=== PATIENT | male | born 1995 | race Caucasian/White ===

== ENCOUNTER → 2016-12-19 | Outpatient (CLI) | payer BC, OTHER ==
[2016-12-19 11:08] LABS: Basophils % (A) 0 %; CH 29.7; CHCM 34.1; Eosinophils % (A) 1 %; HCT 40.6 % (39.0-53.0); HDW 2.48; HGB 13.4 gm/dL (13.0-17.5); Luc # (Auto) 0.11; Luc % (Auto) 2; Lymphocytes # (A) 1.1 k/uL (1.0-4.8); Lymphocytes % (A) 21 %; MCH 28.8 pg (25.0-35.0); MCV 87.3 fL (80.0-100.0); Mean Platelet Volume 8.6; Monocytes # (A) 0.6 k/uL (0-1.0); Monocytes % (A) 11 %; Neutrophils # (A) 3.4 k/uL (1.3-7.7); Neutrophils % (A) 65 %; RBC 4.65 m/uL (4.30-5.90); RDW 13.4 % (11.5-15.5); WBC 5.2 k/uL (3.8-10.6); WBC (Perox) 5.17
[2016-12-26 07:45] LABS: Mis test requested (Blood) Lacosamide Level
== END ==
LOC: LABWHC1 10:48
PROVIDERS: ATTEND Psychiatry & Neurology Neurology
DX: G40.209 Localization-related (focal) (partial) symptomatic epilepsy and epileptic syndromes with complex partial seizures, not intractable, without status epilepticus (principal)
CPT/HCPCS: 36415; 80164; 80183; 80339; 84295; 84450; 84460; 85025

== ENCOUNTER → 2017-04-24 | Outpatient (CLI) | payer BC, OTHER ==
[2017-04-24 10:46] LABS: Basophils % (A) 1 %; CHCM 35.1; Eosinophils # (A) 0.1 k/uL (0-0.7); Eosinophils % (A) 2 %; HCT 38.6 % (39.0-53.0); HDW 2.57; HGB 13.6 gm/dL (13.0-17.5); Luc # (Auto) 0.14; Luc % (Auto) 4; Lymphocytes # (A) 1.1 k/uL (1.0-4.8); Lymphocytes % (A) 27 %; MCH 30.2 pg (25.0-35.0); MCHC 35.3 g/dL (31.0-37.0); MCV 85.6 fL (80.0-100.0); Mean Platelet Volume 8.5; Monocytes # (A) 0.4 k/uL (0-1.0); Monocytes % (A) 11 %; Neutrophils # (A) 2.2 k/uL (1.3-7.7); Neutrophils % (A) 56 %; RBC 4.51 m/uL (4.30-5.90); RDW 13.4 % (11.5-15.5)
== END | disposition home or self-care (01) ==
LOC: LABWHC1 10:03
PROVIDERS: ATTEND Psychiatry & Neurology Neurology
DX: G40.209 Localization-related (focal) (partial) symptomatic epilepsy and epileptic syndromes with complex partial seizures, not intractable, without status epilepticus (principal)
CPT/HCPCS: 36415; 80164; 80339; 84450; 84460; 85025

== ENCOUNTER → 2017-08-07 | Outpatient (CLI) | payer BC, OTHER ==
[2017-08-07 11:18] LABS: Basophils % (A) 1 %; CH 29.5; Eosinophils # (A) 0.2 k/uL (0-0.7); Eosinophils % (A) 5 %; HCT 37.3 % (39.0-53.0); HDW 2.44; Luc % (Auto) 2; Lymphocytes % (A) 24 %; MCH 28.9 pg (25.0-35.0); MCHC 32.3 g/dL (31.0-37.0); MCV 89.6 fL (80.0-100.0); Mean Platelet Volume 8.4; Monocytes # (A) 0.3 k/uL (0-1.0); Monocytes % (A) 7 %; Neutrophils # (A) 2.6 k/uL (1.3-7.7); Neutrophils % (A) 61 %; RBC 4.16 m/uL (4.30-5.90); RDW 13.4 % (11.5-15.5); WBC 4.2 k/uL (3.8-10.6)
== END | disposition home or self-care (01) ==
LOC: LABWHC1 10:23
PROVIDERS: ATTEND Psychiatry & Neurology Neurology
DX: G40.209 Localization-related (focal) (partial) symptomatic epilepsy and epileptic syndromes with complex partial seizures, not intractable, without status epilepticus (principal)
CPT/HCPCS: 36415; 80164; 80183; 84295; 84450; 84460; 85025

== ENCOUNTER 2017-08-14 12:14 | Emergency (ER) | payer BC, OTHER ==
--- NOTE | 2017-08-14 12:56 | ED ---
Head Injury HPI - General Chief complaint: Head Injury Stated complaint: Seizure/Fall Time Seen by Provider: 08/14/17 12:28 Source: RN notes reviewed, Caregiver Mode of arrival: ambulatory Limitations: physical limitation - History of Present Illness Initial comments: This is a 21-year-old male with a history of seizures who presents to the emergency department for evaluation of head injury following partial seizure. Patient is autistic and is accompanied by his machine worker at the [facility]. Housing Installer states that patient has a history of seizures and has one every 1-2 months. At approximately 1155 this morning patient was alone in the bathroom. They heard him fall down and when they got to the bathroom he was lying down on his right side. At that point he was awake with mild shaking and in post-ictal period. States he did not lose consciousness. They said his name and he immediately opened his eyes. He had a large "goose egg" above left eyebrow. Presented to the emergency department for evaluation of the head injury. The fall was not witnessed but machine worker believes that he may have hit his head on the tile floor. Denies any other injury or trauma. Denies any other symptoms of concertn. - Related Data Home Medications Medication Instructions Recorded Confirmed Albuterol Sulfate (Bottle) 1 inhalation INHALATION QID PRN 03/06/15 03/28/15 [Ventolin] Albuterol Sulfate [Proair Hfa] 2 puff INHALATION Q6H PRN 03/06/15 03/28/15 Beclomethasone Dipropionate [Qvar 2 puff INHALATION BID 03/06/15 03/28/15 80 mcg/puff] Benztropine Mesylate [Cogentin] 1 tab PO BID 03/06/15 03/28/15 Cetirizine HCl [Zyrtec] 1 tab PO DAILY 03/06/15 03/28/15 Haloperidol [Haldol] 1 tab PO BID 03/06/15 03/28/15 Montelukast [Singulair] 1 tab PO DAILY 03/06/15 03/28/15 Multivitamin [Men's Multi-Vitamin] 1 tab PO DAILY 03/06/15 03/28/15 OLANZapine [ZyPREXA] 1 tab PO HS 03/06/15 03/28/15 OXcarbazepine [Trileptal] 1 tab PO BID 03/06/15 03/28/15 cloNIDine HCL [Catapres] 1 tab PO TID 03/06/15 03/28/15 Cholecalciferol [Vitamin D3] 2 tab PO DAILY 03/28/15 03/28/15 Allergies/Adverse reactions: Allergies Allergy/AdvReac Type Severity Reaction Status Date / Time fluoxetine [From Prozac] Allergy Unknown Verified 08/14/17 12:23 Review of Systems ROS Statement: Those systems with pertinent positive or pertinent negative responses have been documented in the HPI. ROS Other: All systems not noted in ROS Statement are negative. Past Medical History Past Medical History: Asthma, Seizure Disorder Additional Past Medical History / Comment(s): Autism History of Any Multi-Drug Resistant Organisms: None Reported Past Surgical History: No Surgical Hx Reported Additional Past Surgical History / Comment(s): pt can be violent at times is why he is in [facility] per mom, being treated, Autism/behavior/violent [facility] Past Psychological History: No Psychological Hx Reported Smoking Status: Never smoker Past Alcohol Use History: None Reported Past Drug Use History: None Reported General Exam - General Exam Comments Initial Comments: General: Awake and alert, well-developed; in no apparent distress. Appears tired. Difficult to fully assess patient as he is autistic and does not speak. HEENT: Head normocephalic. There is a large approximately 5.0 cm in diameter localized swelling and contusion above left eyebrow. Overlying abrasion with bleeding controlled. Pupils are equal, round and reactive to light. Extraocular movements intact. Oropharynx moist without erythema or exudate. Mild bruising on tip of tongue without any open wounds. Neck: Supple. Normal ROM. Cardiovascular: Regular rate and rhythm. No murmurs, rubs or gallops. Chest symmetrical. Respiratory: Lungs clear to auscultation bilaterally. No wheezes, rales or rhonchi. Normal respiratory effort with no use of accessory muscles. Skin: [place], warm and dry without rashes. Limitations: physical limitation Course Vital Signs 08/14/17 12:19 Temperature 97.8 F Pulse Rate 85 Respiratory 20 Rate Blood Pressure 119/60 O2 Sat by Pulse 98 Oximetry Medical Decision Making - Medical Decision Making This is a 21-year-old male who presents for evaluation of head injury post seizure. Patient has a history of partial seizures. He lives in a [facility]ci and is accompanied to the emergency department with a machine worker. Patient had an unwitnessed partial seizure this morning in the bathroom and hit the frontal region of his head. There is localized swelling in the left frontal region. Denies any loss of consciousness or changes in behavior. Patient is tired but machine worker states this is normal for him after having a seizure. Computed tomography scan of the brain revealed no acute intracranial processes. Patient will be discharged back to the fci with recommendation to ice the area and to monitor for any signs of brain trauma. Housing Installer is in agreement with the plan and voices understanding. All questions were answered. - Radiology Data Radiology results: report reviewed Brain CT impressions: 1. No acute intracranial process. 2. Superficial soft tissue swelling left frontal region. Disposition Clinical Impression: Forehead contusion Disposition: HOME SELF-CARE Condition: Good Instructions: Head Injury (ED), Facial Contusion (ED) Additional Instructions: Please apply ice to the area of swelling. Please monitor for any signs of brain trauma such as loss of consciousness, changes in behavior, episodes of vomiting or difficulty arouse while sleeping. Please follow up with primary care provider within 1-2 days. Return to emergency department if symptoms should worsen or any concerns arise. Referrals: Bandar Hanna DO [Primary Care Provider] - 1-2 days Time of Disposition: 13:31
--- NOTE | 2017-08-14 13:07 | CT ---
EXAMINATION TYPE: CT brain wo con DATE OF EXAM: 08/14/2017 COMPARISON: 03/06/2015 INDICATION: Seizure/Fall DLP: 1017.9 mGycm, Automated exposure control for dose reduction was used. CONTRAST: None CT of the brain is performed utilizing 3 mm thick sections through the posterior fossa and 3 mm thick sections through the remaining calvarium. Study is performed within 24 hours of arrival to the hosp [facility]. No abnormal hyperdensity is present to suggest an acute intracranial hemorrhage. No mass lesion is evident. No acute infarcts are evident. Ventricles and sulci are appropriate for the patient age. Paranasal sinuses and mastoid air cells within the [id number] are clear. There is soft tissue swelling over the left supraorbital region. IMPRESSIONS: 1. No acute intracranial process. 2. Superficial soft tissue swelling left frontal region
[2017-08-14 13:36] VITALS: BP 108/60; PULSE 63; RESP 18; TEMP 98
== END 2017-08-14 14:01 | disposition home or self-care (01) ==
LOC: EC 12:14
DX: S00.83XA Contusion of other part of head, initial encounter (principal); J45.909 Unspecified asthma, uncomplicated; G40.909 Epilepsy, unspecified, not intractable, without status epilepticus; F84.0 Autistic disorder; Z79.51 Long term (current) use of inhaled steroids; Z79.899 Other long term (current) drug therapy; Z88.8 Allergy status to other drugs, medicaments and biological substances; W18.00XA Striking against unspecified object with subsequent fall, initial encounter; Y92.002 Bathroom of unspecified non-institutional (private) residence as the place of occurrence of the external cause
CPT/HCPCS: 70450; 99283

== ENCOUNTER → 2017-10-05 | Outpatient (CLI) | payer BC, OTHER ==
[2017-10-05 09:40] LABS: Basophils % (A) 0 %; Eosinophils % (A) 1 %; HCT 37.4 % (39.0-53.0); HGB 12.3 gm/dL (13.0-17.5); Lymphocytes # (A) 1.1 k/uL (1.0-4.8); Lymphocytes % (A) 38 %; MCH 28.8 pg (25.0-35.0); MCHC 32.8 g/dL (31.0-37.0); MCV 87.8 fL (80.0-100.0); Mean Platelet Volume 8.5; Monocytes # (A) 0.2 k/uL (0-1.0); Monocytes % (A) 7 %; Neutrophils # (A) 1.5 k/uL (1.3-7.7); Neutrophils % (A) 51 %; Platelet Count 208 k/uL (150-450); RBC 4.26 m/uL (4.30-5.90); RDW 14.3 % (11.5-15.5); WBC 2.9 k/uL (3.8-10.6)
[2017-10-05 10:18] LABS: Valproic Acid (Depakene) 63.6 ug/mL
== END | disposition home or self-care (01) ==
LOC: LABWHC1 09:10
PROVIDERS: ATTEND Psychiatry & Neurology Neurology
DX: G40.209 Localization-related (focal) (partial) symptomatic epilepsy and epileptic syndromes with complex partial seizures, not intractable, without status epilepticus (principal)
CPT/HCPCS: 36415; 80164; 80339; 84295; 84460; 85025

== ENCOUNTER → 2017-10-30 | Outpatient (CLI) | payer BC, OTHER ==
[2017-10-30 10:35] LABS: ALT 25 U/L (21-72); AST 17 U/L (17-59); Albumin 4.6 g/dL (3.5-5.0); Alkaline Phosphatase 64 U/L (38-126); Anion Gap 14 mmol/L; Blood Urea Nitrogen 4 mg/dL (9-20); Calcium 9.8 mg/dL (8.4-10.2); Carbon Dioxide 24 mmol/L (22-30); Chloride 96 mmol/L (98-107); Glucose 83 mg/dL (74-99); Potassium 4.5 mmol/L (3.5-5.1); Sodium 134 mmol/L (137-145); Total Bilirubin 0.3 mg/dL (0.2-1.3); Total Protein 7.4 g/dL (6.3-8.2)
[2017-10-30 10:49] LABS: T4, Free (Free Thyroxine) 0.69 ng/dL (0.78-2.19)
[2017-10-30 11:22] LABS: Basophils % (A) 0 %; Eosinophils # (A) 0.1 k/uL (0-0.7); Eosinophils % (A) 3 %; HCT 37.7 % (39.0-53.0); HGB 12.2 gm/dL (13.0-17.5); Lymphocytes # (A) 0.9 k/uL (1.0-4.8); Lymphocytes % (A) 35 %; MCH 28.8 pg (25.0-35.0); MCHC 32.2 g/dL (31.0-37.0); MCV 89.4 fL (80.0-100.0); Mean Platelet Volume 7.8; Monocytes # (A) 0.2 k/uL (0-1.0); Monocytes % (A) 9 %; Neutrophils # (A) 1.3 k/uL (1.3-7.7); Neutrophils % (A) 50 %; Platelet Count 206 k/uL (150-450); RBC 4.22 m/uL (4.30-5.90); RDW 13.4 % (11.5-15.5); WBC 2.6 k/uL (3.8-10.6)
[2017-10-30 15:23] LABS: Iron Saturation 17.11 (15.00-50.00)
[2017-10-30 15:30] LABS: Vitamin D 25 Hydroxy 33.1 ng/mL (30.0-100.0)
[2017-10-30 15:48] LABS: Folate, Serum 14.1 ng/mL
[2017-10-31 16:10] LABS: Valproic Acid (Depakene) 80.3 ug/mL
== END | disposition home or self-care (01) ==
LOC: LABWHC1 09:53
PROVIDERS: ATTEND Psychiatry & Neurology Neurology
DX: E87.1 Hypo-osmolality and hyponatremia (principal); G40.209 Localization-related (focal) (partial) symptomatic epilepsy and epileptic syndromes with complex partial seizures, not intractable, without status epilepticus; R79.89 Other specified abnormal findings of blood chemistry; I10 Essential (primary) hypertension; R80.9 Proteinuria, unspecified; J45.909 Unspecified asthma, uncomplicated; R56.9 Unspecified convulsions; F84.0 Autistic disorder
CPT/HCPCS: 36415; 80053; 80164; 82306; 82607; 82746; 83540; 83550; 84439; 84443; 85025

== ENCOUNTER 2017-11-15 13:11 | Inpatient (IN) | payer BC, OTHER ==
[2017-11-15] MEDS ORDERED: SODIUM CHLORIDE 0.9% 1,000 ML IV ONE (13:50)
--- NOTE | 2017-11-15 14:32 | ED ---
General Adult HPI - General Chief complaint: Recheck/Abnormal Lab/Rx Stated complaint: Shaky, disoriented Time Seen by Provider: 11/15/17 13:40 Source: patient, family, RN notes reviewed, Caregiver Mode of arrival: wheelchair Limitations: altered mental status, physical limitation - History of Present Illness Initial comments: 22-year-old male presents emergency Department with family/caregiver for evaluation of altered mental status, shaking episodes. They state her last few days he is noted to have increased cough congestion and change in his normal behavior. They state that is very fatigued was also disorientated. They also noticed that his been shaking which is primarily worsened today he was unable to hold any food or drink because he was so shaky. He does have a history of seizures. Patient had a recent change of his medication in which she had an increase of his Depakote and decrease in Trileptal secondary to abnormal lab work. Patient had no reported fever he does have a cough and some phlegm days having difficulty coughing up. He did have a episodes of vomiting a few days ago when nothing recent denies any diarrhea - Related Data Home Medications Medication Instructions Recorded Confirmed Albuterol Sulfate [Proair Hfa] 2 puff INHALATION RT-Q6H PRN 03/06/15 11/15/17 Beclomethasone Dipropionate [Qvar 2 puff INHALATION RT-BID 03/06/15 11/15/17 80 mcg/puff] Benztropine Mesylate [Cogentin] 1 mg PO BID 03/06/15 11/15/17 Cetirizine HCl [Zyrtec] 10 mg PO DAILY PRN 03/06/15 11/15/17 Haloperidol [Haldol] 4 mg PO HS 03/06/15 11/15/17 Montelukast [Singulair] 10 mg PO HS 03/06/15 11/15/17 Multivitamin [Men's Multi-Vitamin] 1 tab PO DAILY 03/06/15 11/15/17 cloNIDine HCL [Catapres] 0.1 mg PO TID 03/06/15 11/15/17 Cholecalciferol [Vitamin D3] 1,000 unit PO DAILY 08/14/17 11/15/17 Diastat 10 mg RECTAL ONCE PRN 08/14/17 11/15/17 Divalproex ER [Depakote ER] 1,000 mg PO BID 08/14/17 11/15/17 Ibuprofen [Motrin] 400 mg PO Q6HR PRN 08/14/17 11/15/17 Lacosamide [Vimpat] 200 mg PO BID 08/14/17 11/15/17 OLANZapine [ZyPREXA] 10 mg PO HS 08/14/17 11/15/17 OXcarbazepine [Trileptal] 750 mg PO DAILY 08/14/17 11/15/17 Clonazepam 1mg Odt 2 tab SUBLINGUAL DAILY PRN 11/15/17 11/15/17 Divalproex ER [Depakote ER] 500 mg PO HS 11/15/17 11/15/17 OXcarbazepine [Trileptal] 600 mg PO HS 11/15/17 11/15/17 Pseudoephedrine HCl [Sudogest] 30 mg PO Q6HR PRN 11/15/17 11/15/17 guaiFENesin-DM 100-10MG/5ML 10 ml PO BID PRN 11/15/17 11/15/17 [Robitussin DM] Allergies Allergy/AdvReac Type Severity Reaction Status Date / Time fluoxetine [From Prozac] Allergy Unknown Verified 11/15/17 13:46 peanut Allergy Unknown Verified 11/15/17 13:46 Review of Systems ROS Statement: Those systems with pertinent positive or pertinent negative responses have been documented in the HPI. ROS Other: All systems not noted in ROS Statement are negative. Past Medical History Past Medical History: Asthma, Seizure Disorder Additional Past Medical History / Comment(s): Autism(can become violent at times -thats why he is in a [facility] mon thru monday and home on weekend) .being tx for autism/behavior/violent episodes-has a [facility] worker that comes to the [facility]. also sees dr kong and dr kimble. History of Any Multi-Drug Resistant Organisms: MRSA Date of last positivie culture/infection: 2006 MDRO Source:: boils on rt hip Past Surgical History: No Surgical Hx Reported Additional Past Surgical History / Comment(s): pt can be violent at times is why he is in [facility] per mom, being treated, Autism/behavior/violent H Past Anesthesia/Blood Transfusion Reactions: No Reported Reaction Additional Past Anesthesia/Blood Transfusion Reaction / Comment(s): per mom-pt never had any sx. Past Psychological History: No Psychological Hx Reported Smoking Status: Never smoker Past Alcohol Use History: None Reported Past Drug Use History: None Reported - Past Family History Father Family Medical History: Hypertension Additional Family Medical History / Comment(s): depression Mother Family Medical History: Diabetes Mellitus, Hypertension, Thyroid Disorder Additional Family Medical History / Comment(s): depression General Exam Limitations: altered mental status, physical limitation General appearance: alert, in no apparent distress Head exam: Present: atraumatic, normocephalic, normal inspection Eye exam: Present: normal appearance, PERRL, EOMI. Absent: scleral icterus, conjunctival injection, periorbital swelling ENT exam: Present: normal exam, normal oropharynx, mucous membranes moist, TM's normal bilaterally, normal external ear exam Neck exam: Present: normal inspection, full ROM. Absent: tenderness, meningismus, lymphadenopathy Respiratory exam: Present: normal lung sounds bilaterally. Absent: respiratory distress, wheezes, rales, rhonchi, stridor Cardiovascular Exam: Present: regular rate, normal rhythm, normal heart sounds. Absent: systolic murmur, diastolic murmur, rubs, gallop, clicks GI/Abdominal exam: Present: soft, normal bowel sounds. Absent: distended, tenderness, guarding, rebound, rigid Neurological exam: Present: alert, CN II-XII intact. Absent: oriented X3 Skin exam: Present: warm, dry, intact, normal color. Absent: rash Course Vital Signs 11/15/17 13:20 Temperature 98.7 F Pulse Rate 100 Respiratory 20 Rate Blood Pressure 115/58 O2 Sat by Pulse 99 Oximetry Medical Decision Making - Medical Decision Making 22-year-old male presented for altered mental status, cough congestion. Patient was found to have hyperammonieminia and elevated valproic acid level. Patient will be admitted to the hospital for IV hydration, lactulose and Tamiflu. Patient is also influenza be positive. - Lab Data Result diagrams: 11/15/17 14:26 11/15/17 14:26 Lab Results 11/15/17 11/15/17 11/15/17 Range/Units 14:22 14:26 14:26 WBC (3.8-10.6) k/uL RBC (4.30-5.90) m/uL Hgb (13.0-17.5) gm/dL Hct (39.0-53.0) % MCV (80.0-100.0) fL MCH (25.0-35.0) pg MCHC (31.0-37.0) g/dL RDW (11.5-15.5) % Plt Count (150-450) k/uL Neutrophils % % Lymphocytes % % Monocytes % % Eosinophils % % Basophils % % Neutrophils # (1.3-7.7) k/uL Lymphocytes # (1.0-4.8) k/uL Monocytes # (0-1.0) k/uL Eosinophils # (0-0.7) k/uL Basophils # (0-0.2) k/uL PT (9.0-12.0) sec INR (<1.2) APTT (22.0-30.0) sec Sodium (137-145) mmol/L Potassium (3.5-5.1) mmol/L Chloride (98-107) mmol/L Carbon Dioxide (22-30) mmol/L Anion Gap mmol/L BUN (9-20) mg/dL Creatinine (0.66-1.25) mg/dL Est GFR (MDRD) Af Amer (>60 ml/min/1.73 sqM) Est GFR (MDRD) Non-Af (>60 ml/min/1.73 sqM) Glucose (74-99) mg/dL POC Glucose (mg/dL) (75-99) mg/dL POC Glu Synthetic Chemist ID Plasma Lactic Acid Joao 1.7 (0.7-2.0) mmol/L Calcium (8.4-10.2) mg/dL Total Bilirubin (0.2-1.3) mg/dL AST (17-59) U/L ALT (21-72) U/L Alkaline Phosphatase (38-126) U/L Ammonia 114 H (<30) umol/L Total Creatine Kinase 431 H (55-170) U/L CK-MB (CK-2) 1.1 (0.0-2.4) ng/mL CK-MB (CK-2) Rel Index 0.3 Total Protein (6.3-8.2) g/dL Albumin (3.5-5.0) g/dL Valproic Acid ug/mL Influenza Type A RNA Not Detected (Not Detectd) Influenza Type B (PCR) Detected H (Not Detectd) 11/15/17 11/15/17 11/15/17 Range/Units 14:26 14:26 14:26 WBC 7.6 (3.8-10.6) k/uL RBC 4.20 L (4.30-5.90) m/uL Hgb 12.1 L (13.0-17.5) gm/dL Hct 36.7 L (39.0-53.0) % MCV 87.6 (80.0-100.0) fL MCH 28.8 (25.0-35.0) pg MCHC 32.9 (31.0-37.0) g/dL RDW 13.7 (11.5-15.5) % Plt Count 137 L (150-450) k/uL Neutrophils % 80 % Lymphocytes % 7 % Monocytes % 12 % Eosinophils % 0 % Basophils % 0 % Neutrophils # 6.0 (1.3-7.7) k/uL Lymphocytes # 0.5 L (1.0-4.8) k/uL Monocytes # 0.9 (0-1.0) k/uL Eosinophils # 0.0 (0-0.7) k/uL Basophils # 0.0 (0-0.2) k/uL PT 10.5 (9.0-12.0) sec INR 1.1 (<1.2) APTT 28.4 (22.0-30.0) sec Sodium 136 L (137-145) mmol/L Potassium 4.0 (3.5-5.1) mmol/L Chloride 99 (98-107) mmol/L Carbon Dioxide 22 (22-30) mmol/L Anion Gap 15 mmol/L BUN 24 H (9-20) mg/dL Creatinine 0.80 (0.66-1.25) mg/dL Est GFR (MDRD) Af Amer >60 (>60 ml/min/1.73 sqM) Est GFR (MDRD) Non-Af >60 (>60 ml/min/1.73 sqM) Glucose 108 H (74-99) mg/dL POC Glucose (mg/dL) (75-99) mg/dL POC Glu Synthetic Chemist ID Plasma Lactic Acid [place] (0.7-2.0) mmol/L Calcium 9.2 (8.4-10.2) mg/dL Total Bilirubin 0.4 (0.2-1.3) mg/dL AST 35 (17-59) U/L ALT 25 (21-72) U/L Alkaline Phosphatase 50 (38-126) U/L Ammonia (<30) umol/L Total Creatine Kinase (55-170) U/L CK-MB (CK-2) (0.0-2.4) ng/mL CK-MB (CK-2) Rel Index Total Protein 6.8 (6.3-8.2) g/dL Albumin 4.0 (3.5-5.0) g/dL Valproic Acid 123.1 H* ug/mL Influenza Type A RNA (Not Detectd) Influenza Type B (PCR) (Not Detectd) 11/15/17 Range/Units 14:34 WBC (3.8-10.6) k/uL RBC (4.30-5.90) m/uL Hgb (13.0-17.5) gm/dL Hct (39.0-53.0) % MCV (80.0-100.0) fL MCH (25.0-35.0) pg MCHC (31.0-37.0) g/dL RDW (11.5-15.5) % Plt Count (150-450) k/uL Neutrophils % % Lymphocytes % % Monocytes % % Eosinophils % % Basophils % % Neutrophils # (1.3-7.7) k/uL Lymphocytes # (1.0-4.8) k/uL Monocytes # (0-1.0) k/uL Eosinophils # (0-0.7) k/uL Basophils # (0-0.2) k/uL PT (9.0-12.0) sec INR (<1.2) APTT (22.0-30.0) sec Sodium (137-145) mmol/L Potassium (3.5-5.1) mmol/L Chloride (98-107) mmol/L Carbon Dioxide (22-30) mmol/L Anion Gap mmol/L BUN (9-20) mg/dL Creatinine (0.66-1.25) mg/dL Est GFR (MDRD) Af Amer (>60 ml/min/1.73 sqM) Est GFR (MDRD) Non-Af (>60 ml/min/1.73 sqM) Glucose (74-99) mg/dL POC Glucose (mg/dL) 105 H (75-99) mg/dL POC Glu Synthetic Chemist ID Jim Villegas Plasma Lactic Acid Joao (0.7-2.0) mmol/L Calcium (8.4-10.2) mg/dL Total Bilirubin (0.2-1.3) mg/dL AST (17-59) U/L ALT (21-72) U/L Alkaline Phosphatase (38-126) U/L Ammonia (<30) umol/L Total Creatine Kinase (55-170) U/L CK-MB (CK-2) (0.0-2.4) ng/mL CK-MB (CK-2) Rel Index Total Protein (6.3-8.2) g/dL Albumin (3.5-5.0) g/dL Valproic Acid ug/mL Influenza Type A RNA (Not Detectd) Influenza Type B (PCR) (Not Detectd) Disposition Clinical Impression: Valproic acid toxicity, Hyperammonemia, Influenza, Altered mental status Disposition: ADMITTED IP TO THIS HOSP Condition: Fair Referrals: Bandar Hanna DO [Primary Care Provider] - 1-2 days
[2017-11-15 14:38] LABS: Glucose,Whole Blood 105 mg/dL (75-99)
[2017-11-15 14:43] LABS: Basophils % (A) 0 %; Eosinophils % (A) 0 %; HCT 36.7 % (39.0-53.0); HGB 12.1 gm/dL (13.0-17.5); Lymphocytes # (A) 0.5 k/uL (1.0-4.8); Lymphocytes % (A) 7 %; MCH 28.8 pg (25.0-35.0); MCHC 32.9 g/dL (31.0-37.0); MCV 87.6 fL (80.0-100.0); Mean Platelet Volume 8.2; Monocytes # (A) 0.9 k/uL (0-1.0); Monocytes % (A) 12 %; Neutrophils % (A) 80 %; Platelet Count 137 k/uL (150-450); RDW 13.7 % (11.5-15.5); WBC 7.6 k/uL (3.8-10.6)
[2017-11-15 14:52] LABS: ALT 25 U/L (21-72); AST 35 U/L (17-59); Alkaline Phosphatase 50 U/L (38-126); Anion Gap 15 mmol/L; Blood Urea Nitrogen 24 mg/dL (9-20); Calcium 9.2 mg/dL (8.4-10.2); Carbon Dioxide 22 mmol/L (22-30); Chloride 99 mmol/L (98-107); Glucose 108 mg/dL (74-99); Sodium 136 mmol/L (137-145); Total Bilirubin 0.4 mg/dL (0.2-1.3); Total Protein 6.8 g/dL (6.3-8.2)
[2017-11-15 14:53] LABS: Lactic Acid, Venous 1.7 mmol/L (0.7-2.0)
--- NOTE | 2017-11-15 14:59 | XR ---
EXAMINATION TYPE: XR chest 2V DATE OF EXAM: 11/15/2017 COMPARISON: Prior chest x-ray 03/06/2015 HISTORY: Altered mental status TECHNIQUE: Frontal and lateral views of the chest are obtained. FINDINGS: Patient is again rotated. Questionable patchy increased density in the right upper lobe. C ardiomediastinal silhouette, pulmonary vascularity and navdeep are stable. No evident airspace disease, pneumothorax, or pleural effusion. Lung volumes are low. IMPRESSION: Rotated expiratory exam, difficult to exclude pneumonia, follow-up as indicated.
--- NOTE | 2017-11-15 15:00 | CT ---
EXAMINATION TYPE: CT brain wo con DATE OF EXAM: 11/15/2017 COMPARISON: 08/07/2017 HISTORY: Disorientation. History of seizures. Are present. CT DLP: 1058 mGycm. Automated Exposure Control for Dose Reduction was Utilized. TECHNIQUE: CT scan of the head is performed without contrast. FINDINGS: There is no acute intracranial hemorrhage, mass effect, or midline shift identified. The ventricles and sulci are within normal limits in size. The globes are intact and. There is no disco njugate gaze. No pituitary mass is seen impressing upon the optic chiasm. There is sulcal prominence compatible with mild cerebral atrophy that is slightly pronounced given the patient's age. Villanueva-white matter is preserved. There is resolution of the previously seen left frontal skull hematoma. IMPRESSION: 1. No acute intracranial process. 2. Mild supratentorial cerebral atrophy given the patient's age. MR could be performed if there is fu rther clinical concern. 3. Resolution of the previously seen left frontal hematoma in the prior exam.
[2017-11-15 15:01] LABS: INR 1.1 (<1.2); Partial Thromboplastin Time 28.4 sec (22.0-30.0); Prothrombin Time 10.5 sec (9.0-12.0)
[2017-11-15 15:11] LABS: Valproic Acid (Depakene) 123.1 ug/mL
[2017-11-15 15:15] LABS: Creatine Kinase MB 1.1 ng/mL (0.0-2.4)
[2017-11-15] MEDS ORDERED: LACTULOSE 20 GM/30 ML CUP PO ONE (15:53)
[2017-11-15] MEDS ORDERED: OSELTAMIVIR 75 MG CAP PO STA (15:54)
[2017-11-15] MEDS ORDERED: NALOXONE 0.4 MG/ML 1 ML VIAL IV PRN ×2 (15:56→17:02)
[2017-11-15 16:06] LABS: Appearance,Urine Clear (Clear); Bilirubin,Urine Negative (Negative); Blood,Urine Negative (Negative); Color,Urine Yellow; Glucose,Urine (UA) Negative (Negative); Ketones,Urine 1+ (Negative); Leukocyte Esterase,Urine Negative (Negative); Protein,Urine Trace (Negative); Specific Gravity,Urine 1.023 (1.001-1.035)
[2017-11-15] MEDS: SODIUM CHLORIDE 0.9% 1,000 ML IV SCH ×2 (16:11→23:33)
[2017-11-15] MEDS ORDERED: ACETAMINOPHEN TAB 325 MG TAB PO STA (16:58)
[2017-11-15] MEDS ORDERED: LEVOCARNITINE IVPB SCH (17:00)
[2017-11-15] MEDS ORDERED: SODIUM CHLORIDE 0.9% IVPB SCH (17:00)
[2017-11-15] MEDS ORDERED: LORazepam 2 MG/ML INJ IV PRN ×2 (17:02→17:06)
[2017-11-15] MEDS ORDERED: ONDANSETRON 4 MG/2 ML VIAL IVP PRN (17:02)
[2017-11-15] MEDS ORDERED: BENZOCAINE/MENTHOL LOZENG 1 EACH LOZENGE MUCOUS MEM PRN (17:02)
[2017-11-15] MEDS ORDERED: CALCIUM CARBONATE 500 MG CHEWABLE PO PRN (17:03)
[2017-11-15] MEDS ORDERED: LORATADINE 10 MG TAB PO PRN (17:06)
[2017-11-15] MEDS ORDERED: BENZONATATE 100 MG CAP PO PRN (17:08)
--- NOTE | 2017-11-15 17:25 | P.HPIM ---
History of Present Illness H&P Date: 11/15/17 Chief Complaint: altered mentation Patient is a 22-year-old male past medical history of autism with developmental delay, seizure disorder, and asthma who presented to the ER with lethargy. In the emergency department he underwent an extensive evaluation. His initial vital signs are found within normal limits. Initial laboratory analysis showed an elevated ammonia level CXIV, elevated valproic acid level of 123, slightly low platelets and slightly low hemoglobin. Chest x-ray was negative. CT of the head showed no acute process. Nasal swab was positive for influenza B. He was started on IV fluids, given a dose of lactulose, and started on Tamiflu. Arrangements were made for admission. Patient seen and examined at bedside in the emergency department. Mom and alf workers were present at bedside. Patient was lethargic and would open eyes and intermittently but does not answer questions. History obtained via family and alf workers present. They first noticed the change of behavior 2 days ago when he had increased head shaking, tremors, and lethargy. They also noticed a slight cough developing. Yesterday he was noted to have increase cough and runny nose. They were concerned he had a cold. He was also noted to be sleeping more often than usual. Today at lunch the alf became very concerned as he had a decreased appetite and was refusing to eat. They also noted increase in his tremors in his eye deviating to the left. He was not acting as himself. He was unable to walk without assistance which is unusual for him. They also noted full body intermittent twitching. The only medication he has had adjusted recently was his Depakote increased by 500 mg daily and his Trileptal decreased approximately one month ago. This is because he was having a sodium imbalance and was done at Dr. Villavicencio office. He had vomiting once a couple of days ago. They have not noted any wheezing. They have noted no diarrhea or change in urination. He also has a history of toxicity to phenytoin. Which was started due to brakes should through seizures in July 2017 and has been off of this medication since July 2017. He has also had a poor reaction to Prozac in the past with a highly toxic level. With his autism he is very sensitive to sensory changes. His family or alf providers will be with him 24 hours a day during hospitalization. Review of Systems Unable to obtain secondary to mental status, as able to obtain from family members and caregivers is listed in HPI. Past Medical History Past Medical History: Asthma, Seizure Disorder Additional Past Medical History / Comment(s): Autism(can become violent at times -thats why he is in a alf monu monday and home on weekend) .being tx for autism/behavior/violent episodes-has a h worker that comes to the alf. also sees dr kong and dr villavicencio. History of Any Multi-Drug Resistant Organisms: MRSA Date of last positivie culture/infection: 2006 MDRO Source:: boils on rt hip Past Surgical History: No Surgical Hx Reported Past Anesthesia/Blood Transfusion Reactions: No Reported Reaction Additional Past Anesthesia/Blood Transfusion Reaction / Comment(s): per mom-pt never had any sx. Past Psychological History: No Psychological Hx Reported Smoking Status: Never smoker Past Alcohol Use History: None Reported Past Drug Use History: None Reported Additional History: He is at a alf Monday through Monday and comes home with his mother on the s-he is at a alf due to prior violent behaviors, being treated, Autism/behavior/violent H - Past Family History Father Family Medical History: Diabetes Mellitus, Hyperlipidemia, Hypertension Additional Family Medical History / Comment(s): depression. Paternal grandmother with myocardial infarction. Maternal grandfather with congestive heart failure Mother Family Medical History: Diabetes Mellitus, Hyperlipidemia, Hypertension, Thyroid Disorder Additional Family Medical History / Comment(s): depression Medications and Allergies Home Medications Medication Instructions Recorded Confirmed Type Albuterol Sulfate [Proair Hfa] 2 puff INHALATION RT-Q6H PRN 03/06/15 11/15/17 History Beclomethasone Dipropionate [Qvar 2 puff INHALATION RT-BID 03/06/15 11/15/17 History 80 mcg/puff] Benztropine Mesylate [Cogentin] 1 mg PO BID 03/06/15 11/15/17 History Cetirizine HCl [Zyrtec] 10 mg PO DAILY PRN 03/06/15 11/15/17 History Haloperidol [Haldol] 4 mg PO HS 03/06/15 11/15/17 History Montelukast [Singulair] 10 mg PO HS 03/06/15 11/15/17 History Multivitamin [Men's Multi-Vitamin] 1 tab PO DAILY 03/06/15 11/15/17 History cloNIDine HCL [Catapres] 0.1 mg PO TID 03/06/15 11/15/17 History Cholecalciferol [Vitamin D3] 1,000 unit PO DAILY 08/14/17 11/15/17 History Diastat 10 mg RECTAL ONCE PRN 08/14/17 11/15/17 History Divalproex ER [Depakote ER] 1,000 mg PO BID 08/14/17 11/15/17 History Ibuprofen [Motrin] 400 mg PO Q6HR PRN 08/14/17 11/15/17 History Lacosamide [Vimpat] 200 mg PO BID 08/14/17 11/15/17 History OLANZapine [ZyPREXA] 10 mg PO HS 08/14/17 11/15/17 History OXcarbazepine [Trileptal] 750 mg PO DAILY 08/14/17 11/15/17 History Clonazepam 1mg Odt 2 tab SUBLINGUAL DAILY PRN 11/15/17 11/15/17 History Divalproex ER [Depakote ER] 500 mg PO HS 11/15/17 11/15/17 History OXcarbazepine [Trileptal] 600 mg PO HS 11/15/17 11/15/17 History Pseudoephedrine HCl [Sudogest] 30 mg PO Q6HR PRN 11/15/17 11/15/17 History guaiFENesin-DM 100-10MG/5ML 10 ml PO BID PRN 11/15/17 11/15/17 History [Robitussin DM] Allergies Allergy/AdvReac Type Severity Reaction Status Date / Time fluoxetine [From Prozac] Allergy Unknown Verified 11/15/17 13:46 peanut Allergy Unknown Verified 11/15/17 13:46 Physical Exam Osteopathic Statement: *. No significant issues noted on an osteopathic structural exam other than those noted in the History and Physical/Consult. Vitals: Vital Signs Temp Pulse Resp BP Pulse Ox 11/15/17 16:44 100.0 F H 88 16 136/76 99 11/15/17 15:23 88 20 131/65 99 11/15/17 13:20 98.7 F 100 20 115/58 99 Intake and Output 11/15/17 11/15/1711/15/18 06:59 14:59 22:59 Other: Weight 95.254 kg Patient Weight 11/16/17 06:59 Weight 95.254 kg General: ill appearing, mild distress, appears at stated age, Obese Derm: no unusual rashes/lesions no unusual ecchymoses, warm, dry Head: atraumatic, normocephalic, symmetric Eyes: EOMI, no lid lag, anicteric sclera, pupils equal round reactive to light ENT: Nose and ears atraumatic, no thrush, no pharyngeal erythema Neck: No thyromegaly, no cervical lymphadenopathy, trachea midline, supple Mouth: no lip lesion, mucus membranes moist Cardiovascular: S1S2 reg, no murmur, positive posterior tibial pulse bilateral, no edema, capillary refill less than 2 seconds Lungs: decreased bs b/l bases, no rhonchi, no rales , no accessory muscle use Abdominal: soft, nontender to palpation, no guarding, no appreciable organomegaly, normal bowel sounds Ext: + gross muscle atrophy right hand, muscle strength 3 out of 5 in upper extremities grossly, will not follow commands in lower extremites, no contractures Neuro: CN II-XI grossly intact, light touch intact all 4 extremities, finger to nose within normal limits, Psych: Alert, flat affect, lethargic Results CBC & Chem 7: 11/15/17 14:26 11/15/17 14:26 Labs: Abnormal Lab Results - Last 24 Hours (Table) 11/15/17 11/15/17 11/15/17 Range/Units 14:22 14:26 14:26 RBC (4.30-5.90) m/uL Hgb (13.0-17.5) gm/dL Hct (39.0-53.0) % Plt Count (150-450) k/uL Lymphocytes # (1.0-4.8) k/uL Sodium (137-145) mmol/L BUN (9-20) mg/dL Glucose (74-99) mg/dL POC Glucose (mg/dL) (75-99) mg/dL Ammonia 114 H (<30) umol/L Total Creatine Kinase 431 H (55-170) U/L Urine Protein (Negative) Urine Ketones (Negative) Valproic Acid ug/mL Influenza Type B (PCR) Detected H (Not Detectd) 11/15/17 11/15/17 11/15/17 Range/Units 14:26 14:26 14:34 RBC 4.20 L (4.30-5.90) m/uL Hgb 12.1 L (13.0-17.5) gm/dL Hct 36.7 L (39.0-53.0) % Plt Count 137 L (150-450) k/uL Lymphocytes # 0.5 L (1.0-4.8) k/uL Sodium 136 L (137-145) mmol/L BUN 24 H (9-20) mg/dL Glucose 108 H (74-99) mg/dL POC Glucose (mg/dL) 105 H (75-99) mg/dL Ammonia (<30) umol/L Total Creatine Kinase (55-170) U/L Urine Protein (Negative) Urine Ketones (Negative) Valproic Acid 123.1 H* ug/mL Influenza Type B (PCR) (Not Detectd) 11/15/17 Range/Units 16:00 RBC (4.30-5.90) m/uL Hgb (13.0-17.5) gm/dL Hct (39.0-53.0) % Plt Count (150-450) k/uL Lymphocytes # (1.0-4.8) k/uL Sodium (137-145) mmol/L BUN (9-20) mg/dL Glucose (74-99) mg/dL POC Glucose (mg/dL) (75-99) mg/dL Ammonia (<30) umol/L Total Creatine Kinase (55-170) U/L Urine Protein Trace H (Negative) Urine Ketones 1+ H (Negative) Valproic Acid ug/mL Influenza Type B (PCR) (Not Detectd) Chest x-ray: report reviewed, image reviewed CT Scan - head: report reviewed Thrombosis Risk Factor Assmnt - DVT/VTE Prophylaxis DVT/VTE Prophylaxis: Pharmacologic Prophylaxis ordered Assessment and Plan Assessment: Supratherapeutic valproic acid level with history of seizure disorder -Discussed with poison control -Levocarnitine ordered at 100 mg/kg every 6 hours with a max dose of 3 g per dose -IV fluid resuscitation -No indication for activated charcoal -They typically repeat lab every 8 hours but due to patient's stability and autism will repeat level in a.m. -Neuro checks -Seizure precautions -Ativan as it for seizures -Continue with Trileptal and Vimpat -Consult neurology Elevated ammonia level due to above -Lactulose every 8 hours -Repeat lab in a.m. Toxic metabolic encephalopathy, due to above -Safe and supportive environment Influenza B -IV fluids -Tamiflu -Did discuss with alf the fact that other members may need to be treated for flu exposure and that they should contact other members primary care physicians to determine need, also discussed with mother Autism with behavioral disturbances -Continue with Cogentin, Catapres, Haldol, and Zyprexa Asthma without acute exacerbation -Continue with Singulair, Qvar -When necessary albuterol Anemia, chronic - at baseline - follow intermittent CBC Thrombocytopenia - likely reactive and secondary to toxicity - follow CBC Dehydration - IVF - repeat BMP in AM Surrogate decision-maker: Mother- Sakshi DVT prophylaxis: Lovenox Discussed with: Patient, family, alf, nursing, ED physician, poison control Anticipated discharge: 48-[address]: Return to alf A total of 75 minutes was spent on the care of this complex patient more than 50 % of the time was spent in counseling and care coordination.
[2017-11-15] MEDS: BUDESONIDE 1 MG/2 ML NEBU INHALATION SCH (21:02)
[2017-11-15] MEDS: ALBUTEROL NEBULIZED 2.5 MG/3 ML INHALATION PRN (21:03)
[2017-11-15] MEDS: LACOSAMIDE 50 MG TABLET PO SCH (21:54)
[2017-11-15] MEDS: HALOPERIDOL 2 MG TAB PO SCH (21:54)
[2017-11-15] MEDS: BENZTROPINE MESYLATE 1 MG TAB PO SCH (21:56)
[2017-11-15] MEDS: OXcarbazepine 300 MG TAB PO SCH (21:56)
[2017-11-15] MEDS: cloNIDine HCL 0.1 MG TAB PO SCH (21:56)
[2017-11-15] MEDS: MONTELUKAST 10 MG TAB PO SCH (21:56)
[2017-11-15] MEDS: OLANZapine 10 MG TAB PO SCH (21:57)
[2017-11-15] MEDS: LACTULOSE 20 GM/30 ML CUP PO SCH (21:57)
--- NOTE | 2017-11-15 23:32 | P.CNNES ---
History of Present Illness Consult date: 11/15/17 History of Present Illness: The patient is a 22-year-old man with seizure disorder autism cognitive impairment admitted to the hospital with lethargy and weakness. He was found to be positive for influenza. The patient is alert laying in bed talking his parents are at his bedside. They report that he was lethargic today and he has been having some cough and fever started today. He hasn't had any breakthrough seizures but he is had increased tremors. Recently there were changes in his medications with the Depakote being increased and Trileptal reduced because of hyponatremia. Depakote level on admission was not a trough level he had a CT of the head which showed no acute process. He has been started on Tamiflu. Review of Systems ROS unobtainable: due to mental status Past Medical History Past Medical History: Asthma, Seizure Disorder Additional Past Medical History / Comment(s): Autism(can become violent at times -thats why he is in a skilled nursing mon thru monday and home on weekend) .being tx for autism/behavior/violent episodes. pt's mom stated that pt has the mentality of an 8 year old andwhen pt not sick he can pretty much tell you what he needs or wants.abble to read and write some-usually only what he wants to. limited w/ his food likes. he eats kyrgyz fries, [id number] bread, chips, cereal( trix or waffle crisps) History of Any Multi-Drug Resistant Organisms: MRSA Date of last positivie culture/infection: 2006 MDRO Source:: boils on rt hip Past Surgical History: No Surgical Hx Reported Additional Past Surgical History / Comment(s): pt can be violent at times is why he is in skilled nursing per mom, being treated, Autism/behavior/violent [facility] Past Anesthesia/Blood Transfusion Reactions: No Reported Reaction Additional Past Anesthesia/Blood Transfusion Reaction / Comment(s): per mom-pt never had any sx. Smoking Status: Never smoker - Past Family History Father Family Medical History: Diabetes Mellitus, Hyperlipidemia, Hypertension Additional Family Medical History / Comment(s): depression. Paternal grandmother with myocardial infarction. Maternal grandfather with congestive heart failure Mother Family Medical History: Diabetes Mellitus, Hyperlipidemia, Hypertension, Thyroid Disorder Additional Family Medical History / Comment(s): depression Medications and Allergies Home Medications Medication Instructions Recorded Confirmed Type Albuterol Sulfate [Proair Hfa] 2 puff INHALATION RT-Q6H PRN 03/06/15 11/15/17 History Beclomethasone Dipropionate [Qvar 2 puff INHALATION RT-BID 03/06/15 11/15/17 History 80 mcg/puff] Benztropine Mesylate [Cogentin] 1 mg PO BID 03/06/15 11/15/17 History Cetirizine HCl [Zyrtec] 10 mg PO DAILY PRN 03/06/15 11/15/17 History Haloperidol [Haldol] 4 mg PO HS 03/06/15 11/15/17 History Montelukast [Singulair] 10 mg PO HS 03/06/15 11/15/17 History Multivitamin [Men's Multi-Vitamin] 1 tab PO DAILY 03/06/15 11/15/17 History cloNIDine HCL [Catapres] 0.1 mg PO TID 03/06/15 11/15/17 History Cholecalciferol [Vitamin D3] 1,000 unit PO DAILY 08/14/17 11/15/17 History Diastat 10 mg RECTAL ONCE PRN 08/14/17 11/15/17 History Divalproex ER [Depakote ER] 1,000 mg PO BID 08/14/17 11/15/17 History Ibuprofen [Motrin] 400 mg PO Q6HR PRN 08/14/17 11/15/17 History Lacosamide [Vimpat] 200 mg PO BID 08/14/17 11/15/17 History OLANZapine [ZyPREXA] 10 mg PO HS 08/14/17 11/15/17 History OXcarbazepine [Trileptal] 750 mg PO DAILY 08/14/17 11/15/17 History Clonazepam 1mg Odt 2 tab SUBLINGUAL DAILY PRN 11/15/17 11/15/17 History Divalproex ER [Depakote ER] 500 mg PO HS 11/15/17 11/15/17 History OXcarbazepine [Trileptal] 600 mg PO HS 11/15/17 11/15/17 History Pseudoephedrine HCl [Sudogest] 30 mg PO Q6HR PRN 11/15/17 11/15/17 History guaiFENesin-DM 100-10MG/5ML 10 ml PO BID PRN 11/15/17 11/15/17 History [Robitussin DM] Allergies Allergy/AdvReac Type Severity Reaction Status Date / Time fluoxetine [From Prozac] Allergy Unknown Verified 11/15/17 13:46 peanut Allergy Unknown Verified 11/15/17 13:46 Physical Examination - Vital Signs Vital Signs: Vital Signs Temp Pulse Resp BP Pulse Ox 11/15/17 21:19 80 11/15/17 21:04 78 11/15/17 20:12 98.6 F 96 20 127/60 96 11/15/17 18:55 99 F 96 16 132/55 99 11/15/17 18:00 92 20 127/58 96 11/15/17 16:44 100.0 F H 88 16 136/76 99 11/15/17 15:23 88 20 131/65 99 11/15/17 13:20 98.7 F 100 20 115/58 99 Intake and Output 11/15/17 11/15/17 11/16/17 14:59 22:59 06:59 Other: Weight 95.254 kg Patient Weight 11/16/17 06:59 Weight 95.254 kg - Constitutional General appearance: average body habitus - EENT EENT: PERRL, hearing intact, vision intact - Respiratory Respiratory: lungs clear - Cardiovascular Cardiovascular: regular rate - Neurologic He is awake he is able to say some words. He is able to follow simple commands. He has moderate cognitive impairment Cranial nerve examination: EOMI, face symmetric, tongue midline Detailed motor examination: grossly full strength in all extremities Reflexes: 2+: knee - Psychiatric Psychiatric: cooperative Results - Laboratory Findings CBC and BMP: 11/15/17 14:26 11/15/17 14:26 Abnormal Lab Findings: Abnormal Labs 11/15/17 11/15/17 11/15/17 14:22 14:26 14:26 RBC Hgb Hct Plt Count Lymphocytes # Sodium BUN Glucose POC Glucose (mg/dL) Ammonia 114 H Total Creatine Kinase 431 H Urine Protein Urine Ketones Valproic Acid Influenza Type B (PCR) Detected H 11/15/17 11/15/17 11/15/17 14:26 14:26 14:34 RBC 4.20 L Hgb 12.1 L Hct 36.7 L Plt Count 137 L Lymphocytes # 0.5 L Sodium 136 L BUN 24 H Glucose 108 H POC Glucose (mg/dL) 105 H Ammonia Total Creatine Kinase Urine Protein Urine Ketones Valproic Acid 123.1 H* Influenza Type B (PCR) 11/15/17 16:00 RBC Hgb Hct Plt Count Lymphocytes # Sodium BUN Glucose POC Glucose (mg/dL) Ammonia Total Creatine Kinase Urine Protein Trace H Urine Ketones 1+ H Valproic Acid Influenza Type B (PCR) Assessment and Plan (1) Influenza Current Visit: Yes Status: Acute SNOMED Code(s): 8537290 (2) Seizure disorder Current Visit: Yes Status: Chronic SNOMED Code(s): 393865871 Plan: The patient is a 22-year-old man with epilepsy admitted to the hospital with influenza virus. CAT scan of the brain was unremarkable. He has been started on Tamiflu. Depakote level was elevated but it was not a trough level. We will reduce Depakote 2000 g twice a day and repeat levels
[2017-11-16] MEDS: DIVALPROEX ER 500 MG TAB.ER.24H PO SCH ×3 (00:38→21:41)
[2017-11-16] MEDS: SODIUM CHLORIDE 0.9% 1,000 ML IV SCH ×3 (00:39→21:50)
[2017-11-16 06:06] LABS: HCT 32.4 % (39.0-53.0); HGB 10.4 gm/dL (13.0-17.5); MCH 28.8 pg (25.0-35.0); MCHC 32.1 g/dL (31.0-37.0); MCV 89.5 fL (80.0-100.0); Mean Platelet Volume 8.3; Platelet Count 116 k/uL (150-450); RBC 3.62 m/uL (4.30-5.90); RDW 13.5 % (11.5-15.5); WBC 4.6 k/uL (3.8-10.6)
[2017-11-16 06:16] LABS: ALT 26 U/L (21-72); AST 24 U/L (17-59); Albumin 3.4 g/dL (3.5-5.0); Alkaline Phosphatase 39 U/L (38-126); Anion Gap 11 mmol/L; Blood Urea Nitrogen 14 mg/dL (9-20); Calcium 8.4 mg/dL (8.4-10.2); Carbon Dioxide 23 mmol/L (22-30); Chloride 102 mmol/L (98-107); Glucose 116 mg/dL (74-99); Potassium 3.9 mmol/L (3.5-5.1); Sodium 136 mmol/L (137-145); Total Bilirubin 0.1 mg/dL (0.2-1.3); Total Protein 6.1 g/dL (6.3-8.2)
[2017-11-16 06:21] LABS: Valproic Acid (Depakene) 50.6 ug/mL
[2017-11-16] MEDS: BUDESONIDE 1 MG/2 ML NEBU INHALATION SCH ×2 (07:20→20:52)
[2017-11-16] MEDS: ALBUTEROL NEBULIZED 2.5 MG/3 ML INHALATION PRN (07:20)
[2017-11-16] MEDS: cloNIDine HCL 0.1 MG TAB PO SCH ×3 (08:27→20:10)
[2017-11-16] MEDS: OSELTAMIVIR 75 MG CAP PO SCH ×2 (08:27→20:10)
[2017-11-16] MEDS: LACOSAMIDE 50 MG TABLET PO SCH ×2 (08:27→21:40)
[2017-11-16] MEDS: BENZTROPINE MESYLATE 1 MG TAB PO SCH ×2 (08:28→20:08)
[2017-11-16] MEDS: ENOXAPARIN 40 MG/0.4 ML SYRINGE SQ SCH (08:28)
[2017-11-16] MEDS: OXcarbazepine 300 MG TAB PO SCH ×2 (08:28→21:40)
--- NOTE | 2017-11-16 09:38 | P.PN ---
Subjective Progress Note Date: 11/16/17 Principal diagnosis: altered mentation Patient is a 22-year-old male past medical history of autism with developmental delay, seizure disorder, and asthma who presented to the ER with lethargy. In the emergency department he underwent an extensive evaluation. His initial vital signs were found within normal limits. Initial laboratory analysis showed an elevated ammonia level at 114, elevated valproic acid level of 123, slightly low platelets and slightly low hemoglobin. Chest x-ray was negative. CT of the head showed no acute process. Nasal swab was positive for influenza B. He was started on IV fluids, given a dose of lactulose, and started on Tamiflu. Arrangements were made for admission. Poison control was contacted due to marked elevated valproic acid level and ammonia level. They recommended treatment with l-carnitine and holding his medication. On the morning after admission his tremors were decreased and his lethargy has resolved. His ammonia was still slightly elevated and he was therefore maintained on l-carnitine lactulose was stopped. Patient seen and examined at bedside. He just wants to go home. He denies any cough or pain. Father present at bedside. He noted some slight coughing overnight. He has set him up to help with congestion. He notes that he is more awake and his shaking has resolved, but he is not his usual active self. Objective - Vital Signs Vital signs: Vital Signs Temp 97.3 F L 11/16/17 08:10 Pulse 88 11/16/17 08:10 Resp 16 11/16/17 08:10 BP 128/70 11/16/17 08:10 Pulse Ox 97 11/16/17 08:10 Intake & Output 11/15/17 11/16/17 11/16/17 18:59 06:59 18:59 Weight 95.254 kg 98.9 kg - Exam General: Ill appearing, mild distress, appears at stated age Derm: warm, dry Head: atraumatic, normocephalic, symmetric Eyes: EOMI, no lid lag, anicteric sclera Mouth: no lip lesion, mucus membranes moist Cardiovascular: S1S2 reg, no murmur, positive posterior tibial pulse bilateral, Lungs: Rhonchi left base , no accessory muscle use Abdominal: soft, nontender to palpation, no guarding, no appreciable organomegaly Ext: no gross muscle atrophy, no edema, no contractures Neuro: CN II-XI grossly intact, no focal neuro deficits Psych: Alert, oriented, anxious, easily upset - Labs CBC & Chem 7: 11/16/17 05:35 11/16/17 05:35 Labs: Abnormal Lab Results - Last 24 Hours (Table) 11/15/17 11/15/17 11/15/17 Range/Units 14:22 14:26 14:26 RBC (4.30-5.90) m/uL Hgb (13.0-17.5) gm/dL Hct (39.0-53.0) % Plt Count (150-450) k/uL Lymphocytes # (1.0-4.8) k/uL Sodium (137-145) mmol/L BUN (9-20) mg/dL Creatinine (0.66-1.25) mg/dL Glucose (74-99) mg/dL POC Glucose (mg/dL) (75-99) mg/dL Total Bilirubin (0.2-1.3) mg/dL Ammonia 114 H (<30) umol/L Total Creatine Kinase 431 H (55-170) U/L Total Protein (6.3-8.2) g/dL Albumin (3.5-5.0) g/dL Urine Protein (Negative) Urine Ketones (Negative) Valproic Acid ug/mL Influenza Type B (PCR) Detected H (Not Detectd) 11/15/17 11/15/17 11/15/17 Range/Units 14:26 14:26 14:34 RBC 4.20 L (4.30-5.90) m/uL Hgb 12.1 L (13.0-17.5) gm/dL Hct 36.7 L (39.0-53.0) % Plt Count 137 L (150-450) k/uL Lymphocytes # 0.5 L (1.0-4.8) k/uL Sodium 136 L (137-145) mmol/L BUN 24 H (9-20) mg/dL Creatinine (0.66-1.25) mg/dL Glucose 108 H (74-99) mg/dL POC Glucose (mg/dL) 105 H (75-99) mg/dL Total Bilirubin (0.2-1.3) mg/dL Ammonia (<30) umol/L Total Creatine Kinase (55-170) U/L Total Protein (6.3-8.2) g/dL Albumin (3.5-5.0) g/dL Urine Protein (Negative) Urine Ketones (Negative) Valproic Acid 123.1 H* ug/mL Influenza Type B (PCR) (Not Detectd) 11/15/17 11/16/17 11/16/17 Range/Units 16:00 05:35 05:35 RBC 3.62 L (4.30-5.90) m/uL Hgb 10.4 L (13.0-17.5) gm/dL Hct 32.4 L (39.0-53.0) % Plt Count 116 L (150-450) k/uL Lymphocytes # (1.0-4.8) k/uL Sodium 136 L (137-145) mmol/L BUN (9-20) mg/dL Creatinine 0.60 L (0.66-1.25) mg/dL Glucose 116 H (74-99) mg/dL POC Glucose (mg/dL) (75-99) mg/dL Total Bilirubin 0.1 L (0.2-1.3) mg/dL Ammonia (<30) umol/L Total Creatine Kinase (55-170) U/L Total Protein 6.1 L (6.3-8.2) g/dL Albumin 3.4 L (3.5-5.0) g/dL Urine Protein Trace H (Negative) Urine Ketones 1+ H (Negative) Valproic Acid ug/mL Influenza Type B (PCR) (Not Detectd) 11/16/17 Range/Units 05:35 RBC (4.30-5.90) m/uL Hgb (13.0-17.5) gm/dL Hct (39.0-53.0) % Plt Count (150-450) k/uL Lymphocytes # (1.0-4.8) k/uL Sodium (137-145) mmol/L BUN (9-20) mg/dL Creatinine (0.66-1.25) mg/dL Glucose (74-99) mg/dL POC Glucose (mg/dL) (75-99) mg/dL Total Bilirubin (0.2-1.3) mg/dL Ammonia 65 H (<30) umol/L Total Creatine Kinase (55-170) U/L Total Protein (6.3-8.2) g/dL Albumin (3.5-5.0) g/dL Urine Protein (Negative) Urine Ketones (Negative) Valproic Acid ug/mL Influenza Type B (PCR) (Not Detectd) Microbiology - Last 24 Hours (Table) 11/15/17 16:00 Urine Culture - Preliminary Urine,Voided Assessment and Plan Assessment: Supratherapeutic valproic acid level with history of seizure disorder -Repeat valproic acid level in a.m. -Neuro checks -Seizure precautions -Ativan as it for seizures -Continue with Trileptal and Vimpat, Depakote restarted by neurology at 1000 mg twice daily -Neurology recommendations appreciated Elevated ammonia level due to above -Discussed with poison control continue Levocarnitine ordered at 100 mg/kg every 6 hours with a max dose of 3 g per dose -Lactulose discontinued -Repeat lab in a.m. Toxic metabolic encephalopathy, due to above -Safe and supportive environment Influenza B -IV fluids -Tamiflu Autism with behavioral disturbances -Continue with Cogentin, Catapres, Haldol, and Zyprexa Asthma without acute exacerbation -Continue with Singulair, Qvar switched to pulmicort -When necessary albuterol Anemia, chronic - slightly lower with IVF - at baseline - follow intermittent CBC - check ferritin, IRON STUDIES, tsh, b12 and folate Thrombocytopenia - likely reactive and secondary to toxicity - follow CBC Dehydration, resolved DVT prophylaxis: Lovenox Discussed with: Patient, family, nursing Anticipated discharge: 24-[address]: Return to [facility] A total of 35 minutes was spent on the care of this complex patient more than 50 % of the time was spent in counseling and care coordination.
--- NOTE | 2017-11-16 10:23 | XR ---
EXAMINATION TYPE: XR chest 1V portable DATE OF EXAM: 11/16/2017 COMPARISON: Prior chest x-ray 03/06/2015 and 11/15/2017 HISTORY: Pneumonia TECHNIQUE: Single frontal view of the chest is obtained. FINDINGS: Patchy density suspected in the right upper lobe. Heart size is borderline increased. No p neumothorax or pleural effusion. There are overlying cardiac leads. IMPRESSION: There may be right upper lobe airspace disease, correlate. Follow-up to resolution.
[2017-11-16] MEDS: IBUPROFEN 400 MG TAB PO PRN (11:19)
[2017-11-16] MEDS ORDERED: VANCOMYCIN IV PER PHARMACY 1 EACH MISC MISCELLANE PRN (11:57)
[2017-11-16] MEDS ORDERED: VANCOMYCIN 1,000 MG in SODIUM CHLORIDE 0.9% 250 ML IVPB STA (11:57)
[2017-11-16] MEDS: VANCOMYCIN 1,500 MG in SODIUM CHLORIDE 0.9% 250 ML IVPB SCH ×2 (13:00→21:43)
[2017-11-16] MEDS: MULTIVITAMINS, THERA 1 EACH TAB PO SCH (13:00)
[2017-11-16] MEDS: CHOLECALCIFEROL 1,000 UNIT TAB PO SCH (13:00)
--- NOTE | 2017-11-16 13:54 | P.PN ---
Subjective Progress Note Date: 11/16/17 The patient is a 22-year-old man with history of seizure disorder and autism and cognitive disturbance. He was admitted to the hospital with lethargy. He had a elevated ammonia level and an elevated Depakote level on admission. Depakote was reduced by 500 mg and his Depakote level now is 50. As not had any breakthrough seizures. His sister is at his bedside and states she's been somewhat better today. The patient is unable to give any history. Ammonia level has come down. Objective - Vital Signs Vital signs: Vital Signs Temp 102 F H 11/16/17 13:06 Pulse 104 H 11/16/17 13:06 Resp 16 11/16/17 13:06 BP 142/71 11/16/17 13:06 Pulse Ox 96 11/16/17 13:06 Intake & Output 11/15/17 11/16/17 11/16/17 18:59 06:59 18:59 Intake Total 2545 Balance 2545 Weight 95.254 kg 98.9 kg Intake: Intake, IV Titration 1950 Amount Sodium Chloride 0.9% 1, 1200 000 ml @ 150 mls/hr IV . Q6H40M [facility] Rx#:[id number] Vancomycin 1,500 mg In 250 Sodium Chloride 0.9% 250 ml @ 125 mls/hr IVPB Q8H [facility] Rx#:[id number] levOCARNitine 3,000 mg In 500 Sodium Chloride 0.9% 500 ml @ 515 mls/hr IVPB Q6H [facility] Rx#:[id number] Oral 595 Other: # Voids 2 - Constitutional General appearance: Present: average body habitus - EENT ENT: Present: hearing grossly normal - Neurologic Neurologic Comment(s): Neurologic examination mental status he was awake he had severe cognitive impairment. He was able to speak and follow simple commands. Her cranial nerve examination pupils were equal there was no facial asymmetry next Motor examination revealed no focal weakness X Coordination was intact - Labs CBC & Chem 7: 11/16/17 05:35 11/16/17 05:35 Labs: Abnormal Lab Results - Last 24 Hours (Table) 11/15/17 11/15/17 11/15/17 Range/Units 14:22 14:26 14:26 RBC (4.30-5.90) m/uL Hgb (13.0-17.5) gm/dL Hct (39.0-53.0) % Plt Count (150-450) k/uL Lymphocytes # (1.0-4.8) k/uL Sodium (137-145) mmol/L BUN (9-20) mg/dL Creatinine (0.66-1.25) mg/dL Glucose (74-99) mg/dL POC Glucose (mg/dL) (75-99) mg/dL Total Bilirubin (0.2-1.3) mg/dL Ammonia 114 H (<30) umol/L Total Creatine Kinase 431 H (55-170) U/L Total Protein (6.3-8.2) g/dL Albumin (3.5-5.0) g/dL Urine Protein (Negative) Urine Ketones (Negative) Valproic Acid ug/mL Influenza Type B (PCR) Detected H (Not Detectd) 11/15/17 11/15/17 11/15/17 Range/Units 14:26 14:26 14:34 RBC 4.20 L (4.30-5.90) m/uL Hgb 12.1 L (13.0-17.5) gm/dL Hct 36.7 L (39.0-53.0) % Plt Count 137 L (150-450) k/uL Lymphocytes # 0.5 L (1.0-4.8) k/uL Sodium 136 L (137-145) mmol/L BUN 24 H (9-20) mg/dL Creatinine (0.66-1.25) mg/dL Glucose 108 H (74-99) mg/dL POC Glucose (mg/dL) 105 H (75-99) mg/dL Total Bilirubin (0.2-1.3) mg/dL Ammonia (<30) umol/L Total Creatine Kinase (55-170) U/L Total Protein (6.3-8.2) g/dL Albumin (3.5-5.0) g/dL Urine Protein (Negative) Urine Ketones (Negative) Valproic Acid 123.1 H* ug/mL Influenza Type B (PCR) (Not Detectd) 11/15/17 11/16/17 11/16/17 Range/Units 16:00 05:35 05:35 RBC 3.62 L (4.30-5.90) m/uL Hgb 10.4 L (13.0-17.5) gm/dL Hct 32.4 L (39.0-53.0) % Plt Count 116 L (150-450) k/uL Lymphocytes # (1.0-4.8) k/uL Sodium 136 L (137-145) mmol/L BUN (9-20) mg/dL Creatinine 0.60 L (0.66-1.25) mg/dL Glucose 116 H (74-99) mg/dL POC Glucose (mg/dL) (75-99) mg/dL Total Bilirubin 0.1 L (0.2-1.3) mg/dL Ammonia (<30) umol/L Total Creatine Kinase (55-170) U/L Total Protein 6.1 L (6.3-8.2) g/dL Albumin 3.4 L (3.5-5.0) g/dL Urine Protein Trace H (Negative) Urine Ketones 1+ H (Negative) Valproic Acid ug/mL Influenza Type B (PCR) (Not Detectd) 11/16/17 Range/Units 05:35 RBC (4.30-5.90) m/uL Hgb (13.0-17.5) gm/dL Hct (39.0-53.0) % Plt Count (150-450) k/uL Lymphocytes # (1.0-4.8) k/uL Sodium (137-145) mmol/L BUN (9-20) mg/dL Creatinine (0.66-1.25) mg/dL Glucose (74-99) mg/dL POC Glucose (mg/dL) (75-99) mg/dL Total Bilirubin (0.2-1.3) mg/dL Ammonia 65 H (<30) umol/L Total Creatine Kinase (55-170) U/L Total Protein (6.3-8.2) g/dL Albumin (3.5-5.0) g/dL Urine Protein (Negative) Urine Ketones (Negative) Valproic Acid ug/mL Influenza Type B (PCR) (Not Detectd) Microbiology - Last 24 Hours (Table) 11/15/17 14:26 Blood Culture - Final Blood 11/15/17 16:00 Urine Culture - Preliminary Urine,Voided Assessment and Plan (1) Influenza Current Visit: Yes Status: Acute SNOMED Code(s): 4771773 (2) Seizure disorder Current Visit: Yes Status: Chronic SNOMED Code(s): 342715971 Plan: The patient is a 22-year-old man with epilepsy autism and cognitive impairment. Admitted to the hospital with influenza virus. He is being treated with Tamiflu. Patient is doing better. His Depakote level is come down as has his ammonia level. Repeat Depakote level in a.m.
[2017-11-16] MEDS: HALOPERIDOL 2 MG TAB PO SCH (20:09)
[2017-11-16] MEDS: MONTELUKAST 10 MG TAB PO SCH (20:09)
[2017-11-16] MEDS: OLANZapine 10 MG TAB PO SCH (20:10)
[2017-11-16] MEDS: LACTULOSE 20 GM/30 ML CUP PO SCH (23:05)
[2017-11-17] MEDS: SODIUM CHLORIDE 0.9% 1,000 ML IV SCH ×4 (01:10→22:50)
[2017-11-17] MEDS: VANCOMYCIN 1,500 MG in SODIUM CHLORIDE 0.9% 250 ML IVPB SCH ×2 (04:52→12:09)
[2017-11-17 06:11] LABS: HCT 32.1 % (39.0-53.0); HGB 10.2 gm/dL (13.0-17.5); MCH 28.8 pg (25.0-35.0); MCHC 31.9 g/dL (31.0-37.0); MCV 90.4 fL (80.0-100.0); Mean Platelet Volume 8.6; Platelet Count 110 k/uL (150-450); RBC 3.55 m/uL (4.30-5.90); RDW 13.6 % (11.5-15.5); WBC 6.5 k/uL (3.8-10.6)
[2017-11-17 06:34] LABS: ALT 20 U/L (21-72); AST 25 U/L (17-59); Albumin 3.4 g/dL (3.5-5.0); Alkaline Phosphatase 40 U/L (38-126); Anion Gap 15 mmol/L; Blood Urea Nitrogen 3 mg/dL (9-20); Calcium 8.7 mg/dL (8.4-10.2); Carbon Dioxide 18 mmol/L (22-30); Chloride 107 mmol/L (98-107); Glucose 132 mg/dL (74-99); Potassium 3.4 mmol/L (3.5-5.1); Sodium 140 mmol/L (137-145); Total Bilirubin 0.2 mg/dL (0.2-1.3)
[2017-11-17] MEDS ORDERED: SODIUM CHLORIDE 0.9% 1,000 ML IV ONE (09:13)
[2017-11-17] MEDS ORDERED: ACETAMINOPHEN TAB 325 MG TAB PO PRN (09:25)
[2017-11-17] MEDS: OXcarbazepine 300 MG TAB PO SCH ×2 (10:52→22:50)
[2017-11-17] MEDS: cloNIDine HCL 0.1 MG TAB PO SCH ×3 (10:53→22:54)
[2017-11-17] MEDS: BENZTROPINE MESYLATE 1 MG TAB PO SCH ×2 (10:53→20:57)
[2017-11-17] MEDS: OSELTAMIVIR 75 MG CAP PO SCH ×2 (10:53→21:02)
[2017-11-17] MEDS: DIVALPROEX ER 500 MG TAB.ER.24H PO SCH ×2 (10:53→21:00)
[2017-11-17] MEDS: ENOXAPARIN 40 MG/0.4 ML SYRINGE SQ SCH (10:53)
[2017-11-17] MEDS: POTASSIUM BICARBONATE/CIT AC 20 MEQ TABLET.EFF PO ONE ×2 (10:54→11:11)
--- NOTE | 2017-11-17 11:05 | XR ---
EXAMINATION TYPE: XR chest 2V DATE OF EXAM: 11/17/2017 COMPARISON: 11/16/2017 TECHNIQUE: PA and lateral views submitted. HISTORY: Cough possible pneumonia or fluid FINDINGS: Subsegmental consolidation along the medial aspect of the right lung base. No pleural effusion or pne umothorax. No overt failure. Heart size stable. IMPRESSION: 1. Basilar infiltrate medial aspect right lung.
[2017-11-17] MEDS: BUDESONIDE 1 MG/2 ML NEBU INHALATION SCH ×2 (11:19→20:50)
[2017-11-17 11:39] LABS: Iron Saturation 2.68 (15.00-50.00)
[2017-11-17] MEDS: LACOSAMIDE 50 MG TABLET PO SCH ×2 (11:56→21:07)
[2017-11-17] MEDS: MULTIVITAMINS, THERA 1 EACH TAB PO SCH (11:59)
[2017-11-17] MEDS: CHOLECALCIFEROL 1,000 UNIT TAB PO SCH (11:59)
[2017-11-17] MEDS ORDERED: POTASSIUM CHLORIDE 20 MEQ in WATER FOR INJECTION 1 100ML.BAG IVPB STA (12:09)
--- NOTE | 2017-11-17 12:25 | P.PN ---
Subjective Progress Note Date: 11/17/17 Principal diagnosis: Flu Patient is a 22-year-old male past medical history of autism with developmental delay, seizure disorder, and asthma who presented to the ER with lethargy. In the emergency department he underwent an extensive evaluation. His initial vital signs were found within normal limits. Initial laboratory analysis showed an elevated ammonia level at 114, elevated valproic acid level of 123, slightly low platelets and slightly low hemoglobin. Chest x-ray was negative. CT of the head showed no acute process. Nasal swab was positive for influenza B. He was started on IV fluids, given a dose of lactulose, and started on Tamiflu. Arrangements were made for admission. Poison control was contacted due to marked elevated valproic acid level and ammonia level. They recommended treatment with l-carnitine and holding his medication. On the morning after admission his tremors were decreased and his lethargy has resolved. His ammonia was still slightly elevated and he was therefore maintained on l-carnitine lactulose was stopped. Neurology decreased his Depakote dose and it was resumed at a total of 2000 mg daily. On the morning of 11/17 his ammonia level was down to 40. He had had 1 blood culture positive for coag-negative staph was started on IV vancomycin before full result was available. This was discontinued on 11/17. Overnight on 11/16 he spiked a fever of 102. His lethargy had improved and his appetite appears near normal. He did have an elevated lactic acid on the morning of which resolved with 1 L of fluid from 4 down to 0.08 Patient seen and examined at bedside. He has not had any seizure activity during hospitalization. Per his family he has been coughing still. Patient states he feels well and wants to go home. We discussed monitoring him 1 additional day secondary to his fever yesterday and his acidosis. Father present at bedside all questions answered. Objective - Vital Signs Vital signs: Vital Signs Temp 99.9 F H 11/17/17 04:00 Pulse 89 11/17/17 04:00 Resp 19 11/17/17 04:00 BP 134/72 11/17/17 04:00 Pulse Ox 96 11/17/17 04:00 Intake & Output 11/16/17 11/17/17 11/17/17 18:59 06:59 18:59 Intake Total 2545 1715 Balance 2545 1715 Weight 99.8 kg Intake: Intake, IV Titration 1950 1715 Amount Sodium Chloride 0.9% 1, 1200 1200 000 ml @ 150 mls/hr IV . Q6H40M [facility] Rx#:[id number] Vancomycin 1,500 mg In 250 Sodium Chloride 0.9% 250 ml @ 125 mls/hr IVPB Q8H [facility] Rx#:[id number] levOCARNitine 3,000 mg In 500 515 Sodium Chloride 0.9% 500 ml @ 515 mls/hr IVPB Q6H [facility] Rx#:[id number] Oral 595 Other: Voiding Method Toilet # Voids 2 2 - Exam General: Nontoxic, no distress, appears at stated age Derm: warm, dry Head: atraumatic, normocephalic, symmetric Eyes: EOMI, no lid lag, anicteric sclera Mouth: no lip lesion, mucus membranes moist Cardiovascular: S1S2 reg, no murmur, positive posterior tibial pulse bilateral, Lungs: Clear to auscultation bilaterally, no accessory muscle use Abdominal: soft, nontender to palpation, no guarding, no appreciable organomegaly Ext: no gross muscle atrophy, no edema, no contractures Neuro: CN II-XI grossly intact, no focal neuro deficits Psych: Alert, oriented, anxious, easily upset - Labs CBC & Chem 7: 11/17/17 05:56 11/17/17 05:56 Labs: Abnormal Lab Results - Last 24 Hours (Table) 11/17/17 11/17/17 11/17/17 Range/Units 05:56 05:56 05:56 RBC 3.55 L (4.30-5.90) m/uL Hgb 10.2 L (13.0-17.5) gm/dL Hct 32.1 L (39.0-53.0) % Plt Count 110 L (150-450) k/uL Potassium 3.4 L (3.5-5.1) mmol/L Carbon Dioxide 18 L (22-30) mmol/L BUN 3 L (9-20) mg/dL Creatinine 0.60 L (0.66-1.25) mg/dL Glucose 132 H (74-99) mg/dL Plasma Lactic Acid Joao (0.7-2.0) mmol/L ALT 20 L (21-72) U/L Ammonia 40 H (<30) umol/L Total Protein 6.0 L (6.3-8.2) g/dL Albumin 3.4 L (3.5-5.0) g/dL 11/17/17 Range/Units 05:56 RBC (4.30-5.90) m/uL Hgb (13.0-17.5) gm/dL Hct (39.0-53.0) % Plt Count (150-450) k/uL Potassium (3.5-5.1) mmol/L Carbon Dioxide (22-30) mmol/L BUN (9-20) mg/dL Creatinine (0.66-1.25) mg/dL Glucose (74-99) mg/dL Plasma Lactic Acid Joao 4.0 H* (0.7-2.0) mmol/L ALT (21-72) U/L Ammonia (<30) umol/L Total Protein (6.3-8.2) g/dL Albumin (3.5-5.0) g/dL Microbiology - Last 24 Hours (Table) 11/15/17 16:00 Urine Culture - Final Urine,Voided 11/15/17 14:26 Blood Culture Gram Stain - Preliminary Blood Blood Culture - Preliminary Coagulase Negative Staph 11/15/17 14:26 Blood Culture - Final Blood Assessment and Plan Assessment: Supratherapeutic valproic acid level with history of seizure disorder -Repeat valproic acid level in a.m. -Neuro checks -Seizure precautions -Ativan as it for seizures -Continue with Trileptal and Vimpat, Depakote restarted by neurology at 1000 mg twice daily -Neurology recommendations appreciated Elevated ammonia level due to above -Discussed with poison control Completed Levocarnitine ordered at 100 mg/kg every 6 hours with a max dose of 3 g per dose- Discontinued -Lactulose discontinued -Repeat lab in a.m. Toxic metabolic encephalopathy, due to above -Safe and supportive environment Influenza B -IV fluids -Tamiflu - repeat CXR radians negative Autism with behavioral disturbances -Continue with Cogentin, Catapres, Haldol, and Zyprexa Asthma without acute exacerbation -Continue with Singulair, Qvar switched to pulmicort -When necessary albuterol Anemia, chronic - slightly lower with IVF - at baseline - follow intermittent CBC - ferritin, IRON STUDIES, tsh, b12 and folate all pending Thrombocytopenia - likely reactive and secondary to toxicity - follow CBC Lactic acidosis - undetermined cause - resolved after 1 L of Fluid, ? false + Hypokalemia - replace and recheck Dehydration, resolved DVT prophylaxis: Lovenox Discussed with: Patient, family, nursing Anticipated discharge: in AM Anticipated discharge place: Return to half-way A total of 35 minutes was spent on the care of this complex patient more than 50 % of the time was spent in counseling and care coordination.
[2017-11-17] MEDS ORDERED: VANCOMYCIN TROUGH DUE 1 EACH MISC MISCELLANE ONE (19:00)
[2017-11-17 20:01] LABS: Appearance,Urine Clear (Clear); Bilirubin,Urine Negative (Negative); Blood,Urine Negative (Negative); Color,Urine Light Yellow; Glucose,Urine (UA) Trace (Negative); Ketones,Urine Negative (Negative); Leukocyte Esterase,Urine Negative (Negative); Protein,Urine Negative (Negative); Specific Gravity,Urine 1.007 (1.001-1.035); Urobilinogen,Urine <2.0 mg/dL (<2.0)
[2017-11-17] MEDS: ALBUTEROL NEBULIZED 2.5 MG/3 ML INHALATION PRN (20:50)
[2017-11-17] MEDS: MONTELUKAST 10 MG TAB PO SCH (21:00)
[2017-11-17] MEDS: HALOPERIDOL 2 MG TAB PO SCH (21:00)
[2017-11-17] MEDS: OLANZapine 10 MG TAB PO SCH (21:00)
[2017-11-17] MEDS: IBUPROFEN 400 MG TAB PO PRN (22:53)
[2017-11-18 06:24] LABS: HCT 29.2 % (39.0-53.0); HGB 9.4 gm/dL (13.0-17.5); MCH 29.2 pg (25.0-35.0); MCHC 32.2 g/dL (31.0-37.0); MCV 90.7 fL (80.0-100.0); Mean Platelet Volume 8.5; Platelet Count 119 k/uL (150-450); RBC 3.22 m/uL (4.30-5.90); RDW 13.4 % (11.5-15.5); WBC 6.1 k/uL (3.8-10.6)
[2017-11-18 06:31] LABS: Lactic Acid, Venous 0.7 mmol/L (0.7-2.0)
[2017-11-18 06:32] LABS: ALT 27 U/L (21-72); AST 16 U/L (17-59); Alkaline Phosphatase 36 U/L (38-126); Anion Gap 10 mmol/L; Blood Urea Nitrogen 5 mg/dL (9-20); Calcium 8.8 mg/dL (8.4-10.2); Carbon Dioxide 23 mmol/L (22-30); Chloride 109 mmol/L (98-107); Glucose 86 mg/dL (74-99); Potassium 3.8 mmol/L (3.5-5.1); Sodium 142 mmol/L (137-145); Total Bilirubin 0.2 mg/dL (0.2-1.3); Total Protein 5.5 g/dL (6.3-8.2)
[2017-11-18] MEDS: SODIUM CHLORIDE 0.9% 1,000 ML IV SCH ×2 (07:36→09:00)
[2017-11-18] MEDS: BUDESONIDE 1 MG/2 ML NEBU INHALATION SCH (08:53)
[2017-11-18] MEDS: cloNIDine HCL 0.1 MG TAB PO SCH (09:42)
[2017-11-18] MEDS: ENOXAPARIN 40 MG/0.4 ML SYRINGE SQ SCH (09:42)
[2017-11-18] MEDS: BENZTROPINE MESYLATE 1 MG TAB PO SCH (09:42)
[2017-11-18] MEDS: LACOSAMIDE 50 MG TABLET PO SCH (09:43)
[2017-11-18] MEDS: OXcarbazepine 300 MG TAB PO SCH (09:43)
[2017-11-18] MEDS: DIVALPROEX ER 500 MG TAB.ER.24H PO SCH (09:43)
[2017-11-18] MEDS: OSELTAMIVIR 75 MG CAP PO SCH (09:44)
[2017-11-18 10:52] VITALS: RESP 18
[2017-11-18] MEDS: MULTIVITAMINS, THERA 1 EACH TAB PO SCH (12:50)
[2017-11-18] MEDS: CHOLECALCIFEROL 1,000 UNIT TAB PO SCH (12:50)
[2017-11-18 16:10] VITALS: BP 136/67; PULSE 68; TEMP 98.6
--- NOTE | 2017-11-18 17:18 | P.DS ---
Providers Date of admission: 11/15/17 15:53 Expected date of discharge: 11/18/17 Attending physician: Janay Steve DO Consults: 11/15/17 17:05 Consult Physician Urgent Consulting Provider: Sher Pittman Consult Reason/Comments: toxic valproic acid level, seizure disorder Do you want consulting provider notified?: Yes Primary care physician: [facility] Course: Patient is a 22-year-old male past medical history of autism with developmental delay, seizure disorder, and asthma who presented to the ER with lethargy. In the emergency department he underwent an extensive evaluation. His initial vital signs were found within normal limits. Initial laboratory analysis showed an elevated ammonia level at 114, elevated valproic acid level of 123, slightly low platelets and slightly low hemoglobin. Chest x-ray was negative. CT of the head showed no acute process. Nasal swab was positive for influenza B. He was started on IV fluids, given a dose of lactulose, and started on Tamiflu. Arrangements were made for admission. Poison control was contacted due to marked elevated valproic acid level and ammonia level. They recommended treatment with l-carnitine and holding his medication. On the morning after admission his tremors were decreased and his lethargy has resolved. His ammonia was still slightly elevated and he was therefore maintained on l-carnitine lactulose was stopped. Neurology decreased his Depakote dose and it was resumed at a total of 2000 mg daily. On the morning of 11/17 his ammonia level was down to 40. He had had 1 blood culture positive for coag-negative staph was started on IV vancomycin before full result was available. This was discontinued on 11/17. Overnight on 11/16 he spiked a fever of 102. His lethargy had improved and his appetite appears near normal. He did have an elevated lactic acid on the morning of 11/17 which resolved with 1 L of fluid from 4 down to 0.08. This was felt To be secondary to laboratory and care. He did have a repeat chest x-ray, urinalysis both of which were negative. He continued to progress well. He did not have any signs of she is or activity. His repeat Depakote level on the morning of 11/18 was 41. He is awake and back to his normal self. He did have one fever overnight. His ammonia level had increased slightly but he was not having any significant lethargy, he was having some tremor. This decided that he would likely benefit from being on levocarnitine an outpatient basis for his chronic valproic acid use. I have started him on 500 mg twice daily. I believe he is stable for discharge home. He'll complete his course of Tamiflu. He will follow-up with Dr. Pittman and his primary care physician later this week. I also ordered a repeat ammonia level and valproic acid level to be obtained later this week with results. Dr. Pittman and Dr. Hanna. I discussed with his mother bring him back to the emergency room should he show any signs of elevated ammonia levels such as increased lethargy, not eating, increase tremors, and sleeping more often. I also asked her to bring him back in he has a decreased appetite or spikes more significant fevers. Patient seen and examined at bedside. States he is feeling better. Mother reports he is still having some congestion but appears back to his normal self. Vital signs reviewed and stable. General: non toxic, no distress, appears at stated age Derm: warm, dry Head: atraumatic, normocephalic, symmetric Eyes: EOMI, no lid lag, anicteric sclera Mouth: no lip lesion, mucus membranes moist Cardiovascular: S1S2 reg, no murmur, positive posterior tibial pulse bilateral, Lungs: Rhonchi right base, no accessory muscle use Abdominal: soft, nontender to palpation, no guarding, no appreciable organomegaly Ext: no gross muscle atrophy, no edema, no contractures Neuro: CN II-XI grossly intact, no focal neuro deficits Psych: Alert, excited. A total of 40 minutes of time were spent preparing this complex discharge summary . Patient Condition at Discharge: Fair Plan - Discharge Summary Discharge Rx Participant: No New Discharge Prescriptions: New levOCARNitine [l-Carnitine] 500 mg PO BID #60 tablet Oseltamivir [Tamiflu] 75 mg PO Q12HR #4 cap Continue Montelukast [Singulair] 10 mg PO HS cloNIDine HCL [Catapres] 0.1 mg PO TID Multivitamin [Men's Multi-Vitamin] 1 tab PO DAILY Cetirizine HCl [Zyrtec] 10 mg PO DAILY PRN PRN Reason: Allergy Symptoms Beclomethasone Dipropionate [Qvar 80 mcg/puff] 2 puff INHALATION RT-BID Benztropine Mesylate [Cogentin] 1 mg PO BID Haloperidol [Haldol] 4 mg PO HS Albuterol Sulfate [Proair Hfa] 2 puff INHALATION RT-Q6H PRN PRN Reason: Shortness Of Breath Ibuprofen [Motrin] 400 mg PO Q6HR PRN PRN Reason: Pain OXcarbazepine [Trileptal] 750 mg PO DAILY OLANZapine [ZyPREXA] 10 mg PO HS Lacosamide [Vimpat] 200 mg PO BID Divalproex ER [Depakote ER] 1,000 mg PO BID Cholecalciferol [Vitamin D3] 1,000 unit PO DAILY guaiFENesin-DM 100-10MG/5ML [Robitussin DM] 10 ml PO BID PRN PRN Reason: Cough Clonazepam 1mg Odt 2 tab SUBLINGUAL DAILY PRN PRN Reason: Seizures OXcarbazepine [Trileptal] 600 mg PO HS Pseudoephedrine HCl [Sudogest] 30 mg PO Q6HR PRN PRN Reason: Sinus Symptoms Discontinued Diastat 10 mg RECTAL ONCE PRN PRN Reason: Seizure lasting more than 4min Divalproex ER [Depakote ER] 500 mg PO HS Discharge Medication List Albuterol Sulfate [Proair Hfa] 2 puff INHALATION RT-Q6H PRN 03/06/15 [History] Beclomethasone Dipropionate [Qvar 80 mcg/puff] 2 puff INHALATION RT-BID [History] Benztropine Mesylate [Cogentin] 1 mg PO BID 03/06/15 [History] Cetirizine HCl [Zyrtec] 10 mg PO DAILY PRN 03/06/15 [History] Haloperidol [Haldol] 4 mg PO HS 03/06/15 [History] Montelukast [Singulair] 10 mg PO HS 03/06/15 [History] Multivitamin [Men's Multi-Vitamin] 1 tab PO DAILY 03/06/15 [History] cloNIDine HCL [Catapres] 0.1 mg PO TID 03/06/15 [History] Cholecalciferol [Vitamin D3] 1,000 unit PO DAILY 08/14/17 [History] Divalproex ER [Depakote ER] 1,000 mg PO BID 08/14/17 [History] Ibuprofen [Motrin] 400 mg PO Q6HR PRN 08/14/17 [History] Lacosamide [Vimpat] 200 mg PO BID 08/14/17 [History] OLANZapine [ZyPREXA] 10 mg PO HS 08/14/17 [History] OXcarbazepine [Trileptal] 750 mg PO DAILY 08/14/17 [History] Clonazepam 1mg Odt 2 tab SUBLINGUAL DAILY PRN 11/15/17 [History] OXcarbazepine [Trileptal] 600 mg PO HS 11/15/17 [History] Pseudoephedrine HCl [Sudogest] 30 mg PO Q6HR PRN 11/15/17 [History] guaiFENesin-DM 100-10MG/5ML [Robitussin DM] 10 ml PO BID PRN 11/15/17 [History] Oseltamivir [Tamiflu] 75 mg PO Q12HR #4 cap 11/18/17 [Rx] levOCARNitine [l-Carnitine] 500 mg PO BID #60 tablet 11/18/17 [Rx] Follow up Appointment(s)/Referral(s): Lorin Pittman MD [STAFF PHYSICIAN] - 1 Week Bandar Hanna DO [Primary Care Provider] - 1-2 days Ambulatory/Diagnostic Orders: Miscellaneous Lab Order [LAB.AMB] Time Frame: 3 Days, Location: Determined By Patient Activity/Diet/Wound Care/Special Instructions: Activity as tolerated Regular diet Obtain labs between 11/22-11/25 Please return to hospital if increased fevers, sleeping, difficult arousing patient, decreased eating, return of tremors and let the physician know that he had elevated ammonia recently and flu B Discharge Disposition: HOME SELF-CARE
== END 2017-11-18 17:00 | disposition home or self-care (01) | DRG 917 ==
LOC: EC 13:11 → 6SEL 15:53
PROVIDERS: ADMIT Internal Medicine; ATTEND Internal Medicine
DX: T42.6X1A Poisoning by other antiepileptic and sedative-hypnotic drugs, accidental (unintentional), initial encounter (principal); G92 Toxic encephalopathy; D69.6 Thrombocytopenia, unspecified; E87.2 Acidosis; E87.1 Hypo-osmolality and hyponatremia; F84.0 Autistic disorder; E86.0 Dehydration; D64.9 Anemia, unspecified; E87.6 Hypokalemia; G40.909 Epilepsy, unspecified, not intractable, without status epilepticus; J10.1 Influenza due to other identified influenza virus with other respiratory manifestations; J45.909 Unspecified asthma, uncomplicated; T42.6X5A Adverse effect of other antiepileptic and sedative-hypnotic drugs, initial encounter; Z81.8 Family history of other mental and behavioral disorders; Z82.49 Family history of ischemic heart disease and other diseases of the circulatory system; Z83.3 Family history of diabetes mellitus; Z79.51 Long term (current) use of inhaled steroids; Z79.899 Other long term (current) drug therapy; Z91.010 Allergy to peanuts
CPT/HCPCS: 36415; 70450; 71045; 71046; 80053; 80164; 80165; 80183; 80202; 81003; 82140; 82550; 82553; 82607; 82728; 82747; 83540; 83550; 83605; 85025; 85027; 85610; 85730; 87040; 87077; 87086; 87186; 87502; 93005; 94640; 96361; 96365; 99285

== ENCOUNTER → 2017-11-23 | Outpatient (CLI) | payer BC, OTHER ==
[2017-11-23 10:46] LABS: Basophils % (A) 1 %; Eosinophils # (A) 0.1 k/uL (0-0.7); Eosinophils % (A) 2 %; HGB 11.1 gm/dL (13.0-17.5); Lymphocytes % (A) 22 %; MCH 28.9 pg (25.0-35.0); MCHC 34.6 g/dL (31.0-37.0); Mean Platelet Volume 7.2; Monocytes # (A) 0.4 k/uL (0-1.0); Monocytes % (A) 8 %; Neutrophils % (A) 66 %; RBC 3.83 m/uL (4.30-5.90); RDW 13.4 % (11.5-15.5); WBC 4.6 k/uL (3.8-10.6)
[2017-11-23 10:49] LABS: MCV 83.4 fL (80.0-100.0)
[2017-11-23 10:50] LABS: Platelet Count 533 k/uL (150-450)
[2017-11-23 11:04] LABS: Valproic Acid (Depakene) 57.7 ug/mL
== END | disposition home or self-care (01) ==
LOC: LABWHC1 10:14
PROVIDERS: ATTEND Internal Medicine
DX: G40.209 Localization-related (focal) (partial) symptomatic epilepsy and epileptic syndromes with complex partial seizures, not intractable, without status epilepticus (principal); R79.89 Other specified abnormal findings of blood chemistry; E87.1 Hypo-osmolality and hyponatremia
CPT/HCPCS: 36415; 80164; 82140; 84295; 85025

== ENCOUNTER 2017-12-02 13:25 | Emergency (ER) | payer BC, OTHER ==
[2017-12-02] MEDS ORDERED: SODIUM CHLORIDE 0.9% 1,000 ML IV STA (13:55)
[2017-12-02] MEDS ORDERED: ONDANSETRON 4 MG/2 ML VIAL IVP STA (13:55)
--- NOTE | 2017-12-02 14:05 | ED ---
General Adult HPI - General Chief complaint: Nausea/Vomiting/Diarrhea Stated complaint: abnormal labs Time Seen by Provider: 12/02/17 13:44 Source: family, RN notes reviewed, old records reviewed Mode of arrival: wheelchair Limitations: no limitations - History of Present Illness Initial comments: Patient 22-year-old male significant past medical history for autism, seizures, asthma, presenting today with his parents with a chief complaint of nausea vomiting that began 2 hours ago. Mother states she's also been shaky. States 5 episodes of vomiting. States his symptoms are similar to symptoms that he began having 3 weeks ago when he was admitted to the hospital with an elevated ammonia level. States he also had an elevated valproic acid. States they have decreased his Depakote. States that he recently saw the neurologist this past week. States that his ammonia level of stool but little elevated. Motion she was concerned did not want this to get any worse so came here to be evaluated. Patient denies any recent fever, chills, shortness of breath, chest pain, back pain, numbness or tingling, dysuria or hematuria, constipation or diarrhea, headaches or visual changes, or any other complaints. - Related Data Home Medications Medication Instructions Recorded Confirmed Albuterol Sulfate [Proair Hfa] 2 puff INHALATION RT-Q6H PRN 03/06/15 12/02/17 Beclomethasone Dipropionate [Qvar 2 puff INHALATION RT-BID 03/06/15 12/02/17 80 mcg/puff] Benztropine Mesylate [Cogentin] 1 mg PO BID 03/06/15 12/02/17 Cetirizine HCl [Zyrtec] 10 mg PO DAILY 03/06/15 12/02/17 Haloperidol [Haldol] 4 mg PO HS 03/06/15 12/02/17 Montelukast [Singulair] 10 mg PO HS 03/06/15 12/02/17 Multivitamin [Men's Multi-Vitamin] 1 tab PO DAILY 03/06/15 12/02/17 cloNIDine HCL [Catapres] 0.1 mg PO TID 03/06/15 12/02/17 Cholecalciferol [Vitamin D3] 2,000 unit PO DAILY 08/14/17 12/02/17 Lacosamide [Vimpat] 200 mg PO BID 08/14/17 12/02/17 OLANZapine [ZyPREXA] 10 mg PO HS 08/14/17 12/02/17 OXcarbazepine [Trileptal] 750 mg PO BID 08/14/17 12/02/17 Divalproex [Depakote] 500 mg PO TID 12/02/17 12/02/17 Previous Rx's Medication Instructions Recorded levOCARNitine [l-Carnitine] 500 mg PO BID #60 tablet 11/18/17 Allergies Allergy/AdvReac Type Severity Reaction Status Date / Time fluoxetine [From Prozac] Allergy Unknown Verified 12/02/17 13:41 peanut Allergy Unknown Verified 12/02/17 13:41 phenytoin [From Dilantin] Allergy Unknown Verified 12/02/17 13:41 Review of Systems ROS Statement: Those systems with pertinent positive or pertinent negative responses have been documented in the HPI. ROS Other: All systems not noted in ROS Statement are negative. Past Medical History Past Medical History: Asthma, Seizure Disorder Additional Past Medical History / Comment(s): Autism(can become violent at times -thats why he is in a half-way mon thru monday and home on weekend) .being tx for autism/behavior/violent episodes. pt's mom stated that pt has the mentality of an 8 year old andwhen pt not sick he can pretty much tell you what he needs or wants.abble to read and write some-usually only what he wants to. limited w/ his food likes. he eats frisian fries, [id number] bread, chips, cereal( trix or waffle crisps) History of Any Multi-Drug Resistant Organisms: MRSA Date of last positivie culture/infection: 2006 MDRO Source:: boils on rt hip Past Surgical History: No Surgical Hx Reported Additional Past Surgical History / Comment(s): pt can be violent at times is why he is in half-way per mom, being treated, Autism/behavior/violent [facility] Past Anesthesia/Blood Transfusion Reactions: No Reported Reaction Additional Past Anesthesia/Blood Transfusion Reaction / Comment(s): per mom-pt never had any sx. Past Psychological History: No Psychological Hx Reported Smoking Status: Never smoker Past Alcohol Use History: None Reported Past Drug Use History: None Reported - Past Family History Father Family Medical History: Diabetes Mellitus, Hyperlipidemia, Hypertension Additional Family Medical History / Comment(s): depression. Paternal grandmother with myocardial infarction. Maternal grandfather with congestive heart failure Mother Family Medical History: Diabetes Mellitus, Hyperlipidemia, Hypertension, Thyroid Disorder Additional Family Medical History / Comment(s): depression General Exam - General Exam Comments Initial Comments: General: The patient is awake and alert, in no distress, and does not appear acutely ill. Eye: Pupils are equal, round and reactive to light, extra-ocular movements are intact. No nystagmus. There is normal conjunctiva bilaterally. No signs of icterus. Ears, nose, mouth and throat: There are moist mucous membranes and no oral lesions. Neck: The neck is supple, there is no tenderness or JVD. Cardiovascular: There is a regular rate and rhythm. No murmur, rub or gallop is appreciated. Respiratory: Lungs are clear to auscultation, respirations are non-labored, breath sounds are equal. No wheezes, stridor, rales, or rhonchi. Gastrointestinal: Soft, non-distended, non-tender abdomen without masses or organomegaly noted. There is no rebound or guarding present. No CVA tenderness. Bowel sounds are unremarkable. Musculoskeletal: Normal ROM, no tenderness. Strength 5/5. Sensation intact. Pulses equal bilaterally 2+. Neurological: There are no obvious motor or sensory deficits. Coordination appears grossly intact. Skin: Skin is warm and dry and no rashes or lesions are noted. Limitations: no limitations Course Vital Signs 12/02/17 13:30 Temperature 96.7 F L Pulse Rate 93 Respiratory 20 Rate Blood Pressure 147/77 O2 Sat by Pulse 98 Oximetry Medical Decision Making - Medical Decision Making Patient reexamined at this time shows no signs of distress per patient's labs been reviewed. Valproic acid 92. Ammonia level XXIX. Results were discussed with the patient and his mother at bedside currently. Patient doing [place] had no vomiting here no other symptoms. Will be discharged home to follow-up the family doctor they have an appointment scheduled at 5 PM on Monday. Advised return if any symptoms increase or worsen. - Lab Data Result diagrams: 12/02/17 14:15 12/02/17 14:15 Lab Results 12/02/17 12/02/17 12/02/17 Range/Units 14:15 14:15 14:15 WBC 6.3 (3.8-10.6) k/uL RBC 4.18 L (4.30-5.90) m/uL Hgb 12.0 L (13.0-17.5) gm/dL Hct 35.7 L (39.0-53.0) % MCV 85.4 (80.0-100.0) fL MCH 28.7 (25.0-35.0) pg MCHC 33.6 (31.0-37.0) g/dL RDW 14.3 (11.5-15.5) % Plt Count 337 (150-450) k/uL Neutrophils % 86 % Lymphocytes % 9 % Monocytes % 4 % Eosinophils % 1 % Basophils % 0 % Neutrophils # 5.4 (1.3-7.7) k/uL Lymphocytes # 0.6 L (1.0-4.8) k/uL Monocytes # 0.2 (0-1.0) k/uL Eosinophils # 0.0 (0-0.7) k/uL Basophils # 0.0 (0-0.2) k/uL Sodium 136 L (137-145) mmol/L Potassium 5.2 H (3.5-5.1) mmol/L Chloride 97 L (98-107) mmol/L Carbon Dioxide 25 (22-30) mmol/L Anion Gap 14 mmol/L BUN 12 (9-20) mg/dL Creatinine 0.50 L (0.66-1.25) mg/dL Est GFR (CKD-EPI)AfAm >90 (>60 ml/min/1.73 sqM) Est GFR (CKD-EPI)NonAf >90 (>60 ml/min/1.73 sqM) Glucose 108 H (74-99) mg/dL Calcium 10.1 (8.4-10.2) mg/dL Total Bilirubin 0.4 (0.2-1.3) mg/dL AST 27 (17-59) U/L ALT 22 (21-72) U/L Alkaline Phosphatase 60 (38-126) U/L Ammonia 29 (<30) umol/L Total Protein 8.2 (6.3-8.2) g/dL Albumin 4.6 (3.5-5.0) g/dL Lipase 135 (23-300) U/L Valproic Acid 92.3 ug/mL Disposition Clinical Impression: Nausea & vomiting Disposition: HOME SELF-CARE Condition: Good Instructions: Acute Nausea and Vomiting (ED) Additional Instructions: Please follow-up with family doctor in the next 2 days of symptoms have not improved. Please return to emergency room if the symptoms increase or worsen or for any other concerns. Referrals: Bandar Hanna DO [Primary Care Provider] - 1-2 days Time of Disposition: 15:31
[2017-12-02 14:42] LABS: Basophils % (A) 0 %; Eosinophils % (A) 1 %; HCT 35.7 % (39.0-53.0); Lymphocytes # (A) 0.6 k/uL (1.0-4.8); Lymphocytes % (A) 9 %; MCH 28.7 pg (25.0-35.0); MCHC 33.6 g/dL (31.0-37.0); MCV 85.4 fL (80.0-100.0); Mean Platelet Volume 7.5; Monocytes # (A) 0.2 k/uL (0-1.0); Monocytes % (A) 4 %; Neutrophils # (A) 5.4 k/uL (1.3-7.7); Neutrophils % (A) 86 %; Platelet Count 337 k/uL (150-450); RBC 4.18 m/uL (4.30-5.90); RDW 14.3 % (11.5-15.5); WBC 6.3 k/uL (3.8-10.6)
[2017-12-02 14:53] LABS: Albumin 4.6 g/dL (3.5-5.0); Anion Gap 14 mmol/L; Calcium 10.1 mg/dL (8.4-10.2); Carbon Dioxide 25 mmol/L (22-30); Chloride 97 mmol/L (98-107); Glucose 108 mg/dL (74-99); Lipase 135 U/L (23-300); Sodium 136 mmol/L (137-145); Total Bilirubin 0.4 mg/dL (0.2-1.3); Total Protein 8.2 g/dL (6.3-8.2)
[2017-12-02 14:58] LABS: Valproic Acid (Depakene) 92.3 ug/mL
[2017-12-02 15:02] LABS: Blood Urea Nitrogen 12 mg/dL (9-20); Potassium 5.2 mmol/L (3.5-5.1)
[2017-12-02 15:03] LABS: ALT 22 U/L (21-72); AST 27 U/L (17-59); Alkaline Phosphatase 60 U/L (38-126)
[2017-12-02 16:05] VITALS: BP 135/74; PULSE 78; RESP 16; TEMP 98
== END 2017-12-02 15:57 | disposition home or self-care (01) ==
LOC: EC 13:25
DX: R11.2 Nausea with vomiting, unspecified (principal); J45.909 Unspecified asthma, uncomplicated; G40.909 Epilepsy, unspecified, not intractable, without status epilepticus; F84.0 Autistic disorder; Z86.14 Personal history of Methicillin resistant Staphylococcus aureus infection; Z79.51 Long term (current) use of inhaled steroids; Z79.899 Other long term (current) drug therapy; Z91.010 Allergy to peanuts; Z88.8 Allergy status to other drugs, medicaments and biological substances
CPT/HCPCS: 36415; 80164; 80053; 82140; 83690; 85025; 99284; 96374; 96361; J2405

== ENCOUNTER → 2017-12-14 | Outpatient (CLI) | payer BC, OTHER ==
--- NOTE | 2017-12-14 10:36 | US ---
EXAMINATION TYPE: US abdomen limited DATE OF EXAM: 12/14/2017 COMPARISON: NONE CLINICAL HISTORY: K80.20 ELEVATED AMMONIA LEVELS; vomiting without food per assisted caregiver with patient . EXAM MEASUREMENTS: Liver Length: 14.6 cm Gallbladder Wall: 0.2 cm CBD: 0.3 cm Right Kidney: 9.3 x 6.3 x 4.6 cm Pancreas: Obscured by bowel gas Liver: no masses seen and portions obscured by overlying bowel gas Gallbladder: wnl Evidence for sonographic Olmstead's sign: No CBD: wnl Right Kidney: No hydronephrosis or masses seen Exam suboptimal due to patient's underlying medical condition of autism, patient can tolerate little pressure from probe. Pancreas is suboptimally seen on images saved due to shadowing from overlying rina wel gas. Visualized liver is heterogeneous without worrisome intrahepatic ductal dilatation. Evaluati on for focal masses is suboptimal due to the heterogeneity. Images of the gallbladder show no shadowi ng mobile gallstones. Limited images of right kidney show no gross hydronephrosis. IMPRESSION: Suboptimal study without suspicious finding seen to account for patient's symptoms.
== END | disposition home or self-care (01) ==
LOC: RADUSWWP 09:32
PROVIDERS: ATTEND Family Medicine
DX: K80.20 Calculus of gallbladder without cholecystitis without obstruction (principal)
CPT/HCPCS: 76705

== ENCOUNTER → 2017-12-27 | Outpatient (CLI) | payer BC, OTHER | END | disposition home or self-care (01) | LOC: LABWHC1 12:55 | PROVIDERS: ATTEND Family Medicine | DX: E72.20 Disorder of urea cycle metabolism, unspecified (principal) | CPT/HCPCS: 36415; 82140 ==

== ENCOUNTER 2018-01-10 19:22 | Inpatient (IN) | payer BC, OTHER ==
[2018-01-10] MEDS ORDERED: SODIUM CHLORIDE 0.9% 500 ML IV ONE (19:41)
--- NOTE | 2018-01-10 19:46 | ED ---
General Adult HPI - General Chief complaint: Recheck/Abnormal Lab/Rx Stated complaint: high ammonia levels Time Seen by Provider: 01/10/18 19:25 Source: patient, RN notes reviewed Mode of arrival: ambulatory Limitations: altered mental status, physical limitation - History of Present Illness Initial comments: This a 22-year-old male who presents emergency Department with his mother. Patient is autistic child unable to give any of the history. Mom states that in the past his ammonia levels of the been high and they have not come up with a recent Y. Patient was seen by the primary medical care doctor labs were repeated his ammonia level was 120. Patient is not acting any different according to mom and there's been no nausea vomiting or diarrhea. The patient is alert as normal. And eating and drinking normally. - Related Data Home Medications Medication Instructions Recorded Confirmed Albuterol Sulfate [Proair Hfa] 2 puff INHALATION RT-Q6H PRN 03/06/15 01/10/18 Beclomethasone Dipropionate [Qvar 2 puff INHALATION RT-BID 03/06/15 01/10/18 80 mcg/puff] Benztropine Mesylate [Cogentin] 1 mg PO BID 03/06/15 01/10/18 Cetirizine HCl [Zyrtec] 10 mg PO DAILY 03/06/15 01/10/18 Haloperidol [Haldol] 4 mg PO HS 03/06/15 01/10/18 Montelukast [Singulair] 10 mg PO HS 03/06/15 01/10/18 Multivitamin [Men's Multi-Vitamin] 1 tab PO DAILY 03/06/15 01/10/18 cloNIDine HCL [Catapres] 0.1 mg PO TID 03/06/15 01/10/18 Cholecalciferol [Vitamin D3] 2,000 unit PO DAILY 08/14/17 01/10/18 Lacosamide [Vimpat] 200 mg PO BID 08/14/17 01/10/18 OLANZapine [ZyPREXA] 10 mg PO HS 08/14/17 01/10/18 OXcarbazepine [Trileptal] 750 mg PO DAILY 08/14/17 01/10/18 Divalproex [Depakote] 1,000 mg PO BID 12/02/17 01/10/18 Clonazepam Odt 1mg 2 tab SUBLINGUAL DAILY PRN 01/10/18 01/10/18 Diazepam 10mg Gel 10 mg RECTAL DAILY PRN 01/10/18 01/10/18 Ibuprofen [Motrin] 400 mg PO Q8HR PRN 01/10/18 01/10/18 OXcarbazepine [Trileptal] 600 mg PO HS 01/10/18 01/10/18 Pseudoephedrine HCl [Sudogest] 30 mg PO BID PRN 01/10/18 01/10/18 guaiFENesin-DM 100-10MG/5ML 10 ml PO Q6HR PRN 01/10/18 01/10/18 [Robitussin DM] Allergies Allergy/AdvReac Type Severity Reaction Status Date / Time fluoxetine [From Prozac] Allergy Unknown Verified 01/10/18 19:56 peanut Allergy Unknown Verified 01/10/18 19:56 phenytoin [From Dilantin] Allergy Unknown Verified 01/10/18 19:56 Review of Systems ROS Statement: Those systems with pertinent positive or pertinent negative responses have been documented in the HPI. ROS Other: All systems not noted in ROS Statement are negative. Past Medical History Past Medical History: Asthma, Seizure Disorder Additional Past Medical History / Comment(s): Autism(can become violent at times -thats why he is in a fdc mon thru monday and home on weekend) .being tx for autism/behavior/violent episodes. pt's mom stated that pt has the mentality of an 8 year old andwhen pt not sick he can pretty much tell you what he needs or wants.abble to read and write some-usually only what he wants to. limited w/ his food likes. he eats fijian fries, [id number] bread, chips, cereal( trix or waffle crisps) History of Any Multi-Drug Resistant Organisms: MRSA Date of last positivie culture/infection: 2006 MDRO Source:: boils on rt hip Past Surgical History: No Surgical Hx Reported Additional Past Surgical History / Comment(s): pt can be violent at times is why he is in fdc per mom, being treated, Autism/behavior/violent CM[facility] Past Anesthesia/Blood Transfusion Reactions: No Reported Reaction Additional Past Anesthesia/Blood Transfusion Reaction / Comment(s): per mom-pt never had any sx. Past Psychological History: No Psychological Hx Reported Smoking Status: Never smoker Past Alcohol Use History: None Reported Past Drug Use History: None Reported - Past Family History Father Family Medical History: Diabetes Mellitus, Hyperlipidemia, Hypertension Additional Family Medical History / Comment(s): depression. Paternal grandmother with myocardial infarction. Maternal grandfather with congestive heart failure Mother Family Medical History: Diabetes Mellitus, Hyperlipidemia, Hypertension, Thyroid Disorder Additional Family Medical History / Comment(s): depression General Exam - General Exam Comments Initial Comments: GENERAL: Patient is well-developed and well-nourished. Patient is nontoxic and well- hydrated and is in no acute distress. ENT: Neck is soft and supple. No significant lymphadenopathy is noted. Oropharynx is clear. Moist mucous membranes. EYES: The sclera were anicteric and conjunctiva were pink and moist. Extraocular movements were intact and pupils were equal round and reactive to light. Eyelids were unremarkable. PULMONARY: Unlabored respirations. Good breath sounds bilaterally. No audible rales rhonchi or wheezing was noted. CARDIOVASCULAR: There is a regular rate and rhythm ABDOMEN: Soft and nontender with normal bowel sounds. SKIN: Skin is clear with no lesions or rashes and otherwise unremarkable. NEUROLOGIC: Patient is alert and oriented unable to just. Cranial nerves II through XII are grossly intact. Motor and sensory are also intact. Normal speech, volume and content. MUSCULOSKELETAL: Normal extremities with adequate strength and full range of motion. LYMPHATICS: No significant lymphadenopathy is noted PSYCHIATRIC: Unable to assess secondary to his autism mom states he is acting normal however Limitations: altered mental status, physical limitation Course Vital Signs 01/10/18 19:26 Temperature 98.0 F Pulse Rate 68 Respiratory 20 Rate Blood Pressure 124/61 Medical Decision Making - Medical Decision Making Spoke with Dr. Baer about this case as well as Dr. Lake to admit. I admitted the patient and I consult with Dr. Villavicencio as well. I initially spoke with Dr. Marmolejo but he wanted to admit the patient to the hospitalist. - Lab Data Result diagrams: 01/10/18 19:58 01/10/18 19:58 Lab Results 01/10/18 01/10/18 01/10/18 Range/Units 19:57 19:58 19:58 WBC (3.8-10.6) k/uL RBC (4.30-5.90) m/uL Hgb (13.0-17.5) gm/dL Hct (39.0-53.0) % MCV (80.0-100.0) fL MCH (25.0-35.0) pg MCHC (31.0-37.0) g/dL RDW (11.5-15.5) % Plt Count (150-450) k/uL Neutrophils % % Lymphocytes % % Monocytes % % Eosinophils % % Basophils % % Neutrophils # (1.3-7.7) k/uL Lymphocytes # (1.0-4.8) k/uL Monocytes # (0-1.0) k/uL Eosinophils # (0-0.7) k/uL Basophils # (0-0.2) k/uL Sodium (137-145) mmol/L Potassium (3.5-5.1) mmol/L Chloride (98-107) mmol/L Carbon Dioxide (22-30) mmol/L Anion Gap mmol/L BUN (9-20) mg/dL Creatinine (0.66-1.25) mg/dL Est GFR (CKD-EPI)AfAm (>60 ml/min/1.73 sqM) Est GFR (CKD-EPI)NonAf (>60 ml/min/1.73 sqM) Glucose (74-99) mg/dL POC Glucose (mg/dL) 98 (75-99) mg/dL POC Glu Automotive Mechanical Engineer Evelyn Alvarez Calcium (8.4-10.2) mg/dL Total Bilirubin (0.2-1.3) mg/dL AST (17-59) U/L ALT (21-72) U/L Alkaline Phosphatase (38-126) U/L Ammonia 387 H (<30) umol/L Total Creatine Kinase 130 (55-170) U/L CK-MB (CK-2) 1.4 (0.0-2.4) ng/mL CK-MB (CK-2) Rel Index 1.1 Total Protein (6.3-8.2) g/dL Albumin (3.5-5.0) g/dL Valproic Acid ug/mL 01/10/18 01/10/18 Range/Units 19:58 19:58 WBC 3.3 L (3.8-10.6) k/uL RBC 3.41 L (4.30-5.90) m/uL Hgb 10.3 L (13.0-17.5) gm/dL Hct 29.6 L (39.0-53.0) % MCV 87.0 (80.0-100.0) fL MCH 30.3 (25.0-35.0) pg MCHC 34.9 (31.0-37.0) g/dL RDW 14.0 (11.5-15.5) % Plt Count 167 D (150-450) k/uL Neutrophils % 50 % Lymphocytes % 39 % Monocytes % 6 % Eosinophils % 3 % Basophils % 1 % Neutrophils # 1.7 (1.3-7.7) k/uL Lymphocytes # 1.3 (1.0-4.8) k/uL Monocytes # 0.2 (0-1.0) k/uL Eosinophils # 0.1 (0-0.7) k/uL Basophils # 0.0 (0-0.2) k/uL Sodium 133 L (137-145) mmol/L Potassium 4.2 (3.5-5.1) mmol/L Chloride 96 L (98-107) mmol/L Carbon Dioxide 24 (22-30) mmol/L Anion Gap 13 mmol/L BUN 11 (9-20) mg/dL Creatinine 0.70 (0.66-1.25) mg/dL Est GFR (CKD-EPI)AfAm >90 (>60 ml/min/1.73 sqM) Est GFR (CKD-EPI)NonAf >90 (>60 ml/min/1.73 sqM) Glucose 93 (74-99) mg/dL POC Glucose (mg/dL) (75-99) mg/dL POC Glu Automotive Mechanical Engineer ID Calcium 9.1 (8.4-10.2) mg/dL Total Bilirubin 0.2 (0.2-1.3) mg/dL AST 21 (17-59) U/L ALT 23 (21-72) U/L Alkaline Phosphatase 50 (38-126) U/L Ammonia (<30) umol/L Total Creatine Kinase (55-170) U/L CK-MB (CK-2) (0.0-2.4) ng/mL CK-MB (CK-2) Rel Index Total Protein 6.5 (6.3-8.2) g/dL Albumin 4.2 (3.5-5.0) g/dL Valproic Acid 75.5 ug/mL Disposition Clinical Impression: Hyperammonemia Disposition: ADMITTED IP TO THIS HOSP Referrals: Bandar Hanna DO [Primary Care Provider] - 1-2 days Time of Disposition: 20:58
[2018-01-10 20:00] LABS: Glucose,Whole Blood 98 mg/dL (75-99)
[2018-01-10 20:14] LABS: Basophils % (A) 1 %; Eosinophils # (A) 0.1 k/uL (0-0.7); Eosinophils % (A) 3 %; HCT 29.6 % (39.0-53.0); HGB 10.3 gm/dL (13.0-17.5); Lymphocytes # (A) 1.3 k/uL (1.0-4.8); Lymphocytes % (A) 39 %; MCH 30.3 pg (25.0-35.0); MCHC 34.9 g/dL (31.0-37.0); Mean Platelet Volume 8.1; Monocytes # (A) 0.2 k/uL (0-1.0); Monocytes % (A) 6 %; Neutrophils # (A) 1.7 k/uL (1.3-7.7); Neutrophils % (A) 50 %; RBC 3.41 m/uL (4.30-5.90); WBC 3.3 k/uL (3.8-10.6)
[2018-01-10 20:15] LABS: Platelet Count 167 k/uL (150-450)
[2018-01-10 20:38] LABS: ALT 23 U/L (21-72); AST 21 U/L (17-59); Albumin 4.2 g/dL (3.5-5.0); Alkaline Phosphatase 50 U/L (38-126); Anion Gap 13 mmol/L; Blood Urea Nitrogen 11 mg/dL (9-20); Calcium 9.1 mg/dL (8.4-10.2); Carbon Dioxide 24 mmol/L (22-30); Chloride 96 mmol/L (98-107); Glucose 93 mg/dL (74-99); Potassium 4.2 mmol/L (3.5-5.1); Sodium 133 mmol/L (137-145); Total Bilirubin 0.2 mg/dL (0.2-1.3); Total Protein 6.5 g/dL (6.3-8.2)
[2018-01-10 20:44] LABS: Valproic Acid (Depakene) 75.5 ug/mL
[2018-01-10 20:50] LABS: Creatine Kinase MB 1.4 ng/mL (0.0-2.4)
[2018-01-10] MEDS ORDERED: SODIUM CHLORIDE 0.9% 1,000 ML IV ONE (21:08)
[2018-01-10] MEDS ORDERED: guaiFENesin-DM 100-10MG/5ML 10 ML CUP PO PRN (22:57)
[2018-01-10] MEDS ORDERED: DIAZEPAM 10 MG RECTAL PRN (22:57)
[2018-01-10] MEDS ORDERED: CLONAZEPAM 1 MG SUBLINGUAL PRN (22:57)
[2018-01-10] MEDS ORDERED: IBUPROFEN 400 MG TAB PO PRN (22:57)
[2018-01-10] MEDS ORDERED: PSEUDOEPHEDRINE 30 MG TAB PO PRN (22:57)
[2018-01-10] MEDS ORDERED: ALBUTEROL INHALER 60 PUFF/8 GM INHALER INHALATION PRN (22:57)
[2018-01-10 23:23] VITALS: BMI 30.9
[2018-01-10] MEDS: OLANZapine 10 MG TAB PO SCH (23:45)
[2018-01-10] MEDS: HALOPERIDOL 2 MG TAB PO SCH (23:45)
[2018-01-10] MEDS: BENZTROPINE MESYLATE 1 MG TAB PO SCH (23:45)
[2018-01-10] MEDS: LORATADINE 10 MG TAB PO SCH (23:45)
[2018-01-10] MEDS: OXcarbazepine 300 MG TAB PO SCH (23:45)
[2018-01-10] MEDS: MONTELUKAST 10 MG TAB PO SCH (23:45)
[2018-01-10] MEDS: LACTULOSE 20 GM/30 ML CUP PO SCH (23:46)
[2018-01-10] MEDS: DIVALPROEX 500 MG TABLET.DR PO SCH (23:46)
[2018-01-10] MEDS: LACOSAMIDE 50 MG TABLET PO SCH (23:48)
[2018-01-10] MEDS: cloNIDine HCL 0.1 MG TAB PO SCH (23:51)
--- NOTE | 2018-01-10 23:57 | HP ---
HISTORY AND PHYSICAL DATE OF SERVICE: 01/10/2018 CHIEF COMPLAINTS: High ammonia. HISTORY OF PRESENT ILLNESS: This 22-year-old gentleman with a past medical history of asthma, seizure disorder, autism, history of MRSA being followed by Dr. Hanna in the outpatient setting was previously admitted for seizure disorder. The patient has had seizures since age of 19. Patient had multiple episodes of seizures. Patient was admitted on multiple occasions to [facility] and the last time was in October and the patient was found to have supratherapeutic valproic acid level. L-carnitine was given. Ammonia level was also found to be high and lactulose also given. Currently the patient was noted to have high ammonia levels and levels about 387. The patient admitted for further evaluation and treatment. Valproic acid level is 75.5. The patient is also seeing neurology, Dr. Lluvia Pittman. Of note, the patient is also seeing [facility] and while evaluating the patient, did have an episode of seizure and was also evaluated apparently also at [facility]. Patient also has frequent staring episodes. The patient is unable to provide a coherent history. Most of the history is taken my discussion with staff and the ER physician as well as in discussion with both parents at the bedside. The patient also influenza B also recently. PAST MEDICAL HISTORY: History of asthma, seizure disorder, autism. MEDICATIONS PRIOR TO ADMISSION: Include: 1. Vimpat 200 mg p.o. b.i.d. 2. Diazepam 10 mg daily p.r.n. 3. Clonazepam 2 tablets p.o. p.r.n. 4. ProAir 2 puffs every 6 hours p.r.n. 5. Trileptal 600 mg q.h.s. and 750 mg p.o. daily. 6. Qvar 280 mg 2 puffs b.i.d. 7. Catapres 0.1 t.i.d. 8. Zyprexa 10 mg q.h.s. 9. Multivitamins 1 p.o. daily. 10.Singulair 10 mg p.o. q.h.s. 11.Haldol 4 mg q.h.s. and. 12.Depakote 1000 mg p.o. b.i.d. 13.Robitussin 10 mL p.o. every 6 hours p.r.n. 14.SudoGest 30 mg p.o. b.i.d. p.r.n. 15.Zyrtec 10 mg daily p.r.n. 16.Cogentin 1 mg p.o. b.i.d. 17.Motrin 400 mg q.8h p.o. p.r.n. 18.Vitamin D3 2000 daily. ALLERGIES: PROZAC, PEANUTS, PHENYTOIN. FAMILY HISTORY: History of diabetes, hypertension, hyperlipidemia, depression. Grandmother with myocardial infarction. Grandfather with CHF. SOCIAL HISTORY: No history of smoking or alcohol intake. REVIEW OF SYSTEMS: Could not be taken because of the patient's baseline mental status. PHYSICAL EXAM: Pulse is 69. Blood pressure 109/69, respirations 18, temperature 97.7, pulse ox 98% on room air. HEENT: Conjunctivae normal. Oral mucosa moist. NECK: No jugular venous distention. No carotid bruits. No lymph node enlargement. No thyromegaly. CARDIOVASCULAR: S1, S2 muffled. No S3, S4. RESPIRATORY: Breath sounds diminished in the bases. A few scattered rhonchi. No crackles. ABDOMEN: Soft, nontender. No mass palpable. LEGS: No edema. No swelling. NERVOUS SYSTEM: Higher functions as mentioned earlier. Moves all 4 limbs. Full neurological exam is not possible. SKIN: No ulcer, rash or bleeding. LYMPHATIC: No lymphadenopathy in neck or axillae. JOINTS: No active deforming arthropathy. LABS: WBC 3.2, hemoglobin is 10.5. ASSESSMENT: 1. History of recurrent seizures. 2. Hyperammonemia of undetermined etiology. 3. Hyponatremia. 4. Leukopenia. 5. Anemia, normocytic. 6. History of seizure disorder. 7. History of asthma. 8. History or autism. RECOMMENDATIONS AND DISCUSSION: In this 22-year-old gentleman who presented with multiple complex medical issues, will monitor the patient closely, continue the current medical management and symptomatic treatment. Otherwise, we will continue to monitor and I would also get a neurology evaluation, resume the home medications. Prognosis guarded because of multiple complex medical issues. Further recommendations to follow. A copy of this dictation will be forwarded to Dr. Hanna. I would also recommend evaluation during this admission regarding hyperammonia, etiology of which is uncertain at this time. The prognosis is guarded. Further recommendations to follow. See orders for further details. MMODL / IJN: [id number] /
[2018-01-11 04:16] LABS: Appearance,Urine Clear (Clear); Bilirubin,Urine Negative (Negative); Blood,Urine Negative (Negative); Color,Urine Colorless; Glucose,Urine (UA) Negative (Negative); Ketones,Urine Negative (Negative); Leukocyte Esterase,Urine Negative (Negative); Nitrite,Urine Negative (Negative); PH, Urine 7.5 (5.0-8.0); Protein,Urine Negative (Negative); Specific Gravity,Urine 1.006 (1.001-1.035); Urobilinogen,Urine <2.0 mg/dL (<2.0)
[2018-01-11] MEDS ORDERED: ALBUTEROL NEBULIZED 2.5 MG/3 ML INHALATION PRN (04:55)
[2018-01-11 07:40] LABS: Basophils % (A) 0 %; Eosinophils # (A) 0.1 k/uL (0-0.7); Eosinophils % (A) 3 %; HCT 33.4 % (39.0-53.0); HGB 11.5 gm/dL (13.0-17.5); Lymphocytes # (A) 1.2 k/uL (1.0-4.8); Lymphocytes % (A) 35 %; MCH 30.4 pg (25.0-35.0); MCHC 34.5 g/dL (31.0-37.0); MCV 88.1 fL (80.0-100.0); Mean Platelet Volume 11.9; Monocytes # (A) 0.4 k/uL (0-1.0); Monocytes % (A) 11 %; Neutrophils # (A) 1.7 k/uL (1.3-7.7); Neutrophils % (A) 50 %; Platelet Count 143 k/uL (150-450); RBC 3.79 m/uL (4.30-5.90); WBC 3.4 k/uL (3.8-10.6)
[2018-01-11 08:31] LABS: Anion Gap 15 mmol/L; Blood Urea Nitrogen 8 mg/dL (9-20); Calcium 9.5 mg/dL (8.4-10.2); Carbon Dioxide 23 mmol/L (22-30); Chloride 100 mmol/L (98-107); Glucose 85 mg/dL (74-99); Potassium 4.5 mmol/L (3.5-5.1); Sodium 138 mmol/L (137-145)
[2018-01-11] MEDS: LACTULOSE 20 GM/30 ML CUP PO SCH ×3 (09:28→20:38)
[2018-01-11] MEDS: BENZTROPINE MESYLATE 1 MG TAB PO SCH ×2 (09:28→20:38)
[2018-01-11] MEDS: cloNIDine HCL 0.1 MG TAB PO SCH ×3 (09:29→20:38)
[2018-01-11] MEDS: OXcarbazepine 300 MG TAB PO SCH ×2 (09:29→20:37)
[2018-01-11] MEDS: LORATADINE 10 MG TAB PO SCH (09:29)
[2018-01-11] MEDS: MULTIVITAMINS, THERA 1 EACH TAB PO SCH (09:29)
[2018-01-11] MEDS: DIVALPROEX 500 MG TABLET.DR PO SCH ×2 (09:29→20:38)
[2018-01-11] MEDS: BECLOMETHASONE DIP 80 MCG/PUFF INHALER INHALATION SCH ×2 (09:31→20:48)
[2018-01-11] MEDS: LACOSAMIDE 50 MG TABLET PO SCH ×2 (10:01→20:37)
[2018-01-11] MEDS: CHOLECALCIFEROL 1,000 UNIT TAB PO SCH (10:01)
--- NOTE | 2018-01-11 12:26 | P.CONS ---
History of Present Illness - Reason for Consult Consult date: 01/11/18 Elevated ammonia Requesting physician: Mack Lake - History of Present Illness 22-year-old gentleman with a history of autism developmental delay seizure disorder asthma presented with mental status changes and elevated ammonia level. Patient was hospitalized in October with similar presentation elevated ammonia level but was also diagnosed with acute influenza. Patient takes valproic acid for maintenance of seizures and in October it was supratherapeutic 123. Ammonia at that time was 114 was provided lactulose L- carnitine and decreased to 73 on discharge. History was obtained from patient's father. Prior to this admission patient appeared drunk drowsy staggering walk. Serum ammonia was 387 he's receiving lactulose and current ammonia level is 119. He is alert, conversing at bedside in no acute distress. Valproic acid 75. No history of known liver disorders. White count 3.3-3.4. Hemoglobin 10.3- 11.5. Platelet 143-167. INR not obtained but in October was 1.1. LFTs within normal limits. BUN 11. Creatinine 0.7. Ultrasound abdomen liver length 14.6 cm. Visualized liver is heterogeneous without worrisome intrahepatic ductal dilatation. No evidence of cholelithiasis. CBD 0.3 cm. Review of Systems Obtained from parent Constitutional: Denies fever, chills, sweats, weight gain, or loss. Developmental delay autism. HEENT: Negative for migraines, blurred vision or loss, earaches, drainage, tinnitus, oral mucosal lesions, dysphagia, or odynophagia. Cardiac: Negative for chest pain, arrhythmias, or palpitation. Respiratory: History of asthma. Negative for shortness of breath, hemoptysis, cough, or sputum production. Gastrointestinal: See HPI for pertinent findings. Genitourinary: Negative for hematuria, urgency, frequency, polyuria, dysuria, or penile discharge. Musculoskeletal: Negative for muscle aches, swelling, arthritis, and arthralgias. Neurologic: Negative for stroke or TIA. Endocrine: Negative for thyroid problems. Skin: Negative for rash or itching. Psychiatric: Negative history for depression and anxiety Past Medical History Past Medical History: Asthma, Seizure Disorder Additional Past Medical History / Comment(s): Autism(can become violent at times -thats why he is in a penitentiary mon thru monday and home on weekend) .being tx for autism/behavior/violent episodes. pt's mom stated that pt has the mentality of an 8 year old andwhen pt not sick he can pretty much tell you what he needs or wants.abble to read and write some-usually only what he wants to. limited w/ his food likes. he eats kazakh fries, [id number] bread, chips, cereal( trix or waffle crisps) History of Any Multi-Drug Resistant Organisms: MRSA Year Discovered:: 2006 MDRO Source:: boils on rt hip Past Surgical History: No Surgical Hx Reported Additional Past Surgical History / Comment(s): pt can be violent at times is why he is in penitentiary per mom, being treated, Autism/behavior/violent [facility] Past Anesthesia/Blood Transfusion Reactions: No Reported Reaction Additional Past Anesthesia/Blood Transfusion Reaction / Comm: per mom-pt never had any sx. Past Psychological History: No Psychological Hx Reported Additional Psychological History / Comment(s): tx for autism/behavior/violent episodes.pt's mom stated he is able to read and write (what he wants to) Smoking Status: Never smoker Past Alcohol Use History: None Reported Past Drug Use History: None Reported - Past Family History Father Family Medical History: Diabetes Mellitus, Hyperlipidemia, Hypertension Additional Family Medical History / Comment(s): depression. Paternal grandmother with myocardial infarction. Maternal grandfather with congestive heart failure Mother Family Medical History: Diabetes Mellitus, Hyperlipidemia, Hypertension, Thyroid Disorder Additional Family Medical History / Comment(s): depression Medications and Allergies Home Medications Medication Instructions Recorded Confirmed Type Albuterol Sulfate [Proair Hfa] 2 puff INHALATION RT-Q6H PRN 03/06/15 01/10/18 History Beclomethasone Dipropionate [Qvar 2 puff INHALATION RT-BID 03/06/15 01/10/18 History 80 mcg/puff] Benztropine Mesylate [Cogentin] 1 mg PO BID 03/06/15 01/10/18 History Cetirizine HCl [Zyrtec] 10 mg PO DAILY 03/06/15 01/10/18 History Haloperidol [Haldol] 4 mg PO HS 03/06/15 01/10/18 History Montelukast [Singulair] 10 mg PO HS 03/06/15 01/10/18 History Multivitamin [Men's Multi-Vitamin] 1 tab PO DAILY 03/06/15 01/10/18 History cloNIDine HCL [Catapres] 0.1 mg PO TID 03/06/15 01/10/18 History Cholecalciferol [Vitamin D3] 2,000 unit PO DAILY 08/14/17 01/10/18 History Lacosamide [Vimpat] 200 mg PO BID 08/14/17 01/10/18 History OLANZapine [ZyPREXA] 10 mg PO HS 08/14/17 01/10/18 History OXcarbazepine [Trileptal] 750 mg PO DAILY 08/14/17 01/10/18 History Divalproex [Depakote] 1,000 mg PO BID 12/02/17 01/10/18 History Clonazepam Odt 1mg 2 tab SUBLINGUAL DAILY PRN 01/10/18 01/10/18 History Diazepam 10mg Gel 10 mg RECTAL DAILY PRN 01/10/18 01/10/18 History Ibuprofen [Motrin] 400 mg PO Q8HR PRN 01/10/18 01/10/18 History OXcarbazepine [Trileptal] 600 mg PO HS 01/10/18 01/10/18 History Pseudoephedrine HCl [Sudogest] 30 mg PO BID PRN 01/10/18 01/10/18 History guaiFENesin-DM 100-10MG/5ML 10 ml PO Q6HR PRN 01/10/18 01/10/18 History [Robitussin DM] Allergies Allergy/AdvReac Type Severity Reaction Status Date / Time fluoxetine [From Prozac] Allergy Unknown Verified 01/10/18 23:52 peanut Allergy Unknown Verified 01/10/18 23:52 phenytoin [From Dilantin] Allergy Unknown Verified 01/10/18 23:52 Physical Exam Vitals: Vital Signs Temp Pulse Pulse Resp BP BP Pulse Ox 01/11/18 08:25 97.9 F 61 18 130/84 97 01/10/18 22:00 97.9 F 76 18 142/84 97 01/10/18 21:45 69 01/10/18 21:41 97.7 F 69 18 129/69 98 01/10/18 19:26 98.0 F 68 20 124/61 Intake and Output 01/10/18 01/11/18 01/11/18 22:59 06:59 14:59 Other: Voiding Method Toilet # Voids 2 Weight 95 kg General appearance: The patient is alert, oriented as expected to his underlying autism developmental delay, in no acute distress. HET: Head is normocephalic and atraumatic. Pupils are equal and reactive. Oropharynx is clear without lesions. Neck: Supple without lymphadenopathy. Trachea midline. Heart: S1 S2. Regular rate and rhythm. Lungs: No crackles or wheezes are heard. Abdomen: Soft, nontender, nondistended with bowel sounds. No peritoneal signs. No palpable organomegaly or masses. Extremities: Normal skin color and turgor. No cyanosis, rash, ulceration, clubbing, or edema. Radial and pedal pulses are 2/4 bilaterally. Neurological: No focal deficits. Strength and sensation are grossly intact. Results CBC & Chem 7: 01/11/18 07:26 01/11/18 08:03 Labs: Abnormal Lab Results - Last 24 Hours (Table) 01/10/18 01/10/18 01/10/18 Range/Units 19:58 19:58 19:58 WBC 3.3 L (3.8-10.6) k/uL RBC 3.41 L (4.30-5.90) m/uL Hgb 10.3 L (13.0-17.5) gm/dL Hct 29.6 L (39.0-53.0) % Plt Count (150-450) k/uL Sodium 133 L (137-145) mmol/L Chloride 96 L (98-107) mmol/L BUN (9-20) mg/dL Creatinine (0.66-1.25) mg/dL Ammonia 387 H (<30) umol/L 01/11/18 01/11/18 01/11/18 Range/Units 07:26 07:26 08:03 WBC 3.4 L (3.8-10.6) k/uL RBC 3.79 L (4.30-5.90) m/uL Hgb 11.5 L (13.0-17.5) gm/dL Hct 33.4 L (39.0-53.0) % Plt Count 143 L (150-450) k/uL Sodium (137-145) mmol/L Chloride (98-107) mmol/L BUN 8 L (9-20) mg/dL Creatinine 0.55 L (0.66-1.25) mg/dL Ammonia 119 H (<30) umol/L US - abdomen: report reviewed (Dr. Baer) Assessment and Plan (1) Hyperammonemia Narrative/Plan: 22-year-old gentleman with a history of autism developmental delay seizure disorder maintained on valproic acid admitted with acute mental status changes with hyperammonemia and therapeutic valproic acid level. Presently not symptomatic. This is his second admission in 2 months with no clinical evidence to suggest obvious underlying liver disease. Etiology of hyperammonemia possible congenital possible genetic. L-carnitine deficiency possible urea cycle disorder organic acidemia also within the differential. Current Visit: Yes Status: Acute Code(s): E72.20 - DISORDER OF UREA CYCLE METABOLISM, UNSPECIFIED SNOMED Code(s): 6553451 (2) Seizure disorder Current Visit: Yes Status: Acute Code(s): G40.909 - EPILEPSY, UNSP, NOT INTRACTABLE, WITHOUT STATUS EPILEPTICUS SNOMED Code(s): 229620320 (3) Altered mental status Current Visit: No Status: Acute Code(s): R41.82 - ALTERED MENTAL STATUS, UNSPECIFIED SNOMED Code(s): 064169181 (4) Autism Current Visit: No Status: Acute Code(s): F84.0 - AUTISTIC DISORDER SNOMED Code(s): 314470543 Plan: 1. Daily ammonia level. Recommend referral to specialist for further evaluation of hyperammonemia possible L-carnitine deficiency possible organic acidemia urea cycle disorder. This is not an area of GI medicine well familiar with and would benefit patient/family to see outside referral possibly a offset proof press operator/neurologist/corduroy brusher operator that specializes in theses types of cases. 2. Continue lactulose 20 g 3 times a day. 3. Family is requesting transfer to [facility] for further evaluation. Thank you for this kind referral and the opportunity to participate in the care of your patient. This consultation was discussed with Dr. Baer. The impression and plan of care have been directed as dictated.
--- NOTE | 2018-01-11 12:58 | CDI ---
Last Revision, August 2017 Documentation Clarification Form Date: 01/11/18 1254 From: Mei Morrow Admit Date: 01/10/2018 9:08:00 PM Patient Name: Dez Abdalla Visit Number: [id number] ATTENTION: The Clinical Documentation Specialists (CDI) and [facility] Coding Staff appreciate your assistance in clarifying documentation. Please respond to the clarification below the line at the bottom and electronically sign. The CDI & [facility] Coding staff will review the response and follow-up if needed. Please note: Queries are made part of the Legal Health Record. If you have any questions, please contact the author of this message via ITS. Dr. Mack Lake A diagnosis of normocytic anemia lacks specificity to accurately reflect your patients severity of condition and clarification is needed. History/Risk Factors: noncirrhotic hyperammonemia, seizure disorder, asthma, autism Clinical indicators: Hemoglobin: 10.3/11.5 Hematocrit: 29.6/33.4 Treatment: monitoring labs daily In order to capture the severity of condition, please clarify the type of anemia and etiology if known: Acute blood loss anemia Acute on chronic blood loss anemia Chronic blood loss anemia Iron deficiency anemia Hemolytic anemia Drug induced anemia Nutritional anemia Unable to determine Other, please specify Please continue to document in your progress notes and discharge summary in order to capture severity of illness and risk of mortality. Include clinical findings that support your diagnosis. Unable to determine MTDD
--- NOTE | 2018-01-11 13:08 | CDI ---
Last Revision, August 2017 Documentation Clarification Form Date: 01/11/2018 1:00:00 PM From: Mei Morrow RN, CCDS Admit Date: 01/10/2018 9:08:00 PM Patient Name: Dez Abdalla Visit Number: [id number] ATTENTION: The Clinical Documentation Specialists (CDI) and [facility] Coding Staff appreciate your assistance in clarifying documentation. Please respond to the clarification below the line at the bottom and electronically sign. The CDI & [facility] Coding staff will review the response and follow-up if needed. Please note: Queries are made part of the Legal Health Record. If you have any questions, please contact the author of this message via ITS. Dr. Mack Lake Altered mental status was documented in the H&P and GI Consult. Patient history/risk factors: Autism, Seizure Disorder Clinical Indicators: 01/11 GI: "acute mental status changes with suspected noncirrhotic hyperammonemia. This is his second admission in 2 months with no clinical evidence to suggest obvious underlying liver disease." Labs: ammonia 387/119 Treatment: Cephulac 20 gm PO TID 500 CC Fluid Bolus followed by 0.9% NS @ 75 cc/hr In your professional opinion, please clarify the etiology of the altered mental status, if known. Encephalopathy Hepatic (specify cause if known) Metabolic (specify cause if known) Other condition (please specify) Unable to determine Please continue to document in your progress notes and discharge summary in order to capture severity of illness and risk of mortality. Include clinical findings that support your diagnosis. Encephalopathy Hepatic MTDD
--- NOTE | 2018-01-11 16:37 | PN ---
PROGRESS NOTE DATE OF SERVICE: This 22-year-old gentleman who was admitted with high ammonia levels also had history of seizures. The patient is being evaluated by Gastroenterology as well as Neurology. Ammonia is 119 and the patient was ordered lactulose. Past medical history reviewed. Review of systems could not be taken. Current medications are reviewed and include: 1. Ventolin 2.5 q.6 p.r.n. 2. Qvar 2 puffs b.i.d. 3. Cogentin 1 mg p.o. b.i.d. 4. Vitamin D3 daily. 5. Catapres 0.1 p.o. t.i.d. 6. Depakote 1000 mg p.o. b.i.d. 7. Robitussin. 8. Haldol 4 mg at bedtime. 9. Motrin 400 mg at bedtime. 10.Vimpat 200 mg p.o. b.i.d. 11.Cephulac 20 grams t.i.d. 12.Claritin 10 mg daily. 13.Singulair. 14.Multivitamins. 15.Diazepam. 16.Zyprexa. 17.Trileptal. 18.Sudafed. PHYSICAL EXAMINATION: Pulse is 104, blood pressure 134/72, respiration 18, temperature 97.2, pulse ox 97% on room air. HEENT: Conjunctivae normal. NECK: No jugular venous distention. CARDIOVASCULAR SYSTEM: S1, S2 muffled. RESPIRATORY SYSTEM: Breath sounds diminished at the bases. No rhonchi. No crackles. ABDOMEN: Soft, non-tender. LEGS: No edema. No swelling. NERVOUS SYSTEM: No focal deficit. Labs at this time show ammonia as noted; otherwise sodium 138, potassium 4.5, WBC 3.4, hemoglobin 11.5. ASSESSMENT: 1. Recurrent seizures for evaluation. 2. Hyperammonemia of undetermined etiology. 3. Hyponatremia. 4. Leukopenia. 5. Anemia, normocytic. 6. History of seizure disorder. 7. History of asthma. 8. History of autism. RECOMMENDATIONS AND DISCUSSION: I recommend to continue current medication, continue symptomatic treatment. Closely follow with Gastroenterology. Continue the lactulose. Continue the rest of the medications. Continue to follow with Neurology. The case managers is also making an appointment at [facility] for a second opinion as an outpatient, where the patient actually had a followup. Further recommendations to follow. MMROMEL / IJN: [id number] / LESTER
--- NOTE | 2018-01-11 18:15 | P.CNNES ---
History of Present Illness Consult date: 01/11/18 History of Present Illness: The patient is a 22-year-old man with history of autism and seizure disorder and history of elevated ammonia levels. He presents to the hospital with elevated ammonia level. Apparently her his primary care doctor had drawn a level II weeks ago and was informing the patient's family recently the of the elevated level. The patient's mom states that the patient has been more combative and agitated in the last couple of weeks. His seizures have been well controlled. He is on Depakote and Vimpat. He was recently hospitalized in October with elevated done ammonia. At that time his Depakote dose was reduced and his ammonia level apparently resolved and then recently again ammonia level came up again. His Depakote level is in the therapeutic range. He is on Vimpat 200 mg twice a day and Depakote thousand milligrams twice a day patient has been doing otherwise some fine and in no acute distress. His ammonia level is reduced from 387 2 a level of 119. He has received lactulose. Review of Systems ROS unobtainable: due to mental status Past Medical History Past Medical History: Asthma, Seizure Disorder Additional Past Medical History / Comment(s): Autism(can become violent at times -thats why he is in a jail mon thru monday and home on weekend) .being tx for autism/behavior/violent episodes. pt's mom stated that pt has the mentality of an 8 year old andwhen pt not sick he can pretty much tell you what he needs or wants.abble to read and write some-usually only what he wants to. limited w/ his food likes. he eats sinhala fries, [id number] bread, chips, cereal( trix or waffle crisps) History of Any Multi-Drug Resistant Organisms: MRSA Date of last positivie culture/infection: 2006 MDRO Source:: boils on rt hip Past Surgical History: No Surgical Hx Reported Additional Past Surgical History / Comment(s): pt can be violent at times is why he is in jail per mom, being treated, Autism/behavior/violent [facility] Past Anesthesia/Blood Transfusion Reactions: No Reported Reaction Additional Past Anesthesia/Blood Transfusion Reaction / Comment(s): per mom-pt never had any sx. Past Psychological History: No Psychological Hx Reported Additional Psychological History / Comment(s): tx for autism/behavior/violent episodes.pt's mom stated he is able to read and write (what he wants to) Smoking Status: Never smoker Past Alcohol Use History: None Reported Past Drug Use History: None Reported - Past Family History Father Family Medical History: Diabetes Mellitus, Hyperlipidemia, Hypertension Additional Family Medical History / Comment(s): depression. Paternal grandmother with myocardial infarction. Maternal grandfather with congestive heart failure Mother Family Medical History: Diabetes Mellitus, Hyperlipidemia, Hypertension, Thyroid Disorder Additional Family Medical History / Comment(s): depression Medications and Allergies Home Medications Medication Instructions Recorded Confirmed Type Albuterol Sulfate [Proair Hfa] 2 puff INHALATION RT-Q6H PRN 03/06/15 01/10/18 History Beclomethasone Dipropionate [Qvar 2 puff INHALATION RT-BID 03/06/15 01/10/18 History 80 mcg/puff] Benztropine Mesylate [Cogentin] 1 mg PO BID 03/06/15 01/10/18 History Cetirizine HCl [Zyrtec] 10 mg PO DAILY 03/06/15 01/10/18 History Haloperidol [Haldol] 4 mg PO HS 03/06/15 01/10/18 History Montelukast [Singulair] 10 mg PO HS 03/06/15 01/10/18 History Multivitamin [Men's Multi-Vitamin] 1 tab PO DAILY 03/06/15 01/10/18 History cloNIDine HCL [Catapres] 0.1 mg PO TID 03/06/15 01/10/18 History Cholecalciferol [Vitamin D3] 2,000 unit PO DAILY 08/14/17 01/10/18 History Lacosamide [Vimpat] 200 mg PO BID 08/14/17 01/10/18 History OLANZapine [ZyPREXA] 10 mg PO HS 08/14/17 01/10/18 History OXcarbazepine [Trileptal] 750 mg PO DAILY 08/14/17 01/10/18 History Divalproex [Depakote] 1,000 mg PO BID 12/02/17 01/10/18 History Clonazepam Odt 1mg 2 tab SUBLINGUAL DAILY PRN 01/10/18 01/10/18 History Diazepam 10mg Gel 10 mg RECTAL DAILY PRN 01/10/18 01/10/18 History Ibuprofen [Motrin] 400 mg PO Q8HR PRN 01/10/18 01/10/18 History OXcarbazepine [Trileptal] 600 mg PO HS 01/10/18 01/10/18 History Pseudoephedrine HCl [Sudogest] 30 mg PO BID PRN 01/10/18 01/10/18 History guaiFENesin-DM 100-10MG/5ML 10 ml PO Q6HR PRN 01/10/18 01/10/18 History [Robitussin DM] Allergies Allergy/AdvReac Type Severity Reaction Status Date / Time fluoxetine [From Prozac] Allergy Unknown Verified 01/10/18 23:52 peanut Allergy Unknown Verified 01/10/18 23:52 phenytoin [From Dilantin] Allergy Unknown Verified 01/10/18 23:52 Physical Examination - Vital Signs Vital Signs: Vital Signs Temp Pulse Pulse Resp BP BP Pulse Ox 01/11/18 14:45 97.2 F L 104 H 18 134/72 97 01/11/18 08:25 97.9 F 61 18 130/84 97 01/10/18 22:00 97.9 F 76 18 142/84 97 01/10/18 21:45 69 01/10/18 21:41 97.7 F 69 18 129/69 98 01/10/18 19:26 98.0 F 68 20 124/61 Intake and Output 01/11/18 01/11/18 01/11/18 06:59 14:59 22:59 Intake Total 600 Balance 600 Intake: IV 600 Sodium Chloride 0.9% 1, 600 000 ml @ 75 mls/hr IV . [id number] Rx#:[id number] Other: # Voids 2 3 - Constitutional General appearance: average body habitus - EENT EENT: PERRL - Respiratory Respiratory: lungs clear - Cardiovascular Cardiovascular: regular rate - Neurologic Neurologic examination mental status the patient was awake. He has moderate to severe cognitive impairment. He does follow commands. He is able to say some words. Cranial nerve examination pupils were 2 mm and equal there is no facial asymmetry next Motor examination no focal weakness detected next Deep tendon reflexes were 1+ and symmetric Gait was not tested Results - Laboratory Findings CBC and BMP: 01/11/18 07:26 04/26/18 08:03 Abnormal Lab Findings: Abnormal Labs 01/10/18 01/10/18 01/10/18 19:58 19:58 19:58 WBC 3.3 L RBC 3.41 L Hgb 10.3 L Hct 29.6 L Plt Count Sodium 133 L Chloride 96 L BUN Creatinine Ammonia 387 H 01/11/18 01/11/18 01/11/18 07:26 07:26 08:03 WBC 3.4 L RBC 3.79 L Hgb 11.5 L Hct 33.4 L Plt Count 143 L Sodium Chloride BUN 8 L Creatinine 0.55 L Ammonia 119 H Assessment and Plan (1) Seizure disorder Current Visit: Yes Status: Chronic SNOMED Code(s): 521709980 (2) Hyperammonemia Current Visit: Yes Status: Acute SNOMED Code(s): 2341327 (3) Autism Current Visit: No Status: Chronic SNOMED Code(s): 029329893 Plan: The patient is a 22-year-old man with history of seizures that have been controlled on Depakote and Vimpat. He has autism and has been having issues recently with hyperammonia. He will be having an appointment as an outpatient on Monday at [facility] to evaluate for possible genetic disorder causing this hyperammonia. Etiology at this point is unclear. Recommend continue current dose of Depakote. We'll check a trough level in a.m.
[2018-01-11] MEDS: MONTELUKAST 10 MG TAB PO SCH (20:37)
[2018-01-11] MEDS: HALOPERIDOL 2 MG TAB PO SCH (20:38)
[2018-01-11] MEDS: OLANZapine 10 MG TAB PO SCH (20:38)
[2018-01-12] MEDS: BECLOMETHASONE DIP 80 MCG/PUFF INHALER INHALATION SCH (07:33)
[2018-01-12 08:07] VITALS: BP 119/69; PULSE 56; RESP 16; TEMP 97.4
[2018-01-12] MEDS: OXcarbazepine 300 MG TAB PO SCH (08:20)
[2018-01-12] MEDS: BENZTROPINE MESYLATE 1 MG TAB PO SCH (08:20)
[2018-01-12] MEDS: LACTULOSE 20 GM/30 ML CUP PO SCH (08:20)
[2018-01-12] MEDS: DIVALPROEX 500 MG TABLET.DR PO SCH (08:21)
[2018-01-12] MEDS: CHOLECALCIFEROL 1,000 UNIT TAB PO SCH (08:21)
[2018-01-12] MEDS: cloNIDine HCL 0.1 MG TAB PO SCH (08:21)
[2018-01-12] MEDS: LORATADINE 10 MG TAB PO SCH (08:21)
[2018-01-12] MEDS: MULTIVITAMINS, THERA 1 EACH TAB PO SCH (08:22)
[2018-01-12] MEDS: LACOSAMIDE 50 MG TABLET PO SCH (08:54)
[2018-01-12 09:01] LABS: Basophils % (A) 0 %; Eosinophils # (A) 0.1 k/uL (0-0.7); Eosinophils % (A) 3 %; HGB 12.8 gm/dL (13.0-17.5); Lymphocytes # (A) 1.7 k/uL (1.0-4.8); Lymphocytes % (A) 29 %; MCH 29.5 pg (25.0-35.0); MCHC 32.7 g/dL (31.0-37.0); MCV 90.1 fL (80.0-100.0); Mean Platelet Volume 8.2; Monocytes # (A) 0.5 k/uL (0-1.0); Monocytes % (A) 9 %; Neutrophils # (A) 3.2 k/uL (1.3-7.7); Neutrophils % (A) 57 %; Platelet Count 212 k/uL (150-450); RBC 4.33 m/uL (4.30-5.90); RDW 14.2 % (11.5-15.5); WBC 5.6 k/uL (3.8-10.6)
[2018-01-12 09:40] LABS: Anion Gap 16 mmol/L; Blood Urea Nitrogen 8 mg/dL (9-20); Calcium 9.7 mg/dL (8.4-10.2); Carbon Dioxide 20 mmol/L (22-30); Chloride 107 mmol/L (98-107); Glucose 83 mg/dL (74-99); Potassium 4.6 mmol/L (3.5-5.1); Sodium 143 mmol/L (137-145)
--- NOTE | 2018-01-12 10:01 | P.PN ---
Subjective Progress Note Date: 01/12/18 Principal diagnosis: Hyperammonemia Father at bedside. No changes in mental status with patient. Feels well. Ammonia improved to 33. Appointment at [facility] specialist scheduled Monday. Objective - Vital Signs Vital signs: Vital Signs Temp 97.4 F L 01/12/18 08:06 Pulse 56 L 01/12/18 08:06 Resp 16 01/12/18 08:06 BP 119/69 01/12/18 08:06 Pulse Ox 99 01/12/18 08:06 Intake & Output 01/11/18 01/12/18 01/12/18 18:59 06:59 18:59 Intake Total 600 Balance 600 Intake: IV 600 Sodium Chloride 0.9% 1, 600 000 ml @ 75 mls/hr IV . [id number] Rx#:[id number] Other: Voiding Method Toilet # Voids 3 2 - Exam General appearance: The patient is alert, oriented as expected to his underlying autism developmental delay, in no acute distress. HET: Head is normocephalic and atraumatic. Pupils are equal and reactive. Oropharynx is clear without lesions. Neck: Supple without lymphadenopathy. Trachea midline. Heart: S1 S2. Regular rate and rhythm. Lungs: No crackles or wheezes are heard. Abdomen: Soft, nontender, nondistended with bowel sounds. No peritoneal signs. No palpable organomegaly or masses. Extremities: Normal skin color and turgor. No cyanosis, rash, ulceration, clubbing, or edema. Radial and pedal pulses are 2/4 bilaterally. Neurological: No focal deficits. Strength and sensation are grossly intact. - Labs CBC & Chem 7: 01/12/18 08:46 01/12/18 08:46 Labs: Abnormal Lab Results - Last 24 Hours (Table) 01/12/18 01/12/18 01/12/18 Range/Units 08:46 08:46 08:46 Hgb 12.8 L (13.0-17.5) gm/dL Carbon Dioxide 20 L (22-30) mmol/L BUN 8 L (9-20) mg/dL Creatinine 0.59 L (0.66-1.25) mg/dL Ammonia 33 H (<30) umol/L Assessment and Plan (1) Hyperammonemia Narrative/Plan: 22-year-old gentleman with a history of autism developmental delay seizure disorder maintained on valproic acid admitted with acute mental status changes with hyperammonemia and therapeutic valproic acid level. Presently not symptomatic. This is his second admission in 2 months with no clinical evidence to suggest obvious underlying liver disease. Etiology of hyperammonemia possible congenital possible genetic. L-carnitine deficiency possible urea cycle disorder organic acidemia also within the differential. Current Visit: Yes Status: Acute Code(s): E72.20 - DISORDER OF UREA CYCLE METABOLISM, UNSPECIFIED SNOMED Code(s): 1288402 (2) Seizure disorder Current Visit: Yes Status: Chronic Code(s): G40.909 - EPILEPSY, UNSP, NOT INTRACTABLE, WITHOUT STATUS EPILEPTICUS SNOMED Code(s): 538294709 (3) Altered mental status Current Visit: No Status: Acute Code(s): R41.82 - ALTERED MENTAL STATUS, UNSPECIFIED SNOMED Code(s): 603109957 (4) Autism Current Visit: No Status: Chronic Code(s): F84.0 - AUTISTIC DISORDER SNOMED Code(s): 238045242 Plan: 1. [facility] referral scheduled for Monday. 2. Recommend lactulose 20 g daily on discharge if patient has mental status changes family was advised to bring him back to the emergency room for reevaluation. 3. Discharge per medicine. 4. No further workup from a GI standpoint. We'll follow as needed. Assessment and plan a care discussed with Dr. Baer
--- NOTE | 2018-01-12 19:17 | DS ---
DISCHARGE SUMMARY FINAL DIAGNOSES: 1. Recurrent seizures for evaluation. 2. Hyperammonemia of undetermined etiology. 3. Hyponatremia. 4. Leukopenia. 5. Anemia, normocytic. 6. Seizure disorder. 7. History of asthma. 8. History of autism. DISCHARGE DISPOSITION: The patient will be discharged in stable condition with guarded prognosis. HISTORY OF PRESENT ILLNESS: This 22-year-old gentleman the a past medical history of multiple medical problems was admitted with hyperammonemia. The patient was given lactulose, improved significantly. Gastroenterology saw the patient. EXAM: Vitals are stable, sensorium unchanged. LABS: Ammonia reduced to 33, so the patient will be discharged in stable condition. DIET: Cardiac diet. ACTIVITY: Limited until followup. FOLLOWUP: With Neurology as advised. Follow up with [facility]. MEDICATIONS: Will be as follows: 1. Albuterol 8.5 p.r.n. 2. Qvar 2 puffs daily. 3. Cogentin 1 mg p.o. b.i.d. 4. Zyrtec 10 mg daily. 5. Vitamin D3 2000 daily. 6. Clonazepam 2 tablets sublingual p.r.n. 7. Clonidine 0.1 p.o. t.i.d. 8. Diazepam 10 mg rectally daily. 9. Depakote 1000 mg p.o. b.i.d. 10.Guaifenesin 10 mL every 6 hours p.r.n. 11.Haldol 4 mg q.h.s. 12.Motrin 400 mg q.8. 13.Vimpat 200 mg p.o. b.i.d. 14.Cephulac 20 g p.o. daily. 15.Singular 10 mg q.h.s. 16.Multivitamin 1 p.o. daily. 17.Zyprexa 10 mg p.o. q.h.s. 18.Trileptal 750 mg p.o. daily. 20.SudoGest 30 mg p.o. b.i.d. Recommend close followup with [facility] and Neurology and the primary physician. MMODL / ISAMARN: [id number] / MTDD
== END 2018-01-12 15:33 | disposition home or self-care (01) | DRG 442 ==
LOC: EC 19:22 → 4MS4W 21:08
PROVIDERS: ADMIT Hospitalist; ATTEND Hospitalist
DX: K72.90 Hepatic failure, unspecified without coma (principal); E72.20 Disorder of urea cycle metabolism, unspecified; F84.0 Autistic disorder; E87.1 Hypo-osmolality and hyponatremia; J45.909 Unspecified asthma, uncomplicated; G40.909 Epilepsy, unspecified, not intractable, without status epilepticus; D64.9 Anemia, unspecified; D72.819 Decreased white blood cell count, unspecified; F89 Unspecified disorder of psychological development; R26.0 Ataxic gait; R40.4 Transient alteration of awareness; Z79.51 Long term (current) use of inhaled steroids; Z79.899 Other long term (current) drug therapy; Z86.14 Personal history of Methicillin resistant Staphylococcus aureus infection; Z82.49 Family history of ischemic heart disease and other diseases of the circulatory system; Z88.8 Allergy status to other drugs, medicaments and biological substances; Z91.010 Allergy to peanuts; Z81.8 Family history of other mental and behavioral disorders; Z83.3 Family history of diabetes mellitus; Z83.49 Family history of other endocrine, nutritional and metabolic diseases
CPT/HCPCS: 36415; 80048; 80053; 80164; 81003; 82140; 82550; 82553; 85025; 94640; 96360; 99284

== ENCOUNTER 2018-01-28 13:45 | Emergency (ER) | payer BC, OTHER ==
[2018-01-28 13:58] VITALS: RESP 18
[2018-01-28] MEDS ORDERED: SODIUM CHLORIDE 0.9% 1,000 ML IV ONE (14:30)
[2018-01-28 14:41] LABS: Basophils % (A) 0 %; Eosinophils % (A) 1 %; HCT 34.3 % (39.0-53.0); HGB 12.2 gm/dL (13.0-17.5); Lymphocytes % (A) 12 %; MCH 30.1 pg (25.0-35.0); MCHC 35.4 g/dL (31.0-37.0); Mean Platelet Volume 8.4; Monocytes # (A) 0.9 k/uL (0-1.0); Monocytes % (A) 11 %; Neutrophils # (A) 5.8 k/uL (1.3-7.7); Neutrophils % (A) 73 %; Platelet Count 216 k/uL (150-450); RBC 4.04 m/uL (4.30-5.90); RDW 13.8 % (11.5-15.5); WBC 7.9 k/uL (3.8-10.6)
--- NOTE | 2018-01-28 14:47 | ED ---
Altered Mental Status HPI - General Chief Complaint: Altered Mental Status Stated Complaint: abnorml labs Time Seen by Provider: 01/28/18 14:17 Source: patient, family Mode of arrival: wheelchair Limitations: altered mental status - History of Present Illness Initial Comments: This patient is a 22-year-old man with history of developmental delay, seizure disorder, autism. History today is from the patient's mother and father. The patient is brought in for altered mental status, being much less active than is his usual, being more somnolent, and also having had some episodes of vomiting at home. Parents state that this is identical to previous episodes of hyperammonemia. The patient has been having this problem intermittently for the past number of months, and has been admitted here for this previously. It is reported that this may be due to using valproic acid, which she takes for generalized tonic-clonic seizures. The patient's medications reportedly being weaned down while he is starting another anticonvulsant. The patient is not able to give any history today. MD Complaint: altered mental status -: hour(s) Severity: moderate Consistency of Symptoms: getting worse Context: history of similar presentation - Related Data Home Medications Medication Instructions Recorded Confirmed Albuterol Sulfate [Proair Hfa] 2 puff INHALATION RT-Q6H PRN 03/06/15 01/28/18 Beclomethasone Dipropionate [Qvar 2 puff INHALATION RT-BID 03/06/15 01/28/18 80 mcg/puff] Benztropine Mesylate [Cogentin] 1 mg PO BID 03/06/15 01/28/18 Cetirizine HCl [Zyrtec] 10 mg PO DAILY 03/06/15 01/28/18 Haloperidol [Haldol] 4 mg PO HS 03/06/15 01/28/18 Montelukast [Singulair] 10 mg PO HS 03/06/15 01/28/18 Multivitamin [Men's Multi-Vitamin] 1 tab PO DAILY 03/06/15 01/28/18 cloNIDine HCL [Catapres] 0.1 mg PO TID 03/06/15 01/28/18 Cholecalciferol [Vitamin D3] 2,000 unit PO DAILY 08/14/17 01/28/18 Lacosamide [Vimpat] 200 mg PO BID 08/14/17 01/28/18 OLANZapine [ZyPREXA] 10 mg PO HS 08/14/17 01/28/18 OXcarbazepine [Trileptal] 750 mg PO DAILY 08/14/17 01/28/18 Divalproex [Depakote] 1,000 mg PO BID 12/02/17 01/28/18 Clonazepam Odt 1mg 2 tab SUBLINGUAL DAILY PRN 01/10/18 01/28/18 Diazepam 10mg Gel 10 mg RECTAL DAILY PRN 01/10/18 01/28/18 Ibuprofen [Motrin] 400 mg PO Q8HR PRN 01/10/18 01/28/18 OXcarbazepine [Trileptal] 600 mg PO HS 01/10/18 01/28/18 Pseudoephedrine HCl [Sudogest] 30 mg PO BID PRN 01/10/18 01/28/18 guaiFENesin-DM 100-10MG/5ML 10 ml PO Q6HR PRN 01/10/18 01/28/18 [Robitussin DM] Previous Rx's Medication Instructions Recorded Lactulose [Cephulac] 20 gm PO DAILY #600 ml 01/12/18 Allergies Allergy/AdvReac Type Severity Reaction Status Date / Time fluoxetine [From Prozac] Allergy Unknown Verified 01/28/18 13:58 peanut Allergy Unknown Verified 01/28/18 13:58 phenytoin [From Dilantin] Allergy Unknown Verified 01/28/18 13:58 Review of Systems ROS Statement: Those systems with pertinent positive or pertinent negative responses have been documented in the HPI. ROS Other: All systems not noted in ROS Statement are negative. Limitations: ROS unobtainable due to patients medical condition (Altered mental status) Past Medical History Past Medical History: Asthma, Seizure Disorder Additional Past Medical History / Comment(s): Autism(can become violent at times -thats why he is in a half-way mon thru monday and home on weekend) .being tx for autism/behavior/violent episodes. pt's mom stated that pt has the mentality of an 8 year old andwhen pt not sick he can pretty much tell you what he needs or wants.abble to read and write some-usually only what he wants to. limited w/ his food likes. he eats croatian fries, [id number] bread, chips, cereal( trix or waffle crisps) History of Any Multi-Drug Resistant Organisms: MRSA Date of last positivie culture/infection: 2006 MDRO Source:: boils on rt hip Past Surgical History: No Surgical Hx Reported Additional Past Surgical History / Comment(s): pt can be violent at times is why he is in half-way per mom, being treated, Autism/behavior/violent [facility] Past Anesthesia/Blood Transfusion Reactions: No Reported Reaction Additional Past Anesthesia/Blood Transfusion Reaction / Comment(s): per mom-pt never had any sx. Past Psychological History: No Psychological Hx Reported Smoking Status: Never smoker Past Alcohol Use History: None Reported Past Drug Use History: None Reported - Past Family History Father Family Medical History: Diabetes Mellitus, Hyperlipidemia, Hypertension Additional Family Medical History / Comment(s): depression. Paternal grandmother with myocardial infarction. Maternal grandfather with congestive heart failure Mother Family Medical History: Diabetes Mellitus, Hyperlipidemia, Hypertension, Thyroid Disorder Additional Family Medical History / Comment(s): depression General Exam Limitations: altered mental status General appearance: alert Head exam: Present: atraumatic, normocephalic Eye exam: Present: normal appearance, PERRL, EOMI. Absent: scleral icterus, conjunctival injection ENT exam: Present: normal oropharynx Respiratory exam: Present: normal lung sounds bilaterally. Absent: respiratory distress, wheezes, rales, rhonchi, stridor Cardiovascular Exam: Present: regular rate, normal rhythm, normal heart sounds. Absent: systolic murmur, diastolic murmur, rubs, gallop GI/Abdominal exam: Present: soft. Absent: distended, tenderness, guarding, rebound, rigid, organomegaly, mass, pulsatile mass, hernia Extremities exam: Present: normal capillary refill. Absent: pedal edema, calf tenderness Neurological exam: Present: alert, CN II-XII intact, other (GCS is 10 (E=4, V=1 , M=6). Patient is able to follow simple single step commands. The patient is not speaking, which his mother states his usual when his ammonia is high.). Absent: motor sensory deficit Skin exam: Present: warm, dry, intact, normal color. Absent: rash Course Vital Signs 01/28/18 01/28/18 01/28/18 13:55 15:11 16:23 Temperature 98.7 F 98.8 F Pulse Rate 87 89 64 Respiratory 18 18 18 Rate Blood Pressure 126/69 132/80 133/85 O2 Sat by Pulse 98 98 95 Oximetry Medical Decision Making - Medical Decision Making On reevaluation, the patient is alert and verbally responsive. He is back to his baseline per his mother. Further discussion reveals that he may possibly have had a seizure, followed by postictal period. The labs do not show a significant elevation of his ammonia consistent with the previous presentation. At this point, they would like to go home and follow-up with the neurologist at [facility] as was planned. We discussed return parameters. - Lab Data Result diagrams: 01/28/18 14:05 01/28/18 14:05 Lab Results 01/28/18 01/28/18 01/28/18 Range/Units 14:05 14:05 14:05 WBC 7.9 (3.8-10.6) k/uL RBC 4.04 L (4.30-5.90) m/uL Hgb 12.2 L (13.0-17.5) gm/dL Hct 34.3 L (39.0-53.0) % MCV 85.0 D (80.0-100.0) fL MCH 30.1 (25.0-35.0) pg MCHC 35.4 (31.0-37.0) g/dL RDW 13.8 (11.5-15.5) % Plt Count 216 (150-450) k/uL Neutrophils % 73 % Lymphocytes % 12 % Monocytes % 11 % Eosinophils % 1 % Basophils % 0 % Neutrophils # 5.8 (1.3-7.7) k/uL Lymphocytes # 1.0 (1.0-4.8) k/uL Monocytes # 0.9 (0-1.0) k/uL Eosinophils # 0.0 (0-0.7) k/uL Basophils # 0.0 (0-0.2) k/uL PT (9.0-12.0) sec INR (<1.2) APTT (22.0-30.0) sec Sodium 135 L (137-145) mmol/L Potassium 4.6 (3.5-5.1) mmol/L Chloride 98 (98-107) mmol/L Carbon Dioxide 21 L (22-30) mmol/L Anion Gap 16 mmol/L BUN 11 (9-20) mg/dL Creatinine 0.50 L (0.66-1.25) mg/dL Est GFR (CKD-EPI)AfAm >90 (>60 ml/min/1.73 sqM) Est GFR (CKD-EPI)NonAf >90 (>60 ml/min/1.73 sqM) Glucose 110 H (74-99) mg/dL Osmolality (280-301) mosm/kg Plasma Lactic Acid Joao (0.7-2.0) mmol/L Calcium 9.6 (8.4-10.2) mg/dL Total Bilirubin 0.2 (0.2-1.3) mg/dL AST 22 (17-59) U/L ALT 34 (21-72) U/L Alkaline Phosphatase 64 (38-126) U/L Ammonia (<30) umol/L Total Creatine Kinase 189 H (55-170) U/L CK-MB (CK-2) 1.8 (0.0-2.4) ng/mL CK-MB (CK-2) Rel Index 1.0 Troponin I <0.012 (0.000-0.034) ng/mL Total Protein 7.6 (6.3-8.2) g/dL Albumin 4.9 (3.5-5.0) g/dL Triglycerides (<150) mg/dL Cholesterol (<200) mg/dL LDL Cholesterol, Calc (0-99) mg/dL HDL Cholesterol (40-60) mg/dL Urine Color Urine Appearance (Clear) Urine pH (5.0-8.0) Ur Specific [place] (1.001-1.035) Urine Protein (Negative) Urine Glucose (UA) (Negative) Urine Ketones (Negative) Urine Blood (Negative) Urine Nitrite (Negative) Urine Bilirubin (Negative) Urine Urobilinogen (<2.0) mg/dL Ur Leukocyte Esterase (Negative) Urine Opiates Screen (NotDetected) Ur Oxycodone Screen (NotDetected) Urine Methadone Screen (NotDetected) Ur Propoxyphene Screen (NotDetected) Ur Barbiturates Screen (NotDetected) Valproic Acid ug/mL U Tricyclic Antidepress (NotDetected) Ur Phencyclidine Scrn (NotDetected) Ur Amphetamines Screen (NotDetected) U Methamphetamines Scrn (NotDetected) U Benzodiazepines Scrn (NotDetected) Urine Cocaine Screen (NotDetected) U Marijuana (THC) Screen (NotDetected) 01/28/18 01/28/18 01/28/18 Range/Units 14:05 14:05 14:05 WBC (3.8-10.6) k/uL RBC (4.30-5.90) m/uL Hgb (13.0-17.5) gm/dL Hct (39.0-53.0) % MCV (80.0-100.0) fL MCH (25.0-35.0) pg MCHC (31.0-37.0) g/dL RDW (11.5-15.5) % Plt Count (150-450) k/uL Neutrophils % % Lymphocytes % % Monocytes % % Eosinophils % % Basophils % % Neutrophils # (1.3-7.7) k/uL Lymphocytes # (1.0-4.8) k/uL Monocytes # (0-1.0) k/uL Eosinophils # (0-0.7) k/uL Basophils # (0-0.2) k/uL PT 10.6 (9.0-12.0) sec INR 1.1 (<1.2) APTT 27.4 (22.0-30.0) sec Sodium (137-145) mmol/L Potassium (3.5-5.1) mmol/L Chloride (98-107) mmol/L Carbon Dioxide (22-30) mmol/L Anion Gap mmol/L BUN (9-20) mg/dL Creatinine (0.66-1.25) mg/dL Est GFR (CKD-EPI)AfAm (>60 ml/min/1.73 sqM) Est GFR (CKD-EPI)NonAf (>60 ml/min/1.73 sqM) Glucose (74-99) mg/dL Osmolality 274 L (280-301) mosm/kg Plasma Lactic Acid Joao (0.7-2.0) mmol/L Calcium (8.4-10.2) mg/dL Total Bilirubin (0.2-1.3) mg/dL AST (17-59) U/L ALT (21-72) U/L Alkaline Phosphatase (38-126) U/L Ammonia 47 H (<30) umol/L Total Creatine Kinase (55-170) U/L CK-MB (CK-2) (0.0-2.4) ng/mL CK-MB (CK-2) Rel Index Troponin I (0.000-0.034) ng/mL Total Protein (6.3-8.2) g/dL Albumin (3.5-5.0) g/dL Triglycerides 83 (<150) mg/dL Cholesterol 167 (<200) mg/dL LDL Cholesterol, Calc 69 (0-99) mg/dL HDL Cholesterol 81 H (40-60) mg/dL Urine Color Urine Appearance (Clear) Urine pH (5.0-8.0) Ur Specific [place] (1.001-1.035) Urine Protein (Negative) Urine Glucose (UA) (Negative) Urine Ketones (Negative) Urine Blood (Negative) Urine Nitrite (Negative) Urine Bilirubin (Negative) Urine Urobilinogen (<2.0) mg/dL Ur Leukocyte Esterase (Negative) Urine Opiates Screen (NotDetected) Ur Oxycodone Screen (NotDetected) Urine Methadone Screen (NotDetected) Ur Propoxyphene Screen (NotDetected) Ur Barbiturates Screen (NotDetected) Valproic Acid 61.3 ug/mL U Tricyclic Antidepress (NotDetected) Ur Phencyclidine Scrn (NotDetected) Ur Amphetamines Screen (NotDetected) U Methamphetamines Scrn (NotDetected) U Benzodiazepines Scrn (NotDetected) Urine Cocaine Screen (NotDetected) U Marijuana (THC) Screen (NotDetected) 01/28/18 01/28/18 01/28/18 Range/Units 14:05 16:00 16:00 WBC (3.8-10.6) k/uL RBC (4.30-5.90) m/uL Hgb (13.0-17.5) gm/dL Hct (39.0-53.0) % MCV (80.0-100.0) fL MCH (25.0-35.0) pg MCHC (31.0-37.0) g/dL RDW (11.5-15.5) % Plt Count (150-450) k/uL Neutrophils % % Lymphocytes % % Monocytes % % Eosinophils % % Basophils % % Neutrophils # (1.3-7.7) k/uL Lymphocytes # (1.0-4.8) k/uL Monocytes # (0-1.0) k/uL Eosinophils # (0-0.7) k/uL Basophils # (0-0.2) k/uL PT (9.0-12.0) sec INR (<1.2) APTT (22.0-30.0) sec Sodium (137-145) mmol/L Potassium (3.5-5.1) mmol/L Chloride (98-107) mmol/L Carbon Dioxide (22-30) mmol/L Anion Gap mmol/L BUN (9-20) mg/dL Creatinine (0.66-1.25) mg/dL Est GFR (CKD-EPI)AfAm (>60 ml/min/1.73 sqM) Est GFR (CKD-EPI)NonAf (>60 ml/min/1.73 sqM) Glucose (74-99) mg/dL Osmolality (280-301) mosm/kg Plasma Lactic Acid Joao 1.6 (0.7-2.0) mmol/L Calcium (8.4-10.2) mg/dL Total Bilirubin (0.2-1.3) mg/dL AST (17-59) U/L ALT (21-72) U/L Alkaline Phosphatase (38-126) U/L Ammonia (<30) umol/L Total Creatine Kinase (55-170) U/L CK-MB (CK-2) (0.0-2.4) ng/mL CK-MB (CK-2) Rel Index Troponin I (0.000-0.034) ng/mL Total Protein (6.3-8.2) g/dL Albumin (3.5-5.0) g/dL Triglycerides (<150) mg/dL Cholesterol (<200) mg/dL LDL Cholesterol, Calc (0-99) mg/dL HDL Cholesterol (40-60) mg/dL Urine Color Yellow Urine Appearance Clear (Clear) Urine pH 6.5 (5.0-8.0) Ur Specific [place] 1.015 (1.001-1.035) Urine Protein Negative (Negative) Urine Glucose (UA) Negative (Negative) Urine Ketones Trace H (Negative) Urine Blood Negative (Negative) Urine Nitrite Negative (Negative) Urine Bilirubin Negative (Negative) Urine Urobilinogen <2.0 (<2.0) mg/dL Ur Leukocyte Esterase Negative (Negative) Urine Opiates Screen Not Detected (NotDetected) Ur Oxycodone Screen Not Detected (NotDetected) Urine Methadone Screen Not Detected (NotDetected) Ur Propoxyphene Screen Not Detected (NotDetected) Ur Barbiturates Screen Not Detected (NotDetected) Valproic Acid ug/mL U Tricyclic Antidepress Not Detected (NotDetected) Ur Phencyclidine Scrn Not Detected (NotDetected) Ur Amphetamines Screen Not Detected (NotDetected) U Methamphetamines Scrn Not Detected (NotDetected) U Benzodiazepines Scrn Not Detected (NotDetected) Urine Cocaine Screen Not Detected (NotDetected) U Marijuana (THC) Screen Not Detected (NotDetected) - EKG Data -: EKG Interpreted by [facility] EKG shows normal: sinus rhythm, axis (Normal), intervals (Normal), ST-T waves ( Normal) Rate: normal (61) Interpretation: LV[facility] Disposition Clinical Impression: Altered mental status Narrative: Suspected seizure with postictal period Disposition: HOME SELF-CARE Condition: Good Instructions: Altered Mental Status (ED) Is patient prescribed a controlled substance at d/c from ED?: No Referrals: Bandar Hanna DO [Primary Care Provider] - 1-2 days
[2018-01-28 14:51] LABS: ALT 34 U/L (21-72); AST 22 U/L (17-59); Albumin 4.9 g/dL (3.5-5.0); Alkaline Phosphatase 64 U/L (38-126); Anion Gap 16 mmol/L; Blood Urea Nitrogen 11 mg/dL (9-20); Calcium 9.6 mg/dL (8.4-10.2); Carbon Dioxide 21 mmol/L (22-30); Chloride 98 mmol/L (98-107); Glucose 110 mg/dL (74-99); Potassium 4.6 mmol/L (3.5-5.1); Sodium 135 mmol/L (137-145); Total Bilirubin 0.2 mg/dL (0.2-1.3); Total Protein 7.6 g/dL (6.3-8.2)
[2018-01-28 14:54] LABS: INR 1.1 (<1.2); Partial Thromboplastin Time 27.4 sec (22.0-30.0); Prothrombin Time 10.6 sec (9.0-12.0)
[2018-01-28 15:03] LABS: Valproic Acid (Depakene) 61.3 ug/mL
[2018-01-28 15:05] LABS: Creatine Kinase 189 U/L (55-170)
--- NOTE | 2018-01-28 15:08 | XR ---
EXAMINATION TYPE: XR chest 1V portable DATE OF EXAM: 01/28/2018 COMPARISON: 11/17/2017 HISTORY: Altered mental status TECHNIQUE: Single frontal view of the chest is obtained. FINDINGS: There is near complete resolution of the previously seen left basilar airspace disease. Re mainder the lungs are clear. Cardiomediastinal silhouette is slightly exaggerated due to portable enrique ure of the exam but overall within normal limits. Osseous structures are intact. IMPRESSION: Near-complete resolution of the previously seen left basilar opacity with probable resid ual left basilar atelectasis.
[2018-01-28 15:18] LABS: Creatine Kinase MB 1.8 ng/mL (0.0-2.4); Troponin I <0.012 ng/mL (0.000-0.034)
--- NOTE | 2018-01-28 15:38 | CT ---
EXAMINATION TYPE: CT brain wo con DATE OF EXAM: 01/28/2018 COMPARISON: 11/15/2017 HISTORY: Patient altered mental status per family. Patient displays nausea and vomiting. CT DLP: 1052 mGycm. Automated Exposure Control for Dose Reduction was Utilized. TECHNIQUE: CT scan of the head is performed without contrast. FINDINGS: There is no acute intracranial hemorrhage, mass effect, or midline shift identified. The ventricles and sulci are again mildly enlarged but symmetric and similar to the prior. No suspicious extra-axial fluid collection. The globes are intact and the visualized sinuses are clear. IMPRESSION: 1. No acute intracranial hemorrhage, mass effect, or midline shift is seen. 2. Mild cerebral atrophy, pronounced for the patient's age.
[2018-01-28 16:29] LABS: Appearance,Urine Clear (Clear); Bilirubin,Urine Negative (Negative); Blood,Urine Negative (Negative); Color,Urine Yellow; Glucose,Urine (UA) Negative (Negative); Ketones,Urine Trace (Negative); Leukocyte Esterase,Urine Negative (Negative); Nitrite,Urine Negative (Negative); PH, Urine 6.5 (5.0-8.0); Protein,Urine Negative (Negative); Specific Gravity,Urine 1.015 (1.001-1.035); Urobilinogen,Urine <2.0 mg/dL (<2.0)
[2018-01-28 16:39] LABS: Amphetamine Screen,Urine Not Detected (NotDetected); Barbiturate Screen,Urine Not Detected (NotDetected); Benzodiazepines Screen,Urine Not Detected (NotDetected); Cocaine Screen,Urine Not Detected (NotDetected); Methadone Screen, Urine Not Detected (NotDetected); Opiate Screen,Urine Not Detected (NotDetected); Oxycodone Screen, Urine Not Detected (NotDetected); Phencyclidine Screen,Urine Not Detected (NotDetected); Tricyclic Antidepressant,Urine Not Detected (NotDetected); Urn Cannabinoid Scrn Not Detected (NotDetected)
[2018-01-28 17:09] VITALS: BP 140/70; PULSE 85; TEMP 98.2
== END 2018-01-28 17:08 | disposition home or self-care (01) ==
LOC: EC 13:45
DX: R41.82 Altered mental status, unspecified (principal); J45.909 Unspecified asthma, uncomplicated; G40.909 Epilepsy, unspecified, not intractable, without status epilepticus; F84.0 Autistic disorder; Z86.14 Personal history of Methicillin resistant Staphylococcus aureus infection; Z88.8 Allergy status to other drugs, medicaments and biological substances; Z91.010 Allergy to peanuts; Z79.51 Long term (current) use of inhaled steroids; Z79.899 Other long term (current) drug therapy
CPT/HCPCS: 36415; 70450; 71045; 80053; 80061; 80164; 80165; 80306; 81003; 82140; 82550; 82553; 83605; 83930; 84484; 85025; 85610; 85730; 87040; 93005; 96360; 96361; 99285

== ENCOUNTER → 2018-02-16 | Outpatient (CLI) | payer BC, OTHER | END | disposition home or self-care (01) | LOC: LABWHC1 09:34 | PROVIDERS: ATTEND Nurse Practitioner | DX: G40.909 Epilepsy, unspecified, not intractable, without status epilepticus (principal); T42.6X5A Adverse effect of other antiepileptic and sedative-hypnotic drugs, initial encounter | CPT/HCPCS: 36415; 80164; 80183; 82140; 84295; 84450; 84460 ==

== ENCOUNTER → 2018-03-06 | Outpatient (CLI) | payer BC, OTHER ==
[2018-03-06 16:41] LABS: Potassium 4.4 mmol/L (3.5-5.1)
== END ==
LOC: LABWHC1 16:09
PROVIDERS: ATTEND Family Medicine
DX: E72.20 Disorder of urea cycle metabolism, unspecified (principal)
CPT/HCPCS: 36415; 80051; 82140

== ENCOUNTER → 2018-03-14 | Outpatient (CLI) | payer BC, OTHER | END | disposition home or self-care (01) | LOC: LABWHC1 11:43 | PROVIDERS: ATTEND Nurse Practitioner | DX: G40.019 Localization-related (focal) (partial) idiopathic epilepsy and epileptic syndromes with seizures of localized onset, intractable, without status epilepticus (principal) | CPT/HCPCS: 36415; 82140; 84295 ==

== ENCOUNTER → 2018-03-23 | Outpatient (CLI) | payer BC, OTHER | END | disposition home or self-care (01) | LOC: LABWHC1 11:38 | PROVIDERS: ATTEND Nurse Practitioner | DX: G40.019 Localization-related (focal) (partial) idiopathic epilepsy and epileptic syndromes with seizures of localized onset, intractable, without status epilepticus (principal) | CPT/HCPCS: 36415; 82140; 84295 ==

== ENCOUNTER → 2018-04-06 | Outpatient (CLI) | payer BC, OTHER | END | disposition home or self-care (01) | LOC: LABWHC1 10:59 | PROVIDERS: ATTEND Nurse Practitioner | DX: G40.019 Localization-related (focal) (partial) idiopathic epilepsy and epileptic syndromes with seizures of localized onset, intractable, without status epilepticus (principal) | CPT/HCPCS: 36415; 82140; 84295 ==

== ENCOUNTER → 2018-05-22 | Outpatient (CLI) | payer BC, OTHER | END | disposition home or self-care (01) | LOC: LABWHC1 16:16 | PROVIDERS: ATTEND Family Medicine | DX: G40.219 Localization-related (focal) (partial) symptomatic epilepsy and epileptic syndromes with complex partial seizures, intractable, without status epilepticus (principal) | CPT/HCPCS: 36415; 82140; 84295 ==

== ENCOUNTER → 2018-06-26 | Outpatient (CLI) | payer BC, OTHER ==
[2018-06-26 14:40] LABS: HCT 37.8 % (39.0-53.0); HGB 12.6 gm/dL (13.0-17.5); MCH 28.6 pg (25.0-35.0); MCHC 33.4 g/dL (31.0-37.0); MCV 85.5 fL (80.0-100.0); Mean Platelet Volume 9.4; Platelet Count 177 k/uL (150-450); RBC 4.41 m/uL (4.30-5.90); RDW 14.3 % (11.5-15.5); WBC 3.5 k/uL (3.8-10.6)
[2018-06-26 14:56] LABS: Potassium 4.3 mmol/L (3.5-5.1)
== END ==
LOC: LABWHC1 14:18
PROVIDERS: ATTEND Family Medicine
DX: F84.0 Autistic disorder (principal)
CPT/HCPCS: 36415; 80051; 82140; 82947; 85027

== ENCOUNTER → 2018-06-27 | Outpatient (CLI) | payer BC, OTHER ==
[2018-06-27 11:45] LABS: Appearance,Urine Clear (Clear); Bilirubin,Urine Negative (Negative); Blood,Urine Negative (Negative); Color,Urine Yellow; Glucose,Urine (UA) Negative (Negative); Ketones,Urine Negative (Negative); Leukocyte Esterase,Urine Trace (Negative); Mucus,Urine Occasional /hpf; Nitrite,Urine Negative (Negative); PH, Urine 7.5 (5.0-8.0); Protein,Urine 1+ (Negative); Specific Gravity,Urine 1.024 (1.001-1.035); Urobilinogen,Urine <2.0 mg/dL (<2.0); WBC,Urine <1 /hpf (0-5)
[2018-06-27 11:58] LABS: Cholesterol 187 mg/dL (<200); HDL Cholesterol 52 mg/dL (40-60); LDL Cholesterol,Calculated 102 mg/dL (0-99); Triglycerides 166 mg/dL (<150)
== END ==
LOC: LABWHC1 09:19
PROVIDERS: ATTEND Family Medicine
DX: F84.0 Autistic disorder (principal)
CPT/HCPCS: 36415; 80061; 81001

== ENCOUNTER → 2018-07-17 | Outpatient (CLI) | payer BC, OTHER ==
[2018-07-17 16:59] LABS: HCT 39.7 % (39.0-53.0); HGB 12.7 gm/dL (13.0-17.5); MCH 27.9 pg (25.0-35.0); MCHC 31.9 g/dL (31.0-37.0); MCV 87.3 fL (80.0-100.0); Mean Platelet Volume 9.1; Platelet Count 186 k/uL (150-450); RBC 4.54 m/uL (4.30-5.90); RDW 14.2 % (11.5-15.5)
[2018-07-18 05:08] LABS: Iron Saturation 11.68 (15.00-50.00)
[2018-07-18 05:12] LABS: Folate, Serum 18.3 ng/mL
== END | disposition home or self-care (01) ==
LOC: LABWHC1 16:26
PROVIDERS: ATTEND Family Medicine
DX: D64.9 Anemia, unspecified (principal)
CPT/HCPCS: 36415; 82607; 82746; 83540; 83550; 85027

== ENCOUNTER 2018-09-19 11:56 | Emergency (ER) | payer BC, OTHER ==
[2018-09-19 12:09] VITALS: RESP 18
--- NOTE | 2018-09-19 13:53 | XR ---
EXAMINATION TYPE: XR foot complete LT DATE OF EXAM: 09/19/2018 COMPARISON: NONE HISTORY: Pain TECHNIQUE: Three views are submitted. FINDINGS: The osseous structures are intact. Tiny bony density adjacent to the base of the distal phalanx. Lucy ining osseous structures intact. Chronic appearing deformity of the tarsal navicular. IMPRESSION: 1. Correlate for tiny chip fracture base distal phalanx first digit..
--- NOTE | 2018-09-19 13:53 | ED ---
Lower Extremity Injury HPI - General Chief Complaint: Extremity Injury, Lower Stated Complaint: LEFT BIG TOE INJURY Time Seen by Provider: 09/19/18 12:59 Source: family Mode of arrival: wheelchair Limitations: no limitations - History of Present Illness Initial Comments: This is a 22yo male with past medical history history of autism and seizure disorder presenting today with mother for chief complaint of left toe bruising. Mother states that she went to patient's nursing home today, had taken off his shoes because she noticed he was limping favoring the right side. She noticed a large bruise over the left great toe. She states she spoke with staff who stated he has had multiple tantrums the past 2 evenings. Mother states this is typical behavior especially since he has been taken off Haldol since 2017. Mother states she inspected the entire skin, noting no other areas of bruising. She states patient is unable to verbalize pain. Remainder of our was negative-patient denies noting any other abnormalities. Upon arrival patient appears well, noncombative. Responding to verbal commands. - Related Data Home Medications Medication Instructions Recorded Confirmed Albuterol Sulfate [Proair Hfa] 2 puff INHALATION RT-Q6H PRN 03/06/15 09/19/18 Benztropine Mesylate [Cogentin] 1 mg PO BID 03/06/15 09/19/18 Cetirizine HCl [Zyrtec] 10 mg PO HS 03/06/15 09/19/18 Montelukast [Singulair] 10 mg PO HS 03/06/15 09/19/18 Multivitamin [Men's Multi-Vitamin] 1 tab PO HS 03/06/15 09/19/18 cloNIDine HCL [Catapres] 0.1 mg PO TID 03/06/15 09/19/18 Cholecalciferol [Vitamin D3] 2,000 unit PO HS 08/14/17 09/19/18 Lacosamide [Vimpat] 200 mg PO BID 08/14/17 09/19/18 OLANZapine [ZyPREXA] 10 mg PO HS 08/14/17 09/19/18 Clonazepam Odt 1mg 2 tab SUBLINGUAL DAILY PRN 01/10/18 09/19/18 OXcarbazepine [Trileptal] 600 mg PO BID 01/10/18 09/19/18 Clobazam [Onfi] 10 mg PO HS 09/19/18 09/19/18 Divalproex ER [Depakote ER] 500 mg PO HS 09/19/18 09/19/18 Fluphenazine HCl [fluPHENAZine HCL] 10 mg PO DAILY@1600 09/19/18 09/19/18 Lactulose [Cephulac] 20 gm PO BID 09/19/18 09/19/18 Mometasone Furoate [Asmanex] 1 puff INHALATION HS 09/19/18 09/19/18 lamoTRIgine [LaMICtal] 25 mg PO DAILY 09/19/18 09/19/18 Allergies Allergy/AdvReac Type Severity Reaction Status Date / Time fluoxetine [From Prozac] Allergy Unknown Verified 09/19/18 12:45 peanut Allergy Unknown Verified 09/19/18 12:45 phenytoin [From Dilantin] Allergy Unknown Verified 09/19/18 12:45 Review of Systems ROS Statement: Those systems with pertinent positive or pertinent negative responses have been documented in the HPI. ROS Other: All systems not noted in ROS Statement are negative. Past Medical History Past Medical History: Asthma, Seizure Disorder Additional Past Medical History / Comment(s): Autism(can become violent at times -thats why he is in a nursing home mon thru monday and home on weekend) .being tx for autism/behavior/violent episodes. pt's mom stated that pt has the mentality of an 8 year old andwhen pt not sick he can pretty much tell you what he needs or wants.abble to read and write some-usually only what he wants to. limited w/ his food likes. he eats [employer] [place] fries, [id number] bread, chips, cereal( trix or waffle crisps) History of Any Multi-Drug Resistant Organisms: MRSA Date of last positivie culture/infection: 2006 MDRO Source:: boils on rt hip Past Surgical History: No Surgical Hx Reported Additional Past Surgical History / Comment(s): pt can be violent at times is why he is in nursing home per mom, being treated, Autism/behavior/violent [facility] Past Anesthesia/Blood Transfusion Reactions: No Reported Reaction Additional Past Anesthesia/Blood Transfusion Reaction / Comment(s): per mom-pt never had any sx. Past Psychological History: No Psychological Hx Reported Smoking Status: Never smoker Past Alcohol Use History: None Reported Past Drug Use History: None Reported - Past Family History Father Family Medical History: Diabetes Mellitus, Hyperlipidemia, Hypertension Additional Family Medical History / Comment(s): depression. Paternal grandmother with myocardial infarction. Maternal grandfather with congestive heart failure Mother Family Medical History: Diabetes Mellitus, Hyperlipidemia, Hypertension, Thyroid Disorder Additional Family Medical History / Comment(s): depression General Exam - General Exam Comments Initial Comments: General: The patient is awake and alert, in no distress, and does not appear acutely ill. Eye: +3 mm pupils are equal, round and reactive to light, extra-ocular movements are intact. No nystagmus. There is normal conjunctiva bilaterally. No signs of icterus. Ears, nose, mouth and throat: There are moist mucous membranes and no oral lesions. Neck: The neck is supple, there is no tenderness or JVD. Cardiovascular: There is a regular rate and rhythm. No murmur, rub or gallop is appreciated. Respiratory: Lungs are clear to auscultation, respirations are non-labored, breath sounds are equal. No wheezes, stridor, rales, or rhonchi. Gastrointestinal: Soft, non-distended, non-tender abdomen without masses or organomegaly noted. There is no rebound or guarding present. No CVA tenderness. Bowel sounds are unremarkable. Musculoskeletal: Echo ecchymosis noted over the left great toe. With mild soft tissue swelling. No swelling of the forefoot ankle knee or hip. No other areas of ecchymosis noted upon skin examination. Patient is able to fully range at all joints of the left upper extremity denying tenderness. Strength 5/ 5. Sensation intact. Radial and DP pulses equal bilaterally 2+. Neurological: A&O x 3. CN II-XII intact, There are no obvious motor or sensory deficits. Coordination appears grossly intact. Skin: Skin is warm and dry and no rashes. Limitations: no limitations Course Vital Signs 09/19/18 12:06 Temperature 98 F Pulse Rate 94 Respiratory 18 Rate Blood Pressure 142/78 O2 Sat by Pulse 97 Oximetry Medical Decision Making - Medical Decision Making X-ray revealed a possible chip fracture of the left distal proximal phalanx of the foot. Patient neurovascularly intact. Given patient is autistic and unable to verbalize pain I did obtain x-rays of the knee and left hip to ensure no other occult fracture or injury. X-rays returned within normal limits. At this time I do feel patient is stable for discharge. Patient's left great toe was rosalia taped and surgical boot applied for comfort. Patient was given primary care follow-up in the next 1-2 days. As well as instruction to caregivers for ibuprofen and Tylenol as needed for complaints of pain. Mother is agreeable with discharge, denies questions at this time. Return parameters were discussed at length, the verbalize understanding. I discussed the case with attending provider Dr. Haider who agrees impression and plan. Patient was discharged in stable condition appearing well Disposition Clinical Impression: Fracture of proximal phalanx of toe of left foot Disposition: HOME SELF-CARE Condition: Good Instructions: Toe Fracture (ED) Additional Instructions: Please use over the counter medication as discussed for pain. Please follow-up with family doctor in the next 2 days. Please wear surgical boot for ambulation and rosalia tape first digit. Please return to emergency room if the symptoms increase or worsen or for any other concerns. Is patient prescribed a controlled substance at d/c from ED?: No Referrals: Bandar Hanna DO [Primary Care Provider] - 1-2 days Time of Disposition: 14:47
--- NOTE | 2018-09-19 13:54 | XR ---
EXAMINATION TYPE: XR Hip Complete LT DATE OF EXAM: 09/19/2018 COMPARISON: NONE HISTORY: Pain TECHNIQUE: 2 views submitted FINDINGS: There is no evidence of erosive change or acute fracture. Nonspherical morphology of the femoral head can be associated with femoral acetabular impingement. IMPRESSION: 1. No evidence of acute fracture or dislocation.
--- NOTE | 2018-09-19 14:28 | XR ---
EXAMINATION TYPE: XR knee complete LT DATE OF EXAM: 09/19/2018 CLINICAL HISTORY: Left knee pain TECHNIQUE: Three views of the left knee are obtained. COMPARISON: None. FINDINGS: There is no acute fracture/dislocation evident in left knee. The tri-compartment joint sp aces appear within normal limits. The overlying soft tissue appears unremarkable. Fabella is inciden tally noted. IMPRESSION: There is no acute fracture or dislocation in the left knee.
[2018-09-19 15:00] VITALS: BP 129/80; PULSE 90; TEMP 98
== END 2018-09-19 15:05 | disposition home or self-care (01) ==
LOC: EC 11:56
DX: S92.412A Displaced fracture of proximal phalanx of left great toe, initial encounter for closed fracture (principal); F84.0 Autistic disorder; J45.909 Unspecified asthma, uncomplicated; G40.909 Epilepsy, unspecified, not intractable, without status epilepticus; Z88.8 Allergy status to other drugs, medicaments and biological substances; Z91.010 Allergy to peanuts; Z79.51 Long term (current) use of inhaled steroids; Z79.899 Other long term (current) drug therapy; Z86.14 Personal history of Methicillin resistant Staphylococcus aureus infection; X58.XXXA Exposure to other specified factors, initial encounter
CPT/HCPCS: 73502; 99283

== ENCOUNTER 2018-11-29 03:12 | Observation (INO) | payer BC, OTHER ==
--- NOTE | 2018-11-29 03:49 | ED ---
URI HPI - General Chief Complaint: Upper Respiratory Infection Stated Complaint: chest congestion Time Seen by Provider: 11/29/18 03:48 Source: Caregiver Mode of arrival: ambulatory Limitations: no limitations - History of Present Illness Initial Comments: Dez is a 23-year-old male presents the ED today from an [facility] home where he lives for evaluation of fever and cough. Per the mother and the caregiver the patient has a history of autism, he lives in an [facility] home. His roommate at the [facility] home was diagnosed with influenza and pneumonia earlier today. Dez his been experiencing a cough since Monday and has had a fever since Monday, they've been treating his fever with Tylenol however today his fever spiked to greater than 103 and they became concerned because high fever as a risk factor for seizures which the patient has a history of. At that time they decided bring her to the ER for evaluation. Patient is fully vaccinated he did get his flu vaccine this year. Patient answers questions inappropriately, he quotes movies to answer questions. - Related Data Home Medications Medication Instructions Recorded Confirmed Albuterol Sulfate [Proair Hfa] 2 puff INHALATION RT-Q6H PRN 03/06/15 09/19/18 Benztropine Mesylate [Cogentin] 1 mg PO BID 03/06/15 09/19/18 Cetirizine HCl [Zyrtec] 10 mg PO HS 03/06/15 09/19/18 Montelukast [Singulair] 10 mg PO HS 03/06/15 09/19/18 Multivitamin [Men's Multi-Vitamin] 1 tab PO HS 03/06/15 09/19/18 cloNIDine HCL [Catapres] 0.1 mg PO TID 03/06/15 09/19/18 Cholecalciferol [Vitamin D3] 2,000 unit PO HS 08/14/17 09/19/18 Lacosamide [Vimpat] 200 mg PO BID 08/14/17 09/19/18 OLANZapine [ZyPREXA] 10 mg PO HS 08/14/17 09/19/18 Clonazepam Odt 1mg 2 tab SUBLINGUAL DAILY PRN 01/10/18 09/19/18 OXcarbazepine [Trileptal] 600 mg PO BID 01/10/18 09/19/18 Clobazam [Onfi] 10 mg PO HS 09/19/18 09/19/18 Divalproex ER [Depakote ER] 500 mg PO HS 09/19/18 09/19/18 Fluphenazine HCl [fluPHENAZine HCL] 10 mg PO DAILY@1600 09/19/18 09/19/18 Lactulose [Cephulac] 20 gm PO BID 09/19/18 09/19/18 Mometasone Furoate [Asmanex] 1 puff INHALATION HS 09/19/18 09/19/18 lamoTRIgine [LaMICtal] 25 mg PO DAILY 09/19/18 09/19/18 Allergies Allergy/AdvReac Type Severity Reaction Status Date / Time fluoxetine [From Prozac] Allergy Unknown Verified 09/19/18 12:45 peanut Allergy Unknown Verified 09/19/18 12:45 phenytoin [From Dilantin] Allergy Unknown Verified 09/19/18 12:45 Review of Systems ROS Statement: Those systems with pertinent positive or pertinent negative responses have been documented in the HPI. ROS Other: All systems not noted in ROS Statement are negative. Limitations: ROS unobtainable due to patients medical condition (Autism developmental delay) Past Medical History Past Medical History: Asthma, Seizure Disorder Additional Past Medical History / Comment(s): Autism(can become violent at times -thats why he is in a assisted mon thru monday and home on weekend).being tx for autism/behavior/violent episodes. pt's mom stated that pt has the mentality of an 8 year old andwhen pt not sick he can pretty much tell you what he needs or wants.abble to read and write some-usually only what he wants to. limited w/ his food likes. he eats british fries, [id number] bread, chips, cereal(trix or waffle crisps) History of Any Multi-Drug Resistant Organisms: MRSA Date of last positivie culture/infection: 2006 MDRO Source:: boils on rt hip Past Surgical History: No Surgical Hx Reported Additional Past Surgical History / Comment(s): pt can be violent at times is why he is in assisted per mom, being treated, Autism/behavior/violent [facility]H Past Anesthesia/Blood Transfusion Reactions: No Reported Reaction Additional Past Anesthesia/Blood Transfusion Reaction / Comment(s): per mom-pt never had any sx. Past Psychological History: No Psychological Hx Reported Smoking Status: Never smoker Past Alcohol Use History: None Reported Past Drug Use History: None Reported - Past Family History Father Family Medical History: Diabetes Mellitus, Hyperlipidemia, Hypertension Additional Family Medical History / Comment(s): depression. Paternal grandmother with myocardial infarction. Maternal grandfather with congestive heart failure Mother Family Medical History: Diabetes Mellitus, Hyperlipidemia, Hypertension, Thyroid Disorder Additional Family Medical History / Comment(s): depression General Exam - General Exam Comments Initial Comments: Physical Exam GENERAL: Patient is well-developed and well-nourished. Patient is nontoxic and well-hydrated and is in no distress. HENT: Normocephalic, Atraumatic. EYES: PERRL, EOMI PULMONARY: Mild expiratory wheezing CARDIOVASCULAR: There is a regular rate and rhythm without any murmurs gallops or rubs. ABDOMEN: Soft and nontender with normal bowel sounds. SKIN: Skin is clear with no lesions or rashes and otherwise unremarkable. Skin is pale dry : Deferred NEUROLOGIC: Alert and oriented to self, moving all extremities MUSCULOSKELETAL: Normal extremities with adequate strength and full range of motion. No lower extremity swelling or edema. No calf tenderness. PSYCHIATRIC: Childlike demeanor and mentation At patient's baseline per mother Limitations: no limitations Limitations: no limitations Course Vital Signs 11/29/18 03:16 Temperature 98.6 F Pulse Rate 96 Respiratory 18 Rate Blood Pressure 129/84 O2 Sat by Pulse 98 Oximetry Medical Decision Making - Medical Decision Making The patient was seen and evaluated history is obtained from the patient, caregiver at the [facility] home as well as mother at bedside Patient with fevers [facility] home, concern for exposure to influenza Labs and imaging ordered Patient is influenza a positive Chest x-ray is concerning for possible right upper lobe infiltrate though I do have a high suspicion that this is pneumonia however we will order first dose of antibiotics in the emergency department Results were discussed with the patient family and caregiver at this time they're agreeable to plan for admission for IV antibiotics, Tamiflu, fluid rehydration and fever management Patient care was discussed with Dr. Jacobson who agrees with plan for admission - Lab Data Result diagrams: 11/29/18 04:06 Lab Results 11/29/18 11/29/18 Range/Units 03:50 04:06 Sodium 137 (137-145) mmol/L Potassium 4.4 (3.5-5.1) mmol/L Chloride 106 (98-107) mmol/L Carbon Dioxide 21 L (22-30) mmol/L Anion Gap 10 mmol/L BUN 14 (9-20) mg/dL Creatinine 0.77 (0.66-1.25) mg/dL Est GFR (CKD-EPI)AfAm >90 (>60 ml/min/1.73 sqM) Est GFR (CKD-EPI)NonAf >90 (>60 ml/min/1.73 sqM) Glucose 96 (74-99) mg/dL Calcium 9.2 (8.4-10.2) mg/dL Total Bilirubin 0.5 (0.2-1.3) mg/dL AST 31 (17-59) U/L ALT 35 (21-72) U/L Alkaline Phosphatase 65 (38-126) U/L Total Protein 7.2 (6.3-8.2) g/dL Albumin 4.3 (3.5-5.0) g/dL Influenza Type A RNA Detected H (Not Detectd) Influenza Type B (PCR) Not Detected (Not Detectd) Disposition Clinical Impression: Influenza Disposition: ADMITTED IP TO THIS HOSP Is patient prescribed a controlled substance at d/c from ED?: No Referrals: Bandar Hanna DO [Primary Care Provider] - 1-2 days
--- NOTE | 2018-11-29 04:02 | XR ---
EXAM: XR Chest, 2 Views CLINICAL HISTORY: ITS.REASON XR Reason: cough TECHNIQUE: Frontal and lateral views of the chest. COMPARISON: No relevant prior studies available. FINDINGS: Lungs: Possible nodular right upper lobe infiltrate. Pleural space: Unremarkable. No pneumothorax. Heart: Unremarkable. No cardiomegaly. Mediastinum: Unremarkable. Bones/joints: No acute fracture. IMPRESSION: Possible nodular right upper lobe infiltrate.
[2018-11-29] MEDS ORDERED: IBUPROFEN 600 MG TAB PO STA (04:13)
[2018-11-29] MEDS: SODIUM CHLORIDE 0.9% 500 ML 500 ML IV SCH ×2 (04:34→10:18)
[2018-11-29 04:47] LABS: ALT 35 U/L (21-72); AST 31 U/L (17-59); Albumin 4.3 g/dL (3.5-5.0); Alkaline Phosphatase 65 U/L (38-126); Anion Gap 10 mmol/L; Blood Urea Nitrogen 14 mg/dL (9-20); Calcium 9.2 mg/dL (8.4-10.2); Carbon Dioxide 21 mmol/L (22-30); Chloride 106 mmol/L (98-107); Glucose 96 mg/dL (74-99); Potassium 4.4 mmol/L (3.5-5.1); Sodium 137 mmol/L (137-145); Total Bilirubin 0.5 mg/dL (0.2-1.3); Total Protein 7.2 g/dL (6.3-8.2)
[2018-11-29] MEDS ORDERED: OSELTAMIVIR 75 MG CAP PO STA (04:47)
[2018-11-29] MEDS ORDERED: cefTRIAXone IN SWFI 1,000 MG/10 ML SYRINGE IVP STA (04:47)
[2018-11-29] MEDS ORDERED: AZITHROMYCIN 500 MG in SODIUM CHLORIDE 0.9% 250 ML IVPB STA (04:47)
[2018-11-29] MEDS ORDERED: PNEUMONIA PROTOCOL UTILIZED 1 EACH MISC PO PRN (05:03)
[2018-11-29 05:07] LABS: Basophils % (A) 0 %; Eosinophils # (A) 0.1 k/uL (0-0.7); Eosinophils % (A) 2 %; HCT 34.9 % (39.0-53.0); HGB 11.8 gm/dL (13.0-17.5); Lymphocytes # (A) 0.9 k/uL (1.0-4.8); Lymphocytes % (A) 13 %; MCH 28.3 pg (25.0-35.0); MCHC 33.8 g/dL (31.0-37.0); MCV 83.8 fL (80.0-100.0); Monocytes # (A) 0.5 k/uL (0-1.0); Monocytes % (A) 8 %; Neutrophils # (A) 4.9 k/uL (1.3-7.7); Neutrophils % (A) 75 %; Platelet Count 131 k/uL (150-450); RBC 4.16 m/uL (4.30-5.90); WBC 6.5 k/uL (3.8-10.6)
[2018-11-29] MEDS ORDERED: LORATADINE 10 MG TAB PO PRN (09:05)
[2018-11-29] MEDS ORDERED: CLONAZEPAM 1 MG SUBLINGUAL PRN (09:05)
[2018-11-29] MEDS ORDERED: ALBUTEROL NEBULIZED 2.5 MG/3 ML INHALATION PRN (09:05)
--- NOTE | 2018-11-29 09:24 | HP ---
HISTORY AND PHYSICAL CHIEF COMPLAINT: This is a 23-year-old male who lives in an [facility] home where he is exposed to flu and double pneumonia. He came in here with flu and cough and high fevers for last 2 to 3 days. He has been coughing for 3 or 4 days, fever for 3 days, temperature over 103. His has a risk high fever, at risk for seizures due to recurrent seizure history. He has had 3 seizures last month. Sees Neurology for this. He was found to have right upper lobe pneumonia and influenza. He was admitted. MEDICATIONS: Home medicines include Cogentin, ProAir HFA, Zyrtec, Singulair, multivitamins, Catapres, Vimpat, vitamin D3, Zyprexa, Trileptal, Onfi, Depakote, fluphenazine, Asmanex, Lamictal. ALLERGIES: Allergies are to PROZAC and DILANTIN. REVIEW OF SYSTEMS: Fourteen-point review of systems negative except for as mentioned in HPI. His mom is here giving history. PAST MEDICAL HISTORY: Past medical history of asthma, seizures and autism. Possible MRSA FAMILY HISTORY: Father with diabetes mellitus, hypertension, dyslipidemia. Mother with diabetes mellitus, hypertension, dyslipidemia, hypothyroidism. PHYSICAL EXAMINATION: Well-developed, well-nourished male, cough, congested. HEAD: Normocephalic, atraumatic. HEART: Regular rate and rhythm. LUNGS: Wheezing x4, mild rhonchi. ABDOMEN: Distended. Obesity. NEUROLOGIC: Alert and orient x3. PSYCH: He has child-like demeanor in mentation. NEUROLOGIC: Moves all extremities. Chest x-ray shows right upper lobe pneumonia. Temp 98.6, pulse 96, respiratory rate 16 to 18, blood pressure is 129/84, O2 of 98. ASSESSMENT: 1. Right upper lobe pneumonia. 2. Influenza positive. 3. Acute on chronic respiratory distress. IV antibiotics, Tamiflu, fluid rehydration. Fever management to prevent seizures. Please see further orders. Home medications will be reordered. MMODL / IJN: [id number] /
[2018-11-29] MEDS: AMPICILLIN-SULBACTAM 1.5 GM in SODIUM CHLORIDE 0.9% 50 ML IVPB SCH ×3 (11:35→23:49)
--- NOTE | 2018-11-29 12:00 | CONS ---
CONSULTATION Dez Abdalla is a 23-year-old male with a history of autism, who came in with fever for 2-3 days duration. This has been associated with a cough. It is not clear whether he had emesis, but he has been having some diarrhea. He was seen in the ER and was positive for influenza A. He had been exposed to his roommate, who is admitted to the hospital for influenza with bilateral pneumonia. He does not give me much history, but has a known history of autism and a previous history of seizure disorder as well. He received a flu vaccine this year. PAST MEDICAL HISTORY: Positive for asthma, seizure disorder, autism, history of foot fracture. FAMILY HISTORY: Positive for diabetes, hyperlipidemia, and hypertension in his father, diabetes, hyperlipidemia, hypertension, and thyroid disorder in his mother. SOCIAL HISTORY: The patient is a never smoker. Does not drink alcohol and lives in a [place] [facility]. HOME MEDICATIONS: Prior to his admission were clonidine, Lamictal, Cogentin, Vimpat, Cephulac, Trileptal, Depakote ER, fluphenazine, vitamin D3, Onfi, Singulair, men's multivitamin, Zyprexa, ProAir, Zyrtec, Asmanex, clonazepam and Lamictal. REVIEW OF SYSTEMS: Noncontributory other than for what is in history of present illness and past medical history. PHYSICAL EXAMINATION: Blood pressure is 125/87, respiratory rate of 20, pulse rate of 80, temperature 97.1 degrees Fahrenheit. HEENT reveals pupils that are equal. Chest reveals coarse rhonchi on the right. There is bilateral faint expiratory wheeze, more on the right than the left. Cardiovascular system with an S1, S2. No S3, no S4. Abdomen is soft. Bowel sounds are heard. There is no edema. White count of 6.5, hemoglobin of 11.8, lymphocytes are low at 0.9000, neutrophils of 4.9000. Sodium is 137, potassium 4.4, chloride 106, bicarb 21, BUN 14, creatinine of 0.77. Influenza A is positive. Chest x-ray shows right-sided infiltrate. IMPRESSION: 1. Aspiration type pneumonia is likely. 2. Influenza A predisposing patient to pneumonia. 3. Autism. 4. History of seizure disorder. 5. Asthma with exacerbation. At this point in time, would switch the patient's antibiotics to Unasyn to cover for anaerobic bacteria. Would see if he can avoid IV steroids. Keep him on aerosolized steroids in the form of Pulmicort for more even deposition into the airways. Continue him on Tamiflu as well as montelukast and his previous home medications. Keep him on supplemental oxygen as needed and watch for seizures. Depending on how he does, we should make further changes to his care. I would like to thank you for allowing me the privilege of participating in his care. We will also make sure that he is on GI and DVT prophylaxis. MMODL / IJN: [id number] /
[2018-11-29] MEDS: cloNIDine HCL 0.1 MG TAB PO SCH ×2 (16:48→21:07)
[2018-11-29] MEDS ORDERED: FLUTICASONE 110 MCG INHALER INHALATION SCH (20:00)
[2018-11-29] MEDS: BUDESONIDE 0.5 MG/2 ML NEBU INHALATION SCH (20:27)
[2018-11-29] MEDS ORDERED: CLOBAZAM 5 MG PO SCH (21:00)
[2018-11-29] MEDS: MONTELUKAST 10 MG TAB PO SCH (21:07)
[2018-11-29] MEDS: MULTIVITAMINS, THERA 1 EACH TAB PO SCH (21:07)
[2018-11-29] MEDS: CHOLECALCIFEROL 1,000 UNIT TAB PO SCH (21:07)
[2018-11-29] MEDS: BENZTROPINE MESYLATE 1 MG TAB PO SCH (21:07)
[2018-11-29] MEDS: lamoTRIgine 25 MG TAB PO SCH (21:08)
[2018-11-29] MEDS: FAMOTIDINE 20 MG TAB PO SCH (21:08)
[2018-11-29] MEDS: OSELTAMIVIR 75 MG CAP PO SCH (21:08)
[2018-11-29] MEDS: HEPARIN SODIUM,PORCINE 5,000 UNIT/ML 1 ML VIAL SQ SCH (21:08)
[2018-11-29] MEDS: DIVALPROEX ER 250 MG TAB.ER.24H PO SCH (21:09)
[2018-11-29] MEDS: LACTULOSE 20 GM/30 ML CUP PO SCH (21:09)
[2018-11-29] MEDS: OLANZapine 10 MG TAB PO SCH (21:09)
[2018-11-29] MEDS: OXcarbazepine 300 MG TAB PO SCH (21:09)
[2018-11-29] MEDS: LACOSAMIDE 50 MG TABLET PO SCH (21:09)
[2018-11-30] MEDS: AMPICILLIN-SULBACTAM 1.5 GM in SODIUM CHLORIDE 0.9% 50 ML IVPB SCH ×3 (05:28→16:30)
[2018-11-30] MEDS: LACTULOSE 20 GM/30 ML CUP PO SCH ×2 (08:11→21:43)
[2018-11-30] MEDS: OSELTAMIVIR 75 MG CAP PO SCH ×2 (08:11→21:44)
[2018-11-30] MEDS: LACOSAMIDE 50 MG TABLET PO SCH ×2 (08:11→21:43)
[2018-11-30] MEDS: BENZTROPINE MESYLATE 1 MG TAB PO SCH ×2 (08:12→21:41)
[2018-11-30] MEDS: lamoTRIgine 25 MG TAB PO SCH ×2 (08:12→21:43)
[2018-11-30] MEDS: OXcarbazepine 300 MG TAB PO SCH ×2 (08:12→21:44)
[2018-11-30] MEDS: cloNIDine HCL 0.1 MG TAB PO SCH ×3 (08:12→21:45)
[2018-11-30] MEDS: FAMOTIDINE 20 MG TAB PO SCH ×2 (08:12→21:43)
[2018-11-30] MEDS: HEPARIN SODIUM,PORCINE 5,000 UNIT/ML 1 ML VIAL SQ SCH ×2 (08:13→21:42)
[2018-11-30] MEDS: BUDESONIDE 0.5 MG/2 ML NEBU INHALATION SCH ×2 (08:47→19:42)
[2018-11-30] MEDS ORDERED: AZITHROMYCIN 500 MG in SODIUM CHLORIDE 0.9% 250 ML IVPB SCH (09:00)
--- NOTE | 2018-11-30 16:12 | P.PN ---
Subjective Progress Note Date: 11/30/18 11/30/2018: Patient seen and examined for follow-up. The patient's sister is at bedside with him. The patient states he feels excellent. Per his sister he has been coughing. He has not had any fevers or chills. Objective - Vital Signs Vital signs: Vital Signs Temp 98.6 F 11/30/18 13:17 Pulse 86 11/30/18 13:17 Resp 20 11/30/18 13:17 BP 123/78 11/30/18 13:17 Pulse Ox 93 L 11/30/18 13:17 Intake & Output 11/29/18 11/30/18 11/30/18 18:59 06:59 18:59 Intake Total 120 Balance 120 Intake: Oral 120 Other: # Voids 1 1 2 - Exam Gen.: Patient is alert and oriented 3, no acute distress Cardiovascular: Regular rate and rhythm, S1/S2 Lungs: Coarse breath sounds on the right Abdomen: Soft nontender nondistended positive bowel sounds Extremities: No edema - Labs CBC & Chem 7: 11/29/18 04:54 11/29/18 04:06 Assessment and Plan Assessment: Aspiration pneumonia - RUL Influenza a Autism History of seizure disorder Acute exacerbation of asthma O2 to maintain saturation greater than or equal to 90%, patient currently on room air Switch to oral antibiotics Aspiration precautions Pulmicort Duo filiberto Shannon Family asking if the patient can go home tomorrow. Ok from pulmonary standpoint to discharge the patient tomorrow if afebrile overnight. Would switch to PO Augmentin x 7 days, continue Tamiflu, Pulmicort, Singulair, Albuterol
[2018-11-30] MEDS ORDERED: ONFI PO SCH (21:00)
[2018-11-30] MEDS: CHOLECALCIFEROL 1,000 UNIT TAB PO SCH (21:41)
[2018-11-30] MEDS: DIVALPROEX ER 250 MG TAB.ER.24H PO SCH (21:42)
[2018-11-30] MEDS: MONTELUKAST 10 MG TAB PO SCH (21:44)
[2018-11-30] MEDS: MULTIVITAMINS, THERA 1 EACH TAB PO SCH (21:44)
[2018-11-30] MEDS: OLANZapine 10 MG TAB PO SCH (21:44)
[2018-12-01] MEDS: AMPICILLIN-SULBACTAM 1.5 GM in SODIUM CHLORIDE 0.9% 50 ML IVPB SCH ×2 (00:44→06:27)
[2018-12-01] MEDS: HEPARIN SODIUM,PORCINE 5,000 UNIT/ML 1 ML VIAL SQ SCH (08:19)
[2018-12-01] MEDS: cloNIDine HCL 0.1 MG TAB PO SCH ×2 (08:19→15:22)
[2018-12-01] MEDS: LACTULOSE 20 GM/30 ML CUP PO SCH (08:19)
[2018-12-01] MEDS: LACOSAMIDE 50 MG TABLET PO SCH (08:19)
[2018-12-01] MEDS: FAMOTIDINE 20 MG TAB PO SCH (08:19)
[2018-12-01] MEDS: BUDESONIDE 0.5 MG/2 ML NEBU INHALATION SCH (08:19)
[2018-12-01] MEDS: BENZTROPINE MESYLATE 1 MG TAB PO SCH (08:20)
[2018-12-01] MEDS: lamoTRIgine 25 MG TAB PO SCH (08:21)
[2018-12-01 08:22] VITALS: RESP 18
[2018-12-01] MEDS: OXcarbazepine 300 MG TAB PO SCH (08:22)
[2018-12-01] MEDS: OSELTAMIVIR 75 MG CAP PO SCH (08:22)
--- NOTE | 2018-12-01 09:38 | P.PN ---
Subjective Progress Note Date: 12/01/18 12/01/2018: Patient seen and examined for follow-up. The patient's father is at bedside. The patient did not have fevers or chills overnight. The patient states he feels good. He is up ambulating in the room. Per the patient's father he did have a cough which worsened overnight. Objective - Vital Signs Vital signs: Vital Signs Temp 97.1 F L 12/01/18 07:00 Pulse 76 12/01/18 08:39 Resp 18 12/01/18 07:00 BP 148/86 12/01/18 07:00 Pulse Ox 98 12/01/18 07:00 Intake & Output 11/30/18 12/01/18 12/01/18 18:59 06:59 18:59 Intake Total 690 Balance 690 Intake: Oral 690 Other: # Voids 2 2 - Exam Gen.: Patient is alert and oriented 3, no acute distress Cardiovascular: Regular rate and rhythm, S1/S2 Lungs: Coarse breath sounds on the right Abdomen: Soft nontender nondistended positive bowel sounds Extremities: No edema - Labs CBC & Chem 7: 11/29/18 04:54 11/29/18 04:06 Labs: Microbiology - Last 24 Hours (Table) 11/29/18 16:02 Blood Culture - Preliminary Blood No Growth after 24 hours Assessment and Plan Assessment: Aspiration pneumonia - RUL Influenza a Autism History of seizure disorder Acute exacerbation of asthma O2 to maintain saturation greater than or equal to 90%, patient currently on room air Switch to oral antibiotics Aspiration precautions Pulmicort Duo nebs Singulair Family asking if the patient can go home tomorrow. Ok from pulmonary standpoint to discharge the patient tomorrow if afebrile overnight. Would switch to PO Augmentin x 7 days, continue Tamiflu, Pulmicort, Singulair, Albuterol
[2018-12-01 13:50] VITALS: BP 131/74; PULSE 64; TEMP 97
[2018-12-01] MEDS ORDERED: AMOXIC-POT CLAV 875-125MG 1 EACH TAB PO SCH (21:00)
== END 2018-12-01 15:44 | disposition home or self-care (01) ==
LOC: EC 03:12 → 3NMEDONC 05:03
PROVIDERS: ADMIT Family Medicine; ATTEND Family Medicine
DX: J10.1 Influenza due to other identified influenza virus with other respiratory manifestations (principal); J18.9 Pneumonia, unspecified organism; J45.901 Unspecified asthma with (acute) exacerbation; Z20.828 Contact with and (suspected) exposure to other viral communicable diseases; G40.909 Epilepsy, unspecified, not intractable, without status epilepticus; R45.6 Violent behavior; Z91.010 Allergy to peanuts; F84.0 Autistic disorder; Z88.8 Allergy status to other drugs, medicaments and biological substances; Z79.899 Other long term (current) drug therapy; Z86.14 Personal history of Methicillin resistant Staphylococcus aureus infection; Z83.3 Family history of diabetes mellitus; Z82.49 Family history of ischemic heart disease and other diseases of the circulatory system; Z83.49 Family history of other endocrine, nutritional and metabolic diseases; Z81.8 Family history of other mental and behavioral disorders
CPT/HCPCS: 96366 ×4; 96367; 96372 ×3; 96365; 96375; 99285; 36415; 94640 ×3; 80053; 85025; 87040; 87502; 71046; G0378 ×3; J1644 ×3; J0456; J0696; J0295 ×3

== ENCOUNTER 2019-01-01 08:59 | Emergency (ER) | payer BC, OTHER ==
[2019-01-01] MEDS ORDERED: SODIUM CHLORIDE 0.9% 500 ML 500 ML IV STA (09:28)
--- NOTE | 2019-01-01 09:53 | ED ---
Head Injury HPI - General Chief complaint: Head Injury Stated complaint: Seizure, head injury Time Seen by Provider: 01/01/19 09:16 Source: patient, family, RN notes reviewed, Caregiver Mode of arrival: EMS Limitations: language barrier, altered mental status - History of Present Illness Initial comments: 23-year-old male presents emergency Department with caregivers with chief complaint of seizure, head injury. Patient has known history of seizures, has approximately a few months. Patient had once morning unwitnessed report was found to have bloody nose on the right side. Patient has no other visible injuries. Patient's acting appropriate. Patient is on Vimpat and Tegretol. Patient has not missed any of his doses. Patient denies headache, dizziness. Denies any chest pain or shortness of breath. - Related Data Home Medications Medication Instructions Recorded Confirmed Albuterol Sulfate [Proair Hfa] 2 puff INHALATION RT-Q6H PRN 03/06/15 01/01/19 Benztropine Mesylate [Cogentin] 1 mg PO BID 03/06/15 01/01/19 Cetirizine HCl [Zyrtec] 10 mg PO HS PRN 03/06/15 01/01/19 Montelukast [Singulair] 10 mg PO HS 03/06/15 01/01/19 Multivitamin [Men's Multi-Vitamin] 1 tab PO HS 03/06/15 01/01/19 cloNIDine HCL [Catapres] 0.1 mg PO TID 03/06/15 01/01/19 Cholecalciferol [Vitamin D3] 2,000 unit PO HS 08/14/17 01/01/19 Lacosamide [Vimpat] 200 mg PO BID 08/14/17 01/01/19 OLANZapine [ZyPREXA] 10 mg PO HS 08/14/17 01/01/19 Clonazepam Odt 1mg 2 tab SUBLINGUAL Q12H PRN 01/10/18 01/01/19 OXcarbazepine [Trileptal] 600 mg PO BID 01/10/18 01/01/19 Clobazam [Onfi] 5 mg PO HS 09/19/18 01/01/19 Fluphenazine HCl [fluPHENAZine HCL] 10 mg PO BID 09/19/18 01/01/19 Lactulose [Cephulac] 20 gm PO BID 09/19/18 01/01/19 Mometasone Furoate [Asmanex] 1 puff INHALATION RT-HS 09/19/18 01/01/19 Divalproex ER [Depakote ER] 250 mg PO HS 11/29/18 01/01/19 lamoTRIgine [LaMICtal] 25 mg PO BID 01/01/19 01/01/19 Allergies/Adverse reactions: Allergies Allergy/AdvReac Type Severity Reaction Status Date / Time fluoxetine [From Prozac] Allergy Unknown Verified 01/01/19 10:29 peanut Allergy Unknown Verified 01/01/19 10:29 phenytoin [From Dilantin] Allergy Unknown Verified 01/01/19 10:29 Review of Systems ROS Statement: Those systems with pertinent positive or pertinent negative responses have been documented in the HPI. ROS Other: All systems not noted in ROS Statement are negative. Past Medical History Past Medical History: Asthma, Seizure Disorder Additional Past Medical History / Comment(s): Autism(can become violent at times -thats why he is in a penitentiary mon thru monday and home on weekend).being tx for autism/behavior/violent episodes. Pt has the mentality of an 7 year old and when pt not sick he can pretty much tell you what he needs or wants. Pt is able to read and write some-usually only what he wants to. limited w/ his food likes. he eats bahraini fries, cheesy bread, chips, cereal(trix or waffle crisps). Other hx: Last seizure 10/2018-he had 3 grand mal seizures, hyperammonemia, thrombocytopenia, normocytic anemia. History of Any Multi-Drug Resistant Organisms: MRSA Date of last positivie culture/infection: 2006 MDRO Source:: boils on rt hip Past Surgical History: No Surgical Hx Reported Additional Past Surgical History / Comment(s): pt can be violent at times is why he is in penitentiary per mom, being treated, Autism/behavior/violent [facility] Past Anesthesia/Blood Transfusion Reactions: No Reported Reaction Additional Past Anesthesia/Blood Transfusion Reaction / Comment(s): per mom-pt never had any sx. Past Psychological History: No Psychological Hx Reported Smoking Status: Never smoker Past Alcohol Use History: None Reported Past Drug Use History: None Reported - Past Family History Father Family Medical History: Diabetes Mellitus, Hyperlipidemia, Hypertension Additional Family Medical History / Comment(s): depression. Paternal grandmother with myocardial infarction. Maternal grandfather with congestive heart failure Mother Family Medical History: Diabetes Mellitus, Hyperlipidemia, Hypertension, Thyroid Disorder Additional Family Medical History / Comment(s): depression General Exam Limitations: language barrier, altered mental status General appearance: alert, in no apparent distress Head exam: Present: atraumatic, normocephalic, normal inspection Eye exam: Present: normal appearance, PERRL, EOMI. Absent: scleral icterus, conjunctival injection, periorbital swelling ENT exam: Present: normal oropharynx, mucous membranes moist. Absent: normal exam (Dry blood noted in the right nostril) Neck exam: Present: normal inspection, full ROM. Absent: tenderness, meningismus, lymphadenopathy Respiratory exam: Present: normal lung sounds bilaterally. Absent: respiratory distress, wheezes, rales, rhonchi, stridor Cardiovascular Exam: Present: regular rate, normal rhythm, normal heart sounds. Absent: systolic murmur, diastolic murmur, rubs, gallop, clicks Extremities exam: Present: normal inspection, full ROM, normal capillary refill. Absent: tenderness, pedal edema, joint swelling, calf tenderness Neurological exam: Present: alert, oriented X3, CN II-XII intact Skin exam: Present: warm, dry, intact, normal color. Absent: rash Course Vital Signs 01/01/19 09:05 Temperature 97.7 F Pulse Rate 78 Respiratory 20 Rate Blood Pressure 137/88 O2 Sat by Pulse 95 Oximetry Medical Decision Making - Medical Decision Making 23-year-old male presented for seizure, head injury. CT was obtained no acute intracranial hemorrhage or skull fracture. Patient does have noted sinusitis. Patient will be given ENT for follow-up. Patient otherwise stable and will be discharged. - Lab Data Result diagrams: 01/01/19 10:07 01/01/19 10:07 Lab Results 01/01/19 01/01/19 Range/Units 10:07 10:07 WBC 4.1 (3.8-10.6) k/uL RBC 4.79 (4.30-5.90) m/uL Hgb 13.1 (13.0-17.5) gm/dL Hct 40.2 (39.0-53.0) % MCV 83.9 (80.0-100.0) fL MCH 27.2 (25.0-35.0) pg MCHC 32.5 (31.0-37.0) g/dL RDW 14.2 (11.5-15.5) % Plt Count 165 (150-450) k/uL Neutrophils % 59 % Lymphocytes % 28 % Monocytes % 7 % Eosinophils % 3 % Basophils % 0 % Neutrophils # 2.4 (1.3-7.7) k/uL Lymphocytes # 1.1 (1.0-4.8) k/uL Monocytes # 0.3 (0-1.0) k/uL Eosinophils # 0.1 (0-0.7) k/uL Basophils # 0.0 (0-0.2) k/uL Sodium 140 (137-145) mmol/L Potassium 4.7 (3.5-5.1) mmol/L Chloride 106 (98-107) mmol/L Carbon Dioxide 26 (22-30) mmol/L Anion Gap 8 mmol/L BUN 6 L (9-20) mg/dL Creatinine 0.64 L (0.66-1.25) mg/dL Est GFR (CKD-EPI)AfAm >90 (>60 ml/min/1.73 sqM) Est GFR (CKD-EPI)NonAf >90 (>60 ml/min/1.73 sqM) Glucose 92 (74-99) mg/dL Calcium 9.8 (8.4-10.2) mg/dL Total Bilirubin 0.3 (0.2-1.3) mg/dL AST 29 (17-59) U/L ALT 40 (21-72) U/L Alkaline Phosphatase 69 (38-126) U/L Total Protein 7.6 (6.3-8.2) g/dL Albumin 4.9 (3.5-5.0) g/dL Carbamazepine <3.0 ug/mL Disposition Clinical Impression: Head injury, Recurrent seizures, Chronic sinusitis Disposition: HOME SELF-CARE Condition: Stable Instructions (If sedation given, give patient instructions): Recurrent Seizures in Adults (ED) Additional Instructions: Please return to the Emergency Department if symptoms worsen or any other concerns. Is patient prescribed a controlled substance at d/c from ED?: No Referrals: Bandar Hanna DO [Primary Care Provider] - 1-2 days Abraham Au MD [STAFF PHYSICIAN] - 1-2 days Time of Disposition: 10:59
[2019-01-01 10:24] LABS: Basophils % (A) 0 %; Eosinophils # (A) 0.1 k/uL (0-0.7); Eosinophils % (A) 3 %; HCT 40.2 % (39.0-53.0); HGB 13.1 gm/dL (13.0-17.5); Lymphocytes # (A) 1.1 k/uL (1.0-4.8); Lymphocytes % (A) 28 %; MCH 27.2 pg (25.0-35.0); MCHC 32.5 g/dL (31.0-37.0); MCV 83.9 fL (80.0-100.0); Mean Platelet Volume 9.2; Monocytes # (A) 0.3 k/uL (0-1.0); Monocytes % (A) 7 %; Neutrophils # (A) 2.4 k/uL (1.3-7.7); Neutrophils % (A) 59 %; Platelet Count 165 k/uL (150-450); RBC 4.79 m/uL (4.30-5.90); RDW 14.2 % (11.5-15.5); WBC 4.1 k/uL (3.8-10.6)
[2019-01-01 10:34] LABS: ALT 40 U/L (21-72); AST 29 U/L (17-59); Albumin 4.9 g/dL (3.5-5.0); Alkaline Phosphatase 69 U/L (38-126); Anion Gap 8 mmol/L; Blood Urea Nitrogen 6 mg/dL (9-20); Calcium 9.8 mg/dL (8.4-10.2); Carbon Dioxide 26 mmol/L (22-30); Chloride 106 mmol/L (98-107); Glucose 92 mg/dL (74-99); Potassium 4.7 mmol/L (3.5-5.1); Sodium 140 mmol/L (137-145); Total Bilirubin 0.3 mg/dL (0.2-1.3); Total Protein 7.6 g/dL (6.3-8.2)
--- NOTE | 2019-01-01 10:39 | CT ---
EXAMINATION TYPE: CT brain wo con DATE OF EXAM: 01/01/2019 COMPARISON: 01/28/2018 HISTORY: Seizure; head injury CT DLP: 1133.4 mGycm. Automated Exposure Control for Dose Reduction was Utilized. TECHNIQUE: CT scan of the head is performed without contrast. FINDINGS: There is no acute intracranial hemorrhage, mass effect, or midline shift identified. The ventricles and sulci are slightly prominent for the patient's age but symmetric related to atrophy. The globes are intact. There is severe mucosal thickening with air-fluid levels within the maxillary sinuses and moderate mucosal thickening of the ethmoid sinuses. Sphenoid and frontal sinuses are wel l aerated. Mastoid air cells are also well aerated. Some high density is seen within the right maxill emi sinus that can indicate atypical or fungal infection. This can also be seen in hemorrhage/protein aceous debris within the right maxillary sinus mucosal thickening. IMPRESSION: 1. No acute intracranial hemorrhage, mass effect, or midline shift is seen. 2. Again there is mild cerebral atrophy, pronounced for the patient's age. 3. Severe maxillary and moderate ethmoid mucosal thickening with right maxillary sinus complexity gama t can indicate atypical infection, fungal infection, hemorrhage within the mucosal thickening and/or debris.
[2019-01-01 10:51] LABS: Carbamazepine (Tegretol) <3.0 ug/mL
[2019-01-01 11:18] VITALS: BP 138/86; PULSE 73; RESP 18; TEMP 97.1
== END 2019-01-01 11:18 | disposition home or self-care (01) ==
LOC: EC 08:59
DX: S09.90XA Unspecified injury of head, initial encounter (principal); G40.409 Other generalized epilepsy and epileptic syndromes, not intractable, without status epilepticus; J32.9 Chronic sinusitis, unspecified; R41.82 Altered mental status, unspecified; Z79.899 Other long term (current) drug therapy; J45.909 Unspecified asthma, uncomplicated; F84.0 Autistic disorder; Z88.8 Allergy status to other drugs, medicaments and biological substances; Z91.010 Allergy to peanuts; Z86.14 Personal history of Methicillin resistant Staphylococcus aureus infection; W19.XXXA Unspecified fall, initial encounter
CPT/HCPCS: 36415; 70450; 80053; 80156; 80183; 85025; 93005; 96360; 99284

== ENCOUNTER 2019-02-11 11:01 | Emergency (ER) | payer BC, OTHER ==
--- NOTE | 2019-02-11 11:18 | ED ---
General Adult HPI - General Stated complaint: Seizure Time Seen by Provider: 02/11/19 11:04 Source: patient, family, EMS, RN notes reviewed, old records reviewed Mode of arrival: EMS Limitations: altered mental status, physical limitation - History of Present Illness Initial comments: 23 yo male presenting for evaluation of seizure. Patient has known seizure disorder. History of autism. He is currently on multiple medications and is staying at a longterm. Current seizure prophylaxis is with Lamictal, Trileptal, and Vimpat. He does have clonazepam for seizures lasting more than 4 minutes. Today's seizure only lasted 3 minutes. He was postictal for 10 minutes according to EMS. He had stable vital signs. He is accompanied by his mother who is able to give a history. He previously was having approximately 2- 3 seizures monthly. He has been 3 weeks since his last seizure which is quite good for this patient. He is following with neurology at [facility] and has had multiple medication adjustments in the past several months. - Related Data Home Medications Medication Instructions Recorded Confirmed Benztropine Mesylate [Cogentin] 1 mg PO BID 03/06/15 02/11/19 Cetirizine HCl [Zyrtec] 10 mg PO HS PRN 03/06/15 02/11/19 Montelukast [Singulair] 10 mg PO HS 03/06/15 02/11/19 Multivitamin [Men's Multi-Vitamin] 1 tab PO HS 03/06/15 02/11/19 cloNIDine HCL [Catapres] 0.1 mg PO TID 03/06/15 02/11/19 Cholecalciferol [Vitamin D3 (25 2,000 unit PO HS 08/14/17 02/11/19 Mcg = 1000 Iu)] Lacosamide [Vimpat] 200 mg PO BID 08/14/17 02/11/19 OLANZapine [ZyPREXA] 10 mg PO HS 08/14/17 02/11/19 Clonazepam Odt 1mg 2 tab SUBLINGUAL Q12H PRN 01/10/18 02/11/19 OXcarbazepine [Trileptal] 600 mg PO BID 01/10/18 02/11/19 Fluphenazine HCl [fluPHENAZine HCL] 10 mg PO BID 09/19/18 02/11/19 Lactulose [Cephulac] 20 gm PO BID 09/19/18 02/11/19 Mometasone Furoate [Asmanex] 1 puff INHALATION RT-HS 09/19/18 02/11/19 lamoTRIgine [LaMICtal] 25 mg PO BID 01/01/19 02/11/19 lamoTRIgine [LaMICtal] 100 mg PO BID 02/11/19 02/11/19 Allergies Allergy/AdvReac Type Severity Reaction Status Date / Time fluoxetine [From Prozac] Allergy Unknown Verified 02/11/19 11:39 peanut Allergy Unknown Verified 02/11/19 11:39 phenytoin [From Dilantin] Allergy Unknown Verified 02/11/19 11:39 Review of Systems ROS Statement: Those systems with pertinent positive or pertinent negative responses have been documented in the HPI. ROS Other: All systems not noted in ROS Statement are negative. Past Medical History Past Medical History: Asthma, Seizure Disorder Additional Past Medical History / Comment(s): Autism(can become violent at times -thats why he is in a longterm mon thru monday and home on weekend).being tx for autism/behavior/violent episodes. Pt has the mentality of an 7 year old and when pt not sick he can pretty much tell you what he needs or wants. Pt is able to read and write some-usually only what he wants to. limited w/ his food likes. he eats kiswahili fries, cheesy bread, chips, cereal(trix or waffle crisps). Other hx: Last seizure 10/2018-he had 3 grand mal seizures, hyperammonemia, thrombocytopenia, normocytic anemia. History of Any Multi-Drug Resistant Organisms: MRSA Date of last positivie culture/infection: 2006 MDRO Source:: boils on rt hip Past Surgical History: No Surgical Hx Reported Additional Past Surgical History / Comment(s): pt can be violent at times is why he is in longterm per mom, being treated, Autism/behavior/violent [facility] Past Anesthesia/Blood Transfusion Reactions: No Reported Reaction Additional Past Anesthesia/Blood Transfusion Reaction / Comment(s): per mom-pt never had any sx. Past Psychological History: No Psychological Hx Reported Smoking Status: Never smoker Past Alcohol Use History: None Reported Past Drug Use History: None Reported - Past Family History Father Family Medical History: Diabetes Mellitus, Hyperlipidemia, Hypertension Additional Family Medical History / Comment(s): depression. Paternal grandmoth er with myocardial infarction. Maternal grandfather with congestive heart failure Mother Family Medical History: Diabetes Mellitus, Hyperlipidemia, Hypertension, Thyroid Disorder Additional Family Medical History / Comment(s): depression General Exam Limitations: altered mental status, physical limitation General appearance: alert, in no apparent distress Head exam: Present: atraumatic, normocephalic Eye exam: Present: normal appearance, PERRL, EOMI ENT exam: Present: normal exam, mucous membranes moist Neck exam: Present: normal inspection, full ROM. Absent: tenderness, meningismus Respiratory exam: Present: normal lung sounds bilaterally, chest wall tenderness (Ecchymosis, rt posterior chest wall with tenderness to palpation). Absent: respiratory distress, wheezes Cardiovascular Exam: Present: regular rate, normal rhythm GI/Abdominal exam: Present: soft. Absent: distended, tenderness, guarding Extremities exam: Present: normal inspection, normal capillary refill, pedal edema Back exam: Present: normal inspection. Absent: paraspinal tenderness, vertebral tenderness Neurological exam: Present: alert, CN II-XII intact. Absent: motor sensory deficit Skin exam: Present: warm, dry, intact. Absent: cyanosis, diaphoretic Course Vital Signs 02/11/19 11:11 Temperature 98.0 F Pulse Rate 81 Respiratory 20 Rate Blood Pressure 119/88 O2 Sat by Pulse 99 Oximetry Medical Decision Making - Medical Decision Making 23-year-old with recurrent seizure. Patient has ecchymosis and tenderness on the right lateral chest wall, x-rays obtained, negative for fracture, no pneu mothorax. No acute process. Patient has normal CBC, normal electrolytes. Came be discharged home at this time. Does have close neurology follow-up as an outpatient. - Lab Data Result diagrams: 02/11/19 11:48 02/11/19 11:48 Lab Results 02/11/19 02/11/19 Range/Units 11:48 11:48 WBC 4.9 (3.8-10.6) k/uL RBC 4.66 (4.30-5.90) m/uL Hgb 12.5 L (13.0-17.5) gm/dL Hct 38.8 L (39.0-53.0) % MCV 83.3 (80.0-100.0) fL MCH 26.8 (25.0-35.0) pg MCHC 32.2 (31.0-37.0) g/dL RDW 14.5 (11.5-15.5) % Plt Count 161 (150-450) k/uL Neutrophils % 67 % Lymphocytes % 19 % Monocytes % 8 % Eosinophils % 4 % Basophils % 1 % Neutrophils # 3.3 (1.3-7.7) k/uL Lymphocytes # 0.9 L (1.0-4.8) k/uL Monocytes # 0.4 (0-1.0) k/uL Eosinophils # 0.2 (0-0.7) k/uL Basophils # 0.0 (0-0.2) k/uL Sodium 137 (137-145) mmol/L Potassium 4.5 (3.5-5.1) mmol/L Chloride 104 (98-107) mmol/L Carbon Dioxide 24 (22-30) mmol/L Anion Gap 9 mmol/L BUN 5 L (9-20) mg/dL Creatinine 0.52 L (0.66-1.25) mg/dL Est GFR (CKD-EPI)AfAm >90 (>60 ml/min/1.73 sqM) Est GFR (CKD-EPI)NonAf >90 (>60 ml/min/1.73 sqM) Glucose 89 (74-99) mg/dL Calcium 9.6 (8.4-10.2) mg/dL Total Bilirubin 0.1 L (0.2-1.3) mg/dL AST 21 (17-59) U/L ALT 18 L (21-72) U/L Alkaline Phosphatase 65 (38-126) U/L Total Protein 6.9 (6.3-8.2) g/dL Albumin 4.4 (3.5-5.0) g/dL Disposition Clinical Impression: Recurrent seizures, Generalized convulsive seizures, Rib contusion Disposition: HOME SELF-CARE Condition: Good Instructions (If sedation given, give patient instructions): Recurrent Seizures in Adults (ED), Rib Contusion (ED) Is patient prescribed a controlled substance at d/c from ED?: No Referrals: Bandar Hanna DO [Primary Care Provider] - 1-2 days Time of Disposition: 12:45
[2019-02-11 12:11] LABS: Basophils % (A) 1 %; Eosinophils # (A) 0.2 k/uL (0-0.7); Eosinophils % (A) 4 %; HCT 38.8 % (39.0-53.0); HGB 12.5 gm/dL (13.0-17.5); Lymphocytes # (A) 0.9 k/uL (1.0-4.8); Lymphocytes % (A) 19 %; MCH 26.8 pg (25.0-35.0); MCHC 32.2 g/dL (31.0-37.0); MCV 83.3 fL (80.0-100.0); Mean Platelet Volume 9.6; Monocytes # (A) 0.4 k/uL (0-1.0); Monocytes % (A) 8 %; Neutrophils # (A) 3.3 k/uL (1.3-7.7); Neutrophils % (A) 67 %; Platelet Count 161 k/uL (150-450); RBC 4.66 m/uL (4.30-5.90); RDW 14.5 % (11.5-15.5); WBC 4.9 k/uL (3.8-10.6)
[2019-02-11 12:14] LABS: ALT 18 U/L (21-72); AST 21 U/L (17-59); Albumin 4.4 g/dL (3.5-5.0); Alkaline Phosphatase 65 U/L (38-126); Anion Gap 9 mmol/L; Blood Urea Nitrogen 5 mg/dL (9-20); Calcium 9.6 mg/dL (8.4-10.2); Carbon Dioxide 24 mmol/L (22-30); Chloride 104 mmol/L (98-107); Glucose 89 mg/dL (74-99); Potassium 4.5 mmol/L (3.5-5.1); Sodium 137 mmol/L (137-145); Total Bilirubin 0.1 mg/dL (0.2-1.3); Total Protein 6.9 g/dL (6.3-8.2)
--- NOTE | 2019-02-11 12:39 | XR ---
EXAMINATION TYPE: XR chest 2V DATE OF EXAM: 02/11/2019 COMPARISON: Prior chest x-ray 11/29/2018 HISTORY: Seizure, posterior rib pain TECHNIQUE: Frontal and lateral views of the chest are obtained. FINDINGS: There are overlying cardiac leads. There is no focal air space opacity, pleural effusion, o r pneumothorax seen. The cardiac silhouette size is stable accounting for differences in technique. The osseous structures are intact. IMPRESSION: No acute cardiopulmonary process.
[2019-02-11 13:23] VITALS: BP 135/84; PULSE 73; RESP 18; TEMP 97.9
== END 2019-02-11 13:22 | disposition home or self-care (01) ==
LOC: EC 11:01
DX: G40.409 Other generalized epilepsy and epileptic syndromes, not intractable, without status epilepticus (principal); S20.211A Contusion of right front wall of thorax, initial encounter; J45.909 Unspecified asthma, uncomplicated; Z79.899 Other long term (current) drug therapy; Z91.010 Allergy to peanuts; Z88.8 Allergy status to other drugs, medicaments and biological substances; W19.XXXA Unspecified fall, initial encounter; Y92.009 Unspecified place in unspecified non-institutional (private) residence as the place of occurrence of the external cause
CPT/HCPCS: 36415; 71046; 80053; 85025; 99284

== ENCOUNTER 2019-07-03 08:43 | Emergency (ER) | payer BC, OTHER ==
[2019-07-03] MEDS ORDERED: SODIUM CHLORIDE 0.9% 500 ML 500 ML IV STA (08:45)
--- NOTE | 2019-07-03 08:53 | ED ---
General Adult HPI - General Stated complaint: Seizure Time Seen by Provider: 07/03/19 08:45 Source: patient, EMS, RN notes reviewed, Caregiver Mode of arrival: EMS Limitations: altered mental status (Autism) - History of Present Illness Initial comments: This is a 23-year-old male presents emergency from via EMS from halfway chief complaint seizure. Patient has a history of seizures currently on Vimpat, Lamictal, Tegretol. Patient had a witnessed seizure with no noted injuries. Patient's has no complaints though information is limited given his autism. Patient had no reported nausea vomiting no recent fevers or chills no recent URI. - Related Data Home Medications Medication Instructions Recorded Confirmed Benztropine Mesylate [Cogentin] 1 mg PO BID@0800,209903/06/15 07/03/19 Cetirizine HCl [Zyrtec] 10 mg PO HS 03/06/15 07/03/19 Montelukast [Singulair] 10 mg PO HS@199903/06/15 07/03/19 Multivitamin [Men's Multi-Vitamin] 1 tab PO HS@199903/06/15 07/03/19 cloNIDine HCL [Catapres] 0.1 mg PO TID@0800,1600,209903/06/15 07/03/19 Lacosamide [Vimpat] 200 mg PO BID@0800,209908/14/17 07/03/19 OLANZapine [ZyPREXA] 10 mg PO HS@199908/14/17 07/03/19 Clonazepam Odt 1mg 2 mg SUBLINGUAL Q12H PRN 01/10/18 07/03/19 OXcarbazepine [Trileptal] 600 mg PO BID@0800,199901/10/18 07/03/19 Fluphenazine HCl [fluPHENAZine HCL] 10 mg PO BID@0800,1600 09/19/18 07/03/19 lamoTRIgine [LaMICtal] 50 mg PO BID 01/01/19 07/03/19 Cholecalciferol (Vitamin D3) 2,000 unit PO HS@209907/03/19 07/03/19 [Vitamin D3] Mometasone Furoate [Asmanex Hfa] 2 puff INHALATION RT-BID 10/16/19 10/16/19 lamoTRIgine [LaMICtal] 200 mg PO BID@0800,2100 07/03/19 07/03/19 Allergies Allergy/AdvReac Type Severity Reaction Status Date / Time fluoxetine [From Prozac] Allergy Unknown Verified 07/03/19 09:18 peanut Allergy Unknown Verified 07/03/19 09:18 phenytoin [From Dilantin] Allergy Unknown Verified 07/03/19 09:18 Review of Systems ROS Statement: Those systems with pertinent positive or pertinent negative responses have been documented in the HPI. ROS Other: All systems not noted in ROS Statement are negative. Past Medical History Past Medical History: Asthma, Seizure Disorder Additional Past Medical History / Comment(s): Autism(can become violent at times -thats why he is in a halfway mon thru monday and home on weekend).being tx for autism/behavior/violent episodes. Pt has the mentality of an 7 year old and when pt not sick he can pretty much tell you what he needs or wants. Pt is able to read and write some-usually only what he wants to. limited w/ his food likes. he eats persian fries, cheesy bread, chips, cereal(trix or waffle crisps). Other hx: Last seizure 10/2018-he had 3 grand mal seizures, hyperammonemia, thrombocytopenia, normocytic anemia. History of Any Multi-Drug Resistant Organisms: MRSA Date of last positivie culture/infection: 2006 MDRO Source:: boils on rt hip Past Surgical History: No Surgical Hx Reported Additional Past Surgical History / Comment(s): pt can be violent at times is why he is in halfway per mom, being treated, Autism/behavior/violent [facility] Past Anesthesia/Blood Transfusion Reactions: No Reported Reaction Additional Past Anesthesia/Blood Transfusion Reaction / Comment(s): per mom-pt never had any sx. Past Psychological History: No Psychological Hx Reported Smoking Status: Never smoker Past Alcohol Use History: None Reported Past Drug Use History: None Reported - Past Family History Father Family Medical History: Diabetes Mellitus, Hyperlipidemia, Hypertension Additional Family Medical History / Comment(s): depression. Paternal g randmother with myocardial infarction. Maternal grandfather with congestive heart failure Mother Family Medical History: Diabetes Mellitus, Hyperlipidemia, Hypertension, Thyroid Disorder Additional Family Medical History / Comment(s): depression General Exam General appearance: alert, in no apparent distress Head exam: Present: atraumatic, normocephalic, normal inspection Eye exam: Present: normal appearance, PERRL, EOMI. Absent: scleral icterus, c onjunctival injection, periorbital swelling ENT exam: Present: normal exam, normal oropharynx, mucous membranes moist Neck exam: Present: normal inspection, full ROM. Absent: tenderness, meningismus, lymphadenopathy Respiratory exam: Present: normal lung sounds bilaterally. Absent: respiratory distress, wheezes, rales, rhonchi, stridor Cardiovascular Exam: Present: regular rate, normal rhythm, normal heart sounds. Absent: systolic murmur, diastolic murmur, rubs, gallop, clicks GI/Abdominal exam: Present: soft, normal bowel sounds. Absent: distended, tenderness, guarding, rebound, rigid Neurological exam: Present: alert Skin exam: Present: warm, dry, intact, normal color. Absent: rash Course Vital Signs 07/03/19 07/03/19 08:45 09:35 Temperature 98.4 F Pulse Rate 96 84 Respiratory 18 20 Rate Blood Pressure 135/74 124/81 O2 Sat by Pulse 95 95 Oximetry Medical Decision Making - Medical Decision Making 23-year-old male had a breakthrough seizure. Patient has a history of seizures. Patient will be discharged at this time vitals are stable - Lab Data Result diagrams: 07/03/19 08:43 07/03/19 08:43 Lab Results 07/03/19 07/03/19 Range/Units 08:43 08:43 WBC 4.2 (3.8-10.6) k/uL RBC 4.57 (4.30-5.90) m/uL Hgb 12.7 L (13.0-17.5) gm/dL Hct 38.8 L (39.0-53.0) % MCV 84.9 (80.0-100.0) fL MCH 27.9 (25.0-35.0) pg MCHC 32.8 (31.0-37.0) g/dL RDW 13.6 (11.5-15.5) % Plt Count 176 (150-450) k/uL Neutrophils % 68 % Lymphocytes % 23 % Monocytes % 5 % Eosinophils % 2 % Basophils % 1 % Neutrophils # 2.9 (1.3-7.7) k/uL Lymphocytes # 1.0 (1.0-4.8) k/uL Monocytes # 0.2 (0-1.0) k/uL Eosinophils # 0.1 (0-0.7) k/uL Basophils # 0.0 (0-0.2) k/uL Sodium 133 L (137-145) mmol/L Potassium 4.7 (3.5-5.1) mmol/L Chloride 96 L (98-107) mmol/L Carbon Dioxide 25 (22-30) mmol/L Anion Gap 12 mmol/L BUN 5 L (9-20) mg/dL Creatinine 0.65 L (0.66-1.25) mg/dL Est GFR (CKD-EPI)AfAm >90 (>60 ml/min/1.73 sqM) Est GFR (CKD-EPI)NonAf >90 (>60 ml/min/1.73 sqM) Glucose 94 (74-99) mg/dL Calcium 9.5 (8.4-10.2) mg/dL Total Bilirubin 0.2 (0.2-1.3) mg/dL AST 23 (17-59) U/L ALT 21 (21-72) U/L Alkaline Phosphatase 77 (38-126) U/L Total Protein 7.6 (6.3-8.2) g/dL Albumin 4.8 (3.5-5.0) g/dL Carbamazepine <3.0 ug/mL Disposition Clinical Impression: Generalized seizure, Seizure disorder Disposition: HOME SELF-CARE Condition: Stable Instructions (If sedation given, give patient instructions): Recurrent Seizures in Adults (ED) Additional Instructions: Please return to the Emergency Department if symptoms worsen or any other concerns. Is patient prescribed a controlled substance at d/c from ED?: No Referrals: Jorge Phillip DO [Primary Care Provider] - 1-2 days Time of Disposition: 11:20
[2019-07-03 09:51] LABS: Basophils % (A) 1 %; Eosinophils # (A) 0.1 k/uL (0-0.7); Eosinophils % (A) 2 %; HCT 38.8 % (39.0-53.0); HGB 12.7 gm/dL (13.0-17.5); Lymphocytes % (A) 23 %; MCH 27.9 pg (25.0-35.0); MCHC 32.8 g/dL (31.0-37.0); MCV 84.9 fL (80.0-100.0); Mean Platelet Volume 8.9; Monocytes # (A) 0.2 k/uL (0-1.0); Monocytes % (A) 5 %; Neutrophils # (A) 2.9 k/uL (1.3-7.7); Neutrophils % (A) 68 %; Platelet Count 176 k/uL (150-450); RBC 4.57 m/uL (4.30-5.90); RDW 13.6 % (11.5-15.5); WBC 4.2 k/uL (3.8-10.6)
[2019-07-03 10:13] LABS: ALT 21 U/L (21-72); AST 23 U/L (17-59); African American GFR (CKD) >90 (>60 ml/min/1.73 sqM); Albumin 4.8 g/dL (3.5-5.0); Alkaline Phosphatase 77 U/L (38-126); Anion Gap 12 mmol/L; Blood Urea Nitrogen 5 mg/dL (9-20); Calcium 9.5 mg/dL (8.4-10.2); Carbamazepine (Tegretol) <3.0 ug/mL; Carbon Dioxide 25 mmol/L (22-30); Chloride 96 mmol/L (98-107); Glucose 94 mg/dL (74-99); Potassium 4.7 mmol/L (3.5-5.1); Sodium 133 mmol/L (137-145); Total Bilirubin 0.2 mg/dL (0.2-1.3); Total Protein 7.6 g/dL (6.3-8.2)
[2019-07-03 12:12] VITALS: BP 127/82; PULSE 85; RESP 18; TEMP 98.9
== END 2019-07-03 12:01 | disposition home or self-care (01) ==
LOC: EC 08:43
DX: G40.409 Other generalized epilepsy and epileptic syndromes, not intractable, without status epilepticus (principal); F84.0 Autistic disorder; J45.909 Unspecified asthma, uncomplicated; Z88.8 Allergy status to other drugs, medicaments and biological substances; Z91.010 Allergy to peanuts; Z79.51 Long term (current) use of inhaled steroids; Z79.899 Other long term (current) drug therapy; Z86.14 Personal history of Methicillin resistant Staphylococcus aureus infection
CPT/HCPCS: 36415; 80053; 80156; 80175; 85025; 93005; 96360; 96361; 99284

== ENCOUNTER 2019-07-07 11:33 | Emergency (ER) | payer BC, OTHER ==
[2019-07-07 11:50] VITALS: RESP 18
--- NOTE | 2019-07-07 11:51 | ED ---
General Adult HPI - General Stated complaint: Mental Health Time Seen by Provider: 07/07/19 11:37 Source: patient, family, EMS Mode of arrival: EMS Limitations: language barrier - History of Present Illness Initial comments: Dictation was produced using [employer] dictation software. please excuse any grammatical, word or spelling errors. Chief Complaint: 23-year-old with past physical history of seizure disorder, autism and asthma presents concerns for elevated ammonia. History of Present Illness: 23-year-old male is brought in by EMS. Patient has a dense history of autism. He also has a history of seizure disorder. Patient regularly has seizures. He is brought in by mother was concerned about patient's well-being. Patient has a history of hyperammonemia. Patient at baseline is an Hu with minimal complications. He is communicative to some extent however unable to provide detailed history. Patient sometimes follows commands. Mother reports that patient has been acting strange after breakfast earlier today. 30-40 minutes after breakfast patient was noted to have difficulty walking. Mother also noted that patient had abnormal involuntary abdominal contractions that appear to be like waves to his abdominal wall. There is never noted anything like this in the past. Patient is a history of elevated ammonia levels. He said take lactulose however does not take lactulose anymore. Currently patient is asymptomatic according the mother. Patient is otherwise well-appearing. Patient also mentioned to mother that he would like to go to the hospital. Mother was concerned because patient never ever admits that he wants to go to the hospital. The ROS documented in this emergency department record has been reviewed and confirmed by me. Those systems with pertinent positive or negative responses have been documented in the HPI. All other systems are other negative and/or noncontributory. PHYSICAL EXAM: General Impression: Alert and oriented x2/4, not in acute distress, smiling HEENT: Normocephalic atraumatic, extra-ocular movements intact, pupils equal and reactive to light bilaterally, mucous membranes moist. Cardiovascular: Heart regular rate and rhythm, S1&S2 audible, no murmurs, rubs or gallops Chest: Lungs clear to auscultation bilaterally, no rhonchi, no wheeze, no rales Abdomen: Bowel sounds present, abdomen soft, non-tender, non-distended, no organomegaly Musculoskeletal: Pulses present and equal in all extremities, no peripheral edema Motor: no focal deficits noted Neurological: CN II-XII grossly intact, no focal motor or sensory deficits noted, no hyperreflexia, no rigidity Skin: Intact with no visualized rashes Psych: Normal affect and mood ED course: 23-year-old male presents with abnormal abdominal movements and abnormal behavior. Mother called EMS because she would like him to be medically checked and to have evaluation for his abdominal symptoms and possible elevated ammonia. Vital signs upon arrival are within acceptable limits. Patient is well-appearing at this time. Patient hasn't dense autistic features however mother reports that patient is behaving at baseline currently.Laboratory evaluation unremarkable. Ammonia level is normal. X-rays nonacute. Patient able to a baseline stuttering by mouth. Patient otherwise well-appearing. Family confirms the patient is at baseline. Patient has a follow-up appointment with neurologist. Patient clear for discharge. - Related Data Home Medications Medication Instructions Recorded Confirmed Benztropine Mesylate [Cogentin] 1 mg PO BID@0800,209903/06/15 07/07/19 Cetirizine HCl [Zyrtec] 10 mg PO HS 03/06/15 07/07/19 Montelukast [Singulair] 10 mg PO HS@199903/06/15 07/07/19 Multivitamin [Men's Multi-Vitamin] 1 tab PO HS@199903/06/15 07/07/19 cloNIDine HCL [Catapres] 0.1 mg PO TID@0800,1600,209903/06/15 07/07/19 Lacosamide [Vimpat] 200 mg PO BID@0800,209908/14/17 07/07/19 OLANZapine [ZyPREXA] 10 mg PO HS@199908/14/17 07/07/19 Clonazepam Odt 1mg 2 mg SUBLINGUAL Q12H PRN 01/10/18 07/07/19 OXcarbazepine [Trileptal] 600 mg PO BID@0800,199901/10/18 07/07/19 Fluphenazine HCl [fluPHENAZine HCL] 10 mg PO BID@0800,1600 09/19/18 07/07/19 lamoTRIgine [LaMICtal] 50 mg PO BID 01/01/19 07/07/19 Cholecalciferol (Vitamin D3) 2,000 unit PO HS@2100 07/03/19 07/07/19 [Vitamin D3] Mometasone Furoate [Asmanex Hfa] 2 puff INHALATION RT-BID 07/03/19 07/07/19 lamoTRIgine [LaMICtal] 200 mg PO BID@0800,2100 07/03/19 07/07/19 Allergies Allergy/AdvReac Type Severity Reaction Status Date / Time fluoxetine [From Prozac] Allergy Unknown Verified 07/07/19 11:41 peanut Allergy Unknown Verified 07/07/19 11:41 phenytoin [From Dilantin] Allergy Unknown Verified 07/07/19 11:41 Review of Systems ROS Statement: Those systems with pertinent positive or pertinent negative responses have been documented in the HPI. ROS Other: All systems not noted in ROS Statement are negative. Past Medical History Past Medical History: Asthma, Seizure Disorder Additional Past Medical History / Comment(s): Autism(can become violent at times -thats why he is in a care home mon thru monday and home on weekend).being tx for autism/behavior/violent episodes. Pt has the mentality of an 7 year old and when pt not sick he can pretty much tell you what he needs or wants. Pt is able to read and write some-usually only what he wants to. limited w/ his food likes. he eats iranian fries, cheesy bread, chips, cereal(trix or waffle crisps). Other hx: Last seizure 10/2018-he had 3 grand mal seizures, hyperammonemia, thrombocytopenia, normocytic anemia. History of Any Multi-Drug Resistant Organisms: MRSA Date of last positivie culture/infection: 2006 MDRO Source:: boils on rt hip Past Surgical History: No Surgical Hx Reported Additional Past Surgical History / Comment(s): pt can be violent at times is why he is in care home per mom, being treated, Autism/behavior/violent [facility] Past Anesthesia/Blood Transfusion Reactions: No Reported Reaction Additional Past Anesthesia/Blood Transfusion Reaction / Comment(s): per mom-pt never had any sx. Past Psychological History: No Psychological Hx Reported Smoking Status: Never smoker Past Alcohol Use History: None Reported Past Drug Use History: None Reported - Past Family History Father Family Medical History: Diabetes Mellitus, Hyperlipidemia, Hypertension Additional Family Medical History / Comment(s): depression. Paternal grandmother with myocardial infarction. Maternal grandfather with congestive heart failure Mother Family Medical History: Diabetes Mellitus, Hyperlipidemia, Hypertension, Thyroid Disorder Additional Family Medical History / Comment(s): depression General Exam Limitations: language barrier Course Vital Signs 07/07/19 11:41 Temperature 97.6 F Pulse Rate 77 Respiratory 18 Rate Blood Pressure 127/79 O2 Sat by Pulse 97 Oximetry Medical Decision Making - Lab Data Result diagrams: 07/07/19 12:15 07/07/19 12:15 Lab Results 07/07/19 07/07/19 07/07/19 Range/Units 12:15 12:15 14:03 WBC 5.3 (3.8-10.6) k/uL RBC 4.47 (4.30-5.90) m/uL Hgb 13.0 (13.0-17.5) gm/dL Hct 37.6 L (39.0-53.0) % MCV 84.1 (80.0-100.0) fL MCH 29.2 (25.0-35.0) pg MCHC 34.7 (31.0-37.0) g/dL RDW 13.3 (11.5-15.5) % Plt Count 219 (150-450) k/uL Neutrophils % 67 % Lymphocytes % 20 % Monocytes % 8 % Eosinophils % 2 % Basophils % 1 % Neutrophils # 3.6 (1.3-7.7) k/uL Lymphocytes # 1.1 (1.0-4.8) k/uL Monocytes # 0.5 (0-1.0) k/uL Eosinophils # 0.1 (0-0.7) k/uL Basophils # 0.0 (0-0.2) k/uL Sodium 136 L (137-145) mmol/L Potassium 4.5 (3.5-5.1) mmol/L Chloride 100 (98-107) mmol/L Carbon Dioxide 24 (22-30) mmol/L Anion Gap 12 mmol/L BUN 7 L (9-20) mg/dL Creatinine 0.61 L (0.66-1.25) mg/dL Est GFR (CKD-EPI)AfAm >90 (>60 ml/min/1.73 sqM) Est GFR (CKD-EPI)NonAf >90 (>60 ml/min/1.73 sqM) Glucose 95 (74-99) mg/dL Calcium 9.8 (8.4-10.2) mg/dL Total Bilirubin 0.3 (0.2-1.3) mg/dL AST 26 (17-59) U/L ALT 20 L (21-72) U/L Alkaline Phosphatase 71 (38-126) U/L Ammonia 20 (<30) umol/L Total Protein 7.9 (6.3-8.2) g/dL Albumin 4.9 (3.5-5.0) g/dL Disposition Clinical Impression: Abdominal pain Disposition: HOME SELF-CARE Condition: Good Instructions (If sedation given, give patient instructions): Abdominal Pain (ED) Is patient prescribed a controlled substance at d/c from ED?: No Referrals: Nonstaff,Physician [Primary Care Provider] - 1-2 days Time of Disposition: 14:35
--- NOTE | 2019-07-07 12:29 | XR ---
EXAMINATION TYPE: XR abdomen acute w cxr , 4 VIEWS DATE OF EXAM ORDERED: 07/07/2019 HISTORY: involuntary abdominal contractions. COMPARISON: None. FINDINGS: The lungs are clear. The heart is mildly prominent. Within the abdomen, the abdominal gas pattern is within normal limits. There is no evidence of obstru ction or free air. No unusual calcifications are seen. IMPRESSION: NO ACUTE THORACIC OR ABDOMINAL ABNORMALITY.
[2019-07-07 12:33] LABS: Basophils % (A) 1 %; Eosinophils # (A) 0.1 k/uL (0-0.7); Eosinophils % (A) 2 %; HCT 37.6 % (39.0-53.0); Lymphocytes # (A) 1.1 k/uL (1.0-4.8); Lymphocytes % (A) 20 %; MCH 29.2 pg (25.0-35.0); MCHC 34.7 g/dL (31.0-37.0); MCV 84.1 fL (80.0-100.0); Mean Platelet Volume 7.9; Monocytes # (A) 0.5 k/uL (0-1.0); Monocytes % (A) 8 %; Neutrophils # (A) 3.6 k/uL (1.3-7.7); Neutrophils % (A) 67 %; Platelet Count 219 k/uL (150-450); RBC 4.47 m/uL (4.30-5.90); RDW 13.3 % (11.5-15.5); WBC 5.3 k/uL (3.8-10.6)
[2019-07-07 12:44] LABS: ALT 20 U/L (21-72); AST 26 U/L (17-59); African American GFR (CKD) >90 (>60 ml/min/1.73 sqM); Albumin 4.9 g/dL (3.5-5.0); Alkaline Phosphatase 71 U/L (38-126); Anion Gap 12 mmol/L; Blood Urea Nitrogen 7 mg/dL (9-20); Calcium 9.8 mg/dL (8.4-10.2); Carbon Dioxide 24 mmol/L (22-30); Chloride 100 mmol/L (98-107); Glucose 95 mg/dL (74-99); Potassium 4.5 mmol/L (3.5-5.1); Sodium 136 mmol/L (137-145); Total Bilirubin 0.3 mg/dL (0.2-1.3); Total Protein 7.9 g/dL (6.3-8.2)
[2019-07-07 15:00] VITALS: BP 130/96; PULSE 78; TEMP 97.9
== END 2019-07-07 15:00 | disposition home or self-care (01) ==
LOC: EC 11:33
DX: R10.9 Unspecified abdominal pain (principal); J45.909 Unspecified asthma, uncomplicated; F84.0 Autistic disorder; G40.409 Other generalized epilepsy and epileptic syndromes, not intractable, without status epilepticus; Z79.899 Other long term (current) drug therapy; Z88.8 Allergy status to other drugs, medicaments and biological substances; Z91.010 Allergy to peanuts
CPT/HCPCS: 36415; 74022; 80053; 82140; 85025; 99284

== ENCOUNTER 2019-07-21 11:19 | Emergency (ER) | payer BC, OTHER ==
[2019-07-21] MEDS ORDERED: SODIUM CHLORIDE 0.9% 1,000 ML IV STA ×2 (12:12)
--- NOTE | 2019-07-21 12:16 | ED ---
Seizure HPI - General Chief Complaint: Seizure Stated Complaint: Seizure Time Seen by Provider: 07/21/19 11:55 Source: EMS, RN notes reviewed, old records reviewed Mode of arrival: EMS Limitations: no limitations - History of Present Illness Initial Comments: 23-year-old male with a history of autism, with history of occasional violence presents today for seizure. He has a long-standing history of a seizure disorder. He is on multiple medications. Patient reportedly had a grand mal seizure lasting 3 minutes. Patient last seizure was one week ago. They did follow-up with [facility] and they're planning to do a 5 day EEG study in August. He is not sure why has had more frequent seizures. Patient has been taking his medication appropriately. Family reports that when he had the seizure his head bounced back and forth off the hardwood floor approximately 15 times, he also had broken glass during his seizure and has a laceration over his left eyelid. - Related Data Home Medications Medication Instructions Recorded Confirmed Benztropine Mesylate [Cogentin] 1 mg PO BID@0800,209903/06/15 07/07/19 Cetirizine HCl [Zyrtec] 10 mg PO HS 03/06/15 07/07/19 Montelukast [Singulair] 10 mg PO HS@199903/06/15 07/07/19 Multivitamin [Men's Multi-Vitamin] 1 tab PO HS@199903/06/15 07/07/19 cloNIDine HCL [Catapres] 0.1 mg PO TID@0800,1600,209903/06/15 07/07/19 Lacosamide [Vimpat] 200 mg PO BID@0800,209908/14/17 07/07/19 OLANZapine [ZyPREXA] 10 mg PO HS@199908/14/17 07/07/19 Clonazepam Odt 1mg 2 mg SUBLINGUAL Q12H PRN 01/10/18 07/07/19 OXcarbazepine [Trileptal] 600 mg PO BID@0800,199901/10/18 07/07/19 Fluphenazine HCl [fluPHENAZine HCL] 10 mg PO BID@0800,1600 09/19/18 07/07/19 lamoTRIgine [LaMICtal] 50 mg PO BID 01/01/19 07/07/19 Cholecalciferol (Vitamin D3) 2,000 unit PO HS@2100 07/03/19 07/07/19 [Vitamin D3] Mometasone Furoate [Asmanex Hfa] 2 puff INHALATION RT-BID 07/03/19 07/07/19 lamoTRIgine [LaMICtal] 200 mg PO BID@0800,2100 07/03/19 07/07/19 Allergies Allergy/AdvReac Type Severity Reaction Status Date / Time fluoxetine [From Prozac] Allergy Unknown Verified 07/07/19 11:41 peanut Allergy Unknown Verified 07/07/19 11:41 phenytoin [From Dilantin] Allergy Unknown Verified 07/07/19 11:41 Review of Systems ROS Statement: Those systems with pertinent positive or pertinent negative responses have been documented in the HPI. ROS Other: All systems not noted in ROS Statement are negative. Past Medical History Past Medical History: Asthma, Seizure Disorder Additional Past Medical History / Comment(s): Autism(can become violent at times -thats why he is in a detention mon thru monday and home on weekend).being tx for autism/behavior/violent episodes. Pt has the mentality of an 7 year old and when pt not sick he can pretty much tell you what he needs or wants. Pt is able to read and write some-usually only what he wants to. limited w/ his food likes. he eats togolese fries, cheesy bread, chips, cereal(trix or waffle crisps). Other hx: Last seizure 10/2018-he had 3 grand mal seizures, hyperammonemia, thrombocytopenia, normocytic anemia. History of Any Multi-Drug Resistant Organisms: MRSA Date of last positivie culture/infection: 2006 MDRO Source:: boils on rt hip Past Surgical History: No Surgical Hx Reported Additional Past Surgical History / Comment(s): pt can be violent at times is why he is in detention per mom, being treated, Autism/behavior/violent [facility] Past Anesthesia/Blood Transfusion Reactions: No Reported Reaction Additional Past Anesthesia/Blood Transfusion Reaction / Comment(s): per mom-pt never had any sx. Past Psychological History: No Psychological Hx Reported Smoking Status: Never smoker Past Alcohol Use History: None Reported Past Drug Use History: None Reported - Past Family History Father Family Medical History: Diabetes Mellitus, Hyperlipidemia, Hypertension Additional Family Medical History / Comment(s): depression. Paternal grandmother with myocardial infarction. Maternal grandfather with congestive heart failure Mother Family Medical History: Diabetes Mellitus, Hyperlipidemia, Hypertension, Thyroid Disorder Additional Family Medical History / Comment(s): depression General Exam - General Exam Comments Initial Comments: Pleasant 23-year-old male. History of autism. He is resting comfortably in bed. Limitations: no limitations Head exam: Present: atraumatic, normocephalic, normal inspection, other (She has contusion over the left forehead, and soft tissue swelling noted. Patient has some swelling over the left inferior orbital area.) Eye exam: Present: normal appearance, PERRL, EOMI, other (Has a 1 cm abrasion over the left upper eyelid no evidence of foreign body.). Absent: scleral icterus, conjunctival injection, periorbital swelling ENT exam: Present: normal exam, mucous membranes moist Neck exam: Present: normal inspection. Absent: tenderness, meningismus, lymphadenopathy Respiratory exam: Present: normal lung sounds bilaterally. Absent: respiratory distress, wheezes, rales, rhonchi, stridor Cardiovascular Exam: Present: regular rate, normal rhythm, normal heart sounds. Absent: systolic murmur, diastolic murmur, rubs, gallop, clicks Extremities exam: Present: normal inspection, full ROM, normal capillary refill. Absent: tenderness, pedal edema, joint swelling, calf tenderness Back exam: Present: normal inspection Neurological exam: Present: alert, oriented X3, CN II-XII intact Psychiatric exam: Present: normal affect, normal mood Skin exam: Present: warm, dry, intact, normal color. Absent: rash Course Vital Signs 07/21/19 07/21/19 11:25 14:45 Temperature 98.0 F 97.9 F Pulse Rate 81 85 Respiratory 20 16 Rate Blood Pressure 133/83 139/81 O2 Sat by Pulse 97 97 Oximetry Medical Decision Making - Medical Decision Making 23-year-old male history of autism. He presents today for tonic-clonic seizure lasting 3 minutes. He says it is had multiple times and has an abrasion over his left eyelid. This abrasion was cleaned, and no signs of foreign body. Otherwise is alert and baseline according to family. He is having frequent seizures need to follow-up with her specialist at [facility]. At this time Patient CT of the brain and C-spine and facial bones are negative for any acute process fracture. Blood work was reviewed and unremarkable. At this time Patient states he would like to go home and family is agreeable to apply home and outpatient follow-up with his neurologist that he's been having these known seizures for quite some time. Patient was advised to keep the wound clean and dry over the eyelid and to monitor for any signs of infection. All questions were answered return parameters were discussed. Discussed the case with Dr. Mejias. - Lab Data Result diagrams: 07/21/19 11:38 07/21/19 11:38 Lab Results 07/21/19 07/21/19 Range/Units 11:38 11:38 WBC 4.5 (3.8-10.6) k/uL RBC 4.58 (4.30-5.90) m/uL Hgb 13.2 (13.0-17.5) gm/dL Hct 39.1 (39.0-53.0) % MCV 85.4 (80.0-100.0) fL MCH 28.8 (25.0-35.0) pg MCHC 33.8 (31.0-37.0) g/dL RDW 13.0 (11.5-15.5) % Plt Count 194 (150-450) k/uL Neutrophils % 69 % Lymphocytes % 19 % Monocytes % 7 % Eosinophils % 2 % Basophils % 0 % Neutrophils # 3.1 (1.3-7.7) k/uL Lymphocytes # 0.9 L (1.0-4.8) k/uL Monocytes # 0.3 (0-1.0) k/uL Eosinophils # 0.1 (0-0.7) k/uL Basophils # 0.0 (0-0.2) k/uL Sodium 139 (137-145) mmol/L Potassium 4.5 (3.5-5.1) mmol/L Chloride 105 (98-107) mmol/L Carbon Dioxide 23 (22-30) mmol/L Anion Gap 11 mmol/L BUN 9 (9-20) mg/dL Creatinine 0.66 (0.66-1.25) mg/dL Est GFR (CKD-EPI)AfAm >90 (>60 ml/min/1.73 sqM) Est GFR (CKD-EPI)NonAf >90 (>60 ml/min/1.73 sqM) Glucose 92 (74-99) mg/dL Calcium 9.7 (8.4-10.2) mg/dL Total Bilirubin 0.2 (0.2-1.3) mg/dL AST 21 (17-59) U/L ALT 17 L (21-72) U/L Alkaline Phosphatase 76 (38-126) U/L Total Protein 7.6 (6.3-8.2) g/dL Albumin 4.8 (3.5-5.0) g/dL Valproic Acid <10.0 ug/mL Carbamazepine <3.0 ug/mL 07/21/19 15:55 EKG shows normal sinus rhythm, voltage criteria for LVH. Establishing considering earlier polarization. This is only noted in V2. Ventricular rate 61 bpm. Intervals 150 ms. QS duration 90 ms. QT QTc is 398/400 ms. - Radiology Data Radiology results: report reviewed Normal CT of the facial bones.CT of the brain shows no acute injury cranial amount. Small retention cyst or polyp the right maxillary sinus. C-spine shows no acute fracture. Disposition Clinical Impression: Seizure, Abrasion of left eyebrow Disposition: HOME SELF-CARE Condition: Good Instructions (If sedation given, give patient instructions): Recurrent Seizures in Adults (ED) Additional Instructions: Follow-up with her specialist. Continue with his medications as prescribed and take the morning doses now. Keep the abrasion clean. Return to the emergency department if any alarming signs or symptoms occur. Is patient prescribed a controlled substance at d/c from ED?: No Referrals: None,Stated [Primary Care Provider] - 1-2 days Time of Disposition: 14:24
[2019-07-21 12:25] LABS: Basophils % (A) 0 %; Eosinophils # (A) 0.1 k/uL (0-0.7); Eosinophils % (A) 2 %; HCT 39.1 % (39.0-53.0); HGB 13.2 gm/dL (13.0-17.5); Lymphocytes # (A) 0.9 k/uL (1.0-4.8); Lymphocytes % (A) 19 %; MCH 28.8 pg (25.0-35.0); MCHC 33.8 g/dL (31.0-37.0); MCV 85.4 fL (80.0-100.0); Mean Platelet Volume 7.4; Monocytes # (A) 0.3 k/uL (0-1.0); Monocytes % (A) 7 %; Neutrophils # (A) 3.1 k/uL (1.3-7.7); Neutrophils % (A) 69 %; Platelet Count 194 k/uL (150-450); RBC 4.58 m/uL (4.30-5.90); WBC 4.5 k/uL (3.8-10.6)
[2019-07-21 12:36] LABS: ALT 17 U/L (21-72); AST 21 U/L (17-59); African American GFR (CKD) >90 (>60 ml/min/1.73 sqM); Albumin 4.8 g/dL (3.5-5.0); Alkaline Phosphatase 76 U/L (38-126); Anion Gap 11 mmol/L; Blood Urea Nitrogen 9 mg/dL (9-20); Calcium 9.7 mg/dL (8.4-10.2); Carbamazepine (Tegretol) <3.0 ug/mL; Carbon Dioxide 23 mmol/L (22-30); Chloride 105 mmol/L (98-107); Glucose 92 mg/dL (74-99); Potassium 4.5 mmol/L (3.5-5.1); Sodium 139 mmol/L (137-145); Total Bilirubin 0.2 mg/dL (0.2-1.3); Total Protein 7.6 g/dL (6.3-8.2)
--- NOTE | 2019-07-21 13:04 | CT ---
EXAMINATION TYPE: CT facial bones wo con DATE OF EXAM: 07/21/2019 COMPARISON: None. HISTORY: Seizure, LOC, Facial laceration CT DLP: 1224.7 mGycm Automated exposure control for dose reduction was used. TECHNIQUE: CT scan of the sinuses is performed without contrast, axial images are obtained, coronal r eformatted images are also reviewed. FINDINGS: There is some facial swelling about the orbits. Both zygomatic arches are intact. The pterygoid plates are intact. The orbital margins and nieves of t he maxillary sinuses are intact. The mandible is unremarkable. No nasal fracture is seen. IMPRESSION: NORMAL CT SCAN OF THE FACIAL BONES.
[2019-07-21] MEDS ORDERED: LIDOCAINE 1% INJ 10MG/ML (20 ML MDV) SQ ONE (14:09)
--- NOTE | 2019-07-21 14:29 | CT ---
EXAMINATION TYPE: CT brain pinedaine wo con DATE OF EXAM: 07/21/2019 COMPARISON: Previous CT scan of the brain dated 01/01/2019. HISTORY: Seizure, LOC, Facial laceration CT DLP: 1224.7 mGycm Automated exposure control for dose reduction was used. TECHNIQUE: CT scan of the head and cervical spine are performed without contrast. FINDINGS: BRAIN: Central structures are midline. There is no evidence of hydrocephalus. No acute focal lesion, mass effect or midline shift is seen. I do not see evidence of intracranial blood. There is a small retention cyst or polyp seen arising from the inferior aspect of the right maxillary sinus. The remainder the paranasal sinuses and mastoids are clear. The bony calvarium is intact. IMPRESSION: 1. NO ACUTE INTRACRANIAL ABNORMALITY. 2. SMALL RETENTION CYST OR POLYP, RIGHT MAXILLARY SINUS. CERVICAL SPINE: Prevertebral soft tissues are normal. There is some straightening of the normal cervical lordosis. Alignment is normal. Atlantoaxial relati onships are normal. There is no significant degenerative change. There is no evidence of discal protrusion. No fracture i s identified. IMPRESSION: NORMAL CT SCAN OF THE CERVICAL SPINE.
[2019-07-21 15:09] VITALS: BP 139/81; PULSE 85; RESP 16; TEMP 97.9
== END 2019-07-21 14:45 | disposition home or self-care (01) ==
LOC: EC 11:19
DX: S00.212A Abrasion of left eyelid and periocular area, initial encounter (principal); G40.409 Other generalized epilepsy and epileptic syndromes, not intractable, without status epilepticus; J45.909 Unspecified asthma, uncomplicated; F84.0 Autistic disorder; Z79.899 Other long term (current) drug therapy; Z88.8 Allergy status to other drugs, medicaments and biological substances; Z91.010 Allergy to peanuts
CPT/HCPCS: 36415; 70450; 70486; 72125; 80053; 80156; 80164; 85025; 93005; 96360; 99285

== ENCOUNTER 2019-11-02 12:21 | Emergency (ER) | payer BC, OTHER ==
[2019-11-02 12:31] VITALS: TEMP 97.5
[2019-11-02 13:22] LABS: Glucose,Whole Blood 95 mg/dL (75-99)
[2019-11-02 13:50] LABS: Basophils % (A) 0 %; Eosinophils # (A) 0.2 k/uL (0-0.7); Eosinophils % (A) 3 %; HCT 41.2 % (39.0-53.0); HGB 13.7 gm/dL (13.0-17.5); Lymphocytes # (A) 1.5 k/uL (1.0-4.8); Lymphocytes % (A) 25 %; MCH 28.9 pg (25.0-35.0); MCHC 33.3 g/dL (31.0-37.0); MCV 86.6 fL (80.0-100.0); Mean Platelet Volume 9.9; Monocytes # (A) 0.5 k/uL (0-1.0); Monocytes % (A) 8 %; Neutrophils # (A) 3.7 k/uL (1.3-7.7); Neutrophils % (A) 61 %; Platelet Count 231 k/uL (150-450); RBC 4.76 m/uL (4.30-5.90); RDW 13.8 % (11.5-15.5)
--- NOTE | 2019-11-02 13:59 | CT ---
EXAMINATION TYPE: CT brain wo con DATE OF EXAM: 11/02/2019 COMPARISON: Previous study dated 07/21/1951. HISTORY: change in characteristic of baseline seizure CT DLP: 1099.4 mGycm Automated exposure control for dose reduction was used. FINDINGS: Central structures are midline. There is no evidence of hydrocephalus. No acute focal lesion, mass ef fect or midline shift is seen. I do not see evidence of intracranial blood. Visualized portions of the paranasal sinuses and mastoids are clear. The bony calvarium is intact. IMPRESSION: NORMAL CT SCAN OF THE BRAIN.
[2019-11-02 14:06] VITALS: RESP 18
[2019-11-02 14:12] LABS: ALT 20 U/L (4-49); AST 28 U/L (17-59); African American GFR (CKD) >90 (>60 ml/min/1.73 sqM); Alkaline Phosphatase 87 U/L (38-126); Anion Gap 12 mmol/L; Blood Urea Nitrogen 9 mg/dL (9-20); Calcium 9.9 mg/dL (8.4-10.2); Carbamazepine (Tegretol) <3.0 ug/mL; Carbon Dioxide 19 mmol/L (22-30); Chloride 108 mmol/L (98-107); Glucose 94 mg/dL (74-99); Non-African American GFR(CKD) >90 (>60 ml/min/1.73 sqM); Potassium 4.3 mmol/L (3.5-5.1); Sodium 139 mmol/L (137-145); Total Bilirubin 0.3 mg/dL (0.2-1.3)
[2019-11-02 14:15] LABS: Valproic Acid (Depakene) <10.0 ug/mL
--- NOTE | 2019-11-02 14:36 | ED ---
Seizure HPI - General Chief Complaint: Seizure Stated Complaint: Seizure Time Seen by Provider: 11/02/19 12:44 Source: patient Mode of arrival: wheelchair Limitations: no limitations - History of Present Illness Initial Comments: 24-year-old male with h/o of developmental delays, seizure d/o presenting today for chief complaint of seizure. Patient history is obtained from sister and father at bedside. They stated the patient had a seizure today he seemed to be stuttering and have a seizure slightly different than his baseline. They state he has grand mal seizures and usually entire body shaking. The patient was slightly out of it for a few minutes and now is back to baseline. They deny any fevers. They deny any other after maladies leading up to the seizure today. He stated he began at 10:30 and had approximately 8 episodes of stuttering. Deny incontinence, tongue biting, falls. State they occurred in chair. Deny shoulder injury or new complaints. Deny vomiting, or complaints of abdominal pain. State patient is complaint with 4 anti-epileptic medications which are unsure what the names of them are. They see Neurology and had an appointment this past that went well. No new changes. Upon arrival patient appears happy, he does not appear altered obvious developmental delays. - Related Data Home Medications Medication Instructions Recorded Confirmed Benztropine Mesylate [Cogentin] 1 mg PO BID@0800,209903/06/15 07/07/19 Cetirizine HCl [Zyrtec] 10 mg PO HS 03/06/15 07/07/19 Montelukast [Singulair] 10 mg PO HS@199903/06/15 07/07/19 Multivitamin [Men's Multi-Vitamin] 1 tab PO HS@199903/06/15 07/07/19 cloNIDine HCL [Catapres] 0.1 mg PO TID@0800,1600,209903/06/15 07/07/19 Lacosamide [Vimpat] 200 mg PO BID@0800,209908/14/17 07/07/19 OLANZapine [ZyPREXA] 10 mg PO HS@199908/14/17 07/07/19 Clonazepam Odt 1mg 2 mg SUBLINGUAL Q12H PRN 01/10/18 07/07/19 OXcarbazepine [Trileptal] 600 mg PO BID@0800,1999 01/10/18 07/07/19 Fluphenazine HCl [fluPHENAZine HCL] 10 mg PO BID@0800,1600 09/19/18 07/07/19 lamoTRIgine [LaMICtal] 50 mg PO BID 01/01/19 07/07/19 Cholecalciferol (Vitamin D3) 2,000 unit PO HS@2100 07/03/19 07/07/19 [Vitamin D3] Mometasone Furoate [Asmanex Hfa] 2 puff INHALATION RT-BID 07/03/19 07/07/19 lamoTRIgine [LaMICtal] 200 mg PO BID@0800,2100 07/03/19 07/07/19 Allergies Allergy/AdvReac Type Severity Reaction Status Date / Time fluoxetine [From Prozac] Allergy Unknown Verified 11/02/19 12:31 peanut Allergy Unknown Verified 11/02/19 12:31 phenytoin [From Dilantin] Allergy Unknown Verified 11/02/19 12:31 Review of Systems ROS Statement: Those systems with pertinent positive or pertinent negative responses have been documented in the HPI. ROS Other: All systems not noted in ROS Statement are negative. Past Medical History Past Medical History: Asthma, Seizure Disorder Additional Past Medical History / Comment(s): Autism(can become violent at times -thats why he is in a [place] [facility] mon thru monday and home on weekend).being tx for autism/behavior/violent episodes. Pt has the mentality of an 7 year old and when pt not sick he can pretty much tell you what he needs or wants. Pt is able to read and write some-usually only what he wants to. limited w/ his food likes. he eats telugu fries, cheesy bread, chips, cereal(trix or waffle crisps). Other hx: Last seizure 10/2018-he had 3 grand mal seizures, hyperammonemia, thrombocytopenia, normocytic anemia. History of Any Multi-Drug Resistant Organisms: MRSA Date of last positivie culture/infection: 2006 MDRO Source:: boils on rt hip Past Surgical History: No Surgical Hx Reported Additional Past Surgical History / Comment(s): pt can be violent at times is why he is in [place] [facility] per mom, being treated, Autism/behavior/violent [facility] Past Anesthesia/Blood Transfusion Reactions: No Reported Reaction Additional Past Anesthesia/Blood Transfusion Reaction / Comment(s): per mom-pt never had any sx. Past Psychological History: No Psychological Hx Reported Smoking Status: Never smoker Past Alcohol Use History: None Reported Past Drug Use History: None Reported - Past Family History Father Family Medical History: Diabetes Mellitus, Hyperlipidemia, Hypertension Additional Family Medical History / Comment(s): depression. Paternal grandmother with myocardial infarction. Maternal grandfather with congestive heart failure Mother Family Medical History: Diabetes Mellitus, Hyperlipidemia, Hypertension, Thyroid Disorder Additional Family Medical History / Comment(s): depression General Exam - General Exam Comments Initial Comments: General: The patient is awake and alert, in no distress Eye: +3 mm pupils are equal, round and reactive to light, extra-ocular movements are intact. No nystagmus. There is normal conjunctiva bilaterally. No signs of icterus. Ears, nose, mouth and throat: There are moist mucous membranes and no oral lesions. Neck: The neck is supple, there is no tenderness or JVD. Cardiovascular: There is a regular rate and rhythm. No murmur, rub or gallop is appreciated. Respiratory: Lungs are clear to auscultation, respirations are non-labored, breath sounds are equal. No wheezes, stridor, rales, or rhonchi. Gastrointestinal: Soft, non-distended, non-tender abdomen without masses or organomegaly noted. There is no rebound or guarding present. Musculoskeletal: Normal ROM of shoulders b/l, no tenderness. Strength 5/5. Sensation intact. radial pulses equal bilaterally 2+. Neurological: CN II-XII intact, There are no obvious motor or sensory deficits. Coordination appears grossly intact. Speech is normal. Skin: Skin is warm and dry and no rashes or lesions are noted. Psychiatric: Cooperative, playful Limitations: no limitations Course Vital Signs 11/02/19 11/02/19 11/02/19 12:29 14:05 14:45 Temperature 97.5 F L Pulse Rate 80 72 Respiratory 16 18 18 Rate Blood Pressure 124/78 132/68 O2 Sat by Pulse 96 97 98 Oximetry Medical Decision Making - Medical Decision Making 24yo with seizure d/o. Seizure this morning. [place] different than normal. Complaint wtih medications, frequently has breakthrough seizures. Established neurology care. CT brain (-) No signs of trauma on exam. Labs stable. Electrolytes WNL. EKG WNL. At this time I feel patient is stable for d/c with neurolog f/u and return parameters as discussed. Discussed with Dr. Figueroa who is agreeable to care plan. No seizure activity in the ER. - Lab Data Result diagrams: 11/02/19 13:05 11/02/19 13:05 Lab Results 11/02/19 11/02/19 11/02/19 Range/Units 13: 13:05 13:19 WBC 6.0 (3.8-10.6) k/uL RBC 4.76 (4.30-5.90) m/uL Hgb 13.7 (13.0-17.5) gm/dL Hct 41.2 (39.0-53.0) % MCV 86.6 (80.0-100.0) fL MCH 28.9 (25.0-35.0) pg MCHC 33.3 (31.0-37.0) g/dL RDW 13.8 (11.5-15.5) % Plt Count 231 (150-450) k/uL Neutrophils % 61 % Lymphocytes % 25 % Monocytes % 8 % Eosinophils % 3 % Basophils % 0 % Neutrophils # 3.7 (1.3-7.7) k/uL Lymphocytes # 1.5 (1.0-4.8) k/uL Monocytes # 0.5 (0-1.0) k/uL Eosinophils # 0.2 (0-0.7) k/uL Basophils # 0.0 (0-0.2) k/uL Sodium 139 (137-145) mmol/L Potassium 4.3 (3.5-5.1) mmol/L Chloride 108 H (98-107) mmol/L Carbon Dioxide 19 L (22-30) mmol/L Anion Gap 12 mmol/L BUN 9 (9-20) mg/dL Creatinine 0.72 (0.66-1.25) mg/dL Est GFR (CKD-EPI)AfAm >90 (>60 ml/min/1.73 sqM) Est GFR (CKD-EPI)NonAf >90 (>60 ml/min/1.73 sqM) Glucose 94 (74-99) mg/dL POC Glucose (mg/dL) 95 (75-99) mg/dL POC Glu [employer] Work[employer] ID Kevin Glass Calcium 9.9 (8.4-10.2) mg/dL Total Bilirubin 0.3 (0.2-1.3) mg/dL AST 28 (17-59) U/L ALT 20 (4-49) U/L Alkaline Phosphatase 87 (38-126) U/L Total Protein 8.0 (6.3-8.2) g/dL Albumin 5.0 (3.5-5.0) g/dL Valproic Acid <10.0 ug/mL Carbamazepine <3.0 ug/mL Disposition Clinical Impression: Seizure, Hx of seizure disorder Disposition: HOME SELF-CARE Condition: Good Instructions (If sedation given, give patient instructions): Recurrent Seizures in Adults (ED) Additional Instructions: Please use medication as discussed. Please follow-up with family doctor in the next 2 days, and call his neurologist on Monday as discussed. Continue antiepileptics. Please return to emergency room if the symptoms increase or worsen or for any other concerns. Is patient prescribed a controlled substance at d/c from ED?: No Referrals: Jorge Phillip DO [Primary Care Provider] - 1-2 days Time of Disposition: 14:35
[2019-11-02 14:49] VITALS: BP 132/68; PULSE 72
== END 2019-11-02 14:45 | disposition home or self-care (01) ==
LOC: EC 12:21
DX: G40.909 Epilepsy, unspecified, not intractable, without status epilepticus (principal); F84.0 Autistic disorder; Z79.899 Other long term (current) drug therapy; Z88.8 Allergy status to other drugs, medicaments and biological substances; Z91.010 Allergy to peanuts; Z86.59 Personal history of other mental and behavioral disorders; Z86.14 Personal history of Methicillin resistant Staphylococcus aureus infection
CPT/HCPCS: 36415; 70450; 80053; 80156; 80164; 85025; 93005; 99284

== ENCOUNTER → 2020-06-02 | Outpatient (CLI) | payer BC, OTHER ==
[2020-06-02 16:21] LABS: HCT 39.7 % (39.0-53.0); HGB 12.7 gm/dL (13.0-17.5); MCH 26.7 pg (25.0-35.0); MCHC 32.1 g/dL (31.0-37.0); MCV 83.1 fL (80.0-100.0); Mean Platelet Volume 9.4; Platelet Count 247 k/uL (150-450); RBC 4.78 m/uL (4.30-5.90); RDW 13.1 % (11.5-15.5); WBC 7.1 k/uL (3.8-10.6)
[2020-06-03 01:51] LABS: ALT 20 U/L (10-49); AST 20 U/L (14-35); African American GFR (CKD) 143.9 (60.0-200.0); Albumin/Globulin Ratio 2.36 (1.60-3.17); Alkaline Phosphatase 96 U/L (41-126); Bilirubin, Conjugated <0.20 mg/dL (0.20-0.40); Calcium 9.6 mg/dL (8.7-10.3); Carbon Dioxide 23.1 mmol/L (21.6-31.8); Chloride 101 mmol/L (96-109); Globulin 2.2 g/dL (1.6-3.3); Glucose 92 mg/dL (70-110); Non-African American GFR(CKD) 124.2 (60.0-200.0); Potassium 4.1 mmol/L (3.5-5.5); Sodium 135 mmol/L (135-145); Total Bilirubin 0.3 mg/dL (0.3-1.2); Total Protein 7.4 g/dL (6.2-8.2)
== END | disposition home or self-care (01) ==
LOC: LABWHC1 15:45
PROVIDERS: ATTEND Nurse Practitioner
DX: Z00.00 Encounter for general adult medical examination without abnormal findings (principal); E55.9 Vitamin D deficiency, unspecified; D64.9 Anemia, unspecified; R56.9 Unspecified convulsions; F84.0 Autistic disorder
CPT/HCPCS: 36415; 80053; 82248; 82306; 85027

== ENCOUNTER 2020-07-13 18:22 | Emergency (ER) | payer BC, OTHER ==
--- NOTE | 2020-07-13 18:46 | ED ---
General Adult HPI - General Chief complaint: Seizure Stated complaint: seizure Time Seen by Provider: 07/13/20 18:31 Source: family, EMS Mode of arrival: EMS - History of Present Illness Initial comments: Dictation was produced using Hello! Messenger dictation software. please excuse any grammatical, word or spelling errors. This patient was cared for during a federal and state declared state of emergency secondary to Covid 19 Chief Complaint: 24-year-old male past nuchal history of seizures and autism presents with seizures. History of Present Illness: A 24-year-old man is accompanied by his sibling. Patient allegedly had 2 episodes of seizures today. Patient had a initial episode earlier today that lasted 3-4 minutes. Sister was instructed not to seek immediate medical attention after one seizure. Patient then took a nap and then woke up. Several hours later he had another seizure lasted approximately 6-10 minutes. She was taught to give patient sublingual Klonopin. The seizure stopped. Patient was then brought to the emergency department. Patient is autistic and is unable to provide detailed history of present illness. States he has no complaints at this time. Sister reports that he has not really been eating well today. The ROS documented in this emergency department record has been reviewed and confirmed by me. Those systems with pertinent positive or negative responses have been documented in the HPI. All other systems are other negative and/or noncontributory. PHYSICAL EXAM: General Impression: Alert and oriented x3, not in acute distress HEENT: Normocephalic atraumatic, extra-ocular movements intact, pupils equal and reactive to light bilaterally, mucous membranes moist. Cardiovascular: Heart regular rate and rhythm Chest: Able to complete full sentences, no retractions, no tachypnea Abdomen: abdomen soft, non-tender, non-distended, no organomegaly Musculoskeletal: Pulses present and equal in all extremities, no peripheral edema Motor: no focal deficits noted Neurological: CN II-XII grossly intact, no focal motor or sensory deficits noted Skin: Intact with no visualized rashes Psych: Normal affect and mood ED course: 24-year-old male with past medical history of autism and seizure disorder presents after 2 episodes of seizure today. Vital signs upon arrival are within acceptable limits. Daughter is unsure of patient's medications. Trileptal, Lamictal, Depakote. Laboratory evaluation obtained. CBC, metabolic panel is unremarkable. Pending coronavirus. Computed tomography scan of the head and C-spine shows no acute processes. At this point patient is a very complex seizure patient. His neurologist is out of [facility]. Medications were reviewed. Due to complexity of this nature but specifies that patient contact his seizure doctor first in the morning. Patient stable. Bedside. He is had no recurrence of seizures while in emergency department. There is some concern that perhaps patient is having increased seizure due to bodily stress from possible coronavi vernell. Patient's father and mother has tested positive. A larios and sibling are told to 14 for the time being. The results will be available shortly. Sister bedside is agreeable with plan. EKG interpretation: Ventricular rate 70, normal sinus rhythm,. Interval 160, QRS 90, QTc 440. No [place] prolongation, no QTC prolongation, no ST or T-wave changes noted. Overall, this EKG is unremarkable - Related Data Home Medications Medication Instructions Recorded Confirmed Benztropine Mesylate [Cogentin] 1 mg PO BID@0800,209903/06/15 07/07/19 Cetirizine HCl [Zyrtec] 10 mg PO HS 03/06/15 07/07/19 Montelukast [Singulair] 10 mg PO HS@199903/06/15 07/07/19 Multivitamin [Men's Multi-Vitamin] 1 tab PO HS@199903/06/15 07/07/19 cloNIDine HCL [Catapres] 0.1 mg PO TID@0800,1600,209903/06/15 07/07/19 Lacosamide [Vimpat] 200 mg PO BID@0800,209908/14/17 07/07/19 OLANZapine [ZyPREXA] 10 mg PO HS@199908/14/17 07/07/19 Clonazepam Odt 1mg 2 mg SUBLINGUAL Q12H PRN 01/10/18 07/07/19 OXcarbazepine [Trileptal] 600 mg PO BID@0800,199901/10/18 07/07/19 fluPHENAZine HCl [fluPHENAZine HCL] 10 mg PO BID@0800,1600 09/19/18 07/07/19 lamoTRIgine [LaMICtal] 50 mg PO BID 01/01/19 07/07/19 Cholecalciferol (Vitamin D3) 2,000 unit PO HS@2100 07/03/19 07/07/19 [Vitamin D3] Mometasone Furoate [Asmanex Hfa] 2 puff INHALATION RT-BID 07/03/19 07/07/19 lamoTRIgine [LaMICtal] 200 mg PO BID@0800,2100 07/03/19 07/07/19 Allergies Allergy/AdvReac Type Severity Reaction Status Date / Time fluoxetine [From Prozac] Allergy Unknown Verified 07/13/20 18:35 peanut Allergy Unknown Verified 07/13/20 18:35 phenytoin [From Dilantin] Allergy Unknown Verified 07/13/20 18:35 Review of Systems ROS Statement: Those systems with pertinent positive or pertinent negative responses have been documented in the HPI. ROS Other: All systems not noted in ROS Statement are negative. Past Medical History Past Medical History: Asthma, Seizure Disorder Additional Past Medical History / Comment(s): Autism(can become violent at times -thats why he is in a [facility] monday and home on weekend).being tx for autism/behavior/violent episodes. Pt has the mentality of an 7 year old and when pt not sick he can pretty much tell you what he needs or wants. Pt is able to read and write some-usually only what he wants to. limited w/ his food likes. he eats algerian fries, cheesy bread, chips, cereal(trix or waffle crisps). Other hx: Last seizure 10/2018-he had 3 grand mal seizures, hyperammonemia, thrombocytopenia, normocytic anemia. History of Any Multi-Drug Resistant Organisms: MRSA Date of last positivie culture/infection: 2006 MDRO Source:: boils on rt hip Past Surgical History: No Surgical Hx Reported Additional Past Surgical History / Comment(s): pt can be violent at times is why he is in [facility] per mom, being treated, Autism/behavior/violent [facility] Past Anesthesia/Blood Transfusion Reactions: No Reported Reaction Additional Past Anesthesia/Blood Transfusion Reaction / Comment(s): per mom-pt never had any sx. Past Psychological History: No Psychological Hx Reported Smoking Status: Never smoker Past Alcohol Use History: None Reported Past Drug Use History: None Reported - Past Family History Father Family Medical History: Diabetes Mellitus, Hyperlipidemia, Hypertension Additional Family Medical History / Comment(s): depression. Paternal grandmother with myocardial infarction. Maternal grandfather with congestive heart failure Mother Family Medical History: Diabetes Mellitus, Hyperlipidemia, Hypertension, Thyroid Disorder Additional Family Medical History / Comment(s): depression Course Vital Signs 07/13/20 07/13/20 18:35 19:30 Temperature 97.0 F L 97.4 F L Pulse Rate 78 72 Respiratory 18 18 Rate Blood Pressure 126/71 125/84 O2 Sat by Pulse 97 98 Oximetry Medical Decision Making - Lab Data Result diagrams: 07/13/20 19:28 07/13/20 19:28 Lab Results 07/13/20 07/13/20 Range/Units 19:28 19:28 WBC 4.0 (3.8-10.6) k/uL RBC 4.37 (4.30-5.90) m/uL Hgb 12.3 L (13.0-17.5) gm/dL Hct 36.6 L (39.0-53.0) % MCV 83.9 (80.0-100.0) fL MCH 28.2 (25.0-35.0) pg MCHC 33.6 (31.0-37.0) g/dL RDW 13.5 (11.5-15.5) % Plt Count 169 (150-450) k/uL Neutrophils % 69 % Lymphocytes % 21 % Monocytes % 6 % Eosinophils % 2 % Basophils % 1 % Neutrophils # 2.7 (1.3-7.7) k/uL Lymphocytes # 0.8 L (1.0-4.8) k/uL Monocytes # 0.2 (0-1.0) k/uL Eosinophils # 0.1 (0-0.7) k/uL Basophils # 0.0 (0-0.2) k/uL Sodium 141 (137-145) mmol/L Potassium 4.7 (3.5-5.1) mmol/L Chloride 110 H (98-107) mmol/L Carbon Dioxide 24 (22-30) mmol/L Anion Gap 7 mmol/L BUN 10 (9-20) mg/dL Creatinine 0.72 (0.66-1.25) mg/dL Est GFR (CKD-EPI)AfAm >90 (>60 ml/min/1.73 sqM) Est GFR (CKD-EPI)NonAf >90 (>60 ml/min/1.73 sqM) Glucose 88 (74-99) mg/dL Calcium 9.2 (8.4-10.2) mg/dL Magnesium 2.2 (1.6-2.3) mg/dL Total Bilirubin 0.6 (0.2-1.3) mg/dL AST 50 (17-59) U/L ALT 26 (4-49) U/L Alkaline Phosphatase 66 (38-126) U/L Total Protein 8.0 (6.3-8.2) g/dL Albumin 4.7 (3.5-5.0) g/dL Disposition Clinical Impression: Seizure Disposition: HOME SELF-CARE Condition: Good Instructions (If sedation given, give patient instructions): Recurrent Seizures in Adults (ED) Additional Instructions: please make sure to call your neurologist first thing in the morning tomorrow for possible dose medication adjustments. Is patient prescribed a controlled substance at d/c from ED?: No Referrals: Jorge Phillip DO [Primary Care Provider] - 1-2 days Time of Disposition: 20:45
[2020-07-13 18:49] VITALS: RESP 18
[2020-07-13 19:35] LABS: Basophils % (A) 1 %; Eosinophils # (A) 0.1 k/uL (0-0.7); Eosinophils % (A) 2 %; HCT 36.6 % (39.0-53.0); HGB 12.3 gm/dL (13.0-17.5); Lymphocytes # (A) 0.8 k/uL (1.0-4.8); Lymphocytes % (A) 21 %; MCH 28.2 pg (25.0-35.0); MCHC 33.6 g/dL (31.0-37.0); MCV 83.9 fL (80.0-100.0); Mean Platelet Volume 9.5; Monocytes # (A) 0.2 k/uL (0-1.0); Monocytes % (A) 6 %; Neutrophils # (A) 2.7 k/uL (1.3-7.7); Neutrophils % (A) 69 %; Platelet Count 169 k/uL (150-450); RBC 4.37 m/uL (4.30-5.90); RDW 13.5 % (11.5-15.5)
[2020-07-13 19:44] LABS: ALT 26 U/L (4-49); AST 50 U/L (17-59); African American GFR (CKD) >90 (>60 ml/min/1.73 sqM); Albumin 4.7 g/dL (3.5-5.0); Alkaline Phosphatase 66 U/L (38-126); Anion Gap 7 mmol/L; Blood Urea Nitrogen 10 mg/dL (9-20); Calcium 9.2 mg/dL (8.4-10.2); Carbon Dioxide 24 mmol/L (22-30); Chloride 110 mmol/L (98-107); Glucose 88 mg/dL (74-99); Magnesium 2.2 mg/dL (1.6-2.3); Non-African American GFR(CKD) >90 (>60 ml/min/1.73 sqM); Potassium 4.7 mmol/L (3.5-5.1); Sodium 141 mmol/L (137-145); Total Bilirubin 0.6 mg/dL (0.2-1.3)
[2020-07-13 19:54] VITALS: TEMP 97.4
--- NOTE | 2020-07-13 20:22 | CT ---
EXAMINATION TYPE: CT brain cspine wo con DATE OF EXAM: 07/13/2020 COMPARISON: 07/21/2019 HISTORY: fall seizure CT DLP: 2266 mGycm Automated exposure control for dose reduction was used. Ventricles have normal size. There is no mass effect nor midline shift. There is no sign of intracran ial hemorrhage. The calvarium is intact. There is no evidence of cerebral edema. Skull base is intact . Sella turcica appears normal. Cervical vertebra show normal spacing and alignment. Posterior elements are intact. Facet joints are intact. Prevertebral soft tissues appear normal. Occipital bone is intact. There is normal aeration o f the mastoid sinuses. IMPRESSION: Normal CT scan of the cervical spine. Normal CT scan of the brain. No change.
[2020-07-13 21:08] VITALS: BP 119/76; PULSE 85
== END 2020-07-13 21:00 | disposition home or self-care (01) ==
LOC: EC 18:22
DX: G40.409 Other generalized epilepsy and epileptic syndromes, not intractable, without status epilepticus (principal); U07.1 COVID-19; F84.0 Autistic disorder; J45.909 Unspecified asthma, uncomplicated; Z79.51 Long term (current) use of inhaled steroids; Z79.899 Other long term (current) drug therapy; Z91.010 Allergy to peanuts; Z88.8 Allergy status to other drugs, medicaments and biological substances; Z86.14 Personal history of Methicillin resistant Staphylococcus aureus infection
CPT/HCPCS: 36415; 93005; 80053; 83735; 85025; 72125; 70450; 99285; U0003

== ENCOUNTER 2021-05-29 15:27 | Emergency (ER) | payer BC, OTHER ==
[2021-05-29 15:33] VITALS: BP 133/82; PULSE 99; RESP 18; TEMP 98.3
--- NOTE | 2021-05-29 15:43 | ED ---
General Adult HPI - General Chief complaint: Seizure Stated complaint: seizure Time Seen by Provider: 05/29/21 15:39 Source: family Mode of arrival: ambulatory - History of Present Illness Initial comments: Patient brought to the ED by his parents for evaluation. Per mother, the patient had what she describes as a generalized, tonic-clonic seizure at about 10:30 AM this morning. Mother states that the patient's seizure lasted for approximately 3 minutes before spontaneously resolving. Mother states that the patient fell and hit his face on the ground during this reported seizure, and she states that he has "cracked" his tooth. Mother states that the patient has a seizure disorder, and he has seizures about 3 times a month. Mother states that the patient has been compliant with all of his seizure medications. Mother states that the patient is followed at the [facility] for his autism and seizure disorder. Mother states that she contacted the [facility], and they have scheduled him to be seen there this Monday for further evaluation of his dental injury. Mother states that she was instructed to bring the patient to our ED for evaluation of his facial injury. Mother denies recent illness, fever or chills, lethargy, vomiting, difficulty breathing, or any other symptoms or complaints. History from the patient is very limited secondary to autism. - Related Data Home Medications Medication Instructions Recorded Confirmed Benztropine Mesylate [Cogentin] 1 mg PO BID@0800,209903/06/15 07/07/19 Cetirizine HCl [Zyrtec] 10 mg PO HS 03/06/15 07/07/19 Montelukast [Singulair] 10 mg PO HS@199903/06/15 07/07/19 Multivitamin [Men's Multi-Vitamin] 1 tab PO HS@199903/06/15 07/07/19 cloNIDine HCL [Catapres] 0.1 mg PO TID@0800,1600,209903/06/15 07/07/19 Lacosamide [Vimpat] 200 mg PO BID@0800,209908/14/17 07/07/19 OLANZapine [ZyPREXA] 10 mg PO HS@199908/14/17 07/07/19 Clonazepam Odt 1mg 2 mg SUBLINGUAL Q12H PRN 01/10/18 07/07/19 OXcarbazepine [Trileptal] 600 mg PO BID@0800,2000 01/10/18 07/07/19 fluPHENAZine HCl [fluPHENAZine HCL] 10 mg PO BID@0800,1600 09/19/18 07/07/19 lamoTRIgine [LaMICtal] 50 mg PO BID 01/01/19 07/07/19 Cholecalciferol (Vitamin D3) 2,000 unit PO HS@2100 07/03/19 07/07/19 [Vitamin D3] Mometasone Furoate [Asmanex Hfa] 2 puff INHALATION RT-BID 07/03/19 07/07/19 lamoTRIgine [LaMICtal] 200 mg PO BID@0800,2100 07/03/19 07/07/19 Allergies Allergy/AdvReac Type Severity Reaction Status Date / Time fluoxetine [From Prozac] Allergy Unknown Verified 05/29/21 15:33 peanut Allergy Unknown Verified 05/29/21 15:33 phenytoin [From Dilantin] Allergy Unknown Verified 05/29/21 15:33 Review of Systems ROS Statement: Those systems with pertinent positive or pertinent negative responses have been documented in the HPI. ROS Other: All systems not noted in ROS Statement are negative. Past Medical History Past Medical History: Asthma, Seizure Disorder Additional Past Medical History / Comment(s): Autism(can become violent at times -thats why he is in a half-way mon thru monday and home on weekend).being tx for autism/behavior/violent episodes. Pt has the mentality of an 7 year old and when pt not sick he can pretty much tell you what he needs or wants. Pt is able to read and write some-usually only what he wants to. limited w/ his food likes. he eats frisian fries, cheesy bread, chips, cereal(trix or waffle crisps). Other hx: Last seizure 10/2018-he had 3 grand mal seizures, hyperammonemia, thrombocytopenia, normocytic anemia. History of Any Multi-Drug Resistant Organisms: MRSA Date of last positivie culture/infection: 2006 MDRO Source:: boils on rt hip Past Surgical History: No Surgical Hx Reported Additional Past Surgical History / Comment(s): pt can be violent at times is why he is in half-way per mom, being treated, Autism/behavior/violent [facility] Past Anesthesia/Blood Transfusion Reactions: No Reported Reaction Additional Past Anesthesia/Blood Transfusion Reaction / Comment(s): per mom-pt never had any sx. Past Psychological History: No Psychological Hx Reported Smoking Status: Never smoker Past Alcohol Use History: None Reported Past Drug Use History: None Reported - Past Family History Father Family Medical History: Diabetes Mellitus, Hyperlipidemia, Hypertension Additional Family Medical History / Comment(s): depression. Paternal grandmother with myocardial infarction. Maternal grandfather with congestive heart failure Mother Family Medical History: Diabetes Mellitus, Hyperlipidemia, Hypertension, Thyroid Disorder Additional Family Medical History / Comment(s): depression General Exam General appearance: alert, in no apparent distress Head exam: Present: other (Mild ecchymosis and swelling is noted over the patient's left zygomatic region) Eye exam: Present: normal appearance, PERRL, EOMI ENT exam: Present: mucous membranes moist, TM's normal bilaterally, other (Left upper central incisor is noted to have a partial transverse fracture) Neck exam: Present: normal inspection, other (Trachea is in midline). Absent: tenderness Respiratory exam: Present: normal lung sounds bilaterally. Absent: respiratory distress, wheezes, rales, rhonchi, stridor Cardiovascular Exam: Present: regular rate, normal rhythm, normal heart sounds, other (Normal radial pulses bilaterally) GI/Abdominal exam: Present: soft. Absent: tenderness, guarding Extremities exam: Present: full ROM. Absent: tenderness Back exam: Present: normal inspection. Absent: tenderness Neurological exam: Present: alert, CN II-XII intact. Absent: motor sensory deficit Skin exam: Present: warm, dry, intact Course Vital Signs 05/29/21 15:31 Temperature 98.3 F Pulse Rate 99 Respiratory 18 Rate Blood Pressure 133/82 O2 Sat by Pulse 96 Oximetry Medical Decision Making - Medical Decision Making Patient has not had any seizure activity while in the ED, and he has been alert and breathing comfortably while in the ED. Patient's labs and imaging studies are fairly unremarkable. Parents are aware the patient's test results, and they feel comfortable taking the patient home at this time. They were instructed to, and agree to, follow-up with the patient's doctors at the [facility] on Monday as scheduled. They were also instructed to have the patient follow up closely with his dentist, as well as his primary care provider. They feel comfortable with this plan. - Lab Data Result diagrams: 05/29/21 16:56 05/29/21 16:56 Lab Results 05/29/21 05/29/21 Range/Units 16:56 16:56 WBC 9.4 (3.8-10.6) k/uL RBC 4.79 (4.30-5.90) m/uL Hgb 12.8 L (13.0-17.5) gm/dL Hct 37.9 L (39.0-53.0) % MCV 79.1 L (80.0-100.0) fL MCH 26.8 (25.0-35.0) pg MCHC 33.9 (31.0-37.0) g/dL RDW 15.0 (11.5-15.5) % Plt Count 249 (150-450) k/uL MPV 9.2 Neutrophils % 77 % Lymphocytes % 15 % Monocytes % 5 % Eosinophils % 1 % Basophils % 0 % Neutrophils # 7.2 (1.3-7.7) k/uL Lymphocytes # 1.4 (1.0-4.8) k/uL Monocytes # 0.5 (0-1.0) k/uL Eosinophils # 0.1 (0-0.7) k/uL Basophils # 0.0 (0-0.2) k/uL Sodium 131 L (137-145) mmol/L Potassium 4.3 (3.5-5.1) mmol/L Chloride 96 L (98-107) mmol/L Carbon Dioxide 22 (22-30) mmol/L Anion Gap 13 mmol/L BUN 4 L (9-20) mg/dL Creatinine 0.62 L (0.66-1.25) mg/dL Est GFR (CKD-EPI)AfAm >90 (>60 ml/min/1.73 sqM) Est GFR (CKD-EPI)NonAf >90 (>60 ml/min/1.73 sqM) Glucose 101 H (74-99) mg/dL Calcium 10.1 (8.4-10.2) mg/dL Magnesium 1.9 (1.6-2.3) mg/dL Total Bilirubin 0.4 (0.2-1.3) mg/dL AST 30 (17-59) U/L ALT 22 (4-49) U/L Alkaline Phosphatase 89 (38-126) U/L Total Protein 8.3 H (6.3-8.2) g/dL Albumin 5.4 H (3.5-5.0) g/dL - Radiology Data Radiology results: report reviewed (CT brain without contrast: No acute intracranial process; CT facial bones without contrast: Mild soft tissue swelling over the left face without acute fracture) Disposition Clinical Impression: Generalized seizure, Facial contusion, Dental injury Disposition: HOME SELF-CARE Condition: Stable Instructions (If sedation given, give patient instructions): Seizure/Epilepsy Discharge Instructions & Follow-Up, Acute Dental Trauma (ED), Facial Contusion (ED) Additional Instructions: Return to the emergency room immediately should Dez develop frequent seizures, new or worsening pain, a fever, shortness of breath/trouble breathing, feeling dizzy or faint, or new or worsening symptoms. Have Dez follow up closely with his doctors at the [facility], as well as his dentist and primary care provider. Is patient prescribed a controlled substance at d/c from ED?: No Referrals: Jorge Phillip DO [Primary Care Provider] - 1-2 days Time of Disposition: 17:27
--- NOTE | 2021-05-29 16:36 | CT ---
EXAMINATION TYPE: CT brain wo con DATE OF EXAM: 05/29/2021 COMPARISON: 07/13/2020 CT brain HISTORY: seizure, fall CT DLP: combined DLP 820.5 mGycm. Automated Exposure Control for Dose Reduction was Utilized. TECHNIQUE: Multiple contiguous axial CT images of the head were performed from the skull base through the vertex without the administration of intravenous contrast. 2-D sagittal and coronal reformats we re obtained. FINDINGS: No acute intracranial hemorrhage, mass effect, or midline shift. The ventricles and sulci are within normal limits in size. Villanueva-white differentiation is preserved. No CT evidence of acute l arge vessel territorial ischemia. Calvarium appears intact. The globes are intact and the visualized sinuses are clear. IMPRESSION: No acute intracranial process.
--- NOTE | 2021-05-29 16:40 | CT ---
EXAMINATION TYPE: CT facial bones wo con DATE OF EXAM: 05/29/2021 COMPARISON: CT facial bones 07/21/2019 HISTORY: seizure, fall CT DLP: combined DLP 820.5 mGycm Automated exposure control for dose reduction was used. TECHNIQUE: CT scan of the sinuses is performed without contrast, axial images are obtained, coronal r eformatted images are also reviewed. FINDINGS: Mild subcutaneous soft tissue swelling over the left face. No acute facial bone fracture. Pterygoid p lates are intact. Mild mucosal thickening of the ethmoid air cells and maxillary sinuses. Visualized portion of mastoid air cells show no abnormal opacification. The globes are intact bilate rally. IMPRESSION: Mild soft tissue swelling over the left face without acute fracture.
[2021-05-29 17:05] LABS: Basophils % (A) 0 %; Eosinophils # (A) 0.1 k/uL (0-0.7); Eosinophils % (A) 1 %; HCT 37.9 % (39.0-53.0); HGB 12.8 gm/dL (13.0-17.5); Lymphocytes # (A) 1.4 k/uL (1.0-4.8); Lymphocytes % (A) 15 %; MCH 26.8 pg (25.0-35.0); MCHC 33.9 g/dL (31.0-37.0); MCV 79.1 fL (80.0-100.0); Mean Platelet Volume 9.2; Monocytes # (A) 0.5 k/uL (0-1.0); Monocytes % (A) 5 %; Neutrophils # (A) 7.2 k/uL (1.3-7.7); Neutrophils % (A) 77 %; Platelet Count 249 k/uL (150-450); RBC 4.79 m/uL (4.30-5.90); WBC 9.4 k/uL (3.8-10.6)
[2021-05-29 17:22] LABS: ALT 22 U/L (4-49); AST 30 U/L (17-59); African American GFR (CKD) >90 (>60 ml/min/1.73 sqM); Albumin 5.4 g/dL (3.5-5.0); Alkaline Phosphatase 89 U/L (38-126); Anion Gap 13 mmol/L; Blood Urea Nitrogen 4 mg/dL (9-20); Calcium 10.1 mg/dL (8.4-10.2); Carbon Dioxide 22 mmol/L (22-30); Chloride 96 mmol/L (98-107); Glucose 101 mg/dL (74-99); Magnesium 1.9 mg/dL (1.6-2.3); Non-African American GFR(CKD) >90 (>60 ml/min/1.73 sqM); Potassium 4.3 mmol/L (3.5-5.1); Sodium 131 mmol/L (137-145); Total Bilirubin 0.4 mg/dL (0.2-1.3); Total Protein 8.3 g/dL (6.3-8.2)
== END 2021-05-29 17:31 | disposition home or self-care (01) ==
LOC: EC 15:27
DX: S00.83XA Contusion of other part of head, initial encounter (principal); G40.409 Other generalized epilepsy and epileptic syndromes, not intractable, without status epilepticus; F84.0 Autistic disorder; J45.909 Unspecified asthma, uncomplicated; Z79.51 Long term (current) use of inhaled steroids; Z91.010 Allergy to peanuts; Z88.8 Allergy status to other drugs, medicaments and biological substances; Z79.899 Other long term (current) drug therapy; W01.198A Fall on same level from slipping, tripping and stumbling with subsequent striking against other object, initial encounter; Y92.009 Unspecified place in unspecified non-institutional (private) residence as the place of occurrence of the external cause
CPT/HCPCS: 36415; 70450; 70486; 80053; 83735; 85025; 99284

== ENCOUNTER → 2021-06-17 | Outpatient (CLI) | payer BC, OTHER ==
[2021-06-17 22:54] LABS: HCT 35.9 % (39.6-50.0); HGB 11.2 g/dL (13.0-17.0); MCH 25.3 pg (27.0-32.0); MCHC 31.2 g/dL (32.0-37.0); MCV 81.2 fL (80.0-97.0); Mean Platelet Volume 11.6 fL (9.5-12.2); Platelet Count 316 X 10*3/uL (140-440); RBC 4.42 X 10*6/uL (4.40-5.60); RDW 14.4 % (11.5-14.5); WBC 5.95 X 10*3/uL (4.50-10.00)
[2021-06-18 04:55] LABS: ALT 14 U/L (10-49); AST 18 U/L (14-35); Albumin 5.1 g/dL (3.8-4.9); Albumin/Globulin Ratio 1.97 (1.60-3.17); Alkaline Phosphatase 84 U/L (41-126); Blood Urea Nitrogen 5.3 mg/dL (9.0-27.0); Calcium 9.6 mg/dL (8.7-10.3); Carbon Dioxide 21.2 mmol/L (21.6-31.8); Chloride 101 mmol/L (96-109); Globulin 2.6 g/dL (1.6-3.3); Glucose 109 mg/dL (70-110); Non-African American GFR(CKD) 124.3 (60.0-200.0); Potassium 3.5 mmol/L (3.5-5.5); Sodium 138 mmol/L (135-145); Total Bilirubin <0.20 mg/dL (0.30-1.20); Total Protein 7.6 g/dL (6.2-8.2)
[2021-06-18 12:31] LABS: Lamotrigine (Lamictal) 7.9 ug/mL (2.0-15.0)
== END | disposition home or self-care (01) ==
LOC: LABWHC1 15:09
PROVIDERS: ATTEND Student in an Organized Health Care Education/Training Program
DX: G40.814 Lennox-Gastaut syndrome, intractable, without status epilepticus (principal)
CPT/HCPCS: 36415; 80053; 80175; 80183; 85027

== ENCOUNTER 2021-10-05 13:24 | Emergency (ER) | payer BC, OTHER ==
--- NOTE | 2021-10-05 13:37 | ED ---
General Adult HPI - General Stated complaint: Seizure Time Seen by Provider: 10/05/21 13:24 Source: family, EMS, RN notes reviewed, old records reviewed - History of Present Illness Initial comments: This is a 25-year-old male who is developmentally delayed and has a history of seizures. Dad and EMS gave the whole history patient is unable to. However is not a great historian. He is unaware of the medications he takes but didn't bring them with him. According to dad there heard a bang and upstairs and the patient's room when they went and he was unconscious he slowly came around just like he does with his typical seizures. Dad states took about 5 or 10 minutes before he was back to his baseline which she states is normal for him. Patient had a little blood in the side of his face around the nose on the left. Dad does not know how hard he had no one witnessed the fall. Patient is unable to elicit if he has a headache or any neck pain. Patient appears to be a move his head without problem and does not appear in any distress. Patient has not been recently sick. According to dad he has a seizure about once a month. - Related Data Home Medications Medication Instructions Recorded Confirmed Benztropine Mesylate [Cogentin] 1 mg PO BID@0800,1600 03/06/15 10/05/21 Cetirizine HCl [Zyrtec] 10 mg PO DAILY@0800 03/06/15 10/05/21 Montelukast [Singulair] 10 mg PO HS@199903/06/15 10/05/21 Multivitamin [Men's Multi-Vitamin] 1 tab PO DAILY@0800 03/06/15 10/05/21 cloNIDine HCL [Catapres] 0.1 mg PO TID@0800,1600,199903/06/15 10/05/21 Lacosamide [Vimpat] 200 mg PO BID@0800,199908/14/17 10/05/21 OLANZapine [ZyPREXA] 10 mg PO HS@199908/14/17 10/05/21 OXcarbazepine [Trileptal] 600 mg PO BID@0800,199901/10/18 10/05/21 fluPHENAZine HCl [fluPHENAZine HCL] 10 mg PO BID@0800,199909/19/18 10/05/21 lamoTRIgine [LaMICtal] 50 mg PO BID@0800,199901/01/19 10/05/21 lamoTRIgine [LaMICtal] 200 mg PO BID@799,199907/03/19 10/05/21 Cholecalciferol [Vitamin D3 (25 50 mcg PO DAILY@0800 10/05/21 10/05/21 Mcg = 1000 Iu)] Omeprazole 20 mg PO DAILY@0800 10/05/21 10/05/21 Allergies Allergy/AdvReac Type Severity Reaction Status Date / Time fluoxetine [From Prozac] Allergy Unknown Verified 10/05/21 15:50 peanut Allergy Unknown Verified 10/05/21 15:50 phenytoin [From Dilantin] Allergy Unknown Verified 10/05/21 15:50 Review of Systems ROS Statement: Those systems with pertinent positive or pertinent negative responses have been documented in the HPI. ROS Other: All systems not noted in ROS Statement are negative. Past Medical History Past Medical History: Asthma, Seizure Disorder Additional Past Medical History / Comment(s): Autism(can become violent at times -thats why he is in a custodial mon thru monday and home on weekend).being tx for autism/behavior/violent episodes. Pt has the mentality of an 7 year old and when pt not sick he can pretty much tell you what he needs or wants. Pt is able to read and write some-usually only what he wants to. limited w/ his food likes. he eats vietnamese fries, cheesy bread, chips, cereal(trix or waffle crisps). Other hx: Last seizure 10/2018-he had 3 grand mal seizures, hyperammonemia, thrombocytopenia, normocytic anemia. History of Any Multi-Drug Resistant Organisms: MRSA Date of last positivie culture/infection: 2006 MDRO Source:: boils on rt hip Past Surgical History: No Surgical Hx Reported Additional Past Surgical History / Comment(s): pt can be violent at times is why he is in custodial per mom, being treated, Autism/behavior/violent [facility] Past Anesthesia/Blood Transfusion Reactions: No Reported Reaction Additional Past Anesthesia/Blood Transfusion Reaction / Comment(s): per mom-pt never had any sx. Past Psychological History: No Psychological Hx Reported Smoking Status: Never smoker Past Alcohol Use History: None Reported Past Drug Use History: None Reported - Past Family History Father Family Medical History: Diabetes Mellitus, Hyperlipidemia, Hypertension Additional Family Medical History / Comment(s): depression. Paternal grandmother with myocardial infarction. Maternal grandfather with congestive heart failure Mother Family Medical History: Diabetes Mellitus, Hyperlipidemia, Hypertension, Thyroid Disorder Additional Family Medical History / Comment(s): depression General Exam - General Exam Comments Initial Comments: GENERAL: Patient is well-developed and well-nourished. Patient is nontoxic and well- hydrated and is in mild distress. ENT: Neck is soft and supple. No significant lymphadenopathy is noted. Oropharynx is clear. Moist mucous membranes. Neck has full range of motion without eliciting any pain. EYES: The sclera were anicteric and conjunctiva were pink and moist. Extraocular movements were intact and pupils were equal round and reactive to light. Eyelids were unremarkable. PULMONARY: Unlabored respirations. Good breath sounds bilaterally. No audible rales rhonchi or wheezing was noted. CARDIOVASCULAR: There is a regular rate and rhythm without any murmurs gallops or rubs. ABDOMEN: Soft and nontender with normal bowel sounds. No palpable organomegaly was noted. There is no palpable pulsatile mass. SKIN: Very small superficial abrasions to the left cheek just lateral to the nose abrasion is about a centimeter long and very superficial the other abrasions about a half centimeter long superficial NEUROLOGIC: Patient is alert and oriented to his baseline according to dad. Cranial nerves II through XII are grossly intact. Motor and sensory are also intact. Normal speech, volume and content. Symmetrical smile. MUSCULOSKELETAL: Normal extremities with adequate strength and full range of motion. LYMPHATICS: No significant lymphadenopathy is noted PSYCHIATRIC: Normal psychiatric evaluation. Course Vital Signs 10/05/21 13:37 Temperature 98.2 F Pulse Rate 84 Respiratory 18 Rate Blood Pressure 132/75 O2 Sat by Pulse 96 Oximetry Medical Decision Making - Medical Decision Making patient is up-to-date on tetanus CT of the brain shows no acute abnormalities. CT of the C-spine showed no acute abnormality. Family member states the patient is acting normal. EKG shows normal sinus rhythm at 84 bpm MO interval 242 QRS is 92 QT interval 366 QTC is 4:30. Patient's EKG has T-wave inversions in 3 and aVF which was seen previously on other EKGs Disposition Clinical Impression: Generalized seizure, Facial abrasion Disposition: HOME SELF-CARE Instructions (If sedation given, give patient instructions): Seizure/Epilepsy Discharge Instructions & Follow-Up Is patient prescribed a controlled substance at d/c from ED?: No Referrals: Saad Wing MD [Family Provider] - 1-2 days Time of Disposition: 16:05
--- NOTE | 2021-10-05 14:18 | CT ---
EXAMINATION TYPE: CT brain pinedaine wo con DATE OF EXAM: 10/05/2021 COMPARISON: 05/29/2021 HISTORY: Seizure CT DLP: 1852.4 mGycm, Automated exposure control for dose reduction was used. CONTRAST: Patient injected with 0 mL of Isovue 300. CT of the brain is performed utilizing 3 mm thick sections through the posterior fossa and 3 mm thick sections through the remaining calvarium. Study is performed within 24 hours of arrival to the hospital. No abnormal hyperdensity is present to suggest an acute intracranial hemorrhage. No mass lesion is evident. No acute infarcts are evident. Ventricles and sulci are appropriate for the patient age. Paranasal sinuses and mastoid air cells within the [id number] are clear. Right septal deviation is noted. IMPRESSIONS: 1. No acute intracranial process. CT cervical spine. COMPARISON: None CT of the cervical spine is performed in the axial plane at 2 mm thick sections. Reconstructed image s in the coronal, and sagittal plane are reviewed on the computer. No acute fractures are evident. Vertebral body alignment is straightened which can be related to patient positioning or muscle spasm. Disc heights are preserved. Vertebral body heights are preserved. No spinal canal stenosis is evident. No neural foraminal stenosis is evident. IMPRESSIONS: 1. No acute osseous abnormality cervical spine
[2021-10-05 16:37] VITALS: RESP 16
[2021-10-05 16:42] VITALS: BP 132/77; PULSE 80; TEMP 98
[2021-10-06 07:14] LABS: Lamotrigine (Lamictal) 6.9 ug/mL (2.0-15.0)
== END 2021-10-05 16:41 | disposition home or self-care (01) ==
LOC: EC 13:24
DX: S00.81XA Abrasion of other part of head, initial encounter (principal); R56.9 Unspecified convulsions; J45.909 Unspecified asthma, uncomplicated; Z88.1 Allergy status to other antibiotic agents; X58.XXXA Exposure to other specified factors, initial encounter
CPT/HCPCS: 36415; 70450; 72125; 80175; 80183; 87635; 93005; 99285

== ENCOUNTER → 2021-11-15 | Outpatient (CLI) | payer BC, OTHER ==
[2021-11-15 18:21] LABS: HCT 37.6 % (39.6-50.0); HGB 11.7 g/dL (13.0-17.0); MCH 25.7 pg (27.0-32.0); MCHC 31.1 g/dL (32.0-37.0); MCV 82.5 fL (80.0-97.0); Mean Platelet Volume 12.7 fL (9.5-12.2); NRBC Per 100 WBC 0 /100 WBCS (0.0-0.0); Platelet Count 238 X 10*3/uL (140-440); RBC 4.56 X 10*6/uL (4.40-5.60); WBC 4.81 X 10*3/uL (4.50-10.00)
[2021-11-15 20:16] LABS: ALT 21 U/L (10-49); AST 19 U/L (14-35); African American GFR (CKD) 149.9 (60.0-200.0); Albumin 5.2 g/dL (3.8-4.9); Albumin/Globulin Ratio 1.86 (1.60-3.17); Alkaline Phosphatase 79 U/L (41-126); BUN/Creat Ratio 10.57 Ratio (12.00-20.00); Blood Urea Nitrogen 7.4 mg/dL (9.0-27.0); Calcium 9.7 mg/dL (8.7-10.3); Chloride 102 mmol/L (96-109); Globulin 2.8 g/dL (1.6-3.3); Glucose 88 mg/dL (70-110); Non-African American GFR(CKD) 129.3 (60.0-200.0); Potassium 4.4 mmol/L (3.5-5.5); Sodium 136 mmol/L (135-145); Total Bilirubin <0.15 mg/dL (0.30-1.20)
[2021-11-16 08:07] LABS: Lamotrigine (Lamictal) 5.4 ug/mL (2.0-15.0)
== END | disposition home or self-care (01) ==
LOC: LABWHC1 11:28
PROVIDERS: ATTEND Student in an Organized Health Care Education/Training Program
DX: G40.814 Lennox-Gastaut syndrome, intractable, without status epilepticus (principal)
CPT/HCPCS: 36415; 80053; 80175; 80183; 85027

== ENCOUNTER → 2022-06-27 | Outpatient (CLI) | payer BC, OTHER ==
[2022-06-27 17:44] LABS: HCT 34.5 % (39.6-50.0); HGB 10.9 g/dL (13.0-17.0); MCH 24.3 pg (27.0-32.0); MCHC 31.6 g/dL (32.0-37.0); Mean Platelet Volume 11.4 fL (9.5-12.2); NRBC Per 100 WBC 0 /100 WBCS (0.0-0.0); Platelet Count 241 X 10*3/uL (140-440); RBC 4.48 X 10*6/uL (4.40-5.60); WBC 5.67 X 10*3/uL (4.50-10.00)
[2022-06-27 18:08] LABS: ALT 29 U/L (10-49); AST 22 U/L (14-35); African American GFR (CKD) 141.9 (60.0-200.0); Albumin 5.1 g/dL (3.8-4.9); Albumin/Globulin Ratio 1.96 (1.60-3.17); Alkaline Phosphatase 66 U/L (41-126); BUN/Creat Ratio 9.88 Ratio (12.00-20.00); Blood Urea Nitrogen 7.9 mg/dL (9.0-27.0); Calcium 9.9 mg/dL (8.7-10.3); Carbon Dioxide 23.7 mmol/L (20.0-27.5); Chloride 103 mmol/L (96-109); Globulin 2.6 g/dL (1.6-3.3); Glucose 89 mg/dL (70-110); Non-African American GFR(CKD) 122.4 (60.0-200.0); Potassium 4.6 mmol/L (3.5-5.5); Sodium 137 mmol/L (135-145); Total Bilirubin <0.15 mg/dL (0.30-1.20); Total Protein 7.7 g/dL (6.2-8.2)
== END | disposition home or self-care (01) ==
LOC: LABWHC1 11:23
PROVIDERS: ATTEND Student in an Organized Health Care Education/Training Program
DX: G40.814 Lennox-Gastaut syndrome, intractable, without status epilepticus (principal)
CPT/HCPCS: 36415; 80053; 80175; 80183; 85027

== ENCOUNTER → 2022-10-13 | Outpatient (CLI) | payer BC, OTHER ==
[2022-10-13 19:24] LABS: Basophils # (A) 0.03 X 10*3/uL (0.00-0.10); Basophils % (A) 0.5 %; Eosinophils # (A) 0.09 X 10*3/uL (0.04-0.35); Eosinophils % (A) 1.4 %; HCT 35.2 % (39.6-50.0); HGB 10.6 g/dL (13.0-17.0); Immature Grans, Automated 0.3 %; Lymphocytes % (A) 20.7 %; MCH 23.2 pg (27.0-32.0); MCHC 30.1 g/dL (32.0-37.0); MCV 77.2 fL (80.0-97.0); Mean Platelet Volume 12.3 fL (9.5-12.2); Monocytes # (A) 0.61 X 10*3/uL (0.20-1.00); Monocytes % (A) 9.7 %; NRBC Per 100 WBC 0 /100 WBCS (0.0-0.0); Neutrophils # (A) 4.24 X 10*3/uL (1.80-7.70); Neutrophils % (A) 67.4 %; Platelet Count 232 X 10*3/uL (140-440); RBC 4.56 X 10*6/uL (4.40-5.60); RDW 15.3 % (11.5-14.5); WBC 6.29 X 10*3/uL (4.50-10.00)
[2022-10-13 20:18] LABS: ALT 23 U/L (10-49); AST 22 U/L (14-35); Albumin 4.9 g/dL (3.8-4.9); Albumin/Globulin Ratio 1.87 (1.60-3.17); Alkaline Phosphatase 75 U/L (41-126); BUN/Creat Ratio 10.96 Ratio (12.00-20.00); Blood Urea Nitrogen 7.7 mg/dL (9.0-27.0); Calcium 9.8 mg/dL (8.7-10.3); Carbon Dioxide 22.2 mmol/L (20.0-27.5); Chloride 99 mmol/L (96-109); Chol/HDL Ratio 3.36 Ratio; Globulin 2.6 g/dL (1.6-3.3); Glucose 93 mg/dL (70-110); LDL Cholesterol,Calculated 102.3 mg/dL (0.0-131.0); Magnesium 1.9 mg/dL (1.5-2.4); Non-African American GFR(CKD) 128.6 (60.0-200.0); Potassium 4.2 mmol/L (3.5-5.5); Sodium 134 mmol/L (135-145); Total Protein 7.6 g/dL (6.2-8.2)
== END | disposition home or self-care (01) ==
LOC: LABWHC1 11:56
PROVIDERS: ATTEND Family Medicine
DX: Z00.00 Encounter for general adult medical examination without abnormal findings (principal); K21.9 Gastro-esophageal reflux disease without esophagitis; E55.9 Vitamin D deficiency, unspecified
CPT/HCPCS: 36415; 80053; 80061; 82306; 83735; 85025

== ENCOUNTER 2022-12-01 10:22 | Emergency (ER) | payer BC, OTHER ==
[2022-12-01 10:28] VITALS: RESP 18; TEMP 98
[2022-12-01] MEDS ORDERED: SODIUM CHLORIDE 0.9% 1,000 ML IV STA (11:08)
[2022-12-01 12:04] LABS: Lactic Acid, Venous 1.3 mmol/L (0.7-2.0)
[2022-12-01 12:05] LABS: Anisocytosis Slight; Basophils % (A) 0 %; Eosinophils % (A) 1 %; HCT 36.5 % (39.0-53.0); HGB 11.8 gm/dL (13.0-17.5); Lymphocytes # (A) 0.8 k/uL (1.0-4.8); Lymphocytes % (A) 10 %; MCH 25.2 pg (25.0-35.0); MCHC 32.4 g/dL (31.0-37.0); MCV 77.8 fL (80.0-100.0); Mean Platelet Volume 10.3; Microcytosis Slight; Monocytes # (A) 0.3 k/uL (0-1.0); Monocytes % (A) 4 %; Neutrophils # (A) 6.8 k/uL (1.3-7.7); Neutrophils % (A) 84 %; Platelet Count 217 k/uL (150-450); RBC 4.69 m/uL (4.30-5.90); RDW 16.1 % (11.5-15.5); VBG PH 7.34 (7.31-7.41); WBC 8.1 k/uL (3.8-10.6)
[2022-12-01 12:06] LABS: ALT 25 U/L (4-49); AST 26 U/L (17-59); African American GFR (CKD) >90 (>60 ml/min/1.73 sqM); Albumin 4.9 g/dL (3.5-5.0); Alkaline Phosphatase 72 U/L (38-126); Anion Gap 10 mmol/L; Blood Urea Nitrogen 9 mg/dL (9-20); Calcium 9.5 mg/dL (8.4-10.2); Carbon Dioxide 25 mmol/L (22-30); Chloride 105 mmol/L (98-107); Glucose 116 mg/dL (74-99); Non-African American GFR(CKD) >90 (>60 ml/min/1.73 sqM); Potassium 4.8 mmol/L (3.5-5.1); Sodium 140 mmol/L (137-145); Total Bilirubin 0.2 mg/dL (0.2-1.3)
[2022-12-01 12:11] LABS: Partial Thromboplastin Time 24.2 sec (22.0-30.0); Prothrombin Time 10.3 sec (9.0-12.0)
--- NOTE | 2022-12-01 13:19 | ED ---
General Adult HPI - General Chief complaint: Weakness Stated complaint: lethargic Time Seen by Provider: 12/01/22 11:03 Source: family, RN notes reviewed, old records reviewed Mode of arrival: wheelchair Limitations: no limitations - History of Present Illness Initial comments: 27-year-old male history of autism on multiple medications presents with let hargy. Patient's parents state that he is not acting himself. He did have a medication change, Vimpat was increased from 3-50 mg daily to 4 mg daily no other change. No fever. No vomiting. No head injury. No focal numbness or weakness. - Related Data Home Medications Medication Instructions Recorded Confirmed Benztropine Mesylate [Cogentin] 1 mg PO BID@0800,1600 03/06/15 10/05/21 Cetirizine HCl [Zyrtec] 10 mg PO DAILY@0800 03/06/15 10/05/21 Montelukast [Singulair] 10 mg PO HS@199903/06/15 10/05/21 Multivitamin [Men's Multi-Vitamin] 1 tab PO DAILY@0800 03/06/15 10/05/21 cloNIDine HCL [Catapres] 0.1 mg PO TID@0800,1600,199903/06/15 10/05/21 Lacosamide [Vimpat] 200 mg PO BID@0800,199908/14/17 10/05/21 OLANZapine [ZyPREXA] 10 mg PO HS@199908/14/17 10/05/21 OXcarbazepine [Trileptal] 600 mg PO BID@0800,199901/10/18 10/05/21 fluPHENAZine HCl [fluPHENAZine HCL] 10 mg PO BID@0800,199909/19/18 10/05/21 lamoTRIgine [LaMICtal] 50 mg PO BID@0800,199901/01/19 10/05/21 lamoTRIgine [LaMICtal] 200 mg PO BID@0800,199907/03/19 10/05/21 Cholecalciferol [Vitamin D3 (25 50 mcg PO DAILY@0800 10/05/21 10/05/21 Mcg = 1000 Iu)] Omeprazole 20 mg PO DAILY@0800 10/05/21 10/05/21 Allergies Allergy/AdvReac Type Severity Reaction Status Date / Time fluoxetine [From Prozac] Allergy Unknown Verified 12/01/22 10:26 peanut Allergy Unknown Verified 12/01/22 10:26 phenytoin [From Dilantin] Allergy Unknown Verified 12/01/22 10:26 Review of Systems ROS Statement: Those systems with pertinent positive or pertinent negative responses have been documented in the HPI. ROS Other: All systems not noted in ROS Statement are negative. Past Medical History Past Medical History: Asthma, Seizure Disorder Additional Past Medical History / Comment(s): Autism(can become violent at times -thats why he is in a longterm mon thru monday and home on weekend).being tx for autism/behavior/violent episodes. Pt has the mentality of an 7 year old and when pt not sick he can pretty much tell you what he needs or wants. Pt is able to read and write some-usually only what he wants to. limited w/ his food likes. he eats [place]ar[place] fries, cheesy bread, chips, cereal(trix or waffle crisps). Other hx: Last seizure 10/2018-he had 3 grand mal seizures, hyperammonemia, thrombocytopenia, normocytic anemia. History of Any Multi-Drug Resistant Organisms: MRSA Date of last positivie culture/infection: 2006 MDRO Source:: boils on rt hip Past Surgical History: No Surgical Hx Reported Additional Past Surgical History / Comment(s): pt can be violent at times is why he is in longterm per mom, being treated, Autism/behavior/violent H Past Anesthesia/Blood Transfusion Reactions: No Reported Reaction Additional Past Anesthesia/Blood Transfusion Reaction / Comment(s): per mom-pt never had any sx. Past Psychological History: No Psychological Hx Reported Smoking Status: Never smoker Past Alcohol Use History: None Reported Past Drug Use History: None Reported - Past Family History Father Family Medical History: Diabetes Mellitus, Hyperlipidemia, Hypertension Additional Family Medical History / Comment(s): depression. Paternal grandmother with myocardial infarction. Maternal grandfather with congestive heart failure Mother Family Medical History: Diabetes Mellitus, Hyperlipidemia, Hypertension, Thyroid Disorder Additional Family Medical History / Comment(s): depression General Exam Limitations: no limitations General appearance: in no apparent distress, lethargic Head exam: Present: atraumatic, normocephalic Eye exam: Present: normal appearance, PERRL ENT exam: Present: mucous membranes dry Neck exam: Present: normal inspection. Absent: tenderness, meningismus Respiratory exam: Present: normal lung sounds bilaterally. Absent: respiratory distress, wheezes Cardiovascular Exam: Present: regular rate, normal rhythm GI/Abdominal exam: Present: soft. Absent: distended, tenderness, guarding Extremities exam: Present: normal inspection, normal capillary refill. Absent: pedal edema Neurological exam: Present: alert, oriented X3, CN II-XII intact. Absent: motor sensory deficit Psychiatric exam: Present: flat affect Skin exam: Present: warm, dry, intact. Absent: cyanosis, diaphoretic Course Vital Signs 12/01/22 12/01/22 10:26 11:41 Temperature 98 F Pulse Rate 85 75 Respiratory 18 18 Rate Blood Pressure 122/82 130/81 O2 Sat by Pulse 96 95 Oximetry - Reevaluation(s) Reevaluation #1: 12/01/22 13:57 Patient returned to baseline without treatment other than IV hydration patient patient and parents are eager for discharge. Return parameters were discussed. This may be medication effect, dehydration or other undiagnosed cause of lethargy. Return parameters are discussed at length. EKG Findings - EKG Results: EKG: interpreted by ERMD (EKG: Sinus rhythm rate of 75, TX interval 175, QRS duration 98, QTC 407, no ST segment elevation.) Medical Decision Making - Medical Decision Making Was pt. sent in by a medical professional or institution (JASON Hilliard, LOSS PREVENTION COORDINATOR, urgent care, hospital, or fdc...) When possible be specific @ -Sent in from adult program Did you speak to anyone other than the patient for history (EMS, parent, family, police, friend...)? What history was obtained from this source @ -History obtained from the patient's mother father Did you review nursing and triage notes (agree or disagree)? Why? @ -I reviewed and agree with nursing and triage notes Were old charts reviewed (outside hosp., previous admission, EMS record, old EKG, old radiological studies, urgent care reports/EKG's, fdc records)? Report findings @ -No old charts were reviewed Differential Diagnosis (chest pain, altered mental status, abdominal pain women, abdominal pain men, vaginal bleeding, weakness, fever, dyspnea, syncope, headache, dizziness, GI bleed, back pain, seizure, CVA, palpatations, mental health, musculoskeletal)? @ -Differential Altered Mental Status: Hypoglycemia, DKA, hypercapnia, ETOH, overdose, CO poisoning, trauma, myxedema coma, HTN encephalopathy, infection, encephalitis, psychosis, intercranial hemorrhage, hepatic encephalopathy, meningitis, CVA, this is not meant to be an all-inclusive list EKG interpreted by me (3pts min.). @ -As above X-rays interpreted by me (1pt min.). @ -None done CT interpreted by me (1pt min.). @ -None done U/S interpreted by me (1pt. min.). @ -None done What testing was considered but not performed or refused? (CT, X-rays, U/S, labs)? Why? @ -Considered CT but felt to not be necessary given the nonfocal nature. What meds were considered but not given or refused? Why? @ -None Did you discuss the management of the patient with other professionals (professionals i.e. , PA, LOSS PREVENTION COORDINATOR, lab, RT, psych nurse, high school social science teacher, hazmat technician, teacher, training systems officer, telehealth case manager)? Give summary @ -No Was smoking cessation discussed for >3mins.? @ -No Was critical care preformed (if so, how long)? @ -No Were there social determinants of health that impacted care today? How? (Homelessness, low income, unemployed, alcoholism, drug addiction, transportation, low edu. Level, literacy, decrease access to med. care, intermediate, rehab)? @ -Education level and history of autism Was there de-escalation of care discussed even if they declined (Discuss DNR or withdrawal of care, Hospice)? DNR status @ -No What co-morbidities impacted this encounter? (DM, HTN, Smoking, COPD, CAD, Cancer, CVA, ARF, Chemo, Hep., AIDS, mental health diagnosis, sleep apnea, morbid obesity)? @ -None Was patient admitted / discharged? Hospital course, mention meds given and ro [place], prescriptions, significant lab abnormalities, going to OR and other pertinent info. @ -27-year-old male history of autism presents with lethargy. Patient has a nonfocal exam and stable vitals. Laboratory testing is unremarkable with the exception of a very mildly elevated ammonia at 33, this is not felt to be the cause of his altered mental status. After IV hydration the patient had improved to baseline and parents were eager for discharge. They will monitor closely and return the emergency department as needed Undiagnosed new problem with uncertain prognosis? @ -No Drug Therapy requiring intensive monitoring for toxicity (Heparin, Nitro, Insulin, Cardizem)? @ -No Were any procedures done? @ -No Diagnosis/symptom? @ -Altered mental status, resolved Acute, or Chronic, or Acute on Chronic? @ -acute Uncomplicated (without systemic symptoms) or Complicated (systemic symptoms)? @ -[Uncomplicated Side effects of treatment? @ -No Exacerbation, Progression, or Severe Exacerbation? @ -No Poses a threat to life or bodily function? How? (Chest pain, USA, [place], pneumonia, PE, COPD, DKA, ARF, appy, cholecystitis, CVA, Diverticulitis, Homicidal, Suicidal, threat to staff... and all critical care pts) @ -No - Lab Data Result diagrams: 12/01/22 11:34 12/01/22 11:34 Lab Results 12/01/22 12/01/22 12/01/22 Range/Units 11:34 11:34 11:34 WBC 8.1 (3.8-10.6) k/uL RBC 4.69 (4.30-5.90) m/uL Hgb 11.8 L (13.0-17.5) gm/dL Hct 36.5 L (39.0-53.0) % MCV 77.8 L (80.0-100.0) fL MCH 25.2 (25.0-35.0) pg MCHC 32.4 (31.0-37.0) g/dL RDW 16.1 H (11.5-15.5) % Plt Count 217 (150-450) k/uL MPV 10.3 Neutrophils % 84 % Lymphocytes % 10 % Monocytes % 4 % Eosinophils % 1 % Basophils % 0 % Neutrophils # 6.8 (1.3-7.7) k/uL Lymphocytes # 0.8 L (1.0-4.8) k/uL Monocytes # 0.3 (0-1.0) k/uL Eosinophils # 0.0 (0-0.7) k/uL Basophils # 0.0 (0-0.2) k/uL Anisocytosis Slight Microcytosis Slight PT 10.3 (9.0-12.0) sec INR 1.0 (<1.2) APTT 24.2 (22.0-30.0) sec VBG pH (7.31-7.41) VBG pCO2 (37-51) mmHg VBG HCO3 (24-28) mmol/L Sodium (137-145) mmol/L Potassium (3.5-5.1) mmol/L Chloride (98-107) mmol/L Carbon Dioxide (22-30) mmol/L Anion Gap mmol/L BUN (9-20) mg/dL Creatinine (0.66-1.25) mg/dL Est GFR (CKD-EPI)AfAm (>60 ml/min/1.73 sqM) Est GFR (CKD-EPI)NonAf (>60 ml/min/1.73 sqM) Glucose (74-99) mg/dL Plasma Lactic Acid Joao (0.7-2.0) mmol/L Calcium (8.4-10.2) mg/dL Magnesium (1.6-2.3) mg/dL Total Bilirubin (0.2-1.3) mg/dL AST (17-59) U/L ALT (4-49) U/L Alkaline Phosphatase (38-126) U/L Ammonia (<30) umol/L Total Protein (6.3-8.2) g/dL Albumin (3.5-5.0) g/dL Urine Color Yellow Urine Appearance Clear (Clear) Urine pH 7.5 (5.0-8.0) Ur Specific [place] 1.020 (1.001-1.035) Urine Protein Trace H (Negative) Urine Glucose (UA) Negative (Negative) Urine Ketones Negative (Negative) Urine Blood Negative (Negative) Urine Nitrite Negative (Negative) Urine Bilirubin Negative (Negative) Urine Urobilinogen <2.0 (<2.0) mg/dL Ur Leukocyte Esterase Negative (Negative) 12/01/22 12/01/22 12/01/22 Range/Units 11:34 11:34 11:34 WBC (3.8-10.6) k/uL RBC (4.30-5.90) m/uL Hgb (13.0-17.5) gm/dL Hct (39.0-53.0) % MCV (80.0-100.0) fL MCH (25.0-35.0) pg MCHC (31.0-37.0) g/dL RDW (11.5-15.5) % Plt Count (150-450) k/uL MPV Neutrophils % % Lymphocytes % % Monocytes % % Eosinophils % % Basophils % % Neutrophils # (1.3-7.7) k/uL Lymphocytes # (1.0-4.8) k/uL Monocytes # (0-1.0) k/uL Eosinophils # (0-0.7) k/uL Basophils # (0-0.2) k/uL Anisocytosis Microcytosis PT (9.0-12.0) sec INR (<1.2) APTT (22.0-30.0) sec VBG pH 7.34 (7.31-7.41) VBG pCO2 48 (37-51) mmHg VBG HCO3 25 (24-28) mmol/L Sodium 140 (137-145) mmol/L Potassium 4.8 (3.5-5.1) mmol/L Chloride 105 (98-107) mmol/L Carbon Dioxide 25 (22-30) mmol/L Anion Gap 10 mmol/L BUN 9 (9-20) mg/dL Creatinine 0.69 (0.66-1.25) mg/dL Est GFR (CKD-EPI)AfAm >90 (>60 ml/min/1.73 sqM) Est GFR (CKD-EPI)NonAf >90 (>60 ml/min/1.73 sqM) Glucose 116 H (74-99) mg/dL Plasma Lactic Acid Joao 1.3 (0.7-2.0) mmol/L Calcium 9.5 (8.4-10.2) mg/dL Magnesium 2.0 (1.6-2.3) mg/dL Total Bilirubin 0.2 (0.2-1.3) mg/dL AST 26 (17-59) U/L ALT 25 (4-49) U/L Alkaline Phosphatase 72 (38-126) U/L Ammonia 33 H (<30) umol/L Total Protein 8.0 (6.3-8.2) g/dL Albumin 4.9 (3.5-5.0) g/dL Urine Color Urine Appearance (Clear) Urine pH (5.0-8.0) Ur Specific [place] (1.001-1.035) Urine Protein (Negative) Urine Glucose (UA) (Negative) Urine Ketones (Negative) Urine Blood (Negative) Urine Nitrite (Negative) Urine Bilirubin (Negative) Urine Urobilinogen (<2.0) mg/dL Ur Leukocyte Esterase (Negative) Disposition Clinical Impression: Altered mental status Disposition: HOME SELF-CARE Condition: Good Instructions (If sedation given, give patient instructions): Dehydration (ED), Weakness (ED) Additional Instructions: Please return with worsening or changing symptoms. Is patient prescribed a controlled substance at d/c from ED?: No Referrals: Jorge Phillip DO [Primary Care Provider] - 1-2 days Time of Disposition: 14:01
[2022-12-01 13:53] LABS: Appearance,Urine Clear (Clear); Bilirubin,Urine Negative (Negative); Blood,Urine Negative (Negative); Color,Urine Yellow; Glucose,Urine (UA) Negative (Negative); Ketones,Urine Negative (Negative); Leukocyte Esterase,Urine Negative (Negative); Nitrite,Urine Negative (Negative); PH, Urine 7.5 (5.0-8.0); Protein,Urine Trace (Negative); Urobilinogen,Urine <2.0 mg/dL (<2.0)
[2022-12-01 13:57] VITALS: BP 145/85; PULSE 77
[2022-12-01 14:00] LABS: Amphetamine Screen,Urine Not Detected (NotDetected); Barbiturate Screen,Urine Not Detected (NotDetected); Benzodiazepines Screen,Urine Not Detected (NotDetected); Cocaine Screen,Urine Not Detected (NotDetected); Methadone Screen, Urine Not Detected (NotDetected); Opiate Screen,Urine Not Detected (NotDetected); Oxycodone Screen, Urine Not Detected (NotDetected); Phencyclidine Screen,Urine Not Detected (NotDetected); Tricyclic Antidepressant,Urine Not Detected (NotDetected); Urn Cannabinoid Scrn Detected (NotDetected)
== END 2022-12-01 14:24 | disposition home or self-care (01) ==
LOC: EC 10:22
DX: R41.82 Altered mental status, unspecified (principal); J45.909 Unspecified asthma, uncomplicated; Z79.899 Other long term (current) drug therapy; Z91.018 Allergy to other foods; Z88.8 Allergy status to other drugs, medicaments and biological substances
CPT/HCPCS: 36415; 80053; 80306; 81003; 82140; 82803; 83605; 83735; 85025; 85610; 85730; 93005; 96360; 99285

== ENCOUNTER 2023-02-22 11:38 | Emergency (ER) | payer BC, OTHER ==
[2023-02-22 11:51] VITALS: TEMP 98.2
--- NOTE | 2023-02-22 12:20 | ED ---
Head Injury HPI - General Chief complaint: Head Injury Stated complaint: fall,head injury Time Seen by Provider: 02/22/23 12:10 Source: patient, RN notes reviewed Mode of arrival: ambulatory Limitations: no limitations, altered mental status - History of Present Illness Initial comments: 27-year-old male presents emergency Department with father with chief complaint of a head injury. Patient was at program in which they state that he fell forward striking his head there may have been a loss conscious. Patient is non- able to provide much information. Patient does have a history of seizures. Patient denies any extremity pain no other associated symptoms - Related Data Home Medications Medication Instructions Recorded Confirmed Benztropine Mesylate [Cogentin] 1 mg PO BID@0800,1600 03/06/15 12/01/22 Cetirizine HCl [Zyrtec] 10 mg PO DAILY@0800 03/06/15 12/01/22 Montelukast [Singulair] 10 mg PO HS@199903/06/15 12/01/22 Multivitamin [Men's Multi-Vitamin] 1 tab PO DAILY@0800 03/06/15 12/01/22 cloNIDine HCL [Catapres] 0.1 mg PO TID@0800,1600,199903/06/15 12/01/22 Lacosamide [Vimpat] 200 mg PO BID@0800,199908/14/17 12/01/22 OLANZapine [ZyPREXA] 10 mg PO HS@199908/14/17 12/01/22 OXcarbazepine [Trileptal] 600 mg PO BID@0800,199901/10/18 12/01/22 fluPHENAZine HCl [fluPHENAZine HCL] 10 mg PO BID@0800,199909/19/18 12/01/22 lamoTRIgine [LaMICtal] 50 mg PO BID@0800,199901/01/19 12/01/22 lamoTRIgine [LaMICtal] 200 mg PO BID@0800,199907/03/19 12/01/22 Cholecalciferol [Vitamin D3 (25 50 mcg PO DAILY@0800 10/05/21 12/01/22 Mcg = 1000 Iu)] Omeprazole 20 mg PO DAILY@0800 10/05/21 12/01/22 Ferrous Sulfate [Feosol] 325 mg PO DAILY@0800 12/01/22 12/01/22 Allergies/Adverse reactions: Allergies Allergy/AdvReac Type Severity Reaction Status Date / Time fluoxetine [From Prozac] Allergy Unknown Verified 02/22/23 11:51 peanut Allergy Unknown Verified 02/22/23 11:51 phenytoin [From Dilantin] Allergy Unknown Verified 02/22/23 11:51 Review of Systems ROS Statement: Those systems with pertinent positive or pertinent negative responses have been documented in the HPI. ROS Other: All systems not noted in ROS Statement are negative. Past Medical History Past Medical History: Asthma, Seizure Disorder Additional Past Medical History / Comment(s): Autism(can become violent at times -thats why he is in a halfway mon thru monday and home on weekend).being tx for autism/behavior/violent episodes. Pt has the mentality of an 7 year old and when pt not sick he can pretty much tell you what he needs or wants. Pt is able to read and write some-usually only what he wants to. limited w/ his food likes. he eats irish fries, cheesy bread, chips, cereal(trix or waffle crisps). Other hx: Last seizure 10/2018-he had 3 grand mal seizures, hyperammonemia, thrombocytopenia, normocytic anemia. History of Any Multi-Drug Resistant Organisms: MRSA Date of last positivie culture/infection: 2006 MDRO Source:: boils on rt hip Past Surgical History: No Surgical Hx Reported Additional Past Surgical History / Comment(s): pt can be violent at times is why he is in halfway per mom, being treated, Autism/behavior/violent [facility] Past Anesthesia/Blood Transfusion Reactions: No Reported Reaction Additional Past Anesthesia/Blood Transfusion Reaction / Comment(s): per mom-pt never had any sx. Past Psychological History: No Psychological Hx Reported Smoking Status: Never smoker Past Alcohol Use History: None Reported Past Drug Use History: None Reported - Past Family History Father Family Medical History: Diabetes Mellitus, Hyperlipidemia, Hypertension Additional Family Medical History / Comment(s): depression. Paternal grandmother with myocardial infarction. Maternal grandfather with congestive heart failure Mother Family Medical History: Diabetes Mellitus, Hyperlipidemia, Hypertension, Thyroid Disorder Additional Family Medical History / Comment(s): depression General Exam Limitations: altered mental status General appearance: alert, in no apparent distress Head exam: Present: atraumatic, normocephalic, normal inspection Eye exam: Present: normal appearance, PERRL, EOMI, periorbital swelling (Mild superior periorbital, frontal swelling). Absent: scleral icterus, conjunctival injection, periorbital tenderness ENT exam: Present: normal exam, mucous membranes moist Neck exam: Present: normal inspection, full ROM. Absent: tenderness, meningismus, lymphadenopathy Respiratory exam: Present: normal lung sounds bilaterally. Absent: respiratory distress, wheezes, rales, rhonchi, stridor Cardiovascular Exam: Present: regular rate, normal rhythm, normal heart sounds. Absent: systolic murmur, diastolic murmur, rubs, gallop, clicks Neurological exam: Present: alert Course Vital Signs 02/22/23 02/22/23 11:50 13:18 Temperature 98.2 F Pulse Rate 115 H 83 Respiratory 22 18 Rate Blood Pressure 143/98 134/92 O2 Sat by Pulse 99 93 L Oximetry Medical Decision Making - Medical Decision Making Was pt. sent in by a medical professional or institution (, PA, BALLET SOLOIST, urgent care, hospital, or snf...) When possible be specific @ -No Did you speak to anyone other than the patient for history (EMS, parent, family, police, friend...)? What history was obtained from this source @ -Father providing all history in the room Did you review nursing and triage notes (agree or disagree)? Why? @ -I reviewed and agree with nursing and triage notes Were old charts reviewed (outside hosp., previous admission, EMS record, old EKG, old radiological studies, urgent care reports/EKG's, snf records)? Report findings @ -No old charts were reviewed Differential Diagnosis (chest pain, altered mental status, abdominal pain women, abdominal pain men, vaginal bleeding, weakness, fever, dyspnea, syncope, headache, dizziness, GI bleed, back pain, seizure, CVA, palpatations, mental health, musculoskeletal)? @ -Intracranial hemorrhage, skull fracture, facial fracture, facial contusion EKG interpreted by me (3pts min.). @ -None X-rays interpreted by me (1pt min.). @ -None done CT interpreted by me (1pt min.). @ -CT of the brain shows no intracranial hemorrhage or skull fracture no facial fracture U/S interpreted by me (1pt. min.). @ -None done What testing was considered but not performed or refused? (CT, X-rays, U/S, labs)? Why? @ -None What meds were considered but not given or refused? Why? @ -None Did you discuss the management of the patient with other professionals (professionals i.e. , PA, BALLET SOLOIST, lab, RT, psych nurse, social and political studies professor, business lawyer, teacher, aviation tactical readiness officer, caseworker protective services)? Give summary @ -No Was smoking cessation discussed for >3mins.? @ -No Was critical care preformed (if so, how long)? @ -No Were there social determinants of health that impacted care today? How? (Homelessness, low income, unemployed, alcoholism, drug addiction, transportation, low edu. Level, literacy, decrease access to med. care, snf, rehab)? @ -No Was there de-escalation of care discussed even if they declined (Discuss DNR or withdrawal of care, Hospice)? DNR status @ -No What co-morbidities impacted this encounter? (DM, HTN, Smoking, COPD, CAD, Cancer, CVA, ARF, Chemo, Hep., AIDS, mental health diagnosis, sleep apnea, morbid obesity)? @ -Seizures Was patient admitted / discharged? Hospital course, mention meds given and route, prescriptions, significant lab abnormalities, going to OR and other pertinent info. @ -Discharge CT of the brain is unremarkable. Patient does have a history of seizures patient is a current baseline. Patient discharged in stable condition. Undiagnosed new problem with uncertain prognosis? @ -No Drug Therapy requiring intensive monitoring for toxicity (Heparin, Nitro, Insulin, Cardizem)? @ -No Were any procedures done? @ -No Diagnosis/symptom? @ -Facial contusion, history of seizures Acute, or Chronic, or Acute on Chronic? @ -Acute Uncomplicated (without systemic symptoms) or Complicated (systemic symptoms)? @ -Uncomplicated Side effects of treatment? @ -No Exacerbation, Progression, or Severe Exacerbation? @ -No Poses a threat to life or bodily function? How? (Chest pain, [place], [place], pneumonia, PE, COPD, DKA, ARF, appy, cholecystitis, CVA, Diverticulitis, Homicidal, Suicidal, threat to staff... and all critical care pts) @ -No Disposition Clinical Impression: Facial contusion, Seizure disorder Disposition: HOME SELF-CARE Condition: Stable Instructions (If sedation given, give patient instructions): Head Injury (ED) Additional Instructions: Please return to the Emergency Department if symptoms worsen or any other concerns. Is patient prescribed a controlled substance at d/c from ED?: No Referrals: Jorge Phillip DO [Primary Care Provider] - 1-2 days Time of Disposition: 13:02
--- NOTE | 2023-02-22 12:37 | CT ---
EXAMINATION TYPE: CT brain wo con CT DLP: 1119.4 mGycm, Automated exposure control for dose reduction was used. DATE OF EXAM: 02/22/2023 12:31 PM COMPARISON: Multiple CT brains with most recent 10/05/2021 CLINICAL INDICATION:Male, 27 years old with history of trauma, fall, head injury TECHNIQUE: Brain: Multiple axial CT images of the brain were obtained without IV contrast. Coronal and sagittal reformats reviewed. FINDINGS: Brain: Extra-axial spaces: No abnormal extra-axial fluid collections. Ventricular system: Within normal limits Cerebral parenchyma: No acute intraparenchymal hemorrhage or mass effect. The russell-white junction is well differentiated. Cerebellum: Unremarkable. Mass effect: No evidence of midline shift. Intracranial vasculature: unremarkable Soft tissues: Normal. Calvarium/osseous structures: No depressed skull fracture. Paranasal sinuses and mastoid air cells: Clear Visualized orbits: Orbital contents are intact. IMPRESSION: No acute intracranial process or significant change from prior.
[2023-02-22 13:23] VITALS: BP 134/92; PULSE 83; RESP 18
== END 2023-02-22 13:23 | disposition home or self-care (01) ==
LOC: EC 11:38
DX: S00.83XA Contusion of other part of head, initial encounter (principal); G40.909 Epilepsy, unspecified, not intractable, without status epilepticus; J45.909 Unspecified asthma, uncomplicated; Z79.899 Other long term (current) drug therapy; Z91.010 Allergy to peanuts; Z88.8 Allergy status to other drugs, medicaments and biological substances; W18.30XA Fall on same level, unspecified, initial encounter
CPT/HCPCS: 70450; 99284

== ENCOUNTER 2023-03-13 10:54 | Emergency (ER) | payer BC, MEDICARE, OTHER ==
[2023-03-13 10:59] VITALS: RESP 18
[2023-03-13] MEDS ORDERED: ONDANSETRON 4 MG/2 ML VIAL IVP STA (11:57)
[2023-03-13] MEDS ORDERED: SODIUM CHLORIDE 0.9% 1,000 ML IV ONE (11:57)
[2023-03-13 12:23] LABS: Basophils # (A) 0.1 k/uL (0-0.2); Basophils % (A) 1 %; Eosinophils # (A) 0.1 k/uL (0-0.7); Eosinophils % (A) 1 %; HCT 40.1 % (39.0-53.0); HGB 13.1 gm/dL (13.0-17.5); Lymphocytes # (A) 0.9 k/uL (1.0-4.8); Lymphocytes % (A) 9 %; MCH 27.5 pg (25.0-35.0); MCHC 32.7 g/dL (31.0-37.0); MCV 84.2 fL (80.0-100.0); Mean Platelet Volume 9.4; Monocytes # (A) 0.4 k/uL (0-1.0); Monocytes % (A) 4 %; Neutrophils # (A) 7.8 k/uL (1.3-7.7); Neutrophils % (A) 84 %; Platelet Count 213 k/uL (150-450); RBC 4.77 m/uL (4.30-5.90); RDW 14.6 % (11.5-15.5); WBC 9.3 k/uL (3.8-10.6)
[2023-03-13 12:33] LABS: Lactic Acid, Venous 1.9 mmol/L (0.7-2.0)
[2023-03-13 12:34] LABS: ALT 20 U/L (4-49); AST 21 U/L (17-59); African American GFR (CKD) >90 (>60 ml/min/1.73 sqM); Albumin 5.1 g/dL (3.5-5.0); Alkaline Phosphatase 59 U/L (38-126); Amylase 52 U/L (30-110); Anion Gap 12 mmol/L; Blood Urea Nitrogen 9 mg/dL (9-20); Calcium 9.5 mg/dL (8.4-10.2); Carbon Dioxide 23 mmol/L (22-30); Chloride 104 mmol/L (98-107); Glucose 110 mg/dL (74-99); Lipase 106 U/L (23-300); Non-African American GFR(CKD) >90 (>60 ml/min/1.73 sqM); Potassium 4.8 mmol/L (3.5-5.1); Sodium 139 mmol/L (137-145); Total Bilirubin 0.2 mg/dL (0.2-1.3); Total Protein 8.1 g/dL (6.3-8.2)
--- NOTE | 2023-03-13 12:39 | ED ---
General Adult HPI - General Chief complaint: Nausea/Vomiting/Diarrhea Stated complaint: Unable to ambulate, vomiting Time Seen by Provider: 03/13/23 11:39 Source: patient, family, RN notes reviewed Mode of arrival: ambulatory - History of Present Illness Initial comments: 27-year-old male with a past medical history significant for autism presents to the emergency department accompanied by mother and father with a chief complaint of vomiting. Mother reports that patient was at [place] slightly started shaking and "just acting abnormal." She reports increased weakness with difficulty walking. Denies any recent fevers, cough. Denies known recent sick contacts. - Related Data Home Medications Medication Instructions Recorded Confirmed Benztropine Mesylate [Cogentin] 1 mg PO BID@0800,159903/06/15 03/13/23 Cetirizine HCl [Zyrtec] 10 mg PO DAILY@0800 03/06/15 03/13/23 Montelukast [Singulair] 10 mg PO HS@199903/06/15 03/13/23 Multivitamin [Men's Multi-Vitamin] 1 tab PO DAILY@0800 03/06/15 03/13/23 cloNIDine HCL [Catapres] 0.1 mg PO BID@0800,199903/06/15 03/13/23 Lacosamide [Vimpat] 200 mg PO BID@0800,199908/14/17 03/13/23 OLANZapine [ZyPREXA] 10 mg PO HS@199908/14/17 03/13/23 OXcarbazepine [Trileptal] 600 mg PO BID@0800,199901/10/18 03/13/23 fluPHENAZine HCl [fluPHENAZine HCL] 10 mg PO BID@0800,199909/19/18 03/13/23 lamoTRIgine [LaMICtal] 50 mg PO BID@0800,199901/01/19 03/13/23 lamoTRIgine [LaMICtal] 200 mg PO BID@0800,199907/03/19 03/13/23 Cholecalciferol [Vitamin D3 (25 50 mcg PO DAILY@0800 10/05/21 03/13/23 Mcg = 1000 Iu)] Omeprazole 20 mg PO DAILY@0800 10/05/21 03/13/23 Ferrous Sulfate [Feosol] 325 mg PO DAILY@0800 03/16/23 06/26/23 Previous Rx's Medication Instructions Recorded Ondansetron Odt [Zofran Odt] 4 mg PO Q8HR PRN #10 tab 03/13/23 Allergies Allergy/AdvReac Type Severity Reaction Status Date / Time fluoxetine [From Prozac] Allergy Unknown Verified 03/13/23 12:44 peanut Allergy Unknown Verified 03/13/23 12:44 phenytoin [From Dilantin] Allergy Unknown Verified 03/13/23 12:44 Review of Systems ROS Statement: Those systems with pertinent positive or pertinent negative responses have been documented in the HPI. ROS Other: All systems not noted in ROS Statement are negative. Past Medical History Past Medical History: Asthma, Seizure Disorder Additional Past Medical History / Comment(s): Autism(can become violent at times -thats why he is in a senior living mon thru monday and home on weekend).being tx for autism/behavior/violent episodes. Pt has the mentality of an 8 year old and when pt not sick he can pretty much tell you what he needs or wants. Pt is able to read and write some-usually only what he wants to. limited w/ his food likes. he eats salvadorean fries, cheesy bread, chips, cereal(trix or waffle crisps). Other hx: Last seizure 10/2018-he had 3 grand mal seizures, hyperammonemia, thrombocytopenia, normocytic anemia. History of Any Multi-Drug Resistant Organisms: MRSA Date of last positivie culture/infection: 2006 MDRO Source:: boils on rt hip Past Surgical History: No Surgical Hx Reported Additional Past Surgical History / Comment(s): pt can be violent at times is why he is in senior living per mom, being treated, Autism/behavior/violent [facility] Past Anesthesia/Blood Transfusion Reactions: No Reported Reaction Additional Past Anesthesia/Blood Transfusion Reaction / Comment(s): per mom-pt never had any sx. Past Psychological History: No Psychological Hx Reported Smoking Status: Never smoker Past Alcohol Use History: None Reported Past Drug Use History: None Reported - Past Family History Father Family Medical History: Diabetes Mellitus, Hyperlipidemia, Hypertension Additional Family Medical History / Comment(s): depression. Paternal grandmother with myocardial infarction. Maternal grandfather with congestive heart failure Mother Family Medical History: Diabetes Mellitus, Hyperlipidemia, Hypertension, Thyroid Disorder Additional Family Medical History / Comment(s): depression General Exam - General Exam Comments Initial Comments: General: Alert, in no acute distress Head: atraumatic normocephalic. Eyes PERRL, EOMI intact, mucous membranes moist Respiratory: Lungs clear to auscultation bilaterally Cardiovascular: Heart rate regular rate and rhythm Abdominal: Soft without guarding or rebound Extremities: Normal inspection with full range of motion and normal capillary refill Neuroogic: alert and oriented 3, CN II-XII intact, able to ambulate with steady gait Skin: warm dry and intact with normal color Course Vital Signs 03/13/23 03/13/23 03/13/23 10:56 11:20 11:30 Temperature 99.1 F Pulse Rate 80 Respiratory 18 Rate Blood Pressure 147/63 O2 Sat by Pulse 96 96 96 Oximetry 03/13/23 03/13/23 03/13/23 11:40 11:50 12:05 Temperature Pulse Rate Respiratory Rate Blood Pressure O2 Sat by Pulse 93 L 95 94 L Oximetry 03/13/23 03/13/23 03/13/23 12:10 12:40 12:50 Temperature Pulse Rate Respiratory Rate Blood Pressure 144/86 O2 Sat by Pulse 97 96 93 L Oximetry 03/13/23 03/13/23 03/13/23 13:00 13:10 13:20 Temperature Pulse Rate Respiratory Rate Blood Pressure 144/86 112/80 112/80 O2 Sat by Pulse 92 L 96 96 Oximetry 03/13/23 03/13/23 03/13/23 13:30 13:40 13:50 Temperature Pulse Rate Respiratory Rate Blood Pressure 112/80 122/79 122/79 O2 Sat by Pulse 94 L 93 L 96 Oximetry 03/13/23 03/13/23 14:00 14:10 Temperature 97.9 F Pulse Rate 84 Respiratory Rate Blood Pressure 122/79 134/84 O2 Sat by Pulse 94 L 97 Oximetry EKG Findings - EKG Comments: EKG Findings:: I interpreted the following: EKG performed at 12:02. Rate 75 bpm normal sinus rhythm. DE interval 164, QRS duration 97, QT/QTC 379/407 Medical Decision Making - Medical Decision Making Was pt. sent in by a medical professional or institution (, PA, MACHINE ZIPPER TRIMMER, urgent care, hospital, or detention...) When possible be specific @ -[No] Did you speak to anyone other than the patient for history (EMS, parent, family, police, friend...)? What history was obtained from this source @ -[No] Did you review nursing and triage notes (agree or disagree)? Why? @ -[I reviewed and agree with nursing and triage notes] Were old charts reviewed (outside hosp., previous admission, EMS record, old EKG, old radiological studies, urgent care reports/EKG's, detention records)? Report findings @ -[No old charts were reviewed] Differential Diagnosis (chest pain, altered mental status, abdominal pain women, abdominal pain men, vaginal bleeding, weakness, fever, dyspnea, syncope, headach e, dizziness, GI bleed, back pain, seizure, CVA, palpatations, mental health, musculoskeletal)? @ -[not applicable] EKG interpreted by me (3pts min.). @ -[As above] X-rays interpreted by me (1pt min.). @ -[None done] CT interpreted by me (1pt min.). @ -[None done] U/S interpreted by me (1pt. min.). @ -[None done] What testing was considered but not performed or refused? (CT, X-rays, U/S, labs)? Why? @ -[None] What meds were considered but not given or refused? Why? @ -[None] Did you discuss the management of the patient with other professionals (professionals i.e. , PA, MACHINE ZIPPER TRIMMER, lab, RT, psych nurse, social service technician, wine fermenter, teacher, chemistry technical officer, pillowcase cutter)? Give summary @ -[No] Was smoking cessation discussed for >3mins.? @ -[No] Was critical care preformed (if so, how long)? @ -[No] Were there social determinants of health that impacted care today? How? (Homelessness, low income, unemployed, alcoholism, drug addiction, transportation, low edu. Level, literacy, decrease access to med. care, retirement, rehab)? @ -[No] Was there de-escalation of care discussed even if they declined (Discuss DNR or withdrawal of care, Hospice)? DNR status @ -[No] What co-morbidities impacted this encounter? (DM, HTN, Smoking, COPD, CAD, Cancer, CVA, ARF, Chemo, Hep., AIDS, mental health diagnosis, sleep apnea, morbid obesity)? @ -[None] Was patient admitted / discharged? Hospital course, mention meds given and route, prescriptions, significant lab abnormalities, going to OR and other pertinent info. @ -Discharged. This is a 27-year-old male presents the emergency department with nausea. Patient had a thorough history and physical exam performed on the ED. Physical exam is essentially unremarkable. Heart rate regular rate and rhythm lungs clear to auscultation bilaterally abdomen soft non-tender. Patient was given 1L IV fluids and zofran in the emergency departme nt symptomatic relief. He should had lab work and imaging performed which was essentially unremarkable. I discussed the results in detail the patient verbalized understanding and all questions were addressed. Patient discharged in stable condition. Return precautions discussed at length. He was given a referral for urology Case discussed with Dr. Fraire [facility] who agrees with plan of care Undiagnosed new problem with uncertain prognosis? @ -[No] Drug Therapy requiring intensive monitoring for toxicity (Heparin, Nitro, Insulin, Cardizem)? @ -[No] Were any procedures done? @ -[No] Diagnosis/symptom? @ -Vomiting Acute, or Chronic, or Acute on Chronic? @ -acute Uncomplicated (without systemic symptoms) or Complicated (systemic symptoms)? @ -Uncomplicated Side effects of treatment? @ -[No] Exacerbation, Progression, or Severe Exacerbation? @ -[No] Poses a threat to life or bodily function? How? (Chest pain, [place], [place], pneumonia, PE, COPD, DKA, ARF, appy, cholecystitis, CVA, Diverticulitis, Homicidal, Suicidal, threat to staff... and all critical care pts) @ -Low likelihood - Lab Data Result diagrams: 03/13/23 12:12 03/13/23 12:12 Lab Results 03/13/23 03/13/23 03/13/23 Range/Units 12:12 12:12 12:12 WBC 9.3 (3.8-10.6) k/uL RBC 4.77 (4.30-5.90) m/uL Hgb 13.1 (13.0-17.5) gm/dL Hct 40.1 (39.0-53.0) % MCV 84.2 (80.0-100.0) fL MCH 27.5 (25.0-35.0) pg MCHC 32.7 (31.0-37.0) g/dL RDW 14.6 (11.5-15.5) % Plt Count 213 (150-450) k/uL MPV 9.4 Neutrophils % 84 % Lymphocytes % 9 % Monocytes % 4 % Eosinophils % 1 % Basophils % 1 % Neutrophils # 7.8 H (1.3-7.7) k/uL Lymphocytes # 0.9 L (1.0-4.8) k/uL Monocytes # 0.4 (0-1.0) k/uL Eosinophils # 0.1 (0-0.7) k/uL Basophils # 0.1 (0-0.2) k/uL Sodium 139 (137-145) mmol/L Potassium 4.8 (3.5-5.1) mmol/L Chloride 104 (98-107) mmol/L Carbon Dioxide 23 (22-30) mmol/L Anion Gap 12 mmol/L BUN 9 (9-20) mg/dL Creatinine 0.72 (0.66-1.25) mg/dL Est GFR (CKD-EPI)AfAm >90 (>60 ml/min/1.73 sqM) Est GFR (CKD-EPI)NonAf >90 (>60 ml/min/1.73 sqM) Glucose 110 H (74-99) mg/dL Plasma Lactic Acid Joao 1.9 (0.7-2.0) mmol/L Calcium 9.5 (8.4-10.2) mg/dL Total Bilirubin 0.2 (0.2-1.3) mg/dL AST 21 (17-59) U/L ALT 20 (4-49) U/L Alkaline Phosphatase 59 (38-126) U/L Ammonia 32 H (<30) umol/L Total Protein 8.1 (6.3-8.2) g/dL Albumin 5.1 H (3.5-5.0) g/dL Amylase 52 (30-110) U/L Lipase 106 (23-300) U/L Urine Color Urine Appearance (Clear) Urine pH (5.0-8.0) Ur Specific [place] (1.001-1.035) Urine Protein (Negative) Urine Glucose (UA) (Negative) Urine Ketones (Negative) Urine Blood (Negative) Urine Nitrite (Negative) Urine Bilirubin (Negative) Urine Urobilinogen (<2.0) mg/dL Ur Leukocyte Esterase (Negative) Urine RBC (0-5) /hpf Urine WBC (0-5) /hpf Urine Mucus (None) /hpf Influenza Type A (PCR) (Not Detectd) Influenza Type B (PCR) (Not Detectd) RSV (PCR) (Not Detectd) SARS-CoV-2 (PCR) (Not Detectd) Group A Strep (PCR) (Not Detectd) 03/13/23 03/13/23 03/13/23 Range/Units 12:12 12:12 12:40 WBC (3.8-10.6) k/uL RBC (4.30-5.90) m/uL Hgb (13.0-17.5) gm/dL Hct (39.0-53.0) % MCV (80.0-100.0) fL MCH (25.0-35.0) pg MCHC (31.0-37.0) g/dL RDW (11.5-15.5) % Plt Count (150-450) k/uL MPV Neutrophils % % Lymphocytes % % Monocytes % % Eosinophils % % Basophils % % Neutrophils # (1.3-7.7) k/uL Lymphocytes # (1.0-4.8) k/uL Monocytes # (0-1.0) k/uL Eosinophils # (0-0.7) k/uL Basophils # (0-0.2) k/uL Sodium (137-145) mmol/L Potassium (3.5-5.1) mmol/L Chloride (98-107) mmol/L Carbon Dioxide (22-30) mmol/L Anion Gap mmol/L BUN (9-20) mg/dL Creatinine (0.66-1.25) mg/dL Est GFR (CKD-EPI)AfAm (>60 ml/min/1.73 sqM) Est GFR (CKD-EPI)NonAf (>60 ml/min/1.73 sqM) Glucose (74-99) mg/dL Plasma Lactic Acid Joao (0.7-2.0) mmol/L Calcium (8.4-10.2) mg/dL Total Bilirubin (0.2-1.3) mg/dL AST (17-59) U/L ALT (4-49) U/L Alkaline Phosphatase (38-126) U/L Ammonia (<30) umol/L Total Protein (6.3-8.2) g/dL Albumin (3.5-5.0) g/dL Amylase (30-110) U/L Lipase (23-300) U/L Urine Color Yellow Urine Appearance Clear (Clear) Urine pH 7.0 (5.0-8.0) Ur Specific [place] 1.025 (1.001-1.035) Urine Protein 1+ H (Negative) Urine Glucose (UA) Negative (Negative) Urine Ketones Negative (Negative) Urine Blood Negative (Negative) Urine Nitrite Negative (Negative) Urine Bilirubin Negative (Negative) Urine Urobilinogen <2.0 (<2.0) mg/dL Ur Leukocyte Esterase Negative (Negative) Urine RBC 1 (0-5) /hpf Urine WBC 2 (0-5) /hpf Urine Mucus Many H (None) /hpf Influenza Type A (PCR) Not Detected (Not Detectd) Influenza Type B (PCR) Not Detected (Not Detectd) RSV (PCR) Not Detected (Not Detectd) SARS-CoV-2 (PCR) Not Detected (Not Detectd) Group A Strep (PCR) NOT DETECTED (Not Detectd) Disposition Clinical Impression: Vomiting Disposition: HOME SELF-CARE Condition: Stable Instructions (If sedation given, give patient instructions): Acute Nausea and Vomiting (ED) Additional Instructions: These return to the nearest emergency department symptoms worsen or persist Prescriptions: Ondansetron Odt [Zofran Odt] 4 mg PO Q8HR PRN #10 tab PRN Reason: Nausea Is patient prescribed a controlled substance at d/c from ED?: No Referrals: Jorge Phillip DO [Primary Care Provider] - 1-2 days Time of Disposition: 18:49
[2023-03-13 13:04] LABS: Appearance,Urine Clear (Clear); Bilirubin,Urine Negative (Negative); Blood,Urine Negative (Negative); Color,Urine Yellow; Glucose,Urine (UA) Negative (Negative); Ketones,Urine Negative (Negative); Leukocyte Esterase,Urine Negative (Negative); Mucus,Urine Many /hpf; Nitrite,Urine Negative (Negative); Protein,Urine 1+ (Negative); RBC,Urine 1 /hpf (0-5); Specific Gravity,Urine 1.025 (1.001-1.035); Urobilinogen,Urine <2.0 mg/dL (<2.0); WBC,Urine 2 /hpf (0-5)
[2023-03-13 14:18] VITALS: BP 134/84; PULSE 84; TEMP 97.9
== END 2023-03-13 14:34 | disposition home or self-care (01) ==
LOC: EC 10:54
DX: R11.10 Vomiting, unspecified (principal); J45.909 Unspecified asthma, uncomplicated; Z79.899 Other long term (current) drug therapy; Z91.010 Allergy to peanuts; Z88.6 Allergy status to analgesic agent; Z88.8 Allergy status to other drugs, medicaments and biological substances; Z20.822 Contact with and (suspected) exposure to COVID-19
CPT/HCPCS: 36415; 93005; 87651; 80053; 80175; 82140; 82150; 83605; 83690; 85025; 81001; 87636; 99284; 96374; 96361; J2405

== ENCOUNTER 2023-09-17 12:15 | Emergency (ER) | payer BC, MEDICARE, OTHER ==
[2023-09-17 12:28] VITALS: TEMP 97.6
[2023-09-17] MEDS ORDERED: SODIUM CHLORIDE 0.9% 1,000 ML IV ONE (12:57)
[2023-09-17 13:17] LABS: Basophils % (A) 0 %; Eosinophils # (A) 0.1 k/uL (0-0.7); Eosinophils % (A) 1 %; HGB 14.2 gm/dL (13.0-17.5); Lymphocytes # (A) 0.8 k/uL (1.0-4.8); Lymphocytes % (A) 9 %; MCH 29.1 pg (25.0-35.0); MCHC 34.7 g/dL (31.0-37.0); Mean Platelet Volume 9.8; Monocytes # (A) 0.5 k/uL (0-1.0); Monocytes % (A) 6 %; Neutrophils # (A) 7.4 k/uL (1.3-7.7); Neutrophils % (A) 83 %; Platelet Count 235 k/uL (150-450); RBC 4.89 m/uL (4.30-5.90); RDW 13.1 % (11.5-15.5); WBC 8.9 k/uL (3.8-10.6)
[2023-09-17 13:29] LABS: ALT 21 U/L (4-49); AST 21 U/L (17-59); African American GFR (CKD) >90 (>60 ml/min/1.73 sqM); Albumin 4.8 g/dL (3.5-5.0); Alkaline Phosphatase 73 U/L (38-126); Blood Urea Nitrogen 6 mg/dL (9-20); Calcium 9.6 mg/dL (8.4-10.2); Carbon Dioxide 23 mmol/L (22-30); Chloride 97 mmol/L (98-107); Glucose 104 mg/dL (74-99); Magnesium 2.2 mg/dL (1.6-2.3); Non-African American GFR(CKD) >90 (>60 ml/min/1.73 sqM); Potassium 4.5 mmol/L (3.5-5.1); Total Bilirubin 0.4 mg/dL (0.2-1.3); Total Protein 7.8 g/dL (6.3-8.2)
[2023-09-17 13:33] LABS: Anion Gap 11 mmol/L; Sodium 131 mmol/L (137-145)
--- NOTE | 2023-09-17 13:57 | XR ---
EXAMINATION TYPE: XR chest 2V DATE OF EXAM: 09/17/2023 1:35 PM CLINICAL INDICATION:Male, 27 years old with history of seizure, cough; COMPARISON: Chest radiographs from 02/11/2019 TECHNIQUE: XR chest 2V Frontal and lateral views of the chest. FINDINGS: Lungs/Pleura: There is no evidence of pleural effusion, focal consolidation, or pneumothorax. Pulmonary vascularity: Unremarkable. Heart/mediastinum: Cardiomediastinal silhouette is unremarkable. Musculoskeletal: No acute osseous pathology. IMPRESSION: No acute cardiopulmonary disease/process.
--- NOTE | 2023-09-17 14:04 | CT ---
EXAMINATION TYPE: CT brain cspine wo con, CT facial bones wo con CT DLP: 1388.9 mGycm, Automated exposure control for dose reduction was used. DATE OF EXAM: 09/17/2023 1:34 PM COMPARISON: None. CLINICAL INDICATION:Male, 27 years old with history of seizure, fall hit head; Seizure lasted about 2 min, pt hit face on dresser, TECHNIQUE: Brain: Multiple axial CT images of the brain were obtained without IV contrast. Cspine: Axial CT images from the skull base to the inferior aspect of T2 we obtained without intraven ous contrast. Coronal and sagittal reformatted images were also reviewed. Facial: Axial imaging of the facial structures with sagittal coronal reformats. FINDINGS: Brain: Extra-axial spaces: No abnormal extra-axial fluid collections. Ventricular system: Within normal limits Cerebral parenchyma: No acute intraparenchymal hemorrhage or mass effect. The russell-white junction is well differentiated. Cerebellum: Unremarkable. Mass effect: No evidence of midline shift. Intracranial vasculature: unremarkable Soft tissues: Normal. Calvarium/osseous structures: No depressed skull fracture. Paranasal sinuses and mastoid air cells: Mild paranasal sinus mucosal thickening. Visualized orbits: Orbital contents are intact. Cervical spine: Fracture: None. Osseous structures: Unremarkable Vertebral alignment: Within normal limits. Spinal canal/Neural Foramina: No evidence of significant spinal canal narrowing. No evidence for sign ificant neural foraminal stenosis. Neck soft tissues: Prevertebral soft tissues are within normal limits. Other: The airway is patent. The lung apices are clear. Facial:There is no evidence of fracture, subluxation, dislocation. There is soft tissue swelling over the forehead and left cheek. The orbital contents are unremarkable.The temporal-mandibular joints ap pear symmetric. The visualized portion of the paranasal sinuses show mild paranasal sinus mucosal thi ckening. IMPRESSION: 1. No acute intracranial process. 2. Soft tissue swelling of the forehead and left cheek without evidence of fracture. 3. No evidence of cervical spine fracture. 4. Mild multilevel degenerative disc disease.
--- NOTE | 2023-09-17 14:23 | ED ---
General Adult HPI - General Chief complaint: Fall Stated complaint: Seizure Time Seen by Provider: 09/17/23 12:26 Source: EMS, RN notes reviewed Mode of arrival: EMS - History of Present Illness Initial comments: 27-year-old male presents to the emergency department for evaluation of head injury after a seizure that occurred today. This occurred around 11 AM lasting about 2 minutes. This was unwitnessed. Patients father states that the patient was upstairs when he heard a loud noise. He went upstairs and found the patient on the ground. Patient has a history of seizures. His last seizure was around 1.5 months ago. He is on Lamictal and Trileptal for his seizure management. Patients mother reports that he has been experiencing upper respiratory symptoms throughout the past 2 weeks. Denies recent fever. Mother reports that patient is acting typical of his postictal state at this time. - Related Data Home Medications Medication Instructions Recorded Confirmed Benztropine Mesylate [Cogentin] 1 mg PO BID@0800,159903/06/15 03/13/23 Cetirizine HCl [Zyrtec] 10 mg PO DAILY@0800 03/06/15 03/13/23 Montelukast [Singulair] 10 mg PO HS@199903/06/15 03/13/23 Multivitamin [Men's Multi-Vitamin] 1 tab PO DAILY@0800 03/06/15 03/13/23 cloNIDine HCL [Catapres] 0.1 mg PO BID@0800,199903/06/15 03/13/23 Lacosamide [Vimpat] 200 mg PO BID@0800,199908/14/17 03/13/23 OLANZapine [ZyPREXA] 10 mg PO HS@199908/14/17 03/13/23 OXcarbazepine [Trileptal] 600 mg PO BID@0800,199901/10/18 03/13/23 fluPHENAZine HCl [fluPHENAZine HCL] 10 mg PO BID@0800,199909/19/18 03/13/23 lamoTRIgine [LaMICtal] 50 mg PO BID@0800,199901/01/19 03/13/23 lamoTRIgine [LaMICtal] 200 mg PO BID@0800,2000 10/16/19 06/26/23 Cholecalciferol [Vitamin D3 (25 50 mcg PO DAILY@0800 10/05/21 03/13/23 Mcg = 1000 Iu)] Omeprazole 20 mg PO DAILY@0800 10/05/21 03/13/23 Ferrous Sulfate [Feosol] 325 mg PO DAILY@0800 12/01/22 03/13/23 Previous Rx's Medication Instructions Recorded Ondansetron Odt [Zofran Odt] 4 mg PO Q8HR PRN #10 tab 03/13/23 Allergies Allergy/AdvReac Type Severity Reaction Status Date / Time fluoxetine [From Prozac] Allergy Unknown Verified 09/17/23 12:25 peanut Allergy Unknown Verified 09/17/23 12:25 phenytoin [From Dilantin] Allergy Unknown Verified 09/17/23 12:25 Review of Systems ROS Statement: Those systems with pertinent positive or pertinent negative responses have been documented in the HPI. ROS Other: All systems not noted in ROS Statement are negative. Past Medical History Past Medical History: Asthma, Seizure Disorder Additional Past Medical History / Comment(s): Autism(can become violent at times -thats why he is in a halfway mon thru monday and home on weekend).being tx for autism/behavior/violent episodes. Pt has the mentality of an 8 year old and when pt not sick he can pretty much tell you what he needs or wants. Pt is able to read and write some-usually only what he wants to. limited w/ his food likes. he eats northern irish fries, cheesy bread, chips, cereal(trix or waffle crisps). Other hx: Last seizure 10/2018-he had 3 grand mal seizures, hyperammonemia, thrombocytopenia, normocytic anemia. History of Any Multi-Drug Resistant Organisms: MRSA Date of last positivie culture/infection: 2006 MDRO Source:: boils on rt hip Past Surgical History: No Surgical Hx Reported Additional Past Surgical History / Comment(s): pt can be violent at times is why he is in halfway per mom, being treated, Autism/behavior/violent [facility] Past Anesthesia/Blood Transfusion Reactions: No Reported Reaction Additional Past Anesthesia/Blood Transfusion Reaction / Comment(s): per mom-pt never had any sx. Past Psychological History: No Psychological Hx Reported Smoking Status: Never smoker Past Alcohol Use History: None Reported Past Drug Use History: None Reported - Past Family History Father Family Medical History: Diabetes Mellitus, Hyperlipidemia, Hypertension Additional Family Medical History / Comment(s): depression. Paternal grand mother with myocardial infarction. Maternal grandfather with congestive heart failure Mother Family Medical History: Diabetes Mellitus, Hyperlipidemia, Hypertension, Thyroid Disorder Additional Family Medical History / Comment(s): depression General Exam Limitations: no limitations General appearance: alert, in no apparent distress Head exam: Present: other (Ecchymosis and abrasion to left cheek, abrasion to the emergency room the nose) Eye exam: Present: normal appearance, PERRL, EOMI. Absent: scleral icterus, conjunctival injection, periorbital swelling ENT exam: Present: normal exam, mucous membranes moist, TM's normal bilaterally, normal external ear exam Neck exam: Present: normal inspection. Absent: tenderness, meningismus, lymphadenopathy Respiratory exam: Present: normal lung sounds bilaterally. Absent: respiratory distress, wheezes, rales, rhonchi, stridor Cardiovascular Exam: Present: regular rate, normal rhythm, normal heart sounds. Absent: systolic murmur, diastolic murmur, rubs, gallop, clicks GI/Abdominal exam: Present: soft, normal bowel sounds. Absent: distended, te nderness, guarding, rebound, rigid Extremities exam: Present: normal inspection, full ROM, normal capillary refill. Absent: tenderness, pedal edema, joint swelling, calf tenderness Back exam: Present: normal inspection Neurological exam: Present: alert, CN II-XII intact, normal gait Psychiatric exam: Present: normal affect, normal mood Skin exam: Present: warm, dry, intact, normal color. Absent: rash Course Vital Signs 09/17/23 09/17/23 09/17/23 12:16 14:43 15:53 Temperature 97.6 F Pulse Rate 92 78 86 Respiratory 18 18 20 Rate Blood Pressure 102/61 126/84 140/82 O2 Sat by Pulse 92 L 99 95 Oximetry Medical Decision Making - Medical Decision Making Was pt. sent in by a medical professional or institution (, PA, [employer]TER, urgent care, hospital, or prison...) When possible be specific @ -No Did you speak to anyone other than the patient for history (EMS, parent, family, police, friend...)? What history was obtained from this source @ -Mother and father provided the history was patient Did you review nursing and triage notes (agree or disagree)? Why? @ -I reviewed and agree with nursing and triage notes Were old charts reviewed (outside hosp., previous admission, EMS record, old EKG, old radiological studies, urgent care reports/EKG's, prison records)? Report findings @ -No old charts were reviewed Differential Diagnosis (chest pain, altered mental status, abdominal pain women, abdominal pain men, vaginal bleeding, weakness, fever, dyspnea, syncope, headache, dizziness, GI bleed, back pain, seizure, CVA, palpatations, mental health, musculoskeletal)? @ -Differential Seizure: Recurrent seizure disorder, febrile seizure, alcohol withdrawal, stimulants, meningitis, encephalitis, intercranial hemorrhage, intracranial tumor, stroke, eclampsia, thyrotoxicosis, hypocalcemia, hyponatremia, hypernatremia, hypomagnesemia, psychogenic, this is not meant to be an all-inclusive list. EKG interpreted by me (3pts min.). @ -EKG at 1342 shows sinus rhythm rate 71, VA 159, QRS 97, QTQTc [id number] X-rays interpreted by me (1pt min.). @ -X-ray shows no acute process CT interpreted by me (1pt min.). @ -CT brain and C-spine shows no acute intracranial hemorrhage, no acute fracture CT facial bones shows no acute fracture U/S interpreted by me (1pt. min.). @ -None done What testing was considered but not performed or refused? (CT, X-rays, U/S, labs)? Why? @ -None What meds were considered but not given or refused? Why? @ -None Did you discuss the management of the patient with other professionals (professionals i.e. , PA, [employer]TER, lab, RT, psych nurse, protective services social worker, supervisor assembly room, teacher, risk control officer, caser)? Give summary @ -No Was smoking cessation discussed for >3mins.? @ -No Was critical care preformed (if so, how long)? @ -No Were there social determinants of health that impacted care today? How? (Homelessness, low income, unemployed, alcoholism, drug addiction, transportation, low edu. Level, literacy, decrease access to med. care, detention, rehab)? @ -No Was there de-escalation of care discussed even if they declined (Discuss DNR or withdrawal of care, Hospice)? DNR status @ -No What co-morbidities impacted this encounter? (DM, HTN, Smoking, COPD, CAD, Cancer, CVA, ARF, Chemo, Hep., AIDS, mental health diagnosis, sleep apnea, morbid obesity)? @ -None Was patient admitted / discharged? Hospital course, mention meds given and route, prescriptions, significant lab abnormalities, going to OR and other pertinent info. @ -Discharged. Patient presented to the emergency department for evaluation of head injury after a seizure. Patient has seizures about monthly. Patient also is developmentally delayed and overall poor historian. Father states that he heard the patient fall and went upstairs. He believes that this lasted about 2 minutes. On the initial evaluation, patient and post ictal state but alert and following commands. Laboratory studies obtained which were essentially unremarkable besides mild hyponatremia at 131. Patient was given a liter of normal saline. Chest x-ray was obtained which shows no acute infiltrate. CT brain and C-spine shows no acute intracranial hemorrhage, no acute fracture, no acute fractures of the facial bones. On reexamination, patient is acting as his typical self according to his parents. Patient is ambulating well and following commands. His wounds were cleaned with normal saline. Patient has had no further seizures while in the emergency department for around 3 hours. Patient will be discharged home. Patient stable at time of discharge. Case discussed with Dr. Figueroa Undiagnosed new problem with uncertain prognosis? @ -No Drug Therapy requiring intensive monitoring for toxicity (Heparin, Nitro, Insulin, Cardizem)? @ -No Were any procedures done? @ -No Diagnosis/symptom? @ -Seizure Acute, or Chronic, or Acute on Chronic? @ -acute Uncomplicated (without systemic symptoms) or Complicated (systemic symptoms)? @ -uncomplicated Side effects of treatment? @ -No Exacerbation, Progression, or Severe Exacerbation? @ -No Poses a threat to life or bodily function? How? (Chest pain, USA, ID, pneumonia, PE, COPD, DKA, ARF, appy, cholecystitis, CVA, Diverticulitis, Homicidal, Suicidal, threat to staff... and all critical care pts) @ -No - Lab Data Result diagrams: 09/17/23 13:01 09/17/23 13:01 Lab Results 09/17/23 09/17/23 09/17/23 Range/Units 13:01 13:01 13:01 WBC 8.9 (3.8-10.6) k/uL RBC 4.89 (4.30-5.90) m/uL Hgb 14.2 (13.0-17.5) gm/dL Hct 41.0 (39.0-53.0) % MCV 84.0 (80.0-100.0) fL MCH 29.1 (25.0-35.0) pg MCHC 34.7 (31.0-37.0) g/dL RDW 13.1 (11.5-15.5) % Plt Count 235 (150-450) k/uL MPV 9.8 Neutrophils % 83 % Lymphocytes % 9 % Monocytes % 6 % Eosinophils % 1 % Basophils % 0 % Neutrophils # 7.4 (1.3-7.7) k/uL Lymphocytes # 0.8 L (1.0-4.8) k/uL Monocytes # 0.5 (0-1.0) k/uL Eosinophils # 0.1 (0-0.7) k/uL Basophils # 0.0 (0-0.2) k/uL Sodium 131 L (137-145) mmol/L Potassium 4.5 (3.5-5.1) mmol/L Chloride 97 L (98-107) mmol/L Carbon Dioxide 23 (22-30) mmol/L Anion Gap 11 mmol/L BUN 6 L (9-20) mg/dL Creatinine 0.65 L (0.66-1.25) mg/dL Est GFR (CKD-EPI)AfAm >90 (>60 ml/min/1.73 sqM) Est GFR (CKD-EPI)NonAf >90 (>60 ml/min/1.73 sqM) Glucose 104 H (74-99) mg/dL Calcium 9.6 (8.4-10.2) mg/dL Magnesium 2.2 (1.6-2.3) mg/dL Total Bilirubin 0.4 (0.2-1.3) mg/dL AST 21 (17-59) U/L ALT 21 (4-49) U/L Alkaline Phosphatase 73 (38-126) U/L Total Protein 7.8 (6.3-8.2) g/dL Albumin 4.8 (3.5-5.0) g/dL Urine Color Colorless Urine Appearance Clear (Clear) Urine pH 7.0 (5.0-8.0) Ur Specific [place] 1.006 (1.001-1.035) Urine Protein Negative (Negative) Urine Glucose (UA) Negative (Negative) Urine Ketones Negative (Negative) Urine Blood Negative (Negative) Urine Nitrite Negative (Negative) Urine Bilirubin Negative (Negative) Urine Urobilinogen <2.0 (<2.0) mg/dL Ur Leukocyte Esterase Negative (Negative) Disposition Clinical Impression: Fall, Seizure Disposition: HOME SELF-CARE Condition: Stable Instructions (If sedation given, give patient instructions): Recurrent Seizures in Adults (ED) Additional Instructions: Please follow up with your primary care provider. Return to the emergency department for new or worsening symptoms. Is patient prescribed a controlled substance at d/c from ED?: No Referrals: Jorge Phillip DO [Primary Care Provider] - 1-2 days
[2023-09-17 15:27] LABS: Appearance,Urine Clear (Clear); Bilirubin,Urine Negative (Negative); Blood,Urine Negative (Negative); Color,Urine Colorless; Glucose,Urine (UA) Negative (Negative); Ketones,Urine Negative (Negative); Leukocyte Esterase,Urine Negative (Negative); Nitrite,Urine Negative (Negative); Protein,Urine Negative (Negative); Specific Gravity,Urine 1.006 (1.001-1.035); Urobilinogen,Urine <2.0 mg/dL (<2.0)
[2023-09-17 16:12] VITALS: BP 140/82; PULSE 86; RESP 20
== END 2023-09-17 16:03 | disposition home or self-care (01) ==
LOC: EC 12:15
DX: S00.81XA Abrasion of other part of head, initial encounter (principal); G40.909 Epilepsy, unspecified, not intractable, without status epilepticus; J45.909 Unspecified asthma, uncomplicated; Z91.010 Allergy to peanuts; Z88.8 Allergy status to other drugs, medicaments and biological substances; W10.9XXA Fall (on) (from) unspecified stairs and steps, initial encounter
CPT/HCPCS: 36415; 70450; 70486; 71046; 72125; 80053; 80175; 80183; 81003; 83735; 85025; 93005; 96360; 96361; 99285

== ENCOUNTER → 2024-01-26 | Outpatient (CLI) | payer BC, MEDICARE, OTHER ==
[2024-01-27 02:34] LABS: ALT 21 U/L (10-49); AST 20 U/L (14-35); Albumin 5.2 g/dL (3.8-4.9); Alkaline Phosphatase 65 U/L (41-126); Calcium 9.7 mg/dL (8.7-10.3); Carbon Dioxide 23.9 mmol/L (21.6-31.8); Chloride 94 mmol/L (96-109); Globulin 2.6 g/dL (1.6-3.3); Glucose 64 mg/dL (70-110); Potassium 4.3 mmol/L (3.5-5.5); Sodium 131 mmol/L (135-145); Total Bilirubin 0.3 mg/dL (0.3-1.2); Total Protein 7.8 g/dL (6.2-8.2)
[2024-01-27 02:42] LABS: HCT 37.5 % (39.6-50.0); HGB 12.6 g/dL (13.0-17.0); MCH 28.7 pg (27.0-32.0); MCHC 33.6 g/dL (32.0-37.0); MCV 85.4 FL (80.0-97.0); Mean Platelet Volume 12.3 FL (9.5-12.2); NRBC Per 100 WBC 0 X 10*3/uL (0.00-0.01); Platelet Count 244 X 10*3/uL (140-440); RBC 4.39 X 10*6/uL (4.40-5.60); RDW 12.6 % (11.5-14.5); WBC 6.63 X 10*3/uL (4.50-10.00)
[2024-01-27 14:16] LABS: Lamotrigine (Lamictal) 6.6 ug/mL (2.0-15.0)
== END | disposition home or self-care (01) ==
LOC: LABWHC1 15:01
PROVIDERS: ATTEND Student in an Organized Health Care Education/Training Program
DX: G40.814 Lennox-Gastaut syndrome, intractable, without status epilepticus (principal)
CPT/HCPCS: 36415; 80053; 80175; 80183; 80235; 85027

== ENCOUNTER → 2024-07-17 | Outpatient (CLI) | payer BC, MEDICARE, OTHER ==
[2024-07-17 19:23] LABS: Basophils # (A) 0.03 X 10*3/uL (0.00-0.10); Basophils % (A) 0.5 %; Eosinophils % (A) 1.6 %; HCT 39.5 % (39.6-50.0); HGB 13.5 g/dL (13.0-17.0); Lymphocytes # (A) 1.38 X 10*3/uL (0.90-5.00); Lymphocytes % (A) 22.4 %; MCH 28.2 pg (27.0-32.0); MCHC 34.2 g/dL (32.0-37.0); MCV 82.6 FL (80.0-97.0); Mean Platelet Volume 11.6 FL (9.5-12.2); Monocytes # (A) 0.45 X 10*3/uL (0.20-1.00); Monocytes % (A) 7.3 %; NRBC Per 100 WBC 0 X 10*3/uL (0.00-0.01); Neutrophils # (A) 4.18 X 10*3/uL (1.80-7.70); Neutrophils % (A) 67.7 %; Platelet Count 254 X 10*3/uL (140-440); RBC 4.78 X 10*6/uL (4.40-5.60); RDW 12.2 % (11.5-14.5); WBC 6.17 X 10*3/uL (4.50-10.00)
[2024-07-17 20:08] LABS: ALT 16 U/L (10-49); AST 17 U/L (14-35); Alkaline Phosphatase 67 U/L (41-126); BUN/Creat Ratio 5.57 Ratio (12.00-20.00); Blood Urea Nitrogen 3.9 mg/dL (9.0-27.0); Calcium 9.6 mg/dL (8.7-10.3); Carbon Dioxide 20.3 mmol/L (21.6-31.8); Chloride 95 mmol/L (96-109); Globulin 2.5 g/dL (1.6-3.3); Glucose 113 mg/dL (70-110); Magnesium 1.8 mg/dL (1.5-2.4); Sodium 130 mmol/L (135-145); Total Bilirubin 0.2 mg/dL (0.3-1.2); Total Protein 7.5 g/dL (6.2-8.2)
== END | disposition home or self-care (01) ==
LOC: LABWHC1 13:40
PROVIDERS: ATTEND Student in an Organized Health Care Education/Training Program
CPT/HCPCS: 36415; 80053; 82607; 83735; 84153; 84443; 85025